=== PATIENT | female | born 1960 | race African-American/Black ===

== ENCOUNTER 2017-01-24 13:27 | Inpatient (IN) ==
--- NOTE | 2017-01-24 15:04 | XRay Report ---
XR foot 2V RT Indication: Foot infection. Comparison: None. Technique: AP, lateral, and oblique images of the right foot were submitted. Findings: Absence of the distal right fourth metatarsal and toe and fracture deformities of the proximal phalanx of the right second toe and third toe are present with additional fracture involving the neck of the distal second metatarsal. Partially calcified soft tissue surrounding the articulation of the great toe metatarsal and cuneiform are of uncertain etiology. Healing fracture could be considered as there appears to be fracture involving the base of the great toe metatarsal. Diffuse soft tissue swelling is present involving the forefoot and midfoot. Impression: 1. Multiple fractures are demonstrated, involving the base of the great toe metatarsal, the distal second metatarsal, and proximal phalanx of the second and third toe. There may be partial callus formation involving the base of the great toe metatarsal. Osteomyelitis is not excluded. 2. Absence of the fourth toe and distal fourth metatarsal is demonstrated. 3. Diffuse soft tissue swelling is considered compatible with given history of infection. 01/24/2017 2:59 PM PROCEDURE INTERPRETED AT [facility] DEPARTMENT OF RADIOLOGY Final Report Signed by: Dr. Kingston Aflred
[2017-01-24 15:40] LABS: Basophils % 0.2 % (0.0-0.8); Eosinophils % 0.3 % (0.00-10.9); Hematocrit 36.8 VOL% (35.7-47.0); Hemoglobin 12.4 GM/DL (12.0-16.0); Immature Granulocytes % 0.4 %; Immature Granulocytes Absolute 0.04 #; Lymphocytes # 0.9 10*3/uL (1.4-4.0); Lymphocytes % 8.2 % (21.3-54.2); Mean Corpuscular HGB Conc 33.7 GM/DL (32-36); Mean Corpuscular Hemoglobin 33 PG (27-34); Mean Corpuscular Volume 96.6 FL (87-102); Monocytes # 0.7 10*3/uL (0.11-0.8); Monocytes % 6.7 % (1.7-12.7); Neutrophils # 8.9 10*3/uL (1.4-7.4); Neutrophils % 84.2 % (38.7-73.9); Platelet Count 138 T/CUMM (130-400); Red Blood Count 3.81 MC/CUMM (3.8-5.5); Red Cell Distribution Width 12.3 % (9.3-17.3); White Blood Count 10.6 T/CUMM (4-12)
[2017-01-24 16:08] LABS: Calcium 8.4 MG/DL (8.5-10.1); Magnesium 1.4 MG/DL (1.8-2.4); Osmolality,Calculated 278.5 MOS/KG (273-304); Potassium 4.9 MMOL/L (3.5-5.1)
[2017-01-24] MEDS ORDERED: GLUCAGON 1 MG VIAL IM PRN (16:37)
[2017-01-24] MEDS ORDERED: HYDROmorphone 2 MG/1 ML VIAL IV PRN (16:37)
[2017-01-24] MEDS ORDERED: ACETAMINOPHEN 325 MG TABLET PO PRN (16:37)
[2017-01-24] MEDS ORDERED: ONDANSETRON 4 MG/2 ML VIAL IV PRN (16:37)
[2017-01-24] MEDS ORDERED: DEXTROSE 50% 25 GM/50 ML SYRINGE IV PRN (16:37)
[2017-01-24] MEDS ORDERED: SKIN HEALING OINT (AQUAPHOR) 50 GM TUBE TOP PRN (16:44)
[2017-01-24] MEDS ORDERED: CHLORHEXIDINE 4% SOLN 118 ML BOTTLE TOP ONE (16:44)
--- NOTE | 2017-01-24 16:50 | General Surg History&Physical ---
Assessment and Plan - Time spent with patient Time spent with patient: Greater than 30 minutes (1) Laceration of third toe of right foot with complication Status: Acute Assessment and plan: Impression: Laceration third toe with cellulitis Plan: IV antibiotics and wound care with possible suture closure first of the week Current Visit: Yes (2) Traumatic ecchymosis of right foot Status: Acute Assessment and plan: Impression: Trauma right foot with fracture dislocation second third toe Plan: Wound care Current Visit: Yes (3) Cellulitis of foot, right Status: Acute Assessment and plan: Impression: Cellulitis right foot secondary laceration toe Plan: IV antibiotic Current Visit: Yes (4) Diabetes Status: Acute Assessment and plan: Impression: Diabetes type 2 Plan: Glucose control Current Visit: No Qualifiers: Diabetes mellitus type: type 2 History of Present Illness Chief complaint: Traumatic injury to the right foot with cellulitis History of present illness: Ms. Reynolds is a 56 year old female -[place] female who is diabetic and somewhat overweight with somewhat of neuropathy in the lower extremities. I had seen her in the past for breast cyst that we had removed with no evidence of cancer present. She apparently 4 days ago sustained an injury to the right foot about the toes at this time. She comes in because a low-grade fever and evidence of swelling and erythematous changes on the dorsum of the foot at the base of the second and third toe. Underneath the toe is evidence of a laceration of the underside of the toe that is not clean at this time probably the source of the infection. Will admit her for some wound care as well as antibiotics get this under control maybe we can take her surgery first of the week for possible closure of that laceration. Home Medications Medication Instructions Recorded Confirmed Type levETIRAcetam TAB [Keppra Tab] 500 mg PO TID 11/15/14 01/24/17 History Gabapentin Cap/Tab [Neurontin 300 mg PO BID #60 capsule 12/07/14 01/24/17 Rx Cap/Tab] Benztropine Tab [Cogentin Tab] 0.5 mg PO TID 03/03/16 01/24/17 History Venlafaxine HCl [Effexor XR] 150 mg PO DAILY 03/13/16 01/24/17 History Carbidopa/Levodopa 1 each PO QID 04/09/16 01/24/17 History [Carbidopa-Levodopa 25-250 Tab] Travoprost 0.004% Oph Soln 1 drop BOTH EYES BEDTIME 04/09/16 01/24/17 History [Travatan Z] Carvedilol [Coreg] 25 mg PO BID tablet 06/14/16 01/24/17 Rx amLODIPine [Norvasc] 10 mg PO DAILY tablet 06/14/16 01/24/17 Rx Tolterodine LA [Detrol LA] 4 mg PO DAILY 10/31/16 01/24/17 History HYDROcodone/ACETAMIN 10-325 [[place] 1 tablet PO TID 01/24/17 01/24/17 History 10-325] Haloperidol [Haloperidol] 10 mg PO BID 01/24/17 01/24/17 History Insulin Aspart [NovoLOG] 10 unit SUBCUT ACHS 01/24/17 01/24/17 History hydrALAZINE TAB [Apresoline Tab] 25 mg PO TID 01/24/17 01/24/17 History Allergies Allergy/AdvReac Type Severity Reaction Status Date / Time No Known Allergies Allergy Verified 11/02/16 18:43 Medical,Surgical,& Family Hx - Medical History Cardio: History of: CHF (DR MARTINEZ), CAD, Hypertension No history of: Aneurysm, Cardiac Dysrhythmia, Cerebrovascular Disease, Congenital Heart Disease, [place], Pacemaker, PVD, Valvular Heart Disease, Cardiovascular Problems Psychological: History of: Depression, Schizophrenia, Psychiatric Problems No history of: Anxiety Disorders, ADHD, Behavior Problems, Bipolar Disorder, Previous Suicide Attempt, Psychiatric/Substance Abuse Tx, Violent Behavior Neurology: History of: Cerebrovascular Accident (Early WEAKNESS LEFT SIDE ), Migraine, Parkinson's Disease No history of: Brain Aneurysm, Cerebral Hemorrhage, Cerebral Palsy, Dementia , Multiple Sclerosis, Peripheral Neuropathy, Seizures, TIA, Vertigo, Neurologocal Cancer HEENT: History of: Ear Problem (Hearing loss left ear), Eye Problem (Cataracts) , Glaucoma No history of: Dental Problems, Oral Cancer, HEENT Problems Endocrine: History of: Diabetes Mellitus (IDDM), Endocrine Problems (Diabetes) No history of: Adrenal Disease, Diabetes Mellitus (NIDDM), Dyslipidemia, Thyroid Disorder, Endocrine Cancer Rheumatology: No history of;: Fibromyalgia, Gout, Myasthenia Gravis, Psoriasis, Rheumatoid Arthritis, Sjogrens, Systemic Lupus Erythematosus, Rheumatological Problems Respiratory: History of: Asthma, Bronchitis, COPD, Obstructive Sleep Apnea ( DOES NOT USE CPAP), Respiratory Problems No history of: Intubation, Pulmonary Embolism, Pulmonary Hypertension, Pneumonia, Lung Cancer Renal: History of: Renal Failure (Stage III - Not on dialysis - Dr. Marc KNIGHT), Renal Problems No history of: Renal (Kidney) Cancer, Dialysis Genitourinary: History of: Bladder Problem (OVERACTIVE), Kidney Stones, Problems (Urinary incontinence) No history of: Recurring Urinary Tract Infections, Genitourinary Cancer Gastrointestinal: History of: GERD No history of: Bowel Obstruction, Clostridium Difficile, Crohn's Disease, Diverticulitis/ Diverticulosis, Esophageal Varices, Gastrointestinal Bleed, Hemorrhoids, Hematochezia, Hepatitis, Liver Problems, Pancreatitis, Polyps, Ulcerative Colitis, Gastrointestinal Cancer, GI Problems Musculoskeletal: History of: Amputation (4th toe Rt foot), Back/Neck Problems, Degenerative Disk Disease, Osteoporosis, Musculoskeletal Problems (Arthritis) No history of: Herniated Disk, Musculoskeletal Cancer Hematology: History of: Anemia No history of: Blood Transfusion Reaction, Bleeding Problems, Clotting Problems, Sickle Cell Disease, Hematologic Cancer, Blood Disorders Reproductive: History of: Sexually Transmitted Disorders (Gonnorhea) No history of: Abnormal Pap Smear, Breast Cancer, Endometriosis, Ectopic , Ovarian Cysts, Complication, Reproductive Cancer, Reproductive Problems Other: No history of: Anesthesia Reactions, Anaphylaxis, Cancer, Eczema, HIV, Malignant Hyperthermia, MRSA, Vancomycin-Resistant Enterococci, Skin Problems, Miscellaneous Medical Problems - Surgical History Cardiac Surgeries: Sugical HX of: Vascular Access Devices (Mediport on RT side of chest HARD TO STICK) Patient Denies: Femoral-Popliteal Bypass Graft, Cardiac Catheterization, Cardiac Surgery, Carotid Endarterectomy, Internal Defibrillator Thoracic Surgeries: Patient denies;: Kidney (Renal Surgery), Lithotripsy, Nephrectomy, Organ Transplant, Lobectomy Neurologic Surgeries: Patient denies: Brain Aneurysm, Cerebral Hemorrhage, Neurologic Surgery HEENT Surgeries: Surgical HX of: Eye Surgery (Cataract removed bilaterally) Patient denies: Carotid Endarterectomy, Thyroid Surgery, Tonsilectomy & Adenoidectomy Abdominal Surgeries: Surgical HX of: Abdominal Surgery, Colonoscopy, EGD Patient denies: Appendectomy, Cholecystectomy, Gastric Bypass Surgery, Hernia Repair, Splenectomy Reproductive Surgeries: Surgical HX of;: Breast Surgery (Bilateral breast reduction), Gynecologic Surgery (Complete hysterectomy), Hysterectomy, Tubal Ligation Patient denies;: Section, Cystoscopy, Dilation and Curettage, Genitourinary Surgery Orthopedic Surgeries: Surgical HX of;: Orthopedic Surgery (NECK AND BACK), Spinal Surgery Patient denies;: Implanted Devices, Total Hip Replacement, Total Knee Replacement - Family History Family History: Reports;: Family Cancer (Father, Mother), Family Diabetes ( Mother, G'mother), Family Heart Disease (Father), Family Hypertension (G'mother , Father), Family Stroke (Family; Brother) Denies;: Family Anesthesia Reaction, Family Psychiatric Problems - Social History Smoking Status: Former smoker Exam - Constitutional Vitals: Period Temp Pulse Resp BP Sys/Quintanilla Pulse Ox Last 24 Hr 97.0 F 100 20 157/88 99 General appearance: mild distress - Head Head exam: Present: normal inspection - ENT ENT exam: Present: normal exam - Neck Neck exam: Present: normal inspection - Respiratory Respiratory exam: Present: rales - Cardiovascular Cardiovascular exam: Present: RRR - GI/Abdominal GI/Abdominal exam: Present: normal bowel sounds, soft - Extremities Exam Extremities exam: Present: other (The right foot is swollen with erythematous changes on the dorsum of the foot at the base of the second and third toes. There is a laceration on the underside of the third toe with some old blood present there. Fourth toe has been amputated in the past.) - Back Exam Back exam: Present: normal inspection - Neurological Exam Neurological exam: Present: alert, oriented X3, CN II-XII intact - Skin Skin exam: Present: normal color, warm, dry 12 point system: reviewed and no additional remarkable complaints except as stated Results - Labs CBC & BMP: 01/24/17 15:31 01/24/17 15:31 Lab Results: I have reviewed the past 24 hour labs - Diagnostic Findings Procedure: X-ray: report reviewed by me (Fracture dislocation second and third toe)
--- NOTE | 2017-01-24 17:18 | Emergency Department Note ---
Sawyer Mclaughlin Brittany, am scribing for, and in the presence of, Maximiliano Palacios M.D. 14:16. Suzanne Mclaughlin Howard T, M.D., personally performed the services described in this documentation, ascribed by Princess Jacques in my presence, and it is both accurate and complete 717 . Arrival - Arrival Chief Complaint: Extremity Injury Stated Complaint: diabetic,toes cut ED Nursing Triage Note: Pt c/o cut to her 3rd right toe occurred 3 days ago with discoloration of the distal toe. Mode of Arrival: Wheelchair Limitations: No Limitations Source: Patient, RN Notes Reviewed Time Seen by Provider: 01/24/17 13:31 - History of Present Illness HPI Narrative: Patient is a 56 y/o black female presenting to [facility] with c/o laceration of the third right toe that occurred 3 days ago. Patient reports that since sustaining laceration 3 days ago, she has now developed some discoloration of the distal aspect of the right third toe. Denies having any fever/chills or nausea/ vomiting. She reports that blood glucose levels have been a little elevated at times, but most often low in the mornings with which she states she's been told by PCP to eat more at night. Patient does have a history of IDDM and has required amputation of the fourth R toe in the past. Patient reports ast amputation was performed by Dr. Stefano GIORDANO. PMHx CHF, CAD, HTN, Depression, Schizophrenia, CVA, Migraine, Parkinson's Dz, Glaucoma, IDDM, Overactive Bladder , Kidney Stones, 4th Right Toe Amputation, Osteoporosis, Degenerative Disk Dz. Onset (ago): day(s) (3) Consistency: constant Allergies/Adverse Reactions: Allergies Allergy/AdvReac Type Severity Reaction Status Date / Time No Known Allergies Allergy Verified 11/02/16 18:43 Home Medications: Home Medications Medication Instructions Recorded Confirmed Type levETIRAcetam TAB [Keppra Tab] 500 mg PO TID 11/15/14 01/24/17 History Gabapentin Cap/Tab [Neurontin 300 mg PO BID #60 capsule 12/07/14 01/24/17 Rx Cap/Tab] Benztropine Tab [Cogentin Tab] 0.5 mg PO TID 03/03/16 01/24/17 History Venlafaxine HCl [Effexor XR] 150 mg PO DAILY 03/13/16 01/24/17 History Carbidopa/Levodopa 1 each PO QID 04/09/16 01/24/17 History [Carbidopa-Levodopa 25-250 Tab] Travoprost 0.004% Oph Soln 1 drop BOTH EYES BEDTIME 04/09/16 01/24/17 History [Travatan Z] Carvedilol [Coreg] 25 mg PO BID tablet 06/14/16 01/24/17 Rx amLODIPine [Norvasc] 10 mg PO DAILY tablet 06/14/16 01/24/17 Rx Tolterodine LA [Detrol LA] 4 mg PO DAILY 10/31/16 01/24/17 History HYDROcodone/ACETAMIN 10-325 [[place] 1 tablet PO TID 01/24/17 01/24/17 History 10-325] Haloperidol [Haloperidol] 10 mg PO BID 01/24/17 01/24/17 History Insulin Aspart [NovoLOG] 10 unit SUBCUT ACHS 01/24/17 01/24/17 History hydrALAZINE TAB [Apresoline Tab] 25 mg PO TID 01/24/17 01/24/17 History Review of System - Review of System 12 point system: reviewed and no additional remarkable complaints except as stated - Review of System Constitutional: Absent: chills, fever Eyes: Absent: vision change Respiratory: Absent: respiratory distress Cardiovascular: Absent: chest pain Gastrointestinal: Absent: abdominal pain, nausea Musculoskeletal: Absent: arm pain, back pain, leg pain, neck pain Skin: Present: change in color (third right toe discoloration) Medical,Surgical,& Family Hx - Medical History Cardio: History of: CHF (DR MARTINEZ), CAD, Hypertension No history of: Aneurysm, Cardiac Dysrhythmia, Cerebrovascular Disease, Congenital Heart Disease, [place], Pacemaker, PVD, Valvular Heart Disease, Cardiovascular Problems Psychological: History of: Depression, Schizophrenia, Psychiatric Problems No history of: Anxiety Disorders, ADHD, Behavior Problems, Bipolar Disorder, Previous Suicide Attempt, Psychiatric/Substance Abuse Tx, Violent Behavior Neurology: History of: Cerebrovascular Accident (Early WEAKNESS LEFT SIDE ), Migraine, Parkinson's Disease No history of: Brain Aneurysm, Cerebral Hemorrhage, Cerebral Palsy, Dementia , Multiple Sclerosis, Peripheral Neuropathy, Seizures, TIA, Vertigo, Neurologocal Cancer HEENT: History of: Ear Problem (Hearing loss left ear), Eye Problem (Cataracts) , Glaucoma No history of: Dental Problems, Oral Cancer, HEENT Problems Endocrine: History of: Diabetes Mellitus (IDDM), Endocrine Problems (Diabetes) No history of: Adrenal Disease, Diabetes Mellitus (NIDDM), Dyslipidemia, Thyroid Disorder, Endocrine Cancer Rheumatology: No history of;: Fibromyalgia, Gout, Myasthenia Gravis, Psoriasis, Rheumatoid Arthritis, Sjogrens, Systemic Lupus Erythematosus, Rheumatological Problems Respiratory: History of: Asthma, Bronchitis, COPD, Obstructive Sleep Apnea ( DOES NOT USE CPAP), Respiratory Problems No history of: Intubation, Pulmonary Embolism, Pulmonary Hypertension, Pneumonia, Lung Cancer Renal: History of: Renal Failure (Stage III - Not on dialysis - Dr. Marc KNIGHT), Renal Problems No history of: Renal (Kidney) Cancer, Dialysis Genitourinary: History of: Bladder Problem (OVERACTIVE), Kidney Stones, Problems (Urinary incontinence) No history of: Recurring Urinary Tract Infections, Genitourinary Cancer Gastrointestinal: History of: GERD No history of: Bowel Obstruction, Clostridium Difficile, Crohn's Disease, Diverticulitis/ Diverticulosis, Esophageal Varices, Gastrointestinal Bleed, Hemorrhoids, Hematochezia, Hepatitis, Liver Problems, Pancreatitis, Polyps, Ulcerative Colitis, Gastrointestinal Cancer, GI Problems Musculoskeletal: History of: Amputation (4th toe Rt foot), Back/Neck Problems, Degenerative Disk Disease, Osteoporosis, Musculoskeletal Problems (Arthritis) No history of: Herniated Disk, Musculoskeletal Cancer Hematology: History of: Anemia No history of: Blood Transfusion Reaction, Bleeding Problems, Clotting Problems, Sickle Cell Disease, Hematologic Cancer, Blood Disorders Reproductive: History of: Sexually Transmitted Disorders (Gonnorhea) No history of: Abnormal Pap Smear, Breast Cancer, Endometriosis, Ectopic , Ovarian Cysts, Complication, Reproductive Cancer, Reproductive Problems Other: No history of: Anesthesia Reactions, Anaphylaxis, Cancer, Eczema, HIV, Malignant Hyperthermia, MRSA, Vancomycin-Resistant Enterococci, Skin Problems, Miscellaneous Medical Problems - Surgical History Cardiac Surgeries: Sugical HX of: Vascular Access Devices (Mediport on RT side of chest HARD TO STICK) Patient Denies: Femoral-Popliteal Bypass Graft, Cardiac Catheterization, Cardiac Surgery, Carotid Endarterectomy, Internal Defibrillator Thoracic Surgeries: Patient denies;: Kidney (Renal Surgery), Lithotripsy, Nephrectomy, Organ Transplant, Lobectomy Neurologic Surgeries: Patient denies: Brain Aneurysm, Cerebral Hemorrhage, Neurologic Surgery HEENT Surgeries: Surgical HX of: Eye Surgery (Cataract removed bilaterally) Patient denies: Carotid Endarterectomy, Thyroid Surgery, Tonsilectomy & Adenoidectomy Abdominal Surgeries: Surgical HX of: Abdominal Surgery, Colonoscopy, EGD Patient denies: Appendectomy, Cholecystectomy, Gastric Bypass Surgery, Hernia Repair, Splenectomy Reproductive Surgeries: Surgical HX of;: Breast Surgery (Bilateral breast reduction), Gynecologic Surgery (Complete hysterectomy), Hysterectomy, Tubal Ligation Patient denies;: Section, Cystoscopy, Dilation and Curettage, Genitourinary Surgery Orthopedic Surgeries: Surgical HX of;: Orthopedic Surgery (NECK AND BACK), Spinal Surgery Patient denies;: Implanted Devices, Total Hip Replacement, Total Knee Replacement - Family History Family History: Reports;: Family Cancer (Father, Mother), Family Diabetes ( Mother, G'mother), Family Heart Disease (Father), Family Hypertension (G'mother , Father), Family Stroke (Family; Brother) Denies;: Family Anesthesia Reaction, Family Psychiatric Problems - Social History Smoking Status: Former smoker Exam Vital Signs: Vital Signs Temperature 97.0 F L 01/24/17 13:29 Pulse Rate 100 H 01/24/17 13:29 Respiratory Rate 20 01/24/17 13:29 Blood Pressure 157/88 01/24/17 13:29 O2 Sat by Pulse Oximetry 99 01/24/17 13:29 - General General appearance: alert, in no apparent distress - Head Head exam: Present: atraumatic, normocephalic, normal inspection - Eye Eye exam: Present: normal appearance, PERRL, EOMI - ENT ENT exam: Present: normal exam, normal oropharynx - Neck Neck exam: Present: normal inspection, full ROM, trachea midline - Chest Chest inspection: Present: normal inspection, symmetric chest wall rise - Respiratory Respiratory exam: Present: normal lung sounds bilaterally - Cardiovascular Cardiovascular exam: Present: regular rate, normal rhythm, normal heart sounds - Abdominal Exam Abdominal exam: Present: soft, normal bowel sounds. Absent: tenderness - Extremities Exam Extremities exam: Present: full ROM - Expanded Lower Right Lower Foot/toe exam: Present: full ROM, swelling, laceration (old laceration to the plantar aspect of the third toe), erythema, amputation (previous right fourth toe amputation). Absent: normal inspection (hard to touch; distal aspect of the third toe is necrotic appearing), tenderness - Back Exam Back exam: Present: normal inspection - Neurological Exam Neurological exam: Present: alert, oriented X3, CN II-XII intact. Absent: motor sensory deficit - Psychiatric Psychiatric exam: Present: normal affect, normal mood - Skin Skin exam: Present: warm, dry Course Course Narrative: Medical decision making: History exam consistent with infection, evaluated by general surgeon for admission for antibiotics and possible surgical debridement. Results - Labs CBC & BMP: 01/24/17 15:31 01/24/17 15:31 Lab Results: I have reviewed the patients labs Labs: Laboratory Tests 01/24/17 15:31 WBC 10.6 RBC 3.81 Hgb 12.4 Hct 36.8 Plt Count 138 Neut % (Auto) 84.2 H Lymph % (Auto) 8.2 L Neut # (Auto) 8.9 H Lymph # (Auto) 0.9 L Laboratory Tests 01/24/17 15:31 Lactic Acid 0.7 Laboratory Tests 01/24/17 15:31 Sodium 132 L Potassium 4.9 Chloride 103 Carbon Dioxide 21 Anion Gap 12.9 BUN 36 H Creatinine 2.80 H BUN/Creatinine Ratio 12.00 Glucose 217 H Calcium 8.4 L Magnesium 1.4 L - Diagnostic Findings Procedure: X-ray: report reviewed by me (Foot XR: 1. Multiple fractures are demonstrated, involving the base of the great toe metatarsal, the distal second metatarsal, and proximal phalanx of the second and third toe. There may be partial callus formation involving the base of the great toe metatarsal. Osteomyelitis is not excluded. 2. Absence of the fourth toe and distal fourth metatarsal is demonstrated. 3. Diffuse soft tissue swelling is considered compatible with given history of infection.) Disposition Clinical Impression: Laceration of third toe of right foot with complication, Cellulitis of foot, right, Traumatic ecchymosis of right foot Case discussed with: patient Disposition: Still a Patient Condition: Stable Time of Disposition: 17:18
--- NOTE | 2017-01-24 17:59 | EKG Report ---
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
[2017-01-24] MEDS: CARBIDOPA/LEVODOPA 25-250 MG TABLET PO SCH ×2 (20:08→20:43)
[2017-01-24] MEDS: TRAVOPROST 0.004% OPH SOLN 2.5 ML BOTTLE BOTH EYES SCH (20:43)
[2017-01-24] MEDS: INSULIN LISPRO 100 UNIT/ML SUBCUT SCH (20:43)
[2017-01-24] MEDS: BENZTROPINE 0.5 MG TABLET PO SCH (20:43)
[2017-01-24] MEDS: levETIRAcetam 500 MG TABLET PO SCH (20:43)
[2017-01-24] MEDS: hydrALAZINE 25 MG TABLET PO SCH (20:43)
[2017-01-24] MEDS: GABAPENTIN 300 MG CAPSULE PO SCH (20:43)
[2017-01-24] MEDS: DOCUSATE SODIUM 100 MG CAPSULE PO SCH (20:43)
[2017-01-24] MEDS: SODIUM CHLORIDE 0.45% 1,000 ML IV SCH (20:44)
[2017-01-24] MEDS: PIPERACILLIN/TAZOBACTAM 3,375 MG in SODIUM CHLORIDE 0.9% 100 ML IV SCH (20:44)
[2017-01-24] MEDS: HALOPERIDOL 5 MG TABLET PO SCH (20:46)
[2017-01-24] MEDS: CARVEDILOL 25 MG TABLET PO SCH (20:46)
[2017-01-24] MEDS: INSULIN REGULAR 100 UNIT/ML SUBCUT SCH (20:47)
[2017-01-25] MEDS: PIPERACILLIN/TAZOBACTAM 3,375 MG in SODIUM CHLORIDE 0.9% 100 ML IV SCH ×3 (04:47→20:51)
[2017-01-25 06:29] LABS: Albumin 2.1 G/DL (3.4-5.0); Bilirubin,Total 0.8 MG/DL (0.2-1.0); Magnesium 1.5 MG/DL (1.8-2.4); Osmolality,Calculated 280.2 MOS/KG (273-304); Potassium 4.9 MMOL/L (3.5-5.1); Total Protein 6.1 G/DL (6.4-8.3)
[2017-01-25 07:12] LABS: Basophils % 0.1 % (0.0-0.8); Eosinophils # 0.1 10*3/uL (0.0-0.87); Eosinophils % 0.6 % (0.00-10.9); Immature Granulocytes % 0.4 %; Immature Granulocytes Absolute 0.06 #; Lymphocytes # 1.9 10*3/uL (1.4-4.0); Lymphocytes % 13.3 % (21.3-54.2); Mean Corpuscular Hemoglobin 33 PG (27-34); Mean Corpuscular Volume 99.1 FL (87-102); Mean Platelet Volume 11.1 FL (9.6-12.0); Monocytes # 1.1 10*3/uL (0.11-0.8); Monocytes % 7.7 % (1.7-12.7); Neutrophils # 10.9 10*3/uL (1.4-7.4); Neutrophils % 77.9 % (38.7-73.9); Platelet Count 194 T/CUMM (130-400); Red Blood Count 2.32 MC/CUMM (3.8-5.5); Red Cell Distribution Width 12.4 % (9.3-17.3)
[2017-01-25 07:14] LABS: Hemoglobin 7.6 GM/DL (12.0-16.0)
[2017-01-25 07:54] LABS: Basophils % 0.1 % (0.0-0.8); Eosinophils # 0.1 10*3/uL (0.0-0.87); Eosinophils % 0.5 % (0.00-10.9); Hematocrit 22.4 VOL% (35.7-47.0); Immature Granulocytes % 0.6 %; Immature Granulocytes Absolute 0.09 #; Lymphocytes # 1.9 10*3/uL (1.4-4.0); Lymphocytes % 13.3 % (21.3-54.2); Mean Corpuscular HGB Conc 33.5 GM/DL (32-36); Mean Corpuscular Hemoglobin 33 PG (27-34); Mean Corpuscular Volume 98.2 FL (87-102); Mean Platelet Volume 10.9 FL (9.6-12.0); Monocytes # 1.1 10*3/uL (0.11-0.8); Monocytes % 7.7 % (1.7-12.7); Neutrophils # 10.9 10*3/uL (1.4-7.4); Neutrophils % 77.8 % (38.7-73.9); Platelet Count 186 T/CUMM (130-400); Red Blood Count 2.28 MC/CUMM (3.8-5.5); Red Cell Distribution Width 12.2 % (9.3-17.3)
[2017-01-25 07:57] LABS: Hemoglobin 7.5 GM/DL (12.0-16.0)
[2017-01-25] MEDS ORDERED: ENOXAPARIN 30 MG/0.3 ML SYRINGE SUBCUT SCH (09:00)
[2017-01-25] MEDS ORDERED: SODIUM CHLORIDE 0.9% 250 ML IV PRN (09:14)
--- NOTE | 2017-01-25 09:20 | XRay Report ---
Exam: XR chest 1V portable Date: 01/25/2017 4:00 AM Indication: Cellulitis of foot Comparison: 11/02/2016 Technical: AP Findings: Cardiomegaly is present. A power port catheter is in place from a right-sided approach with the distal tip in superior vena cava. 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 Mild interstitial thickening present. Arthritic change present over the shoulders. No obvious consolidating infiltrate or obvious effusion present. ASVD is present. Impression: 1. Cardiomegaly without decompensation 2. Stable position of the PowerPort catheter and surgical changes in the neck 3. No acute infiltrate clearly seen with some crowding of the pulmonary vasculature mid inspiratory exam without effusions PROCEDURE INTERPRETED AT [facility] DEPARTMENT OF RADIOLOGY Final Report Signed by: Dr. Miguel Blair
--- NOTE | 2017-01-25 09:20 | General Surgery Progress Note ---
Assessment and Plan (1) Laceration of third toe of right foot with complication Status: Acute Assessment and plan: Impression: Laceration third toe with cellulitis Plan: IV antibiotics and wound care with possible suture closure first of the week 01/25/2017. The toe looks stable at this time I am hoping I can pull it together although I am not sure. I think erythematous changes of got better and will continue wound care to get her set up for some surgery on Saturday to debride this toe see if there is any way that can be safely pulled together and closed. Current Visit: Yes (2) Traumatic ecchymosis of right foot Status: Acute Assessment and plan: Impression: Trauma right foot with fracture dislocation second third toe Plan: Wound care Current Visit: Yes (3) Cellulitis of foot, right Status: Acute Assessment and plan: Impression: Cellulitis right foot secondary laceration toe Plan: IV antibiotic 01/25/2017. Improved Current Visit: Yes (4) Diabetes Status: Acute Assessment and plan: Impression: Diabetes type 2 Plan: Glucose control Current Visit: No Qualifiers: Diabetes mellitus type: type 2 (5) Renal insufficiency Status: Acute Assessment and plan: 01/25/2017. Patient has some degree of renal insufficiency with initial creatinine of 2.7 and now this morning is 3.4. Will get neurology look and be sure that we are not missing anything to see if there is you have the way to reverse some of this. Current Visit: Yes (6) Anemia Status: Acute Current Visit: Yes (7) Anemia Status: Acute Assessment and plan: 01/25/2017. Today hematocrit dropped down to 23 from admission of 36. We had a repeated and remains a 23. There is no sign of any bleeding this wound is so small that she did not bleed significantly amount and the dressings showed no bleeding on. She does have some renal insufficiency but are not I can explain everything at this time. That is a dramatic drop and change in this hematocrit. We will go ahead and transfuse her at this time and get some studies to see if we determine what this anemia is all about. Cannot say or find anything to indicate any acute blood loss. Current Visit: No Subjective Patient reports: Present: no new complaints, afebrile Exam - Constitutional Vitals: Period Temp Pulse Resp BP Sys/Quintanilla Pulse Ox Last 24 Hr 96.7 F-99.9 F 81-103 18-20 123-184/67-98 90-99 General appearance: mild distress - Head Head exam: Present: normal inspection - ENT ENT exam: Present: normal exam - Neck Neck exam: Present: normal inspection - Respiratory Respiratory exam: Present: clear to auscultation bilaterally, rales - Cardiovascular Cardiovascular exam: Present: RRR - GI/Abdominal GI/Abdominal exam: Present: hypoactive bowel sounds, soft - Extremities Exam Extremities exam: Present: other (Erythematous changes base of the toes on the right is better as a wound under the third toe that still needs a little more wound care to clean it up a little bit at this time. No ischemic changes or progressive worsening of the foot at this time.) - Back Exam Back exam: Present: normal inspection - Neurological Exam Neurological exam: Present: alert, oriented X3, CN II-XII intact - Skin Skin exam: Present: normal color, warm, dry Results - Labs CBC & BMP: 01/25/17 07:40 01/25/17 05:00 Lab Results: I have reviewed the past 24 hour labs
[2017-01-25 09:31] LABS: % Iron Saturation 9.2 % (18-50)
[2017-01-25] MEDS: BENZTROPINE 0.5 MG TABLET PO SCH ×3 (10:10→20:52)
[2017-01-25] MEDS: GABAPENTIN 300 MG CAPSULE PO SCH ×2 (10:10→20:52)
[2017-01-25] MEDS: PANTOPRAZOLE 40 MG TABLET PO SCH (10:11)
[2017-01-25] MEDS: levETIRAcetam 500 MG TABLET PO SCH ×3 (10:11→20:52)
[2017-01-25] MEDS: BISACODYL 5 MG TABLET PO PRN (10:12)
[2017-01-25] MEDS: TOLTERODINE LA 4 MG CAPSULE PO SCH (10:12)
[2017-01-25] MEDS: BACITRACIN OINT 0.9 GM PACK TOP SCH (10:12)
[2017-01-25] MEDS: CARBIDOPA/LEVODOPA 25-250 MG TABLET PO SCH ×4 (10:13→20:52)
[2017-01-25] MEDS: amLODIPine 10 MG TABLET PO SCH (10:13)
[2017-01-25] MEDS: DOCUSATE SODIUM 100 MG CAPSULE PO SCH ×2 (10:13→20:52)
[2017-01-25] MEDS: CARVEDILOL 25 MG TABLET PO SCH ×2 (10:13→17:13)
[2017-01-25] MEDS: INSULIN LISPRO 100 UNIT/ML SUBCUT SCH ×4 (10:14→21:30)
[2017-01-25] MEDS: INSULIN REGULAR 100 UNIT/ML SUBCUT SCH ×4 (10:14→20:59)
[2017-01-25] MEDS: HALOPERIDOL 5 MG TABLET PO SCH ×2 (10:16→20:55)
[2017-01-25] MEDS: VENLAFAXINE XR 75 MG CAPSULE PO SCH (10:16)
[2017-01-25] MEDS: hydrALAZINE 25 MG TABLET PO SCH ×3 (10:16→20:52)
[2017-01-25 10:52] LABS: Folate 11.1 NG/ML (5.4-24.0)
[2017-01-25] MEDS: SODIUM CHLORIDE 0.45% 1,000 ML IV SCH (12:30)
[2017-01-25] MEDS ORDERED: TUBERCULIN SKIN TEST 0.1 ML SYRINGE INTRADERM ONE (12:49)
--- NOTE | 2017-01-25 14:21 | Nephrology Consult Note ---
History of Present Illness Chief complaint: Pt admitted for right foot fx. Referred for elevated creatinine. History of present illness: Ms. Reynolds is a 56 year old female with long hx of CKD stage 4 with creatinine 2.6 in 2013. 3.2 today. Longstanding HTN/DM2. Hx of schizophrenia recently hospitalized in [facility]. Admitted s/p trauma to right foot, plain film revealing fxs of 1st, 2nd and 3rd toes on right. eGFR 24cc/min currently, CKD stage 4. Elevated total globulins, rule out myeloma. Home Medications Medication Instructions Recorded Confirmed Type levETIRAcetam TAB [Keppra Tab] 500 mg PO TID 11/15/14 01/24/17 History Gabapentin Cap/Tab [Neurontin 300 mg PO BID #60 capsule 12/07/14 01/24/17 Rx Cap/Tab] Benztropine Tab [Cogentin Tab] 0.5 mg PO TID 03/03/16 01/24/17 History Venlafaxine HCl [Effexor XR] 150 mg PO DAILY 03/13/16 01/24/17 History Carbidopa/Levodopa 1 each PO QID 04/09/16 01/24/17 History [Carbidopa-Levodopa 25-250 Tab] Travoprost 0.004% Oph Soln 1 drop BOTH EYES BEDTIME 04/09/16 01/24/17 History [Travatan Z] Carvedilol [Coreg] 25 mg PO BID tablet 06/14/16 01/24/17 Rx amLODIPine [Norvasc] 10 mg PO DAILY tablet 06/14/16 01/24/17 Rx Tolterodine LA [Detrol LA] 4 mg PO DAILY 10/31/16 01/24/17 History HYDROcodone/ACETAMIN 10-325 [[place] 1 tablet PO TID 01/24/17 01/24/17 History 10-325] Haloperidol [Haloperidol] 10 mg PO BID 01/24/17 01/24/17 History Insulin Aspart [NovoLOG] 10 unit SUBCUT ACHS 01/24/17 01/24/17 History hydrALAZINE TAB [Apresoline Tab] 25 mg PO TID 01/24/17 01/24/17 History Allergies Allergy/AdvReac Type Severity Reaction Status Date / Time No Known Allergies Allergy Verified 11/02/16 18:43 Medical,Surgical,& Family Hx - Medical History Cardio: History of: CHF (DR MARTINEZ), CAD, Hypertension No history of: Aneurysm, Cardiac Dysrhythmia, Cerebrovascular Disease, Congenital Heart Disease, NH, Pacemaker, PVD, Valvular Heart Disease, Cardiovascular Problems Psychological: History of: Depression, Schizophrenia, Psychiatric Problems No history of: Anxiety Disorders, ADHD, Behavior Problems, Bipolar Disorder, Previous Suicide Attempt, Psychiatric/Substance Abuse Tx, Violent Behavior Neurology: History of: Cerebrovascular Accident (Early WEAKNESS LEFT SIDE ), Migraine, Parkinson's Disease No history of: Brain Aneurysm, Cerebral Hemorrhage, Cerebral Palsy, Dementia , Multiple Sclerosis, Peripheral Neuropathy, Seizures, TIA, Vertigo, Neurologocal Cancer HEENT: History of: Ear Problem (Hearing loss left ear), Eye Problem (Cataracts) , Glaucoma No history of: Dental Problems, Oral Cancer, HEENT Problems Endocrine: History of: Diabetes Mellitus (IDDM), Endocrine Problems (Diabetes) No history of: Adrenal Disease, Diabetes Mellitus (NIDDM), Dyslipidemia, Thyroid Disorder, Endocrine Cancer Rheumatology: No history of;: Fibromyalgia, Gout, Myasthenia Gravis, Psoriasis, Rheumatoid Arthritis, Sjogrens, Systemic Lupus Erythematosus, Rheumatological Problems Respiratory: History of: Asthma, Bronchitis, COPD, Obstructive Sleep Apnea ( DOES NOT USE CPAP), Respiratory Problems No history of: Intubation, Pulmonary Embolism, Pulmonary Hypertension, Pneumonia, Lung Cancer Renal: History of: Renal Failure (Stage III - Not on dialysis - Dr. Marc KNIGHT), Renal Problems No history of: Renal (Kidney) Cancer, Dialysis Genitourinary: History of: Bladder Problem (OVERACTIVE), Kidney Stones, Problems (Urinary incontinence) No history of: Recurring Urinary Tract Infections, Genitourinary Cancer Gastrointestinal: History of: GERD No history of: Bowel Obstruction, Clostridium Difficile, Crohn's Disease, Diverticulitis/ Diverticulosis, Esophageal Varices, Gastrointestinal Bleed, Hemorrhoids, Hematochezia, Hepatitis, Liver Problems, Pancreatitis, Polyps, Ulcerative Colitis, Gastrointestinal Cancer, GI Problems Musculoskeletal: History of: Amputation (4th toe Rt foot), Back/Neck Problems, Degenerative Disk Disease, Osteoporosis, Musculoskeletal Problems (Arthritis) No history of: Herniated Disk, Musculoskeletal Cancer Hematology: History of: Anemia No history of: Blood Transfusion Reaction, Bleeding Problems, Clotting Problems, Sickle Cell Disease, Hematologic Cancer, Blood Disorders Reproductive: History of: Sexually Transmitted Disorders (Gonnorhea) No history of: Abnormal Pap Smear, Breast Cancer, Endometriosis, Ectopic , Ovarian Cysts, Complication, Reproductive Cancer, Reproductive Problems Other: History of: Miscellaneous Medical Problems (patient has parkinsons) No history of: Anesthesia Reactions, Anaphylaxis, Cancer, Eczema, HIV, Malignant Hyperthermia, MRSA, Vancomycin-Resistant Enterococci, Skin Problems - Surgical History Cardiac Surgeries: Sugical HX of: Vascular Access Devices (Mediport on RT side of chest HARD TO STICK) Patient Denies: Femoral-Popliteal Bypass Graft, Cardiac Catheterization, Cardiac Surgery, Carotid Endarterectomy, Internal Defibrillator Thoracic Surgeries: Patient denies;: Kidney (Renal Surgery), Lithotripsy, Nephrectomy, Organ Transplant, Lobectomy Neurologic Surgeries: Patient denies: Brain Aneurysm, Cerebral Hemorrhage, Neurologic Surgery HEENT Surgeries: Surgical HX of: Eye Surgery (Cataract removed bilaterally) Patient denies: Carotid Endarterectomy, Thyroid Surgery, Tonsilectomy & Adenoidectomy Abdominal Surgeries: Surgical HX of: Abdominal Surgery, Colonoscopy, EGD Patient denies: Appendectomy, Cholecystectomy, Gastric Bypass Surgery, Hernia Repair, Splenectomy Reproductive Surgeries: Surgical HX of;: Breast Surgery (Bilateral breast reduction), Gynecologic Surgery (Complete hysterectomy), Hysterectomy, Tubal Ligation Patient denies;: Section, Cystoscopy, Dilation and Curettage, Genitourinary Surgery Orthopedic Surgeries: Surgical HX of;: Orthopedic Surgery (NECK AND BACK), Spinal Surgery Patient denies;: Implanted Devices, Total Hip Replacement, Total Knee Replacement - Family History Family History: Reports;: Family Cancer (Father, Mother), Family Diabetes ( Mother, G'mother), Family Heart Disease (Father), Family Hypertension (G'mother , Father), Family Stroke (Family; Brother) Denies;: Family Anesthesia Reaction, Family Psychiatric Problems - Social History Smoking Status: Former smoker Frequency of Alcohol Use: None Type of Drug Use: None Exam - Vital Signs Vital signs: Period Temp Pulse Resp BP Sys/Quintanilla Pulse Ox Last 24 Hr 96.7 F-99.9 F 81-115 18-20 119-184/57-98 90-99 - General Appearance General appearance: well-developed, well-nourished EENT: ATNC, PERRL, mucous membranes moist, hearing intact, vision intact Neck: no JVD, no thyromegaly Respiratory: no kyphosis, clear Cardiology: no murmurs, no rub, no edema Gastrointestinal: normoactive bowel sounds, no tenderness, obese Integumentary: no rash, warm and dry Neurologic: no focal deficit, no asterixis Musculoskeletal: deformities, no cyanosis Psychiatric: mood/affect appropriate, cooperative Results - Labs CBC & BMP: 01/25/17 07:40 01/25/17 05:00 Assessment and Plan (1) CKD (chronic kidney disease) stage 4, GFR 15-29 ml/min Problem details: No indication for renal replacement therapy. Most likely due to diabetic nephropathy. Status: Acute Assessment and plan: Check urinary indices to assess intrinsic vs prerenal etiology. Renal u/s to rule out anatomic abn. Elevated total globulins, rule out myeloma, SPEP/UPEP/free light chains. Current Visit: Yes (2) Schizophrenia Status: Chronic Current Visit: No Qualifiers: Schizophrenia type: paranoid schizophrenia Qualified Code(s): F20.0 - Paranoid schizophrenia (3) Diabetes Status: Acute Current Visit: No Qualifiers: Diabetes mellitus type: type 2 (4) Hypertension Status: Acute Current Visit: No
--- NOTE | 2017-01-25 18:41 | Ultrasound Report ---
History: Elevated creatinine level. Chronic kidney disease Date: 01/25/2017 Study: Renal ultrasound bilateral, kidneys only Comparison exam: June 24, 2016 Real-time ultrasound images are captured and archived. The left kidney measures 8.6 x 5.4 x 5.0 cm; the right kidney measures 8.8 x 4.4 x 4.5 cm. The exam was technically difficult because of patient body habitus. There is no hydronephrosis or abnormal perinephric fluid. The renal parenchyma is grossly hypoechoic to the hepatic parenchyma. No focal renal mass or cyst is seen. Impression: No significant sonographic abnormality. Technically difficult exam PROCEDURE INTERPRETED AT [facility] DEPARTMENT OF RADIOLOGY Final Report Signed by: Dr. Christine Ghosh
[2017-01-25] MEDS: TRAVOPROST 0.004% OPH SOLN 2.5 ML BOTTLE BOTH EYES SCH (20:52)
[2017-01-25] MEDS: ALUMINUM/MAGNES/SIMETH MAX STR 30 ML UDCUP PO PRN (22:45)
[2017-01-26] MEDS: PIPERACILLIN/TAZOBACTAM 3,375 MG in SODIUM CHLORIDE 0.9% 100 ML IV SCH ×3 (03:41→20:45)
[2017-01-26 06:37] LABS: Basophils % 0.1 % (0.0-0.8); Eosinophils # 0.2 10*3/uL (0.0-0.87); Eosinophils % 1.1 % (0.00-10.9); Hematocrit 26.7 VOL% (35.7-47.0); Hemoglobin 8.7 GM/DL (12.0-16.0); Immature Granulocytes % 0.5 %; Immature Granulocytes Absolute 0.07 #; Lymphocytes % 14.3 % (21.3-54.2); Mean Corpuscular HGB Conc 32.6 GM/DL (32-36); Mean Corpuscular Hemoglobin 30 PG (27-34); Mean Corpuscular Volume 92.7 FL (87-102); Mean Platelet Volume 11.2 FL (9.6-12.0); Monocytes % 7.1 % (1.7-12.7); Neutrophils # 10.9 10*3/uL (1.4-7.4); Neutrophils % 76.9 % (38.7-73.9); Platelet Count 188 T/CUMM (130-400); Red Blood Count 2.88 MC/CUMM (3.8-5.5); Red Cell Distribution Width 16.8 % (9.3-17.3); White Blood Count 14.1 T/CUMM (4-12)
[2017-01-26 06:49] LABS: INR 1.1; PT Patient Result 11.3 SECS; Partial Thromboplastin Time 26.8 SECS (0-40)
[2017-01-26 07:11] LABS: Calcium 7.7 MG/DL (8.5-10.1); Magnesium 1.6 MG/DL (1.8-2.4); Osmolality,Calculated 285.2 MOS/KG (273-304)
[2017-01-26] MEDS: CARBIDOPA/LEVODOPA 25-250 MG TABLET PO SCH ×4 (08:13→20:45)
[2017-01-26] MEDS: VENLAFAXINE XR 75 MG CAPSULE PO SCH (08:13)
[2017-01-26] MEDS: BACITRACIN OINT 0.9 GM PACK TOP SCH (08:13)
[2017-01-26] MEDS: CARVEDILOL 25 MG TABLET PO SCH ×2 (08:13→17:05)
[2017-01-26] MEDS: PANTOPRAZOLE 40 MG TABLET PO SCH (08:13)
[2017-01-26] MEDS: levETIRAcetam 500 MG TABLET PO SCH ×3 (08:14→20:45)
[2017-01-26] MEDS: hydrALAZINE 25 MG TABLET PO SCH ×3 (08:14→20:45)
[2017-01-26] MEDS: HALOPERIDOL 5 MG TABLET PO SCH ×2 (08:14→21:12)
[2017-01-26] MEDS: DOCUSATE SODIUM 100 MG CAPSULE PO SCH ×2 (08:14→20:45)
[2017-01-26] MEDS: BENZTROPINE 0.5 MG TABLET PO SCH ×3 (08:14→20:45)
[2017-01-26] MEDS: TOLTERODINE LA 4 MG CAPSULE PO SCH (08:14)
[2017-01-26] MEDS: BISACODYL 5 MG TABLET PO PRN (08:14)
[2017-01-26] MEDS: INSULIN LISPRO 100 UNIT/ML SUBCUT SCH ×4 (08:15→20:44)
[2017-01-26] MEDS: INSULIN REGULAR 100 UNIT/ML SUBCUT SCH ×4 (08:15→20:44)
[2017-01-26] MEDS: amLODIPine 10 MG TABLET PO SCH (08:15)
[2017-01-26] MEDS: SODIUM CHLORIDE 0.45% 1,000 ML IV SCH (09:04)
--- NOTE | 2017-01-26 09:21 | Event Note ---
01/26/2017. Patient's hematocrit is up to 27 at this time after 2 units. I would have expected to be a little bit higher this concerns me a little bit. Other tests for anemia are pending at this time. Nephrology consults noted and they are working her up for possible myeloma. We will plan still to taken to surgery might try to clean his toe up and see if I get it closed and maybe get some healing started with it.
--- NOTE | 2017-01-26 11:24 | Nephrology Progress Note ---
Nephrology - PN: Subj Interval history: Pt denies SOB/pain. Creatinine stable eGFR 21cc/min Exam (PN)-Nephrology - Vital Signs Vital signs: Period Temp Pulse Resp BP Sys/Quintanilla Pulse Ox Last 24 Hr 96.7 F-98.9 F 84-115 16-20 114-158/57-87 90-98 - General Appearance General appearance: well-developed, chronically ill EENT: ATNC, PERRL Neck: no JVD, no thyromegaly Respiratory: no kyphosis, no scoliosis Cardiology: no murmurs, no rub Gastrointestinal: normoactive bowel sounds, no tenderness Integumentary: no rash, warm and dry Neurologic: no focal deficit, no asterixis Musculoskeletal: deformities, erythema, no cyanosis Psychiatric: mood/affect appropriate, cooperative - Lab 01/26/17 06:29 01/26/17 06:29 Most recent lab results Calcium 7.7 MG/DL (8.5-10.1) L 01/26/17 06:29 Magnesium 1.6 MG/DL (1.8-2.4) L 01/26/17 06:29 Assessment and Plan (1) CKD (chronic kidney disease) stage 4, GFR 15-29 ml/min Problem details: No indication for renal replacement therapy. Most likely due to diabetic nephropathy. Status: Acute Assessment and plan: Urinary indices suggest intrinsic renal injury (FeUrea 42%).. Renal u/s unremarkable. Elevated total globulins, rule out myeloma, SPEP/UPEP/free light chains. Current Visit: Yes (2) Schizophrenia Status: Chronic Current Visit: No Qualifiers: Schizophrenia type: paranoid schizophrenia Qualified Code(s): F20.0 - Paranoid schizophrenia (3) Diabetes Status: Acute Current Visit: No Qualifiers: Diabetes mellitus type: type 2 (4) Hypertension Status: Acute Current Visit: No
[2017-01-26] MEDS: TRAVOPROST 0.004% OPH SOLN 2.5 ML BOTTLE BOTH EYES SCH (20:45)
[2017-01-26] MEDS: GABAPENTIN 300 MG CAPSULE PO SCH (20:45)
[2017-01-27] MEDS: PIPERACILLIN/TAZOBACTAM 3,375 MG in SODIUM CHLORIDE 0.9% 100 ML IV SCH ×3 (03:18→21:55)
[2017-01-27 06:05] LABS: Basophils % 0.3 % (0.0-0.8); Eosinophils # 0.2 10*3/uL (0.0-0.87); Eosinophils % 1.7 % (0.00-10.9); Hematocrit 27.4 VOL% (35.7-47.0); Hemoglobin 8.9 GM/DL (12.0-16.0); Immature Granulocytes % 0.7 %; Immature Granulocytes Absolute 0.09 #; Lymphocytes # 1.6 10*3/uL (1.4-4.0); Lymphocytes % 12.1 % (21.3-54.2); Mean Corpuscular HGB Conc 32.5 GM/DL (32-36); Mean Corpuscular Hemoglobin 31 PG (27-34); Mean Corpuscular Volume 94.2 FL (87-102); Monocytes # 1.1 10*3/uL (0.11-0.8); Monocytes % 8.6 % (1.7-12.7); Neutrophils # 10.1 10*3/uL (1.4-7.4); Neutrophils % 76.6 % (38.7-73.9); Platelet Count 225 T/CUMM (130-400); Red Blood Count 2.91 MC/CUMM (3.8-5.5); Red Cell Distribution Width 16.8 % (9.3-17.3); White Blood Count 13.2 T/CUMM (4-12)
[2017-01-27 06:34] LABS: Calcium 8.3 MG/DL (8.5-10.1); Magnesium 1.7 MG/DL (1.8-2.4); Osmolality,Calculated 281.1 MOS/KG (273-304); Potassium 5.3 MMOL/L (3.5-5.1)
[2017-01-27] MEDS: HALOPERIDOL 5 MG TABLET PO SCH ×2 (09:36→21:56)
[2017-01-27] MEDS: TOLTERODINE LA 4 MG CAPSULE PO SCH (09:36)
[2017-01-27] MEDS: VENLAFAXINE XR 75 MG CAPSULE PO SCH (09:36)
[2017-01-27] MEDS: CARBIDOPA/LEVODOPA 25-250 MG TABLET PO SCH ×4 (09:36→21:57)
[2017-01-27] MEDS: amLODIPine 10 MG TABLET PO SCH (09:36)
[2017-01-27] MEDS: hydrALAZINE 25 MG TABLET PO SCH ×3 (09:36→21:57)
[2017-01-27] MEDS: INSULIN LISPRO 100 UNIT/ML SUBCUT SCH ×4 (09:37→22:19)
[2017-01-27] MEDS: CARVEDILOL 25 MG TABLET PO SCH ×2 (09:37→16:04)
[2017-01-27] MEDS: levETIRAcetam 500 MG TABLET PO SCH ×3 (09:37→21:56)
[2017-01-27] MEDS: INSULIN REGULAR 100 UNIT/ML SUBCUT SCH ×4 (09:37→21:57)
[2017-01-27] MEDS: BACITRACIN OINT 0.9 GM PACK TOP SCH (09:37)
[2017-01-27] MEDS: BENZTROPINE 0.5 MG TABLET PO SCH ×3 (09:37→21:57)
[2017-01-27] MEDS: DOCUSATE SODIUM 100 MG CAPSULE PO SCH ×2 (09:37→21:57)
[2017-01-27] MEDS: BISACODYL 5 MG TABLET PO PRN (09:37)
--- NOTE | 2017-01-27 11:25 | Event Note ---
Patient is stable. She has no complaints. Her right third toe is necrotic. There is some erythema near the base. H&H is 8.9 and 27.4. She is scheduled for operative intervention tomorrow.
[2017-01-27] MEDS: PANTOPRAZOLE 40 MG TABLET PO SCH (12:35)
--- NOTE | 2017-01-27 13:48 | Nephrology Progress Note ---
Nephrology - PN: Subj Interval history: Pt denies SOB/pain. Creatinine 3.5 for eGFR 20cc/min. CKD stage 4. Exam (PN)-Nephrology - Vital Signs Vital signs: Period Temp Pulse Resp BP Sys/Quintanilla Pulse Ox Last 24 Hr 96.9 F-97.7 F 90-100 18-20 119-146/52-86 92-95 - General Appearance General appearance: well-developed, obese EENT: ATNC, PERRL Neck: no JVD, no thyromegaly Respiratory: no kyphosis, clear Cardiology: no murmurs, no rub Gastrointestinal: normoactive bowel sounds, no tenderness Integumentary: no rash, warm and dry Neurologic: no focal deficit, no asterixis, alert and oriented x3 Musculoskeletal: deformities, no erythema Psychiatric: mood/affect appropriate, cooperative - Lab 01/27/17 05:42 01/27/17 05:42 Most recent lab results Calcium 8.3 MG/DL (8.5-10.1) L 01/27/17 05:42 Magnesium 1.7 MG/DL (1.8-2.4) L 01/27/17 05:42 Assessment and Plan (1) CKD (chronic kidney disease) stage 4, GFR 15-29 ml/min Problem details: No indication for renal replacement therapy. Most likely due to diabetic nephropathy. Status: Acute Assessment and plan: No new recs. Current Visit: Yes (2) Schizophrenia Status: Chronic Current Visit: No Qualifiers: Schizophrenia type: paranoid schizophrenia Qualified Code(s): F20.0 - Paranoid schizophrenia (3) Diabetes Status: Acute Current Visit: No Qualifiers: Diabetes mellitus type: type 2 (4) Hypertension Status: Acute Current Visit: No
[2017-01-27] MEDS: SODIUM CHLORIDE 0.45% 1,000 ML IV SCH (21:54)
[2017-01-27] MEDS: ALUMINUM/MAGNES/SIMETH MAX STR 30 ML UDCUP PO PRN (21:56)
[2017-01-27] MEDS: TRAVOPROST 0.004% OPH SOLN 2.5 ML BOTTLE BOTH EYES SCH (21:56)
[2017-01-27] MEDS: GABAPENTIN 300 MG CAPSULE PO SCH (21:56)
[2017-01-28] MEDS: PIPERACILLIN/TAZOBACTAM 3,375 MG in SODIUM CHLORIDE 0.9% 100 ML IV SCH ×3 (03:27→22:39)
[2017-01-28] MEDS: SODIUM CHLORIDE 0.45% 1,000 ML IV SCH (04:21)
[2017-01-28 06:43] LABS: Basophils % 0.1 % (0.0-0.8); Eosinophils # 0.1 10*3/uL (0.0-0.87); Hematocrit 26.7 VOL% (35.7-47.0); Hemoglobin 8.7 GM/DL (12.0-16.0); Immature Granulocytes % 0.7 %; Immature Granulocytes Absolute 0.09 #; Lymphocytes # 1.8 10*3/uL (1.4-4.0); Lymphocytes % 13.2 % (21.3-54.2); Mean Corpuscular HGB Conc 32.6 GM/DL (32-36); Mean Corpuscular Hemoglobin 31 PG (27-34); Mean Corpuscular Volume 93.7 FL (87-102); Mean Platelet Volume 11.2 FL (9.6-12.0); Monocytes # 1.1 10*3/uL (0.11-0.8); Monocytes % 8.2 % (1.7-12.7); Neutrophils # 10.4 10*3/uL (1.4-7.4); Neutrophils % 76.8 % (38.7-73.9); Platelet Count 254 T/CUMM (130-400); Red Blood Count 2.85 MC/CUMM (3.8-5.5); Red Cell Distribution Width 16.4 % (9.3-17.3); White Blood Count 13.5 T/CUMM (4-12)
[2017-01-28 07:20] LABS: Albumin (SPE) 2.4 G/DL (3.2-5.3); Albumin (SPE) Rel % 38.1 %; Alpha 1 (SPE) 0.3 G/DL (0.1-0.4); Alpha 1 (SPE) Rel % 4.7 %; Alpha 2 (SPE) 0.9 G/DL (0.4-1.0); Alpha 2 (SPE) Rel % 15.4 %; Beta (SPE) 1.1 G/DL (0.5-1.1); Beta (SPE) Rel % 17.1 %; Gamma (SPE) 1.5 G/DL (0.7-1.7); Gamma (SPE) Rel % 24.7 %; Total Protein (Chem) 6.2 G/DL (6.4-8.3)
[2017-01-28 07:27] LABS: Magnesium 1.8 MG/DL (1.8-2.4); Osmolality,Calculated 284.1 MOS/KG (273-304); Potassium 5.6 MMOL/L (3.5-5.1)
[2017-01-28 07:34] LABS: Albumin (UPER) 237.9 MG/DL; Albumin (UPER) Rel% 72.3 %; Alpha 1 (UPER) 18.7 MG/DL; Alpha 1 (UPER) Rel% 5.7 %; Alpha 2 (UPER) 17.4 MG/DL; Alpha 2 (UPER) Rel % 5.3 %; Beta (UPER) 17.8 MG/DL; Beta (UPER) Rel % 5.4 %; Gamma (UPER) 37.2 MG/DL; Gamma (UPER) Rel % 11.3 %; Random Urine Protein (Bench) 329 MG/DL (<11.9)
[2017-01-28] MEDS: levETIRAcetam 500 MG TABLET PO SCH ×3 (08:04→22:39)
[2017-01-28] MEDS: hydrALAZINE 25 MG TABLET PO SCH ×3 (08:04→22:39)
[2017-01-28] MEDS: amLODIPine 10 MG TABLET PO SCH (08:04)
[2017-01-28] MEDS: CARVEDILOL 25 MG TABLET PO SCH ×2 (08:05→16:07)
[2017-01-28] MEDS: INSULIN LISPRO 100 UNIT/ML SUBCUT SCH ×4 (08:07→22:40)
[2017-01-28] MEDS: INSULIN REGULAR 100 UNIT/ML SUBCUT SCH ×4 (08:08→22:40)
[2017-01-28] MEDS: VENLAFAXINE XR 75 MG CAPSULE PO SCH (08:09)
[2017-01-28] MEDS: DOCUSATE SODIUM 100 MG CAPSULE PO SCH ×2 (08:09→22:38)
[2017-01-28] MEDS: TOLTERODINE LA 4 MG CAPSULE PO SCH (08:09)
[2017-01-28] MEDS: BENZTROPINE 0.5 MG TABLET PO SCH ×3 (08:09→22:43)
[2017-01-28] MEDS: BACITRACIN OINT 0.9 GM PACK TOP SCH (08:09)
[2017-01-28] MEDS: CARBIDOPA/LEVODOPA 25-250 MG TABLET PO SCH ×4 (08:10→22:39)
[2017-01-28] MEDS: PANTOPRAZOLE 40 MG TABLET PO SCH (08:10)
[2017-01-28] MEDS: HALOPERIDOL 5 MG TABLET PO SCH ×2 (08:10→22:38)
[2017-01-28] MEDS ORDERED: BACITRACIN OINT 0.9 GM PACK TOP ONE (09:37)
--- NOTE | 2017-01-28 09:53 | Operative Note ---
Date of procedure: 01/28/17 Pre-op diagnosis: Traumatic laceration plantar surface of the third toe. Post-op diagnosis: other (Traumatic laceration third toe with abscess formation plantar surface of foot) Procedure: Operative note: Preoperative diagnosis: Traumatic laceration of the third toe plantar surface right foot Postoperative diagnosis: Traumatic laceration third toe with abscess formation of the plantar surface of the foot and ischemic changes of the toes Procedure: Amputation of the third toe with extensive debridement of tendon necrotic skin and drainage of abscess plantar surface Surgeon Dr. Reeder Honey Producer Cherrie Cobos, DOZER OPERATOR ACNP Anesthesia was LMA Brief history: 56-year-old diabetic female who presented to us after an injury to her third toe that been going on for several days where she sustained a laceration under the plantar surface of the midportion of the third toe on the right foot. She had a little cellulitis on dorsum of the foot so elected to put her in but her IV antibiotics with the idea of hopefully bring her to surgery for debridement and closure of this wound. Saturday the wound looked pretty good with no unusual changes at that time. So elected to bring her own to surgery today for some debridement and closure of that wound. After taking dressing down today that was obvious an abscess formation had formed with purulent material on the lateral aspect of the base of the toe at this time and some purulent drainage from the wound bed. Procedure: With patient prepped and draped in sterile fashion timeout and antibiotics completed approaches area of the toe there is a pocket of purulence draining out that we cultured aerobically and anaerobically under the base of the toe. I then took scissors and opened up there is purulent drained area on the lateral aspect of the base of the toe and then begin to debride the loose necrotic skin around the edges of it. This allowed us to fall into a pocket in the plantar surface where there is further purulent material present there. It was obvious this time the distal part of the toe is completely ischemic at this point so just carefully dissected around it until we discussed articulated that removing that portion the toe. As we did we entered more purulent material in the plantar surface of the foot having debriding some skin away and try to get into the plantar surface pocket where the infection was mainly draining. We debrided a good bit of necrotic fatty tissue tendon and skin along this edge can get down to this base. It was obvious would not can be of cellular rest the toe so I carefully dissected down to the was able to disarticulate proximal part of the toe. At that point I then took the rondure and begin to debride the cartilage off the toe. I debrided some more tendon around the edges of it and found a pocket of some purulence in the plantar surface that extended medially. Debrided some necrotic tissue out of that area. I left some skin on the superior surface flap in the hopes of trying to see if this will survive enough to help us with some future closure. Once we had a debrided completely we have a wound now that is 4.5 x 3 x 1.5 cm in size. Will start some local care to this wound to try to see if we can get this cleaned up and healed up at this time to try to preserve the foot. Dressing was applied and patient taken recovery room. Estimated blood loss 15 cc Sponge count correct 2 Drains none Complications none Condition stable satisfactory Surgeon / Physician: Issa Reeder Honey Producer: Cherrie Cobos Estimated blood loss: other (10 cc) Specimens: other (Tissue for pathology and culture) Condition: stable Disposition: floor Results - Labs CBC & BMP: 01/28/17 05:53 01/28/17 05:53 Discharge Plan - Discharge Medications No Action levETIRAcetam TAB [Keppra Tab] 500 mg PO TID Benztropine Tab [Cogentin Tab] 0.5 mg PO TID Venlafaxine HCl [Effexor XR] 150 mg PO DAILY Travoprost 0.004% Oph Soln [Travatan Z] 1 drop BOTH EYES BEDTIME Carbidopa/Levodopa [Carbidopa-Levodopa 25-250 Tab] 1 each PO QID amLODIPine [Norvasc] 10 mg PO DAILY tablet Haloperidol [Haloperidol] 10 mg PO BID HYDROcodone/ACETAMIN 10-325 [[place] 10-325] 1 tablet PO TID Insulin Aspart [NovoLOG] 10 unit SUBCUT ACHS Carvedilol [Coreg] 25 mg PO BID tablet Tolterodine LA [Detrol LA] 4 mg PO DAILY hydrALAZINE TAB [Apresoline Tab] 25 mg PO TID Gabapentin Cap/Tab [Neurontin Cap/Tab] 300 mg PO BID #60 capsule - Follow Up or Referral - Forms/Instructions
[2017-01-28] MEDS ORDERED: CHLORHEXIDINE 4% SOLN 118 ML BOTTLE TOP ONE (09:58)
--- NOTE | 2017-01-28 09:58 | Anesthesia Post-Op ---
Anesthesia Post OP - Post Ansesthetic Evaluation Patient seen in post op: Yes Resp: within normal limits CV: within normal limits Mental: within normal limits Temp: within normal limits [id number]: within normal limits Nausea and Vomiting: within normal limits Pain: within normal limits
--- NOTE | 2017-01-28 09:58 | Physician Query Form ---
CLICK EDIT DOCUMENT TO SELECT QUERY ANSWER --> OK --> SIGN Viola Moore RN Clinical Customer Consulting Manager W) [phone] (f) [phone] [email or web address] PROVIDERS: Make your selection(s) from the choices in EACH section by typing an "x" and enter comments in the comment section. Please use your independent medical judgment in providing your response. This request does not imply that any particular answer is desired or expected. CLINICAL INDICATORS: (Providers should not edit this section) Height: 5ft 5in Weight: 258 lbs [place] BMI: 42.0 Office Clinician Notes: Class 3 obesity [place] Recommendations: Rec [id number] jaye, 180-200 g CHO/d for weight and BG control If applicable, please provide an associated diagnosis related to the abnormal BMI: BMI of 40 or greater: ( ) Overweight ( x) Obesity ( ) Morbid//Severe Obesity ( ) Obesity with Alveolar Hypoventilation ( ) Weight Gain ( ) BMI is not significant ( ) Other, please specify: ( ) Clinically unable to determine COMMENTS: PLEASE ALSO DOCUMENT RESPONSE IN PROGRESS NOTES AND/OR DISCHARGE SUMMARY Use of terms such as suspected, likely, or probable (associated with a specific diagnosis that is being evaluated, monitored, or treated as if it exists) are acceptable and can be restated in the discharge summary if not ruled out. MTDD
[2017-01-28] MEDS ORDERED: PROPOFOL 200 MG/20 ML VIAL IV ONE ×2 (10:00→10:45)
[2017-01-28] MEDS ORDERED: SEVOFLURANE 1 UNIT/15 MINUTE INH ONE (10:01)
[2017-01-28] MEDS ORDERED: fentaNYL 100 MCG/2 ML VIAL ONE (10:01)
[2017-01-28] MEDS ORDERED: ONDANSETRON 4 MG/2 ML VIAL ONE ×2 (10:01→10:45)
[2017-01-28] MEDS: SODIUM CHLORIDE 0.9% 1,000 ML IV SCH (10:41)
[2017-01-28] MEDS: SODIUM ACETATE 100 MEQ in DEXTROSE 5% 1,000 ML IV SCH (10:41)
[2017-01-28] MEDS ORDERED: LIDOCAINE 100 MG/5 ML SYRINGE ONE (10:45)
--- NOTE | 2017-01-28 12:04 | Nephrology Progress Note ---
Nephrology - PN: Subj Interval history: Ms. Reynolds is known to me. She was admitted for traumatic fracture of toes of the right foot. She had a secondary infection. She underwent debridement of this wound today. She is on IV antibiotics. She has chronic renal failure secondary to diabetic nephropathy. Creatinine is risen slightly from her baseline 8 months ago. She denies dysuria or hematuria. She has had no symptoms of volume overload Exam (PN)-Nephrology - Vital Signs Vital signs: Period Temp Pulse Resp BP Sys/Quintanilla Pulse Ox Last 24 Hr 97.1 F-98.8 F 85-101 13-20 108-147/53-88 92-99 Exam: ENT: Normal Cardiovascular: Regular rate and rhythm. No murmur rub or gallop Lungs: Clear Extremities: No edema. Right foot dressed - Lab 01/28/17 05:53 01/28/17 05:53 Most recent lab results Calcium 8.0 MG/DL (8.5-10.1) L 01/28/17 05:53 Magnesium 1.8 MG/DL (1.8-2.4) 01/28/17 05:53 Assessment and Plan (1) CKD (chronic kidney disease) stage 4, GFR 15-29 ml/min Status: Acute Assessment and plan: 56-year-old woman with: * CRF stage IV. Renal function stable. Volume status acceptable. She is on no nephrotoxic medications * Diabetes mellitus * Fracture, right foot * Cellulitis, right foot * Hypertension * Schizophrenia Current Visit: Yes (2) Cellulitis of foot, right Status: Acute Current Visit: Yes (3) Laceration of third toe of right foot with complication Status: Acute Current Visit: Yes (4) Diabetes Status: Acute Current Visit: No Qualifiers: Diabetes mellitus type: type 2 (5) Hypertension Status: Acute Current Visit: No (6) Schizophrenia Status: Chronic Current Visit: No Qualifiers: Schizophrenia type: paranoid schizophrenia Qualified Code(s): F20.0 - Paranoid schizophrenia
--- NOTE | 2017-01-28 12:04 | Event Note ---
Pt states she has been followed by Dr Tran as an outpt. Nursing staff to notify Dr Tran of her admission.
--- NOTE | 2017-01-28 13:15 | Case Mgmt Physician Query Form ---
TB Signs and Symptoms Screening ([place]) INSTRUCTIONS: To be completed annually on residents/staff with a significant Tuberculin Skin Test (TST) upon admission/hire or a prior significant TST. To be completed on all staff at hire. Please respond to each listed symptom with an (X) in either the "YES" or "NO" box. Do you currently have any of the following symptoms: YES NO ( ) ( ) A cough If yes, is it: ( ) Productive ( ) Non- productive ( ) ( ) Hemoptysis (spitting up blood) ( ) ( ) Chest pains ( ) ( ) Weight Loss ( ) ( ) Fever ( ) ( ) Night Sweats ( ) ( ) Weakness ( ) ( ) Loss of Appetite ( ) ( ) Difficulty Breathing If you answered YES" to any of the above questions, how long have symptoms been present? Comments: If you have any questions, please contact me . Thank you, Rox ROSADO Email: [email or web address]
[2017-01-28] MEDS: GABAPENTIN 300 MG CAPSULE PO SCH (22:39)
[2017-01-28] MEDS: TRAVOPROST 0.004% OPH SOLN 2.5 ML BOTTLE BOTH EYES SCH (22:43)
[2017-01-29] MEDS: SODIUM ACETATE 100 MEQ in DEXTROSE 5% 1,000 ML IV SCH ×2 (00:01→12:48)
[2017-01-29] MEDS: ENOXAPARIN 30 MG/0.3 ML SYRINGE SUBCUT SCH (05:51)
[2017-01-29] MEDS: PIPERACILLIN/TAZOBACTAM 3,375 MG in SODIUM CHLORIDE 0.9% 100 ML IV SCH ×3 (05:51→21:30)
[2017-01-29 06:30] LABS: Basophils % 0.2 % (0.0-0.8); Eosinophils # 0.1 10*3/uL (0.0-0.87); Eosinophils % 1.3 % (0.00-10.9); Hematocrit 24.9 VOL% (35.7-47.0); Immature Granulocytes % 0.7 %; Immature Granulocytes Absolute 0.08 #; Lymphocytes # 1.5 10*3/uL (1.4-4.0); Lymphocytes % 13.8 % (21.3-54.2); Mean Corpuscular HGB Conc 32.1 GM/DL (32-36); Mean Corpuscular Hemoglobin 30 PG (27-34); Mean Corpuscular Volume 94.3 FL (87-102); Mean Platelet Volume 11.1 FL (9.6-12.0); Monocytes % 8.8 % (1.7-12.7); Neutrophils # 8.4 10*3/uL (1.4-7.4); Neutrophils % 75.2 % (38.7-73.9); Platelet Count 274 T/CUMM (130-400); Red Blood Count 2.64 MC/CUMM (3.8-5.5); Red Cell Distribution Width 16.4 % (9.3-17.3); White Blood Count 11.2 T/CUMM (4-12)
[2017-01-29 07:01] LABS: Calcium 8.3 MG/DL (8.5-10.1); Osmolality,Calculated 286.7 MOS/KG (273-304); Potassium 5.5 MMOL/L (3.5-5.1)
[2017-01-29] MEDS: SODIUM CHLORIDE 0.9% 1,000 ML IV SCH (07:01)
[2017-01-29] MEDS: HALOPERIDOL 5 MG TABLET PO SCH ×2 (09:19→21:31)
[2017-01-29] MEDS: hydrALAZINE 25 MG TABLET PO SCH ×3 (09:19→21:31)
[2017-01-29] MEDS: levETIRAcetam 500 MG TABLET PO SCH ×3 (09:19→21:31)
[2017-01-29] MEDS: TOLTERODINE LA 4 MG CAPSULE PO SCH (09:19)
[2017-01-29] MEDS: INSULIN LISPRO 100 UNIT/ML SUBCUT SCH ×4 (09:19→21:31)
[2017-01-29] MEDS: BENZTROPINE 0.5 MG TABLET PO SCH ×3 (09:19→21:31)
[2017-01-29] MEDS: BACITRACIN OINT 0.9 GM PACK TOP SCH (09:19)
[2017-01-29] MEDS: PANTOPRAZOLE 40 MG TABLET PO SCH (09:20)
[2017-01-29] MEDS: CARBIDOPA/LEVODOPA 25-250 MG TABLET PO SCH ×4 (09:20→21:31)
[2017-01-29] MEDS: CARVEDILOL 25 MG TABLET PO SCH ×2 (09:20→16:55)
[2017-01-29] MEDS: INSULIN REGULAR 100 UNIT/ML SUBCUT SCH ×4 (09:20→21:32)
[2017-01-29] MEDS: VENLAFAXINE XR 75 MG CAPSULE PO SCH (09:20)
[2017-01-29] MEDS: amLODIPine 10 MG TABLET PO SCH (09:20)
[2017-01-29] MEDS: SODIUM HYPOCHLORITE 0.25% IRRIG 473 ML BOTTLE TOP SCH (09:20)
[2017-01-29] MEDS: DOCUSATE SODIUM 100 MG CAPSULE PO SCH ×2 (09:20→21:32)
[2017-01-29 09:35] LABS: Immuno Free Light Chain Kappa 12.32 MG/DL (0.33-1.94); Immuno Free Light Chain Lambda 5.74 MG/DL (0.57-2.63); Immuno Free Light Chain Ratio 2.15 MG/DL (0.26-1.65)
--- NOTE | 2017-01-29 11:19 | Pathology Report from [facility] ---
[facility] [place] ACCESSION # : [id number] PATIENT NAME : Martha Reynolds ORDERING DR : LUCINA PARKINSON MD CLINICAL HX: Infected RT foot POST-OP DX: Same SPECIMEN INFO: 3rd toe RT foot GROSS DESCRIPTION: The specimen is received in formalin labeled with the patients name and consists of a 2.6 x 1.6 cm x up to 1.7 cm toe. The skin is erythematous with an area of gangrenous changes measuring up to 1.0 cm. Also in the specimen container is a erythematous fragment of soft tissue and bone measuring 3.0 x 1.7 x 1.5 cm. Care Associate tissue submitted in one cassette. DIAGNOSIS FOR MARTHA REYNOLDS: RIGHT 3rd TOE, AMPUTATION: Wet gangrene. COLLECTED DATE: 01/28/2017 [facility] [place] REPORT DATE: 01/29/2017 ELECTRONICALLY SIGNED BY: Modesto Lincoln M.D. 01/29/2017 - 9:58:42 MTDD
[2017-01-29] MEDS: DESITIN 4OZ/NYSTATIN 15 GRAM MIXTURE PASTE TOP SCH ×2 (16:55→21:32)
--- NOTE | 2017-01-29 19:07 | Nephrology Progress Note ---
Nephrology - PN: Subj Interval history: She states she feels better overall. No shortness of breath. No nausea Exam (PN)-Nephrology - Vital Signs Vital signs: Period Temp Pulse Resp BP Sys/Quintanilla Pulse Ox Last 24 Hr 98 F-99.0 F 81-100 16-22 127-151/68-74 86-96 Exam: ENT: Normal Cardiovascular: Regular rate and rhythm. No murmur rub or gallop Lungs: Clear Extremities: No edema - Lab 01/29/17 05:59 01/29/17 05:59 Most recent lab results Calcium 8.3 MG/DL (8.5-10.1) L 01/29/17 05:59 Magnesium 1.8 MG/DL (1.8-2.4) 01/28/17 05:53 Assessment and Plan (1) CKD (chronic kidney disease) stage 4, GFR 15-29 ml/min Status: Acute Assessment and plan: 56-year-old woman with: * CRF stage IV. Renal function has improved. IV rate decreased. Urine output is not being measured as ordered * Diabetes mellitus * Fracture, right foot * Cellulitis, right foot * Hypertension * Schizophrenia Current Visit: Yes (2) Cellulitis of foot, right Status: Acute Current Visit: Yes (3) Laceration of third toe of right foot with complication Status: Acute Current Visit: Yes (4) Diabetes Status: Acute Current Visit: No Qualifiers: Diabetes mellitus type: type 2 (5) Hypertension Status: Acute Current Visit: No (6) Schizophrenia Status: Chronic Current Visit: No Qualifiers: Schizophrenia type: paranoid schizophrenia Qualified Code(s): F20.0 - Paranoid schizophrenia
[2017-01-29] MEDS: GABAPENTIN 300 MG CAPSULE PO SCH (21:31)
[2017-01-29] MEDS: TRAVOPROST 0.004% OPH SOLN 2.5 ML BOTTLE BOTH EYES SCH (21:32)
[2017-01-30] MEDS: SODIUM CHLORIDE 0.9% 1,000 ML IV SCH ×2 (03:01→21:29)
[2017-01-30] MEDS: SODIUM ACETATE 100 MEQ in DEXTROSE 5% 1,000 ML IV SCH (04:27)
[2017-01-30] MEDS: ENOXAPARIN 30 MG/0.3 ML SYRINGE SUBCUT SCH (04:28)
[2017-01-30] MEDS: PIPERACILLIN/TAZOBACTAM 3,375 MG in SODIUM CHLORIDE 0.9% 100 ML IV SCH ×2 (04:28→11:25)
[2017-01-30] MEDS ORDERED: CIPROFLOXACIN 500 MG TABLET PO SCH (09:00)
[2017-01-30] MEDS: VENLAFAXINE XR 75 MG CAPSULE PO SCH (09:29)
[2017-01-30] MEDS: PANTOPRAZOLE 40 MG TABLET PO SCH (09:30)
[2017-01-30] MEDS: CARVEDILOL 25 MG TABLET PO SCH ×2 (09:30→16:42)
[2017-01-30] MEDS: HALOPERIDOL 5 MG TABLET PO SCH ×2 (09:30→20:53)
[2017-01-30] MEDS: hydrALAZINE 25 MG TABLET PO SCH ×3 (09:30→20:53)
[2017-01-30] MEDS: levETIRAcetam 500 MG TABLET PO SCH ×4 (09:30→20:54)
[2017-01-30] MEDS: amLODIPine 10 MG TABLET PO SCH (09:30)
[2017-01-30] MEDS: TOLTERODINE LA 4 MG CAPSULE PO SCH (09:30)
[2017-01-30] MEDS: DOCUSATE SODIUM 100 MG CAPSULE PO SCH ×2 (09:32→20:53)
[2017-01-30] MEDS: INSULIN LISPRO 100 UNIT/ML SUBCUT SCH ×4 (09:33→20:55)
[2017-01-30] MEDS: INSULIN REGULAR 100 UNIT/ML SUBCUT SCH ×4 (09:38→20:46)
[2017-01-30] MEDS: BACITRACIN OINT 0.9 GM PACK TOP SCH (10:22)
[2017-01-30] MEDS: SODIUM HYPOCHLORITE 0.25% IRRIG 473 ML BOTTLE TOP SCH (10:22)
[2017-01-30] MEDS: DESITIN 4OZ/NYSTATIN 15 GRAM MIXTURE PASTE TOP SCH ×2 (10:22→20:59)
[2017-01-30] MEDS: CARBIDOPA/LEVODOPA 25-250 MG TABLET PO SCH ×4 (10:29→20:54)
[2017-01-30] MEDS: BENZTROPINE 0.5 MG TABLET PO SCH ×3 (10:29→20:53)
--- NOTE | 2017-01-30 10:47 | General Surgery Progress Note ---
Assessment and Plan - Time spent with patient Time spent with patient: Less than 30 minutes (1) Diabetic infection of right foot Status: Acute Assessment and plan: 01/30/2017. Diabetes with infection of the right foot status post amputation of toe. The wound is stable postop. We do have positive blood cultures as well as a possible anaerobic emerging. With we will get Dr. Paz to follow along with us. Dr. Tran will be following her renal status. We are looking at options for her care through LTAC. At this point there is no definitive plans for additional surgery until we can get aggressive treatment of the infection. Current Visit: Yes Subjective Patient reports: Present: still having pain, pain is less Exam - Constitutional Vitals: Period Temp Pulse Resp BP Sys/Quintanilla Pulse Ox Last 24 Hr 97.1 F-98.7 F 81-89 18-22 123-150/58-84 90-98 General appearance: no acute distress, over weight - Extremities Exam Extremities exam: Present: other (Left foot surgical wound is clean. There is no advancing erythema, however there is continued erythema on the plantar surface of the foot at the base of the third toe. This is unchanged from the time of surgery. Patient is mildly tender in this region, and I suspect this is due to surgical exploration. There is no similar change on the adjacent dorsal foot. The wound bed is clean there is no active bleeding no gross purulence and no ischemic change.) Results - Labs CBC & BMP: 01/29/17 05:59 01/29/17 05:59 Lab Results: I have reviewed the past 24 hour labs (Postop labs are stable. Micro results noted; emerging gram-positive from the wound as well as gram positives on blood cultures. There is also possible anaerobe emerging from the wound culture.)
--- NOTE | 2017-01-30 12:08 | Nephrology Progress Note ---
Nephrology - PN: Subj Interval history: No shortness of breath. No GI symptoms. Pain is controlled Exam (PN)-Nephrology - Vital Signs Vital signs: Period Temp Pulse Resp BP Sys/Quintanilla Pulse Ox Last 24 Hr 97.1 F-98.7 F 81-89 18-22 123-150/58-84 90-98 Exam: ENT: Normal Cardiovascular: Regular rate and rhythm. No murmur rub or gallop Lungs: Clear Extremities: Both lower extremities dressed - Lab 01/29/17 05:59 01/29/17 05:59 Most recent lab results Calcium 8.3 MG/DL (8.5-10.1) L 01/29/17 05:59 Magnesium 1.8 MG/DL (1.8-2.4) 01/28/17 05:53 Assessment and Plan (1) CKD (chronic kidney disease) stage 4, GFR 15-29 ml/min Status: Acute Assessment and plan: 56-year-old woman with: * CRF stage IV. Renal function stable. Urine output is still not being measured as ordered * Diabetes mellitus * Fracture, right foot * Cellulitis, right foot * Hypertension * Schizophrenia Current Visit: Yes (2) Cellulitis of foot, right Status: Acute Current Visit: Yes (3) Laceration of third toe of right foot with complication Status: Acute Current Visit: Yes (4) Diabetes Status: Acute Current Visit: No Qualifiers: Diabetes mellitus type: type 2 (5) Hypertension Status: Acute Current Visit: No (6) Schizophrenia Status: Chronic Current Visit: No Qualifiers: Schizophrenia type: paranoid schizophrenia Qualified Code(s): F20.0 - Paranoid schizophrenia
--- NOTE | 2017-01-30 12:50 | Infectious Disease Consult ---
Assessment and Plan (1) MSSA (methicillin susceptible Staphylococcus aureus) septicemia Status: Acute Assessment and plan: This infection is due to gangrenous right third toe which has been amputated. We need to make sure there is no associated endocarditis. Of concern also the presence of a Mediport and there is a possibility that this could have been seeded with the MSSA. Recommendations: 1. Repeat blood cultures 2 sets including one from the Mediport 2. Echocardiogram to look for endocarditis 3. Stop ciprofloxacin and Zosyn 4. Start oxacillin 2 g IV every 4 hours 5. Follow-up cultures if they are negative then we will treat for 4 weeks from today [unless echocardiogram is positive in which case she would need 6 weeks]. If the repeat blood cultures, positive then the Mediport will have to be removed. Thank you very much for the consult. Will follow. Current Visit: Yes (2) CKD (chronic kidney disease) stage 4, GFR 15-29 ml/min Problem details: No indication for renal replacement therapy. Most likely due to diabetic nephropathy. Status: Acute Current Visit: Yes (3) Cellulitis of foot, right Status: Acute Assessment and plan: Due to MSSA and associated bloodstream infection. She status post surgery. Current Visit: Yes (4) Diabetic infection of right foot Status: Acute Current Visit: Yes History of Present Illness Chief complaint: Diabetic foot infection, positive blood cultures History of present illness: Ms. Reynolds is a 56 year old female with diabetes which is controlled has also neuropathy. She came to the hospital after she developed a wound to her right foot a few days after bumping it into a door. She was found to have gangrenous right third toe and underwent amputation of distal 3 days ago. Tissue from the toe came up positive for MSSA. Blood cultures 1 of 2 sets also came back positive for MSSA. She has been on ciprofloxacin and Zosyn and emesis with antibiotic management. 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 She also has chronic kidney disease stage IV. She has not had any fever over the past several days. Her main problem is chronic pain. Home Medications Medication Instructions Recorded Confirmed Type levETIRAcetam TAB [Keppra Tab] 500 mg PO TID 11/15/14 01/24/17 History Gabapentin Cap/Tab [Neurontin 300 mg PO BID #60 capsule 12/07/14 01/24/17 Rx Cap/Tab] Benztropine Tab [Cogentin Tab] 0.5 mg PO TID 03/03/16 01/24/17 History Venlafaxine HCl [Effexor XR] 150 mg PO DAILY 03/13/16 01/24/17 History Carbidopa/Levodopa 1 each PO QID 04/09/16 01/24/17 History [Carbidopa-Levodopa 25-250 Tab] Travoprost 0.004% Oph Soln 1 drop BOTH EYES BEDTIME 04/09/16 01/24/17 History [Travatan Z] Carvedilol [Coreg] 25 mg PO BID tablet 06/14/16 01/24/17 Rx amLODIPine [Norvasc] 10 mg PO DAILY tablet 06/14/16 01/24/17 Rx Tolterodine LA [Detrol LA] 4 mg PO DAILY 10/31/16 01/24/17 History HYDROcodone/ACETAMIN 10-325 [Roberts 1 tablet PO TID 01/24/17 01/24/17 History 10-325] Haloperidol [Haloperidol] 10 mg PO BID 01/24/17 01/24/17 History Insulin Aspart [NovoLOG] 10 unit SUBCUT ACHS 01/24/17 01/24/17 History hydrALAZINE TAB [Apresoline Tab] 25 mg PO TID 01/24/17 01/24/17 History Allergies Allergy/AdvReac Type Severity Reaction Status Date / Time No Known Allergies Allergy Verified 11/02/16 18:43 12 point system: reviewed and no additional remarkable complaints except as stated (Per HPI) Medical,Surgical,& Family Hx - Medical History Cardio: History of: CHF (DR MARTINEZ), CAD, Hypertension No history of: Aneurysm, Cardiac Dysrhythmia, Cerebrovascular Disease, Congenital Heart Disease, [place], Pacemaker, PVD, Valvular Heart Disease, Cardiovascular Problems Psychological: History of: Depression, Schizophrenia, Psychiatric Problems No history of: Anxiety Disorders, ADHD, Behavior Problems, Bipolar Disorder, Previous Suicide Attempt, Psychiatric/Substance Abuse Tx, Violent Behavior Neurology: History of: Cerebrovascular Accident (Early WEAKNESS LEFT SIDE ), Migraine, Parkinson's Disease No history of: Brain Aneurysm, Cerebral Hemorrhage, Cerebral Palsy, Dementia , Multiple Sclerosis, Peripheral Neuropathy, Seizures, TIA, Vertigo, Neurologocal Cancer HEENT: History of: Ear Problem (Hearing loss left ear), Eye Problem (Cataracts) , Glaucoma No history of: Dental Problems, Oral Cancer, HEENT Problems Endocrine: History of: Diabetes Mellitus (IDDM), Endocrine Problems (Diabetes) No history of: Adrenal Disease, Diabetes Mellitus (NIDDM), Dyslipidemia, Thyroid Disorder, Endocrine Cancer Rheumatology: No history of;: Fibromyalgia, Gout, Myasthenia Gravis, Psoriasis, Rheumatoid Arthritis, Sjogrens, Systemic Lupus Erythematosus, Rheumatological Problems Respiratory: History of: Asthma, Bronchitis, COPD, Obstructive Sleep Apnea ( DOES NOT USE CPAP), Respiratory Problems No history of: Intubation, Pulmonary Embolism, Pulmonary Hypertension, Pneumonia, Lung Cancer Renal: History of: Renal Failure (Stage III - Not on dialysis - Dr. Marc KNIGHT), Renal Problems No history of: Renal (Kidney) Cancer, Dialysis Genitourinary: History of: Bladder Problem (OVERACTIVE), Kidney Stones, Problems (Urinary incontinence) No history of: Recurring Urinary Tract Infections, Genitourinary Cancer Gastrointestinal: History of: GERD No history of: Bowel Obstruction, Clostridium Difficile, Crohn's Disease, Diverticulitis/ Diverticulosis, Esophageal Varices, Gastrointestinal Bleed, Hemorrhoids, Hematochezia, Hepatitis, Liver Problems, Pancreatitis, Polyps, Ulcerative Colitis, Gastrointestinal Cancer, GI Problems Musculoskeletal: History of: Amputation (4th toe Rt foot), Back/Neck Problems, Degenerative Disk Disease, Osteoporosis, Musculoskeletal Problems (Arthritis) No history of: Herniated Disk, Musculoskeletal Cancer Hematology: History of: Anemia No history of: Blood Transfusion Reaction, Bleeding Problems, Clotting Problems, Sickle Cell Disease, Hematologic Cancer, Blood Disorders Reproductive: History of: Sexually Transmitted Disorders (Gonnorhea) No history of: Abnormal Pap Smear, Breast Cancer, Endometriosis, Ectopic , Ovarian Cysts, Complication, Reproductive Cancer, Reproductive Problems Other: History of: Miscellaneous Medical Problems (patient has parkinsons) No history of: Anesthesia Reactions, Anaphylaxis, Cancer, Eczema, HIV, Malignant Hyperthermia, MRSA, Vancomycin-Resistant Enterococci, Skin Problems - Surgical History Cardiac Surgeries: Sugical HX of: Vascular Access Devices (Mediport on RT side of chest HARD TO STICK) Patient Denies: Femoral-Popliteal Bypass Graft, Cardiac Catheterization, Cardiac Surgery, Carotid Endarterectomy, Internal Defibrillator Thoracic Surgeries: Patient denies;: Kidney (Renal Surgery), Lithotripsy, Nephrectomy, Organ Transplant, Lobectomy Neurologic Surgeries: Patient denies: Brain Aneurysm, Cerebral Hemorrhage, Neurologic Surgery HEENT Surgeries: Surgical HX of: Eye Surgery (Cataract removed bilaterally) Patient denies: Carotid Endarterectomy, Thyroid Surgery, Tonsilectomy & Adenoidectomy Abdominal Surgeries: Surgical HX of: Abdominal Surgery, Colonoscopy, EGD Patient denies: Appendectomy, Cholecystectomy, Gastric Bypass Surgery, Hernia Repair, Splenectomy Reproductive Surgeries: Surgical HX of;: Breast Surgery (Bilateral breast reduction), Gynecologic Surgery (Complete hysterectomy), Hysterectomy, Tubal Ligation Patient denies;: Section, Cystoscopy, Dilation and Curettage, Genitourinary Surgery Orthopedic Surgeries: Surgical HX of;: Orthopedic Surgery (NECK AND BACK), Spinal Surgery Patient denies;: Implanted Devices, Total Hip Replacement, Total Knee Replacement - Family History Family History: Reports;: Family Cancer (Father, Mother), Family Diabetes ( Mother, G'mother), Family Heart Disease (Father), Family Hypertension (G'mother , Father), Family Stroke (Family; Brother) Denies;: Family Anesthesia Reaction, Family Psychiatric Problems - Social History Smoking Status: Former smoker Frequency of Alcohol Use: None Type of Drug Use: None Infectious Disease Exam H&P - Constitutional Vitals: Vital Signs Temp Pulse Resp BP Pulse Ox 97.3 F L 82 18 141/60 95 01/30/17 11:30 01/30/17 11:30 01/30/17 11:30 01/30/17 11:30 01/30/17 11:30 Intake and Output 01/29/17 01/30/17 01/30/17 23:59 07:59 15:59 Intake Total 700 / 700 220 / 220 100 / 100 Balance 700 / 700 220 / 220 100 / 100 Intake: IV 100 / 100 100 / 100 100 / 100 Zosyn 3,375 mg In Ns 100 100 / 100 100 / 100 100 / 100 ml @ 25 mls/hr IV Q8H ROSY Rx#:[id number] Oral 600 / 600 120 / 120 Other: Voiding Method Brief Brief # Voids 2 2 # Bowel Movements 2 3 Weight 119.113 kg Patient Weight 01/30/17 23:59 Weight 119.113 kg Exam: General: Patient relatively comfortable, but chronically ill looking HEENT: Mucous membranes pink, mouth dry, anicteric acyanotic, ISIRDO, no oropharyngeal exudates Neck: Supple, no thyroid gland enlargement Respiratory system: Breath sounds vesicular, no crepitations or wheezes Cardiovascular: No tenderness on palpation about Mediport in the right upper chest, normal S1 and S2, no murmurs appreciated Abdomen: Normal bowel sounds, soft nontender throughout, no organomegaly or mass Genitourinary: No suprapubic pain or bladder distention Extremities: no edema, both feet and legs bandaged Skin: No rash BUSINESS MANAGEMENT CONSULTANT: She has involuntary tremor to her hands and also involuntary movements of her mouth and lips [she says she has Parkinson's disease] Reports - Labs CBC & BMP: 01/29/17 05:59 01/29/17 05:59 Labs: Laboratory Results - last 24 hr 01/29/17 01/29/17 01/30/17 16:16 19:18 07:09 POC Glucose 266 H 200 H 149 H 01/30/17 11:02 POC Glucose 200 H - Reports Microbiology: Microbiology 01/28/17 Unknown Abscess Culture - Final Foot - Right Staphylococcus aureus Anaerobic Culture - Preliminary 01/28/17 Unknown Tissue Culture - Final Foot - Right Staphylococcus aureus Gram Stain - Final 01/24/17 15:42 Blood Culture - Final Blood No growth at 5 days - Diagnostic Findings Procedure: Chest x-ray: report reviewed by me (No acute pathology)
[2017-01-30] MEDS: OXACILLIN 2,000 MG in SODIUM CHLORIDE 0.9% 100 ML IV SCH ×2 (16:16→20:56)
--- NOTE | 2017-01-30 20:20 | ECHO Report ---
Keren Reynolds Exam Date: 01/30/2017 13:57 Referring Physician: Technologist: Keren Patiño LRCP Age: 56 Ht (in): 65 Wt (lb): 262 Gender: F Exam Location: [facility] Echo Indications: MSSA sepsis, Diabetic right foot, CKD, anemia, renal insuff. BP: 141 / 60 HR: 82 Rhythm: Sinus Technical Quality: IMPRESSIONS Normal left ventricular cavity size. Mild concentric hypertrophy. Normal systolic function, estimated left ventricular ejection fraction 55%. Grade 2 diastolic dysfunction. Mild biatrial enlargement. No large vegetations or masses identified. Consider JESSICA, if clinically indicated for endocarditis. MEASUREMENTS (Male / Female) Normal Values 2D ECHO LV Diastolic Diameter PLAX 3.7 cm 4.2 - 5.9 / 3.9 - 5.3 cm LV Systolic Diameter PLAX 2.8 cm LV Fractional Shortening PLAX 23.8 % IVS Diastolic Thickness 1.3 cm 0.6 - 1.0 / 0.6 - 0.9 cm LVPW Diastolic Thickness 1.0 cm 0.6 - 1.0 / 0.6 - 0.9 cm Aortic Root Diameter 2.3 cm LA Systolic Diameter LX 2.9 cm 3.0 - 4.0 / 2.7 - 3.8 cm DOPPLER TR Peak Velocity 248.0 cm/s TR Peak Gradient 24.6 mmHg FINDINGS Left Ventricle Normal left ventricular cavity size. Mild concentric hypertrophy. Normal systolic function, estimated left ventricular ejection fraction 55%. Grade 2 diastolic dysfunction. Right Ventricle Normal right ventricular size, with normal systolic function. Right Atrium Mildly dilated right atrium. Left Atrium Mildly dilated left atrium. Mitral Valve Morphologically normal mitral valve. Trace insufficiency. Aortic Valve The aortic valve is trileaflet and has normal motion. No significant stenosis or insufficiency. Tricuspid Valve Morphologically normal tricuspid valve. Trace tricuspid valve regurgitation. Tricuspid regurgitation velocities suggest a PAP of 25 mmHg + RAP. Pulmonic Valve The pulmonic valve is not well visualized. Pericardium No pericardial effusion. Aorta Normal size aortic root and proximal ascending aorta. Elvin Goldberg (Electronically Signed) Final Date: 30 January 2017 20:18
[2017-01-30] MEDS: GABAPENTIN 300 MG CAPSULE PO SCH (20:54)
[2017-01-30] MEDS: TRAVOPROST 0.004% OPH SOLN 2.5 ML BOTTLE BOTH EYES SCH (21:00)
[2017-01-31] MEDS: OXACILLIN 2,000 MG in SODIUM CHLORIDE 0.9% 100 ML IV SCH ×4 (00:51→12:49)
[2017-01-31] MEDS: ENOXAPARIN 30 MG/0.3 ML SYRINGE SUBCUT SCH (04:08)
[2017-01-31 07:15] LABS: Basophils % 0.3 % (0.0-0.8); Eosinophils # 0.3 10*3/uL (0.0-0.87); Eosinophils % 2.5 % (0.00-10.9); Hematocrit 24.6 VOL% (35.7-47.0); Hemoglobin 7.9 GM/DL (12.0-16.0); Immature Granulocytes % 0.8 %; Immature Granulocytes Absolute 0.08 #; Lymphocytes # 2.3 10*3/uL (1.4-4.0); Mean Corpuscular HGB Conc 32.1 GM/DL (32-36); Mean Corpuscular Hemoglobin 30 PG (27-34); Mean Corpuscular Volume 94.6 FL (87-102); Mean Platelet Volume 10.7 FL (9.6-12.0); Monocytes # 0.8 10*3/uL (0.11-0.8); Monocytes % 7.6 % (1.7-12.7); Neutrophils # 6.5 10*3/uL (1.4-7.4); Neutrophils % 65.8 % (38.7-73.9); Platelet Count 302 T/CUMM (130-400); Red Cell Distribution Width 16.5 % (9.3-17.3); White Blood Count 9.9 T/CUMM (4-12)
[2017-01-31 07:44] LABS: Magnesium 1.7 MG/DL (1.8-2.4); Osmolality,Calculated 288.5 MOS/KG (273-304); Potassium 5.1 MMOL/L (3.5-5.1)
[2017-01-31 08:13] LABS: Hematocrit 26.5 VOL% (35.7-47.0); Hemoglobin 8.6 GM/DL (12.0-16.0)
[2017-01-31] MEDS: INSULIN LISPRO 100 UNIT/ML SUBCUT SCH ×2 (09:07→12:01)
[2017-01-31] MEDS: INSULIN REGULAR 100 UNIT/ML SUBCUT SCH ×2 (09:08→12:02)
[2017-01-31] MEDS: VENLAFAXINE XR 75 MG CAPSULE PO SCH (09:08)
[2017-01-31] MEDS: levETIRAcetam 500 MG TABLET PO SCH (09:08)
[2017-01-31] MEDS: CARBIDOPA/LEVODOPA 25-250 MG TABLET PO SCH ×2 (09:09→12:49)
[2017-01-31] MEDS: PANTOPRAZOLE 40 MG TABLET PO SCH (09:09)
[2017-01-31] MEDS: HALOPERIDOL 5 MG TABLET PO SCH (09:09)
[2017-01-31] MEDS: TOLTERODINE LA 4 MG CAPSULE PO SCH (09:09)
[2017-01-31] MEDS: CARVEDILOL 25 MG TABLET PO SCH (09:09)
[2017-01-31] MEDS: hydrALAZINE 25 MG TABLET PO SCH (09:09)
[2017-01-31] MEDS: BENZTROPINE 0.5 MG TABLET PO SCH (09:09)
[2017-01-31] MEDS: amLODIPine 10 MG TABLET PO SCH (09:09)
[2017-01-31] MEDS: SODIUM ACETATE 100 MEQ in DEXTROSE 5% 1,000 ML IV SCH (09:17)
[2017-01-31] MEDS: DESITIN 4OZ/NYSTATIN 15 GRAM MIXTURE PASTE TOP SCH (09:23)
[2017-01-31] MEDS: BACITRACIN OINT 0.9 GM PACK TOP SCH (09:23)
[2017-01-31] MEDS: SODIUM HYPOCHLORITE 0.25% IRRIG 473 ML BOTTLE TOP SCH (09:23)
[2017-01-31] MEDS: DOCUSATE SODIUM 100 MG CAPSULE PO SCH (09:23)
--- NOTE | 2017-01-31 09:39 | Discharge Summary ---
Hospital Course - Hospital Course Hospital Course: Discharge summary: Discharge diagnosis: 1. Abscess and cellulitis of the right third toe. 2. Traumatic wound of the right third toe with cellulitis 3. Schizophrenia 4. Renal insufficiency 5. Diabetes Procedure performed was amputation of the right third toe with extensive debridement of dorsum of the foot Surgeon Dr. Reeder Transmitter Tester Dr. Paz Brief summary: 56-year-old -[place] female with schizophrenia who has some difficulty getting around using a walker at times. Apparently she sustained a traumatic injury to the right third toe with a posterior based laceration of that toe area. She is diabetic but did not seek immediate help for this. When she came to us there was obvious cellulitis of the foot at the base of the toe she had this open wound the underside. At that point I elected to put her in the hospital and monitor glucose and her renal function and start her on some IV antibiotics. [place] the wound was getting better when I saw her before the weekend with the plan to taken her surgery and try to suture this wound together on the underside of her fifth toe. By the time we got her to surgery this toe looked much worse with ischemic changes in the distal part of it and obvious infection possibly abscess into this foot. This forced me to amputate third toe debride this wound extensively but could not completely close at this time. Cultures are pending and a growing out a staph that is in the blood as well as in the wound at this time. Dr. White was consulted on this situation she felt that she is going need about 4 weeks of IV antibiotics. She is switched her over to oxacillin for this. The echo was performed that showed no lesions present at this point. Her labs of been okay with hematocrit running a little bit low around 27 and her renal function around 3. She is now covered with good antibiotics and get wound care going to try to get this is clean as we can possibly get it for possible debridement and closure at a later date. At this point she was not eligible for [facility] so would like to go ahead and see if we get especially let them continue the IV antibiotics. Hopefully we can get this under control get the wound better enough that we can begin some better closure once it has had a better chance to respond care. Hopefully they will continue her present wound care orders and see if we can keep things in good shape. I will plan to see her again in a month see what the wound bed is doing and see if we need to retain particular. - Time spent with patient Time with patient DS: Less than 30 minutes Diagnosis - Discharge Diagnosis (1) Laceration of third toe of right foot with complication Status: Chronic (2) Traumatic ecchymosis of right foot Status: Resolved (3) Cellulitis of foot, right Status: Chronic (4) Diabetes Status: Chronic (5) Renal insufficiency Status: Chronic (6) Anemia Status: Chronic (7) Anemia Status: Acute (8) Schizophrenia Status: Chronic Specialty Discharge - Follow Up or Referrals Follow up with: Issa Reeder MD [Physician] - 1 Month - Speciality Discharge Instructions Surgery Instructions: Maintain present wound care Discharge Plan - Discharge Data Disposition: Disch/Xfer to [facility] Condition at Discharge: Stable Discharge Diet: advance to your usual diet Activity: ambulate only with your walker, as per physical therapy, increase activity as tolerated, other (He sure to wear the Darco postop shoe whenever up) Hygiene: may shower Weight Bearing at Discharge: weight bear as tolerated, other (Be sure to have the Darco shoe in place whenever eating up) Driving: other Contact your physician if you experience:: fever over 101, Redness or swelling, Bleeding, pain uncontrolled by pain medications Wound / Dressing Care Instructions: Wound care to the right foot daily. Wash the foot and leg with Hibiclens--patient may shower. Irrigate the wound bed with 15 cc of half-strength Dakin solution. Apply bacitracin to the wound then Karen with Adaptic over the top along with some fluffs. Heel pad to the heel. Aquaphor to the rest of the foot heel and leg. Wrapped with cast padding Coban to the knee - Discharge Medications New Acetaminophen Tab [Tylenol Tab] 650 mg PO Q6H PRN tablet PRN Reason: Pain Mild (1-3) And/Or Fever Alum/Mag/Simeth Max Str Liquid [Mylanta Max Strength Liquid] 15 ml PO Q6H PRN PRN Reason: Dyspepsia Ondansetron Inj [Zofran Inj] 4 mg IV Q6H PRN vial PRN Reason: Nausea/Vomiting Oxacillin 2,000 mg IV Q4H vial Skin Healing Oint (Aquaphor) [Aquaphor] 1 applic TOP PRN PRN applic PRN Reason: Dry Skin Sodium Acetate 100 meq IV .Q21H vial Docusate Sodium Cap [Colace Cap] 100 mg PO BID capsule Sodium Hypochlorite 0.25% Irr [Dakins 1/2 Strength 0.25% Soln] 1 applic TOP DAILY applic Continue levETIRAcetam TAB [Keppra Tab] 500 mg PO TID Benztropine Tab [Cogentin Tab] 0.5 mg PO TID Venlafaxine HCl [Effexor XR] 150 mg PO DAILY Travoprost 0.004% Oph Soln [Travatan Z] 1 drop BOTH EYES BEDTIME Carbidopa/Levodopa [Carbidopa-Levodopa 25-250 Tab] 1 each PO QID amLODIPine [Norvasc] 10 mg PO DAILY tablet Haloperidol 10 mg PO BID HYDROcodone/ACETAMIN 10-325 [[place] 10-325] 1 tablet PO TID Insulin Aspart [NovoLOG] 10 unit SUBCUT ACHS Carvedilol [Coreg] 25 mg PO BID tablet Tolterodine LA [Detrol LA] 4 mg PO DAILY hydrALAZINE TAB [Apresoline Tab] 25 mg PO TID Gabapentin Cap/Tab [Neurontin Cap/Tab] 300 mg PO BID #60 capsule - Follow Up or Referral - Forms/Instructions Exam - Constitutional Vitals: Period Temp Pulse Resp BP Sys/Quintanilla Pulse Ox Last 24 Hr 97.3 F-98.4 F 67-89 18-20 140-147/55-91 91-98 General appearance: no acute distress - Head Head exam: Present: normal inspection - ENT ENT exam: Present: normal exam - Neck Neck exam: Present: normal inspection - Respiratory Respiratory exam: Present: rales - Cardiovascular Cardiovascular exam: Present: regular rate and rhythm - GI/Abdominal GI/Abdominal exam: Present: hypoactive bowel sounds, soft. Absent: tenderness - Extremities Exam Extremities exam: Present: other (Foot wound looks in fairly good shape at this point time fairly clean still has a flap to deal with but I do not see any progression of the process) - Back Exam Back exam: Present: normal inspection - Neurological Exam Neurological exam: Present: alert, oriented X3, CN II-XII intact - Psychiatric Psychiatric exam: Present: normal affect, normal mood - Skin Skin exam: Present: normal color, warm, dry Discharge Results Procedures and tests throughout hospitalization: Pending Orders 01/30/17 08:56 Blood Culture Routine Labs on day of discharge: Labs from last 24 hours 01/31/17 01/31/17 01/31/17 07:58 05:46 05:46 WBC 9.9 RBC 2.60 L Hgb 8.6 L 7.9 L Hct 26.5 L 24.6 L MCV 94.6 MCH 30 MCHC 32.1 RDW 16.5 Plt Count 302 MPV 10.7 Neut % (Auto) 65.8 Lymph % (Auto) 23.0 [place] % (Auto) 7.6 Eos % (Auto) 2.5 Baso % (Auto) 0.3 Neut # (Auto) 6.5 Lymph # (Auto) 2.3 [place] # (Auto) 0.8 Eos # (Auto) 0.3 Baso # (Auto) 0.0 Immature Gran % 0.8 Nucleated RBC % 0.0 Immature Gran # 0.08 Nucleated RBCs # 0.00 Immature Plt Fraction 0.0 Sodium 139 Potassium 5.1 Chloride 108 H Carbon Dioxide 22 Anion Gap 14.1 BUN 38 H Creatinine 3.10 H GFR Calculation 24 BUN/Creatinine Ratio 12.00 Glucose 144 H POC Glucose Calculated Osmolality 288.5 Calcium 8.0 L Magnesium 1.7 L 01/30/17 01/30/17 01/30/17 19:16 15:40 11:02 WBC RBC Hgb Hct MCV MCH MCHC RDW Plt Count MPV Neut % (Auto) Lymph % (Auto) [place] % (Auto) Eos % (Auto) Baso % (Auto) Neut # (Auto) Lymph # (Auto) [place] # (Auto) Eos # (Auto) Baso # (Auto) Immature Gran % Nucleated RBC % Immature Gran # Nucleated RBCs # Immature Plt Fraction Sodium Potassium Chloride Carbon Dioxide Anion Gap BUN Creatinine GFR Calculation BUN/Creatinine Ratio Glucose POC Glucose 161 H 140 H 200 H Calculated Osmolality Calcium Magnesium Preliminary micro results at discharge 01/30/17 08:56 Blood Culture - Preliminary Blood No growth at 1 day 01/30/17 07:11 Blood Culture - Preliminary Blood No growth at 1 day DS: Provider Date of admission: 01/24/17 17:32 Primary care physician: Opal Avalos M.D. Attending physician on admission: Issa Reeder MD Consults: 01/24/17 18:37 Consult to Pastoral Services [CONS] Routine Comment: Pastoral Screen: Request Manufacturing Lab Technician Visit 01/25/17 07:28 Consult to Physician [CONS] Routine Comment: Consulting Provider: Terrence Tran Consult to Specialist Group: Nephrology When should Consulting Provider be notified: Now Person Notified: Ani Date Notified: 01/25/17 Time Notified: 10:23 Consult Notification Comment: Pt with renal insufficiency 01/28/17 09:54 Consult to Wound Care - [place] [CONS] Routine Reason for Wound Care: Wound Care Management Consult Comment: Amputated wound with abscess right foot 01/28/17 09:57 Consult to Case Mgmt/Social Srvs [CONS] Routine Reason for Case Mgmt/Social Srvs: Discharge Planning Home Health LTAC Consult Comment: Patient's currently help with wound care of the foot 01/30/17 10:44 Consult to Physician [CONS] Routine Comment: Diabetic foot wound; positive blood cultures Consulting Provider: Misty Kc Person Notified: Esme Date Notified: 01/30/17 Time Notified: 11:08 Consult Notification Comment: left message Discharging clinician: Issa Reeder MD Expected date of discharge: 01/31/17
[2017-01-31 12:20] VITALS: BP 132/90
--- NOTE | 2017-01-31 14:29 | Nephrology Progress Note ---
Nephrology - PN: Subj Interval history: No new symptoms today. Exam (PN)-Nephrology - Vital Signs Vital signs: Period Temp Pulse Resp BP Sys/Quintanilla Pulse Ox Last 24 Hr 97.4 F-98.4 F 67-89 18-20 132-147/55-111 91-98 Exam: ENT: Normal Cardiovascular: Regular rate and rhythm. No murmur rub or gallop Lungs: Clear Extremities: No edema. Foot dressed - Lab 01/31/17 07:58 01/31/17 05:46 Most recent lab results Calcium 8.0 MG/DL (8.5-10.1) L 01/31/17 05:46 Magnesium 1.7 MG/DL (1.8-2.4) L 01/31/17 05:46 Assessment and Plan (1) CKD (chronic kidney disease) stage 4, GFR 15-29 ml/min Status: Acute Assessment and plan: 56-year-old woman with: * CRF stage IV. Renal function stable. * Diabetes mellitus * Fracture, right foot * Cellulitis, right foot. Plans for IV antibiotics at LTAC noted * Hypertension * Schizophrenia (2) Cellulitis of foot, right Status: Chronic (3) Laceration of third toe of right foot with complication Status: Chronic (4) Diabetes Status: Chronic Qualifiers: Diabetes mellitus type: type 2 (5) Hypertension Status: Acute (6) Schizophrenia Status: Chronic Qualifiers: Schizophrenia type: paranoid schizophrenia Qualified Code(s): F20.0 - Paranoid schizophrenia Specialty Discharge - Follow Up or Referrals Follow up with: Issa Reeder MD [Physician] - 03/04/17 10:00 am
== END 2017-01-31 13:41 | DRG 854 ==
LOC: N.ED 13:27 → N.EDINP 17:32 → N.5E 17:55
PROVIDERS: ADMIT Specialist; ATTEND Specialist

== ENCOUNTER 2017-11-04 15:04 | Inpatient (IN) ==
[2017-11-07 12:19] VITALS: BP 163/77
== END 2017-11-07 15:30 | DRG 689 ==
LOC: EDUNIT# → EDBD → N.ED 15:04 → N.EDINP 16:48 → SUATTDRO 16:48 → N.2E 17:20
PROVIDERS: ATTEND Internal Medicine

== ENCOUNTER 2018-01-04 15:46 | Inpatient (IN) ==
[2018-01-04] MEDS ORDERED: ATROPINE 1 MG/10 ML SYRINGE ONE (16:01)
[2018-01-04] MEDS ORDERED: EPINEPHrine 1 MG/10 ML SYRINGE ONE (16:11)
[2018-01-04] MEDS ORDERED: EPINEPHrine 1 MG/ML VIAL ONE (16:16)
[2018-01-04 16:23] LABS: Basophils % 0.1 % (0.0-0.8); Eosinophils # 0.1 10*3/uL (0.0-0.87); Eosinophils % 1.1 % (0.00-10.9); Hematocrit 22.2 VOL% (35.7-47.0); Hemoglobin 6.8 GM/DL (12.0-16.0); Immature Granulocytes % 0.3 %; Immature Granulocytes Absolute 0.02 #; Lymphocytes # 1.3 10*3/uL (1.4-4.0); Lymphocytes % 18.4 % (21.3-54.2); Mean Corpuscular HGB Conc 30.6 GM/DL (32-36); Mean Corpuscular Hemoglobin 30 PG (27-34); Mean Corpuscular Volume 96.9 FL (87-102); Mean Platelet Volume 11.6 FL (9.6-12.0); Monocytes # 0.4 10*3/uL (0.11-0.8); Monocytes % 5.6 % (1.7-12.7); Neutrophils # 5.2 10*3/uL (1.4-7.4); Neutrophils % 74.5 % (38.7-73.9); Platelet Count 196 T/CUMM (130-400); Red Blood Count 2.29 MC/CUMM (3.8-5.5)
[2018-01-04] MEDS ORDERED: ATROPINE 1 MG/10 ML SYRINGE IV STA (16:25)
[2018-01-04] MEDS ORDERED: EPINEPHrine 1 MG/10 ML SYRINGE IV STA (16:29)
[2018-01-04 16:42] LABS: Lactic Acid 1.7 MMOL/L (0.4-2.0)
[2018-01-04 16:44] LABS: PT Patient Result 10.9 SECS
[2018-01-04 16:45] LABS: Alanine Aminotransferase < 6 U/L (13-56); Albumin 2.2 G/DL (3.4-5.0); Alkaline Phosphatase 112 U/L (45-117); Aspartate Amino Transferase 14 U/L (0-37); Bilirubin,Total < 0.39 MG/DL (0.2-1.0); Blood Urea Nitrogen 70 MG/DL (7-18); Calcium 7.7 MG/DL (8.5-10.1); Glucose 226 MG/DL (74-106); Osmolality,Calculated 300.8 MOS/KG (273-304); Sodium 137 MMOL/L (136-145); Total Protein 6.6 G/DL (6.4-8.3); Troponin I Only < 0.015 NG/ML (0.00-0.045)
[2018-01-04 16:47] LABS: Ammonia 32 UMOL/L (11-32)
[2018-01-04 16:49] LABS: Potassium 7.5 MMOL/L (3.5-5.1)
[2018-01-04] MEDS ORDERED: CALCIUM GLUCONATE 2,000 MG in SODIUM CHLORIDE 0.9% 100 ML IV ONE (16:59)
[2018-01-04] MEDS ORDERED: DEXTROSE 50% 25 GM/50 ML SYRINGE IV ONE (17:04)
[2018-01-04] MEDS ORDERED: SODIUM BICARBONATE 10 MEQ/10 ML SYRINGE IV ONE (17:05)
[2018-01-04] MEDS ORDERED: CALCIUM GLUCONATE 1,000 MG/10 ML VIAL IV ONE (17:05)
[2018-01-04] MEDS ORDERED: INSULIN REGULAR 100 UNIT/ML IV STA (17:06)
[2018-01-04] MEDS ORDERED: SODIUM BICARBONATE 50 MEQ/50 ML SYRINGE IV ONE (17:06)
[2018-01-04] MEDS ORDERED: INSULIN REGULAR 100 UNIT/ML ONE (17:09)
[2018-01-04] MEDS ORDERED: SODIUM BICARBONATE 50 MEQ/50 ML VIAL IV STA (17:11)
[2018-01-04] MEDS ORDERED: DEXTROSE 50% 25 GM/50 ML VIAL IV STA (17:11)
[2018-01-04] MEDS ORDERED: SODIUM CHLORIDE 0.9% 1,000 ML IV PRN (17:12)
[2018-01-04] MEDS ORDERED: PROPOFOL 1,000 MG/100 ML BOTTLE IV ONE (17:26)
[2018-01-04] MEDS ORDERED: ALBUTEROL 2.5 MG/3 ML NEB RESP TX PRN (17:33)
[2018-01-04] MEDS ORDERED: SODIUM POLYSTYRENE SULFATE 15 GM/60 ML BOTTLE PO STA (17:45)
[2018-01-04] MEDS ORDERED: ALBUTEROL 1.25 MG/3 ML NEB RESP TX STA (17:49)
[2018-01-04] MEDS: PROPOFOL 1,000 MG/100 ML BOTTLE IV SCH (18:00)
[2018-01-04 18:14] LABS: ABG Base Excess -7.5 MMOL/L (-2.5-2.5); ABG HCO3 18.3 MMOL/L (20-26); ABG Oxygen Saturation 99.7 % (95-100); ABG PCO2 37.8 MM HG (35-48); ABG PH 7.302 (7.35-7.45); ABG PO2 477.5 MM HG (80-95); ABG TCO2 19.4 MMOL/L (23-27)
[2018-01-04] MEDS ORDERED: ROCURONIUM 100 MG/10 ML VIAL IV ONE ×2 (18:14→18:15)
[2018-01-04] MEDS ORDERED: ETOMIDATE 20 MG/10 ML VIAL IV ONE ×2 (18:14→18:15)
[2018-01-04] MEDS ORDERED: GLUCAGON 1 MG VIAL IM PRN (18:29)
[2018-01-04] MEDS ORDERED: PROPOFOL 1,000 MG/100 ML BOTTLE IV SCH (18:30)
[2018-01-04 18:36] LABS: Ammonia 32 UMOL/L (11-32)
[2018-01-04 19:00] LABS: Troponin I Only < 0.015 NG/ML (0.00-0.045)
[2018-01-04 19:27] LABS: Apearance,Urine CLOUDY (Clear); Bilirubin,Urine Negative (Negative); Blood, Urine Small mg/dL (Negative); Glucose,Urine (UA) Negative (Negative); Ketones,Urine Negative (Negative); Mucus,Urine Occasional /LPF (Occasional); Nitrite,Urine Negative (Negative); Protein,Urine 100 MG/DL; RBC,Urine 81 /HPF (0-4); Urine Specific Gravity 1.008 (1.001-1.035); Urine Urobilinogen < 2.0 EU/DL (0.2-1.0); WBC,Urine 2448 /HPF (0-6)
[2018-01-04 19:28] LABS: Urine Color Yellow (Yellow)
[2018-01-04 19:29] LABS: Bacteria,Urine 2+ /HPF (Few)
[2018-01-04] MEDS: SODIUM BICARBONATE 650 MG TABLET PO SCH (20:29)
[2018-01-04] MEDS: PRAVASTATIN 40 MG TABLET PO SCH (20:29)
[2018-01-04] MEDS: SODIUM CHLORIDE 23.4% CONC INJ 38.5 MEQ, SODIUM BICARB INJ 100 MEQ in STERILE WATER INJ... IV SCH (20:29)
[2018-01-04] MEDS: CARBIDOPA/LEVODOPA 25-250 MG TABLET PO SCH (20:29)
[2018-01-04] MEDS: PANTOPRAZOLE 40 MG VIAL IV SCH (20:29)
[2018-01-04] MEDS: INSULIN GLARGINE 100 UNIT/ML SUBCUT SCH (20:30)
[2018-01-04] MEDS: hydrALAZINE 20 MG/1 ML VIAL IV PRN (20:36)
[2018-01-04] MEDS ORDERED: ENOXAPARIN 30 MG/0.3 ML SYRINGE SUBCUT SCH (21:00)
[2018-01-04] MEDS ORDERED: APIXABAN 2.5 MG TABLET PO SCH ×2 (21:00)
[2018-01-04] MEDS ORDERED: hydrALAZINE 20 MG/1 ML VIAL IV SCH (22:00)
[2018-01-04] MEDS: TRAVOPROST 0.004% OPH SOLN 2.5 ML BOTTLE BOTH EYES SCH (22:09)
[2018-01-04] MEDS ORDERED: cloNIDine 0.1 MG TABLET PO PRN (23:15)
[2018-01-04] MEDS: INSULIN REGULAR 100 UNIT/ML SUBCUT SCH (23:31)
[2018-01-05] MEDS: PROPOFOL 1,000 MG/100 ML BOTTLE IV SCH ×5 (00:15→21:16)
[2018-01-05] MEDS: SODIUM POLYSTYRENE SULFATE 15 GM/60 ML BOTTLE PO SCH ×3 (01:51→13:46)
[2018-01-05 03:20] LABS: Allen Test Positive; Pt O2 Delivery Device Ventilator
[2018-01-05 03:25] LABS: ABG Base Excess -3.5 MMOL/L (-2.5-2.5); ABG HCO3 21.5 MMOL/L (20-26); ABG Oxygen Saturation 99.8 % (95-100); ABG PCO2 31.2 MM HG (35-48); ABG PH 7.422 (7.35-7.45); ABG TCO2 19.2 MMOL/L (23-27)
[2018-01-05] MEDS: MORPHINE 4 MG/1 ML VIAL IV PRN ×2 (04:53→18:29)
[2018-01-05] MEDS: ONDANSETRON 4 MG/2 ML VIAL IV PRN ×2 (04:53→18:40)
[2018-01-05] MEDS: INSULIN REGULAR 100 UNIT/ML SUBCUT SCH ×3 (05:48→18:30)
[2018-01-05] MEDS: SODIUM CHLORIDE 23.4% CONC INJ 38.5 MEQ, SODIUM BICARB INJ 100 MEQ in STERILE WATER INJ... IV SCH ×2 (07:54→19:01)
[2018-01-05] MEDS: TOLTERODINE LA 4 MG CAPSULE PO SCH (08:15)
[2018-01-05] MEDS: ARIPiprazole 10 MG TABLET PO SCH (08:16)
[2018-01-05] MEDS: SODIUM BICARBONATE 650 MG TABLET PO SCH ×2 (08:16→21:30)
[2018-01-05] MEDS: CARBIDOPA/LEVODOPA 25-250 MG TABLET PO SCH ×4 (08:17→21:13)
[2018-01-05] MEDS: LIDOCAINE 5% PATCH TRANSDERM SCH ×2 (08:17→18:39)
[2018-01-05] MEDS: levETIRAcetam 500 MG TABLET PO SCH (08:17)
[2018-01-05] MEDS: FUROSEMIDE 40 MG/4 ML VIAL IV SCH ×3 (09:19→21:15)
[2018-01-05 09:50] LABS: Basophils % 0.1 % (0.0-0.8); Eosinophils # 0.1 10*3/uL (0.0-0.87); Hemoglobin 9.4 GM/DL (12.0-16.0); Immature Granulocytes % 0.3 %; Immature Granulocytes Absolute 0.03 #; Lymphocytes % 11.8 % (21.3-54.2); Mean Corpuscular HGB Conc 32.4 GM/DL (32-36); Mean Corpuscular Hemoglobin 29 PG (27-34); Mean Corpuscular Volume 90.3 FL (87-102); Mean Platelet Volume 10.6 FL (9.6-12.0); Monocytes # 0.5 10*3/uL (0.11-0.8); Monocytes % 5.5 % (1.7-12.7); Neutrophils # 7.1 10*3/uL (1.4-7.4); Neutrophils % 81.3 % (38.7-73.9); Platelet Count 197 T/CUMM (130-400); Red Blood Count 3.21 MC/CUMM (3.8-5.5); Red Cell Distribution Width 18.5 % (9.3-17.3); White Blood Count 8.7 T/CUMM (4-12)
[2018-01-05 10:19] LABS: Albumin 2.6 G/DL (3.4-5.0); Bilirubin,Total 0.5 MG/DL (0.2-1.0); Calcium 8.1 MG/DL (8.5-10.1); Osmolality,Calculated 297.4 MOS/KG (273-304); Potassium 5.5 MMOL/L (3.5-5.1); Total Protein 6.6 G/DL (6.4-8.3)
[2018-01-05 11:19] LABS: ABG Base Excess -3.1 MMOL/L (-2.5-2.5); ABG HCO3 21.8 MMOL/L (20-26); ABG Oxygen Saturation 96.9 % (95-100); ABG PCO2 42.1 MM HG (35-48); ABG PH 7.338 (7.35-7.45); ABG TCO2 20.6 MMOL/L (23-27)
[2018-01-05] MEDS: cefTAZidime 500 MG in SYRINGE 1 EACH IV SCH (13:36)
[2018-01-05 15:50] LABS: Calcium 8.3 MG/DL (8.5-10.1); Osmolality,Calculated 296.3 MOS/KG (273-304); Potassium 4.7 MMOL/L (3.5-5.1)
[2018-01-05] MEDS: hydrALAZINE 20 MG/1 ML VIAL IV PRN (18:39)
[2018-01-05] MEDS: PRAVASTATIN 40 MG TABLET PO SCH (21:13)
[2018-01-05] MEDS: PANTOPRAZOLE 40 MG VIAL IV SCH (21:13)
[2018-01-05] MEDS: metroNIDAZOLE INJ 500 MG in PREMIX 1 EACH IV SCH (21:17)
[2018-01-05] MEDS: INSULIN GLARGINE 100 UNIT/ML SUBCUT SCH (21:18)
[2018-01-05] MEDS: TRAVOPROST 0.004% OPH SOLN 2.5 ML BOTTLE BOTH EYES SCH (21:29)
[2018-01-06] MEDS: INSULIN REGULAR 100 UNIT/ML SUBCUT SCH ×4 (01:22→18:27)
[2018-01-06] MEDS: metroNIDAZOLE INJ 500 MG in PREMIX 1 EACH IV SCH ×4 (01:38→17:50)
[2018-01-06] MEDS: DEXTROSE 50% 25 GM/50 ML VIAL IV PRN ×2 (01:39→15:27)
[2018-01-06] MEDS: PROPOFOL 1,000 MG/100 ML BOTTLE IV SCH ×3 (02:24→17:38)
[2018-01-06] MEDS: FUROSEMIDE 40 MG/4 ML VIAL IV SCH ×5 (03:45→20:23)
[2018-01-06 03:50] LABS: ABG Base Excess 0.8 MMOL/L (-2.5-2.5); ABG HCO3 25.1 MMOL/L (20-26); ABG Oxygen Saturation 98.2 % (95-100); ABG TCO2 21.9 MMOL/L (23-27)
[2018-01-06] MEDS: hydrALAZINE 20 MG/1 ML VIAL IV PRN (04:50)
[2018-01-06 05:04] LABS: Calcium 8.5 MG/DL (8.5-10.1); Osmolality,Calculated 299.8 MOS/KG (273-304); Potassium 3.9 MMOL/L (3.5-5.1)
[2018-01-06] MEDS: MORPHINE 4 MG/1 ML VIAL IV PRN (06:15)
[2018-01-06] MEDS: SODIUM CHLORIDE 23.4% CONC INJ 38.5 MEQ, SODIUM BICARB INJ 100 MEQ in STERILE WATER INJ... IV SCH ×2 (06:58→17:16)
[2018-01-06 08:03] LABS: ABG Base Excess 0.5 MMOL/L (-2.5-2.5); ABG HCO3 24.8 MMOL/L (20-26); ABG Oxygen Saturation 95.7 % (95-100); ABG PCO2 51.1 MM HG (35-48); ABG PH 7.332 (7.35-7.45); ABG PO2 93.7 MM HG (80-95); ABG TCO2 24.6 MMOL/L (23-27)
[2018-01-06] MEDS ORDERED: NIFEdipine 10 MG CAPSULE PO PRN (08:29)
[2018-01-06] MEDS ORDERED: METOPROLOL TARTRATE 5 MG/5 ML VIAL IV PRN (08:30)
[2018-01-06] MEDS ORDERED: FUROSEMIDE 100 MG/10 ML VIAL ONE (08:57)
[2018-01-06] MEDS ORDERED: LISINOPRIL 20 MG TABLET PER TUBE SCH (09:00)
[2018-01-06] MEDS: cloNIDine 0.1 MG TABLET PER TUBE SCH ×3 (09:48→20:23)
[2018-01-06] MEDS: CARVEDILOL 12.5 MG TABLET PER TUBE SCH ×2 (09:48→16:53)
[2018-01-06] MEDS: SODIUM BICARBONATE 650 MG TABLET PO SCH ×2 (09:57→20:23)
[2018-01-06] MEDS: CARBIDOPA/LEVODOPA 25-250 MG TABLET PO SCH ×4 (09:57→20:23)
[2018-01-06] MEDS: TOLTERODINE LA 4 MG CAPSULE PO SCH (09:57)
[2018-01-06] MEDS: levETIRAcetam 500 MG TABLET PO SCH (09:57)
[2018-01-06] MEDS: LIDOCAINE 5% PATCH TRANSDERM SCH (09:57)
[2018-01-06] MEDS: ARIPiprazole 10 MG TABLET PO SCH (09:57)
[2018-01-06] MEDS: VANCOMYCIN 50 MG/ML 60 ML/BOTTLE PER TUBE SCH ×2 (11:50→17:34)
[2018-01-06] MEDS: cefTAZidime 500 MG in SYRINGE 1 EACH IV SCH (13:19)
[2018-01-06] MEDS ORDERED: APIXABAN 5 MG TABLET PO SCH (14:30)
[2018-01-06] MEDS: PRAVASTATIN 40 MG TABLET PO SCH (20:23)
[2018-01-06] MEDS: INSULIN GLARGINE 100 UNIT/ML SUBCUT SCH (20:23)
[2018-01-06] MEDS: PANTOPRAZOLE 40 MG VIAL IV SCH (20:27)
[2018-01-06] MEDS: TRAVOPROST 0.004% OPH SOLN 2.5 ML BOTTLE BOTH EYES SCH (22:06)
[2018-01-07] MEDS: INSULIN REGULAR 100 UNIT/ML SUBCUT SCH ×5 (00:12→23:54)
[2018-01-07] MEDS: VANCOMYCIN 50 MG/ML 60 ML/BOTTLE PER TUBE SCH ×4 (00:13→17:00)
[2018-01-07] MEDS: metroNIDAZOLE INJ 500 MG in PREMIX 1 EACH IV SCH ×2 (00:13→06:28)
[2018-01-07] MEDS: FUROSEMIDE 40 MG/4 ML VIAL IV SCH ×3 (02:49→16:45)
[2018-01-07] MEDS: MORPHINE 4 MG/1 ML VIAL IV PRN ×2 (03:31→20:45)
[2018-01-07] MEDS: SODIUM CHLORIDE 23.4% CONC INJ 38.5 MEQ, SODIUM BICARB INJ 100 MEQ in STERILE WATER INJ... IV SCH ×2 (03:48→14:05)
[2018-01-07 04:19] LABS: Basophils % 0.2 % (0.0-0.8); Eosinophils # 0.1 10*3/uL (0.0-0.87); Eosinophils % 0.7 % (0.00-10.9); Hematocrit 29.7 VOL% (35.7-47.0); Hemoglobin 9.8 GM/DL (12.0-16.0); Immature Granulocytes % 0.3 %; Immature Granulocytes Absolute 0.04 #; Lymphocytes # 1.8 10*3/uL (1.4-4.0); Lymphocytes % 13.8 % (21.3-54.2); Mean Corpuscular Hemoglobin 29 PG (27-34); Mean Corpuscular Volume 87.4 FL (87-102); Mean Platelet Volume 11.4 FL (9.6-12.0); Monocytes # 0.9 10*3/uL (0.11-0.8); Monocytes % 7.1 % (1.7-12.7); Neutrophils # 9.9 10*3/uL (1.4-7.4); Neutrophils % 77.9 % (38.7-73.9); Platelet Count 222 T/CUMM (130-400); White Blood Count 12.8 T/CUMM (4-12)
[2018-01-07 04:46] LABS: ABG Base Excess 6.5 MMOL/L (-2.5-2.5); ABG HCO3 30.3 MMOL/L (20-26); ABG Oxygen Saturation 98.6 % (95-100); ABG PCO2 32.8 MM HG (35-48); ABG PH 7.553 (7.35-7.45); ABG TCO2 26.2 MMOL/L (23-27); Allen Test Positive; Pt O2 Delivery Device Ventilator
[2018-01-07] MEDS: PROPOFOL 1,000 MG/100 ML BOTTLE IV SCH ×2 (04:51→17:01)
[2018-01-07 05:30] LABS: Calcium 7.8 MG/DL (8.5-10.1); Potassium 3.4 MMOL/L (3.5-5.1)
[2018-01-07] MEDS ORDERED: POTASSIUM CHLORIDE 20 MEQ/15 ML UDCUP PER TUBE ONE (08:28)
[2018-01-07] MEDS ORDERED: metroNIDAZOLE 500 MG TABLET PER TUBE SCH (09:00)
[2018-01-07] MEDS: cloNIDine 0.1 MG TABLET PER TUBE SCH ×2 (09:26→20:32)
[2018-01-07] MEDS: CARBIDOPA/LEVODOPA 25-250 MG TABLET PO SCH ×4 (09:28→20:34)
[2018-01-07] MEDS: TOLTERODINE LA 4 MG CAPSULE PO SCH (09:28)
[2018-01-07] MEDS: levETIRAcetam 500 MG TABLET PO SCH (09:28)
[2018-01-07] MEDS: CARVEDILOL 12.5 MG TABLET PER TUBE SCH ×2 (09:28→16:48)
[2018-01-07] MEDS: FAMOTIDINE 8 MG/ML 50 ML/BOTTLE PER TUBE SCH ×2 (09:29→20:36)
[2018-01-07] MEDS: ARIPiprazole 10 MG TABLET PO SCH (09:29)
[2018-01-07] MEDS: SODIUM BICARBONATE 650 MG TABLET PO SCH ×2 (09:30→20:32)
[2018-01-07] MEDS: MEROPENEM 1,000 MG in SYRINGE 1 EACH IV SCH ×2 (09:36→20:31)
[2018-01-07 09:50] LABS: ABG Base Excess 5.8 MMOL/L (-2.5-2.5); ABG HCO3 29.7 MMOL/L (20-26); ABG Oxygen Saturation 97.2 % (95-100); ABG PCO2 48.8 MM HG (35-48); ABG PH 7.416 (7.35-7.45); ABG TCO2 28.5 MMOL/L (23-27); Allen Test Positive; Pt O2 Delivery Device Ventilator
[2018-01-07] MEDS: ALBUTEROL/IPRATROPIUM 3 ML NEB RESP TX SCH ×3 (11:30→19:41)
[2018-01-07] MEDS: LIDOCAINE 5% PATCH TRANSDERM SCH (12:02)
[2018-01-07 15:19] LABS: ABG HCO3 30.9 MMOL/L (20-26); ABG Oxygen Saturation 98.7 % (95-100); ABG PCO2 57.1 MM HG (35-48); ABG TCO2 30.7 MMOL/L (23-27); Allen Test Positive
[2018-01-07] MEDS: PRAVASTATIN 40 MG TABLET PO SCH (20:32)
[2018-01-07] MEDS: INSULIN GLARGINE 100 UNIT/ML SUBCUT SCH ×2 (20:32→20:40)
[2018-01-07] MEDS: TRAVOPROST 0.004% OPH SOLN 2.5 ML BOTTLE BOTH EYES SCH (20:34)
[2018-01-07] MEDS: DEXTROSE 50% 25 GM/50 ML VIAL IV PRN (20:35)
[2018-01-08] MEDS: VANCOMYCIN 50 MG/ML 60 ML/BOTTLE PER TUBE SCH ×2 (00:55→05:22)
[2018-01-08] MEDS: SODIUM CHLORIDE 23.4% CONC INJ 38.5 MEQ, SODIUM BICARB INJ 100 MEQ in STERILE WATER INJ... IV SCH (01:41)
[2018-01-08 04:22] LABS: ABG Base Excess 15.1 MMOL/L (-2.5-2.5); ABG HCO3 44.1 MMOL/L (20-26); ABG PO2 186.8 MM HG (80-95); ABG TCO2 46.4 MMOL/L (23-27); Allen Test Positive
[2018-01-08 04:23] LABS: ABG Oxygen Saturation 99.2 % (95-100)
[2018-01-08 04:24] LABS: ABG PCO2 74.6 MM HG (35-48)
[2018-01-08 04:52] LABS: Allen Test Positive
[2018-01-08 04:53] LABS: ABG Base Excess 9.5 MMOL/L (-2.5-2.5); ABG Oxygen Saturation 98.6 % (95-100); ABG PCO2 58.6 MM HG (35-48); ABG PH 7.406 (7.35-7.45); ABG PO2 141.8 MM HG (80-95); ABG TCO2 37.8 MMOL/L (23-27)
[2018-01-08 05:09] LABS: Basophils % 0.3 % (0.0-0.8); Eosinophils # 0.2 10*3/uL (0.0-0.87); Eosinophils % 1.6 % (0.00-10.9); Hematocrit 31.5 VOL% (35.7-47.0); Hemoglobin 10.2 GM/DL (12.0-16.0); Immature Granulocytes % 0.3 %; Immature Granulocytes Absolute 0.03 #; Lymphocytes # 1.5 10*3/uL (1.4-4.0); Lymphocytes % 12.9 % (21.3-54.2); Mean Corpuscular HGB Conc 32.4 GM/DL (32-36); Mean Corpuscular Hemoglobin 29 PG (27-34); Mean Corpuscular Volume 90.8 FL (87-102); Mean Platelet Volume 10.9 FL (9.6-12.0); Monocytes % 8.1 % (1.7-12.7); Neutrophils # 9.1 10*3/uL (1.4-7.4); Neutrophils % 76.8 % (38.7-73.9); Platelet Count 230 T/CUMM (130-400); Red Blood Count 3.47 MC/CUMM (3.8-5.5); Red Cell Distribution Width 18.5 % (9.3-17.3); White Blood Count 11.8 T/CUMM (4-12)
[2018-01-08] MEDS: INSULIN REGULAR 100 UNIT/ML SUBCUT SCH ×4 (05:21→21:34)
[2018-01-08 05:32] LABS: Calcium 8.4 MG/DL (8.5-10.1); Osmolality,Calculated 296.1 MOS/KG (273-304); Potassium 3.4 MMOL/L (3.5-5.1)
[2018-01-08] MEDS: ALBUTEROL/IPRATROPIUM 3 ML NEB RESP TX SCH ×4 (07:05→19:47)
[2018-01-08] MEDS: ARIPiprazole 10 MG TABLET PO SCH (08:57)
[2018-01-08] MEDS: TOLTERODINE LA 4 MG CAPSULE PO SCH (08:57)
[2018-01-08] MEDS: levETIRAcetam 500 MG TABLET PO SCH (08:58)
[2018-01-08] MEDS: cloNIDine 0.1 MG TABLET PER TUBE SCH (08:58)
[2018-01-08] MEDS: CARVEDILOL 12.5 MG TABLET PER TUBE SCH (08:59)
[2018-01-08] MEDS: CARBIDOPA/LEVODOPA 25-250 MG TABLET PO SCH ×4 (08:59→21:15)
[2018-01-08] MEDS: SODIUM BICARBONATE 650 MG TABLET PO SCH ×2 (09:00→21:15)
[2018-01-08] MEDS: FAMOTIDINE 8 MG/ML 50 ML/BOTTLE PER TUBE SCH (09:02)
[2018-01-08] MEDS: FUROSEMIDE 40 MG/4 ML VIAL IV SCH ×2 (09:04→17:23)
[2018-01-08] MEDS: MEROPENEM 1,000 MG in SYRINGE 1 EACH IV SCH ×2 (09:07→21:15)
[2018-01-08] MEDS: LIDOCAINE 5% PATCH TRANSDERM SCH (09:12)
[2018-01-08] MEDS: cloNIDine 0.1 MG TABLET PO SCH ×2 (10:28→21:16)
[2018-01-08] MEDS: CARVEDILOL 12.5 MG TABLET PO SCH ×2 (10:28→17:22)
[2018-01-08] MEDS: PRAVASTATIN 40 MG TABLET PO SCH (21:15)
[2018-01-08] MEDS: VANCOMYCIN 50 MG/ML 60 ML/BOTTLE PO SCH (21:16)
[2018-01-08] MEDS: TRAVOPROST 0.004% OPH SOLN 2.5 ML BOTTLE BOTH EYES SCH (21:16)
[2018-01-08] MEDS: MORPHINE 4 MG/1 ML VIAL IV PRN (21:24)
[2018-01-09 06:30] LABS: Basophils % 0.3 % (0.0-0.8); Eosinophils # 0.3 10*3/uL (0.0-0.87); Eosinophils % 2.8 % (0.00-10.9); Hemoglobin 8.9 GM/DL (12.0-16.0); Immature Granulocytes % 0.3 %; Immature Granulocytes Absolute 0.03 #; Lymphocytes # 1.7 10*3/uL (1.4-4.0); Lymphocytes % 18.8 % (21.3-54.2); Mean Corpuscular HGB Conc 31.8 GM/DL (32-36); Mean Corpuscular Hemoglobin 29 PG (27-34); Mean Corpuscular Volume 92.4 FL (87-102); Monocytes # 0.7 10*3/uL (0.11-0.8); Monocytes % 8.1 % (1.7-12.7); Neutrophils # 6.2 10*3/uL (1.4-7.4); Neutrophils % 69.7 % (38.7-73.9); Platelet Count 228 T/CUMM (130-400); Red Blood Count 3.03 MC/CUMM (3.8-5.5); Red Cell Distribution Width 17.8 % (9.3-17.3); White Blood Count 8.9 T/CUMM (4-12)
[2018-01-09 07:04] LABS: Calcium 7.9 MG/DL (8.5-10.1); Osmolality,Calculated 291.4 MOS/KG (273-304)
[2018-01-09] MEDS: ALBUTEROL/IPRATROPIUM 3 ML NEB RESP TX SCH ×4 (07:26→19:25)
[2018-01-09] MEDS: POTASSIUM CHLORIDE 20 MEQ TABLET PO SCH ×2 (09:53→12:13)
[2018-01-09] MEDS: CARBIDOPA/LEVODOPA 25-250 MG TABLET PO SCH ×4 (09:54→21:38)
[2018-01-09] MEDS: PANTOPRAZOLE 40 MG TABLET PO SCH (09:54)
[2018-01-09] MEDS: ARIPiprazole 10 MG TABLET PO SCH (09:54)
[2018-01-09] MEDS: CARVEDILOL 12.5 MG TABLET PO SCH ×2 (09:54→16:51)
[2018-01-09] MEDS: TOLTERODINE LA 4 MG CAPSULE PO SCH (09:55)
[2018-01-09] MEDS: levETIRAcetam 500 MG TABLET PO SCH (09:55)
[2018-01-09] MEDS: VANCOMYCIN 50 MG/ML 60 ML/BOTTLE PO SCH ×2 (09:57→21:40)
[2018-01-09] MEDS: LIDOCAINE 5% PATCH TRANSDERM SCH (09:58)
[2018-01-09] MEDS: MEROPENEM 1,000 MG in SYRINGE 1 EACH IV SCH ×2 (10:02→21:30)
[2018-01-09] MEDS: INSULIN REGULAR 100 UNIT/ML SUBCUT SCH ×4 (10:03→21:37)
[2018-01-09] MEDS: FUROSEMIDE 40 MG/4 ML VIAL IV SCH (10:13)
[2018-01-09] MEDS: cloNIDine 0.1 MG TABLET PO SCH (10:13)
[2018-01-09 10:29] LABS: Apearance,Urine CLEAR (Clear); Bacteria,Urine Occasional /HPF (Few); Bilirubin,Urine Negative (Negative); Blood, Urine Negative (Negative); Glucose,Urine (UA) Negative (Negative); Ketones,Urine 5 mg/dL (Negative); Mucus,Urine Occasional /LPF (Occasional); Nitrite,Urine Negative (Negative); Protein,Urine 100 MG/DL; RBC,Urine 2 /HPF (0-4); Squamous Epithelial Cell,Urine Occasional /HPF (0-10); Urine Color Yellow (Yellow); Urine Specific Gravity 1.013 (1.001-1.035); Urine Urobilinogen < 2.0 EU/DL (0.2-1.0); WBC,Urine 14 /HPF (0-6)
[2018-01-09 10:44] LABS: Creatinine,Urine Random 112 MG/DL; Total Protein,Urine Random 283 MG/DL; Urea Nitrogen, Urine Random 417 MG/DL
[2018-01-09] MEDS ORDERED: MAGNESIUM SULF RIDER 2 GM in PREMIX 1 EACH IV ONE (10:44)
[2018-01-09] MEDS: FUROSEMIDE 80 MG TABLET PO SCH (16:50)
[2018-01-09] MEDS: PRAVASTATIN 40 MG TABLET PO SCH (21:38)
[2018-01-10 06:07] LABS: Calcium 8.4 MG/DL (8.5-10.1); Osmolality,Calculated 294.4 MOS/KG (273-304); Potassium 3.8 MMOL/L (3.5-5.1)
[2018-01-10] MEDS: TRAVOPROST 0.004% OPH SOLN 2.5 ML BOTTLE BOTH EYES SCH ×2 (06:36→21:54)
[2018-01-10] MEDS: ALBUTEROL/IPRATROPIUM 3 ML NEB RESP TX SCH ×4 (07:51→20:16)
[2018-01-10] MEDS: MEROPENEM 1,000 MG in SYRINGE 1 EACH IV SCH ×2 (08:39→21:09)
[2018-01-10] MEDS: INSULIN REGULAR 100 UNIT/ML SUBCUT SCH ×4 (08:39→21:09)
[2018-01-10] MEDS: VANCOMYCIN 50 MG/ML 60 ML/BOTTLE PO SCH ×2 (08:41→21:09)
[2018-01-10] MEDS: ARIPiprazole 10 MG TABLET PO SCH (08:42)
[2018-01-10] MEDS: PANTOPRAZOLE 40 MG TABLET PO SCH (08:42)
[2018-01-10] MEDS: TOLTERODINE LA 4 MG CAPSULE PO SCH (08:42)
[2018-01-10] MEDS: CARVEDILOL 12.5 MG TABLET PO SCH ×2 (08:42→17:04)
[2018-01-10] MEDS: LIDOCAINE 5% PATCH TRANSDERM SCH (08:42)
[2018-01-10] MEDS: CARBIDOPA/LEVODOPA 25-250 MG TABLET PO SCH ×4 (08:42→21:09)
[2018-01-10] MEDS: FUROSEMIDE 80 MG TABLET PO SCH ×2 (08:42→17:03)
[2018-01-10] MEDS: levETIRAcetam 500 MG TABLET PO SCH (08:42)
[2018-01-10] MEDS: ATORVASTATIN 20 MG TABLET PO SCH (21:09)
[2018-01-11 05:08] LABS: Calcium 8.4 MG/DL (8.5-10.1); Osmolality,Calculated 293.5 MOS/KG (273-304); Potassium 3.6 MMOL/L (3.5-5.1)
[2018-01-11] MEDS: ALBUTEROL/IPRATROPIUM 3 ML NEB RESP TX SCH ×4 (08:32→19:50)
[2018-01-11] MEDS: VANCOMYCIN 50 MG/ML 60 ML/BOTTLE PO SCH ×2 (09:38→21:13)
[2018-01-11] MEDS: ARIPiprazole 10 MG TABLET PO SCH (09:38)
[2018-01-11] MEDS: CARBIDOPA/LEVODOPA 25-250 MG TABLET PO SCH ×4 (09:38→21:12)
[2018-01-11] MEDS: levETIRAcetam 500 MG TABLET PO SCH (09:38)
[2018-01-11] MEDS: LIDOCAINE 5% PATCH TRANSDERM SCH (09:39)
[2018-01-11] MEDS: TOLTERODINE LA 4 MG CAPSULE PO SCH (09:39)
[2018-01-11] MEDS: PANTOPRAZOLE 40 MG TABLET PO SCH (09:39)
[2018-01-11] MEDS: FUROSEMIDE 80 MG TABLET PO SCH ×2 (09:39→17:34)
[2018-01-11] MEDS: CARVEDILOL 12.5 MG TABLET PO SCH ×2 (09:39→17:34)
[2018-01-11] MEDS: MEROPENEM 1,000 MG in SYRINGE 1 EACH IV SCH ×2 (09:42→21:13)
[2018-01-11] MEDS: INSULIN REGULAR 100 UNIT/ML SUBCUT SCH ×4 (09:42→21:13)
[2018-01-11] MEDS: ATORVASTATIN 20 MG TABLET PO SCH (21:12)
[2018-01-11] MEDS: TRAVOPROST 0.004% OPH SOLN 2.5 ML BOTTLE BOTH EYES SCH (21:13)
[2018-01-12 05:58] LABS: Calcium 8.9 MG/DL (8.5-10.1); Osmolality,Calculated 294.5 MOS/KG (273-304); Potassium 3.4 MMOL/L (3.5-5.1)
[2018-01-12] MEDS: POTASSIUM CHLORIDE 20 MEQ TABLET PO PRN ×3 (06:34→10:28)
[2018-01-12] MEDS: ALBUTEROL/IPRATROPIUM 3 ML NEB RESP TX SCH ×4 (07:59→20:21)
[2018-01-12] MEDS: INSULIN REGULAR 100 UNIT/ML SUBCUT SCH ×4 (08:24→20:43)
[2018-01-12] MEDS: MEROPENEM 1,000 MG in SYRINGE 1 EACH IV SCH (08:24)
[2018-01-12] MEDS: VANCOMYCIN 50 MG/ML 60 ML/BOTTLE PO SCH ×2 (08:25→20:43)
[2018-01-12] MEDS: levETIRAcetam 500 MG TABLET PO SCH (08:26)
[2018-01-12] MEDS: TOLTERODINE LA 4 MG CAPSULE PO SCH (08:26)
[2018-01-12] MEDS: CARVEDILOL 12.5 MG TABLET PO SCH ×2 (08:26→16:50)
[2018-01-12] MEDS: FUROSEMIDE 80 MG TABLET PO SCH ×2 (08:26→16:49)
[2018-01-12] MEDS: PANTOPRAZOLE 40 MG TABLET PO SCH (08:26)
[2018-01-12] MEDS: CARBIDOPA/LEVODOPA 25-250 MG TABLET PO SCH ×4 (08:26→20:42)
[2018-01-12] MEDS: LIDOCAINE 5% PATCH TRANSDERM SCH (08:27)
[2018-01-12] MEDS: ARIPiprazole 10 MG TABLET PO SCH (08:27)
[2018-01-12] MEDS ORDERED: LINEZOLID 600 MG TABLET PO ONE (12:05)
[2018-01-12] MEDS: ATORVASTATIN 20 MG TABLET PO SCH (20:42)
[2018-01-12] MEDS: TRAVOPROST 0.004% OPH SOLN 2.5 ML BOTTLE BOTH EYES SCH (20:43)
[2018-01-13 05:15] LABS: Calcium 8.8 MG/DL (8.5-10.1); Osmolality,Calculated 297.3 MOS/KG (273-304); Potassium 3.7 MMOL/L (3.5-5.1)
[2018-01-13] MEDS: POTASSIUM CHLORIDE 20 MEQ TABLET PO PRN (05:53)
[2018-01-13] MEDS: INSULIN REGULAR 100 UNIT/ML SUBCUT SCH ×4 (08:06→21:41)
[2018-01-13] MEDS: levETIRAcetam 500 MG TABLET PO SCH (08:46)
[2018-01-13] MEDS: ARIPiprazole 10 MG TABLET PO SCH (08:46)
[2018-01-13] MEDS: FUROSEMIDE 80 MG TABLET PO SCH ×2 (08:46→17:54)
[2018-01-13] MEDS: amLODIPine 2.5 MG TABLET PO SCH (08:46)
[2018-01-13] MEDS: TOLTERODINE LA 4 MG CAPSULE PO SCH (08:46)
[2018-01-13] MEDS: CARBIDOPA/LEVODOPA 25-250 MG TABLET PO SCH ×4 (08:46→21:40)
[2018-01-13] MEDS: LIDOCAINE 5% PATCH TRANSDERM SCH (08:47)
[2018-01-13] MEDS: CARVEDILOL 12.5 MG TABLET PO SCH ×2 (08:47→17:00)
[2018-01-13] MEDS: VANCOMYCIN 50 MG/ML 60 ML/BOTTLE PO SCH ×2 (08:47→21:40)
[2018-01-13] MEDS: PANTOPRAZOLE 40 MG TABLET PO SCH (08:47)
[2018-01-13] MEDS: ALBUTEROL/IPRATROPIUM 3 ML NEB RESP TX SCH ×4 (09:31→19:35)
[2018-01-13] MEDS ORDERED: ZINC OXIDE PASTE 113 GM TUBE TOP PRN (13:01)
[2018-01-13] MEDS ORDERED: SODIUM CHLORIDE 0.45% 1,000 ML IV SCH (17:00)
[2018-01-13] MEDS: CYANOCOBALAMIN 500 MCG TABLET PO SCH (21:39)
[2018-01-13] MEDS: ATORVASTATIN 20 MG TABLET PO SCH (21:39)
[2018-01-13] MEDS: FOLIC ACID 1 MG TABLET PO SCH (21:40)
[2018-01-13] MEDS: TRAVOPROST 0.004% OPH SOLN 2.5 ML BOTTLE BOTH EYES SCH (21:41)
[2018-01-14] MEDS: ALBUTEROL/IPRATROPIUM 3 ML NEB RESP TX SCH (06:59)
[2018-01-14] MEDS: INSULIN REGULAR 100 UNIT/ML SUBCUT SCH ×2 (10:20→12:30)
[2018-01-14] MEDS: FOLIC ACID 1 MG TABLET PO SCH (10:22)
[2018-01-14] MEDS: PANTOPRAZOLE 40 MG TABLET PO SCH (10:22)
[2018-01-14] MEDS: TOLTERODINE LA 4 MG CAPSULE PO SCH (10:22)
[2018-01-14] MEDS: ARIPiprazole 10 MG TABLET PO SCH (10:22)
[2018-01-14] MEDS: amLODIPine 2.5 MG TABLET PO SCH (10:22)
[2018-01-14] MEDS: CARVEDILOL 12.5 MG TABLET PO SCH (10:22)
[2018-01-14] MEDS: levETIRAcetam 500 MG TABLET PO SCH (10:22)
[2018-01-14] MEDS: LIDOCAINE 5% PATCH TRANSDERM SCH (10:22)
[2018-01-14] MEDS: CARBIDOPA/LEVODOPA 25-250 MG TABLET PO SCH ×2 (10:22→12:30)
[2018-01-14] MEDS: CYANOCOBALAMIN 500 MCG TABLET PO SCH (10:22)
[2018-01-14] MEDS: VANCOMYCIN 50 MG/ML 60 ML/BOTTLE PO SCH (10:23)
[2018-01-14 11:49] VITALS: BP 148/87
== END 2018-01-14 15:42 | DRG 208 ==
LOC: EDUNIT# → EDBD → N.ED 15:46 → N.EDINP 17:33 → SUATTDRO 17:33 → N.CC 17:59 → N.TELEN 01-09 14:05
PROVIDERS: ADMIT Hospitalist; ATTEND Hospitalist

== ENCOUNTER 2018-02-20 07:37 | Inpatient (IN) ==
[2018-02-20 09:03] LABS: Eosinophils # 0.1 10*3/uL (0.0-0.87); Eosinophils % 1.6 % (0.00-10.9); Hematocrit 22.9 VOL% (35.7-47.0); Hemoglobin 7.2 GM/DL (12.0-16.0); Immature Granulocytes % 0.4 %; Immature Granulocytes Absolute 0.02 #; Lymphocytes # 1.3 10*3/uL (1.4-4.0); Lymphocytes % 25.1 % (21.3-54.2); Mean Corpuscular HGB Conc 31.4 GM/DL (32-36); Mean Corpuscular Hemoglobin 28 PG (27-34); Mean Corpuscular Volume 89.1 FL (87-102); Mean Platelet Volume 12.6 FL (9.6-12.0); Monocytes # 0.4 10*3/uL (0.11-0.8); Monocytes % 6.9 % (1.7-12.7); Neutrophils # 3.4 10*3/uL (1.4-7.4); Platelet Count 210 T/CUMM (130-400); Red Blood Count 2.57 MC/CUMM (3.8-5.5); Red Cell Distribution Width 18.9 % (9.3-17.3); White Blood Count 5.1 T/CUMM (4-12)
[2018-02-20 09:14] LABS: Calcium 8.3 MG/DL (8.5-10.1); Osmolality,Calculated 287.7 MOS/KG (273-304); Potassium 4.8 MMOL/L (3.5-5.1)
[2018-02-20 10:09] LABS: Apearance,Urine CLOUDY (Clear); Bacteria,Urine Many /HPF (Few); Bilirubin,Urine Negative (Negative); Blood, Urine Negative (Negative); Glucose,Urine (UA) Negative (Negative); Ketones,Urine 5 mg/dL (Negative); Nitrite,Urine Negative (Negative); Protein,Urine 100 MG/DL; Squamous Epithelial Cell,Urine Few /HPF (0-10); Urine Color Yellow (Yellow); Urine Specific Gravity 1.011 (1.001-1.035); Urine Urobilinogen < 2.0 EU/DL (0.2-1.0); WBC,Urine 4 /HPF (0-6)
[2018-02-20] MEDS ORDERED: BISACODYL 5 MG TABLET PO PRN (10:32)
[2018-02-20] MEDS ORDERED: DOCUSATE SODIUM 100 MG CAPSULE PO PRN (10:32)
[2018-02-20] MEDS ORDERED: MORPHINE 4 MG/1 ML VIAL IV PRN (10:32)
[2018-02-20] MEDS ORDERED: ONDANSETRON 4 MG/2 ML VIAL IV PRN (10:32)
[2018-02-20] MEDS ORDERED: SODIUM CHLORIDE 0.9% 1,000 ML IV PRN (11:53)
[2018-02-20] MEDS ORDERED: DEXTROSE 50% 25 GM/50 ML VIAL IV PRN (11:53)
[2018-02-20] MEDS ORDERED: GLUCAGON 1 MG VIAL IM PRN (11:53)
[2018-02-20] MEDS: SODIUM CHLORIDE 0.9% 1,000 ML IV SCH ×2 (12:56→20:56)
[2018-02-20] MEDS: INSULIN LISPRO 100 UNIT/ML SUBCUT SCH ×2 (16:26→22:23)
[2018-02-20] MEDS ORDERED: ZINC OXIDE PASTE 113 GM TUBE TOP PRN (23:59)
[2018-02-21] MEDS ORDERED: PRAVASTATIN 40 MG TABLET PO SCH
[2018-02-21] MEDS: ARIPiprazole 10 MG TABLET PO SCH ×2 (00:46→09:15)
[2018-02-21] MEDS: SODIUM BICARBONATE 650 MG TABLET PO SCH ×2 (00:46→09:13)
[2018-02-21] MEDS: CARVEDILOL 12.5 MG TABLET PO SCH ×2 (00:47→09:13)
[2018-02-21] MEDS: VENLAFAXINE XR 75 MG CAPSULE PO SCH ×2 (00:47→09:15)
[2018-02-21] MEDS: LISINOPRIL 20 MG TABLET PO SCH ×2 (00:47→09:14)
[2018-02-21] MEDS: CYANOCOBALAMIN 500 MCG TABLET PO SCH ×2 (00:47→09:13)
[2018-02-21] MEDS: CARBIDOPA/LEVODOPA 25-250 MG TABLET PO SCH ×2 (00:48→09:13)
[2018-02-21] MEDS: amLODIPine 2.5 MG TABLET PO SCH ×2 (00:48→09:15)
[2018-02-21] MEDS: DILTIAZEM CD 240 MG CAPSULE PO SCH ×2 (00:49→09:14)
[2018-02-21] MEDS: levETIRAcetam 500 MG TABLET PO SCH ×2 (00:49→09:15)
[2018-02-21 07:19] LABS: Basophils % 0.3 % (0.0-0.8); Eosinophils # 0.1 10*3/uL (0.0-0.87); Eosinophils % 1.6 % (0.00-10.9); Hematocrit 28.7 VOL% (35.7-47.0); Immature Granulocytes % 0.5 %; Immature Granulocytes Absolute 0.03 #; Lymphocytes # 1.4 10*3/uL (1.4-4.0); Mean Corpuscular HGB Conc 32.8 GM/DL (32-36); Mean Corpuscular Hemoglobin 29 PG (27-34); Mean Corpuscular Volume 88.3 FL (87-102); Mean Platelet Volume 11.8 FL (9.6-12.0); Monocytes # 0.5 10*3/uL (0.11-0.8); Monocytes % 8.5 % (1.7-12.7); Neutrophils # 3.8 10*3/uL (1.4-7.4); Neutrophils % 65.1 % (38.7-73.9); Platelet Count 197 T/CUMM (130-400); Red Cell Distribution Width 16.8 % (9.3-17.3); White Blood Count 5.8 T/CUMM (4-12)
[2018-02-21 07:21] LABS: Red Blood Count 3.25 MC/CUMM (3.8-5.5)
[2018-02-21 07:22] LABS: Hemoglobin 9.4 GM/DL (12.0-16.0)
[2018-02-21 07:39] LABS: Calcium 8.3 MG/DL (8.5-10.1); Osmolality,Calculated 281.8 MOS/KG (273-304); Potassium 3.8 MMOL/L (3.5-5.1); Thyroid Stimulating Hormone 0.987 uIU/ml (0.358-3.74)
[2018-02-21] MEDS ORDERED: TOLTERODINE LA 4 MG CAPSULE PO SCH (09:00)
[2018-02-21] MEDS ORDERED: LIDOCAINE 5% PATCH TRANSDERM SCH (09:00)
[2018-02-21] MEDS ORDERED: NON-FORMULARY MEDICATION (Omeprazole [Omeprazole] 40 MG) PO SCH (09:00)
[2018-02-21] MEDS ORDERED: PANTOPRAZOLE 40 MG TABLET PO SCH (09:00)
[2018-02-21] MEDS ORDERED: MAGNESIUM OXIDE 400 MG TABLET PO SCH (09:00)
[2018-02-21] MEDS: INSULIN LISPRO 100 UNIT/ML SUBCUT SCH ×2 (09:31→12:19)
[2018-02-21 12:03] VITALS: BP 161/84
[2018-02-21] MEDS ORDERED: TRAVOPROST 0.004% OPH SOLN 2.5 ML BOTTLE BOTH EYES SCH (21:00)
== END 2018-02-21 13:49 | DRG 699 ==
LOC: EDUNIT# → EDBD → N.ED 07:37 → N.EDINP 10:32 → N.2W 11:15 → N.2E 14:34
PROVIDERS: ADMIT Internal Medicine; ATTEND Internal Medicine

== ENCOUNTER 2018-02-27 11:04 | Inpatient (IN) ==
[2018-02-27] MEDS ORDERED: SODIUM CHLORIDE 0.9% 500 ML IV STA (11:32)
[2018-02-27] MEDS ORDERED: NALOXONE 0.4 MG/ML VIAL IV STA (11:32)
[2018-02-27 11:48] LABS: Basophils % 0.3 % (0.0-0.8); Eosinophils % 0.1 % (0.00-10.9); Hematocrit 26.5 VOL% (35.7-47.0); Hemoglobin 8.6 GM/DL (12.0-16.0); Immature Granulocytes % 0.7 %; Immature Granulocytes Absolute 0.05 #; Lymphocytes # 1.1 10*3/uL (1.4-4.0); Lymphocytes % 15.3 % (21.3-54.2); Mean Corpuscular HGB Conc 32.5 GM/DL (32-36); Mean Corpuscular Hemoglobin 29 PG (27-34); Mean Corpuscular Volume 88.6 FL (87-102); Mean Platelet Volume 12.7 FL (9.6-12.0); Monocytes # 0.5 10*3/uL (0.11-0.8); Monocytes % 6.7 % (1.7-12.7); Neutrophils # 5.6 10*3/uL (1.4-7.4); Neutrophils % 76.9 % (38.7-73.9); Platelet Count 196 T/CUMM (130-400); Red Blood Count 2.99 MC/CUMM (3.8-5.5); Red Cell Distribution Width 17.7 % (9.3-17.3); White Blood Count 7.3 T/CUMM (4-12)
[2018-02-27] MEDS ORDERED: LORazepam 2 MG/1 ML VIAL ONE (12:11)
[2018-02-27 12:17] LABS: Ammonia 38 UMOL/L (11-32)
[2018-02-27 12:21] LABS: Alanine Aminotransferase < 6 U/L (13-56); Albumin 2.9 G/DL (3.4-5.0); Alkaline Phosphatase 93 U/L (45-117); Aspartate Amino Transferase 17 U/L (0-37); Blood Urea Nitrogen 43 MG/DL (7-18); Calcium 8.7 MG/DL (8.5-10.1); Glucose 86 MG/DL (74-106); Osmolality,Calculated 292.1 MOS/KG (273-304); Potassium 4.1 MMOL/L (3.5-5.1); Sodium 142 MMOL/L (136-145); Total Protein 7.1 G/DL (6.4-8.3)
[2018-02-27] MEDS ORDERED: LORazepam 2 MG/1 ML VIAL IV STA (12:32)
[2018-02-27 13:12] LABS: Apearance,Urine CLOUDY (Clear); Bilirubin,Urine Negative (Negative); Blood, Urine Small mg/dL (Negative); Glucose,Urine (UA) Negative (Negative); Ketones,Urine 5 mg/dL (Negative); Mucus,Urine Occasional /LPF (Occasional); Nitrite,Urine Positive (Negative); Protein,Urine >=500 MG/DL; RBC,Urine 13 /HPF (0-4); Urine Color Amber (Yellow); Urine Specific Gravity 1.012 (1.001-1.035); Urine Urobilinogen < 2.0 EU/DL (0.2-1.0); WBC,Urine 1573 /HPF (0-6)
[2018-02-27] MEDS ORDERED: ONDANSETRON 4 MG/2 ML VIAL IV PRN (13:32)
[2018-02-27] MEDS ORDERED: ACETAMINOPHEN 325 MG TABLET PO PRN (13:32)
[2018-02-27] MEDS ORDERED: GLUCAGON 1 MG VIAL IM PRN (13:32)
[2018-02-27] MEDS ORDERED: DEXTROSE 50% 25 GM/50 ML VIAL IV PRN (13:32)
[2018-02-27] MEDS ORDERED: LORazepam 2 MG/1 ML VIAL IV PRN (15:12)
[2018-02-27] MEDS: SODIUM CHLORIDE 0.45% 1,000 ML IV SCH (15:41)
[2018-02-27] MEDS: cefTRIAXone 1,000 MG in SYRINGE 1 EACH IV SCH (15:41)
[2018-02-27] MEDS ORDERED: PHENYTOIN INJ 1,000 MG in SODIUM CHLORIDE 0.9% 100 ML IV ONE (16:47)
[2018-02-27] MEDS: LORazepam 2 MG/1 ML VIAL IV PRN (18:55)
[2018-02-27] MEDS: INSULIN LISPRO 100 UNIT/ML SUBCUT SCH ×2 (19:07→22:04)
[2018-02-27] MEDS: MENTHOL/ZINC OXIDE OINT 71 GM JAR TOP SCH ×2 (19:45→20:57)
[2018-02-27] MEDS: CARBIDOPA/LEVODOPA 25-250 MG TABLET PO SCH ×2 (19:46→20:56)
[2018-02-27] MEDS: CYANOCOBALAMIN 500 MCG TABLET PO SCH (20:56)
[2018-02-27] MEDS: SODIUM BICARBONATE 650 MG TABLET PO SCH (20:56)
[2018-02-27] MEDS: FERROUS SULFATE 325 MG TABLET PO SCH (20:56)
[2018-02-27] MEDS: QUEtiapine 25 MG TABLET PO SCH (20:56)
[2018-02-27] MEDS: CARVEDILOL 12.5 MG TABLET PO SCH (20:57)
[2018-02-27] MEDS: APIXABAN 2.5 MG TABLET PO SCH (20:57)
[2018-02-27] MEDS: PRAVASTATIN 40 MG TABLET PO SCH (20:57)
[2018-02-27] MEDS: TRAVOPROST 0.004% OPH SOLN 2.5 ML BOTTLE BOTH EYES SCH (20:57)
[2018-02-28 03:35] LABS: Alanine Aminotransferase < 6 U/L (13-56); Albumin 2.5 G/DL (3.4-5.0); Alkaline Phosphatase 76 U/L (45-117); Aspartate Amino Transferase 14 U/L (0-37); Blood Urea Nitrogen 41 MG/DL (7-18); Calcium 7.8 MG/DL (8.5-10.1); Glucose 71 MG/DL (74-106); Osmolality,Calculated 290.1 MOS/KG (273-304); Sodium 142 MMOL/L (136-145); Total Protein 6.3 G/DL (6.4-8.3)
[2018-02-28 03:36] LABS: Basophils % 0.2 % (0.0-0.8); Eosinophils % 0.5 % (0.00-10.9); Hematocrit 24.4 VOL% (35.7-47.0); Hemoglobin 7.7 GM/DL (12.0-16.0); Immature Granulocytes % 0.4 %; Immature Granulocytes Absolute 0.02 #; Lymphocytes % 35.1 % (21.3-54.2); Mean Corpuscular HGB Conc 31.6 GM/DL (32-36); Mean Corpuscular Hemoglobin 28 PG (27-34); Mean Corpuscular Volume 89.1 FL (87-102); Mean Platelet Volume 12.3 FL (9.6-12.0); Monocytes # 0.3 10*3/uL (0.11-0.8); Monocytes % 5.8 % (1.7-12.7); Neutrophils # 3.3 10*3/uL (1.4-7.4); Platelet Count 147 T/CUMM (130-400); Red Blood Count 2.74 MC/CUMM (3.8-5.5); Red Cell Distribution Width 17.6 % (9.3-17.3); White Blood Count 5.7 T/CUMM (4-12)
[2018-02-28] MEDS: cefTRIAXone 1,000 MG in SYRINGE 1 EACH IV SCH ×2 (03:57→17:28)
[2018-02-28] MEDS: SODIUM CHLORIDE 0.45% 1,000 ML IV SCH ×3 (04:01→16:11)
[2018-02-28] MEDS: LORazepam 2 MG/1 ML VIAL IV PRN ×3 (06:22→20:44)
[2018-02-28] MEDS: INSULIN LISPRO 100 UNIT/ML SUBCUT SCH ×4 (08:54→20:30)
[2018-02-28] MEDS ORDERED: PANTOPRAZOLE 40 MG TABLET PO SCH ×2 (09:00)
[2018-02-28] MEDS ORDERED: VENLAFAXINE XR 75 MG CAPSULE PO SCH (09:00)
[2018-02-28] MEDS ORDERED: DILTIAZEM CD 240 MG CAPSULE PO SCH (09:00)
[2018-02-28] MEDS: MAGNESIUM OXIDE 400 MG TABLET PO SCH (09:03)
[2018-02-28] MEDS: QUEtiapine 25 MG TABLET PO SCH ×2 (09:31→20:29)
[2018-02-28] MEDS: amLODIPine 2.5 MG TABLET PO SCH (09:31)
[2018-02-28] MEDS: CARBIDOPA/LEVODOPA 25-250 MG TABLET PO SCH ×4 (09:31→20:28)
[2018-02-28] MEDS: TOLTERODINE LA 4 MG CAPSULE PO SCH (09:31)
[2018-02-28] MEDS: CYANOCOBALAMIN 500 MCG TABLET PO SCH ×2 (09:31→20:29)
[2018-02-28] MEDS: SODIUM BICARBONATE 650 MG TABLET PO SCH ×2 (09:31→20:28)
[2018-02-28] MEDS: ARIPiprazole 10 MG TABLET PO SCH (09:31)
[2018-02-28] MEDS: LISINOPRIL 20 MG TABLET PO SCH (09:31)
[2018-02-28] MEDS: APIXABAN 2.5 MG TABLET PO SCH ×2 (09:31→20:29)
[2018-02-28] MEDS: MENTHOL/ZINC OXIDE OINT 71 GM JAR TOP SCH ×4 (09:32→20:30)
[2018-02-28] MEDS: CARVEDILOL 12.5 MG TABLET PO SCH (09:32)
[2018-02-28] MEDS: LIDOCAINE 5% PATCH TRANSDERM SCH (09:32)
[2018-02-28] MEDS: levETIRAcetam LIQUID 100 MG/ML 30 ML/BOTTLE PO SCH (09:32)
[2018-02-28] MEDS: FERROUS SULFATE 325 MG TABLET PO SCH ×2 (09:34→20:29)
[2018-02-28] MEDS: PANTOPRAZOLE 40 MG VIAL IV SCH (13:34)
[2018-02-28] MEDS: DILTIAZEM 60 MG TABLET PO SCH ×2 (13:36→17:30)
[2018-02-28] MEDS: PRAVASTATIN 40 MG TABLET PO SCH (20:28)
[2018-02-28] MEDS: PHENYTOIN 100 MG/4 ML UDCUP PO SCH (20:30)
[2018-02-28] MEDS: TRAVOPROST 0.004% OPH SOLN 2.5 ML BOTTLE BOTH EYES SCH (20:30)
[2018-03-01] MEDS: SODIUM CHLORIDE 0.45% 1,000 ML IV SCH ×3 (00:39→18:36)
[2018-03-01] MEDS: cefTRIAXone 1,000 MG in SYRINGE 1 EACH IV SCH ×2 (04:32→17:47)
[2018-03-01] MEDS: CARVEDILOL 12.5 MG TABLET PO SCH ×3 (04:47→21:11)
[2018-03-01] MEDS: DILTIAZEM 60 MG TABLET PO SCH ×5 (04:47→21:14)
[2018-03-01 04:56] LABS: Basophils % 0.2 % (0.0-0.8); Eosinophils # 0.1 10*3/uL (0.0-0.87); Eosinophils % 1.4 % (0.00-10.9); Hematocrit 23.9 VOL% (35.7-47.0); Hemoglobin 7.9 GM/DL (12.0-16.0); Immature Granulocytes % 0.6 %; Immature Granulocytes Absolute 0.03 #; Lymphocytes # 1.3 10*3/uL (1.4-4.0); Lymphocytes % 26.7 % (21.3-54.2); Mean Corpuscular HGB Conc 33.1 GM/DL (32-36); Mean Corpuscular Hemoglobin 29 PG (27-34); Mean Corpuscular Volume 87.2 FL (87-102); Mean Platelet Volume 12.9 FL (9.6-12.0); Monocytes # 0.3 10*3/uL (0.11-0.8); Monocytes % 6.7 % (1.7-12.7); Neutrophils # 3.2 10*3/uL (1.4-7.4); Neutrophils % 64.4 % (38.7-73.9); Platelet Count 152 T/CUMM (130-400); Red Blood Count 2.74 MC/CUMM (3.8-5.5); Red Cell Distribution Width 17.2 % (9.3-17.3)
[2018-03-01 05:41] LABS: Calcium 7.8 MG/DL (8.5-10.1); Osmolality,Calculated 286.3 MOS/KG (273-304); Potassium 3.9 MMOL/L (3.5-5.1)
[2018-03-01] MEDS: LORazepam 2 MG/1 ML VIAL IV PRN ×3 (07:12→20:07)
[2018-03-01] MEDS: INSULIN LISPRO 100 UNIT/ML SUBCUT SCH ×4 (07:46→21:14)
[2018-03-01] MEDS: PHENYTOIN 100 MG/4 ML UDCUP PO SCH ×3 (08:12→21:14)
[2018-03-01] MEDS: PANTOPRAZOLE 40 MG VIAL IV SCH (08:13)
[2018-03-01] MEDS: CYANOCOBALAMIN 500 MCG TABLET PO SCH ×2 (08:14→21:15)
[2018-03-01] MEDS: QUEtiapine 25 MG TABLET PO SCH ×2 (08:14→21:15)
[2018-03-01] MEDS: CARBIDOPA/LEVODOPA 25-250 MG TABLET PO SCH ×4 (08:14→21:15)
[2018-03-01] MEDS: ARIPiprazole 10 MG TABLET PO SCH (08:14)
[2018-03-01] MEDS: amLODIPine 2.5 MG TABLET PO SCH (08:14)
[2018-03-01] MEDS: TOLTERODINE LA 4 MG CAPSULE PO SCH (08:14)
[2018-03-01] MEDS: FERROUS SULFATE 325 MG TABLET PO SCH ×2 (08:14→21:20)
[2018-03-01] MEDS: APIXABAN 2.5 MG TABLET PO SCH ×2 (08:14→21:14)
[2018-03-01] MEDS: LISINOPRIL 20 MG TABLET PO SCH (08:14)
[2018-03-01] MEDS: SODIUM BICARBONATE 650 MG TABLET PO SCH ×2 (08:14→21:15)
[2018-03-01] MEDS: LIDOCAINE 5% PATCH TRANSDERM SCH (08:15)
[2018-03-01] MEDS: levETIRAcetam LIQUID 100 MG/ML 30 ML/BOTTLE PO SCH (08:15)
[2018-03-01] MEDS: MENTHOL/ZINC OXIDE OINT 71 GM JAR TOP SCH ×4 (08:15→21:11)
[2018-03-01] MEDS: MAGNESIUM OXIDE 400 MG TABLET PO SCH (08:15)
[2018-03-01] MEDS: SKIN HEALING OINT (AQUAPHOR) 50 GM TUBE TOP PRN (17:48)
[2018-03-01] MEDS: PRAVASTATIN 40 MG TABLET PO SCH (21:15)
[2018-03-01] MEDS: TRAVOPROST 0.004% OPH SOLN 2.5 ML BOTTLE BOTH EYES SCH (21:15)
[2018-03-02] MEDS: LORazepam 2 MG/1 ML VIAL IV PRN ×5 (03:45→20:42)
[2018-03-02] MEDS: SODIUM CHLORIDE 0.45% 1,000 ML IV SCH ×3 (04:42→22:31)
[2018-03-02] MEDS: cefTRIAXone 1,000 MG in SYRINGE 1 EACH IV SCH ×2 (05:40→16:56)
[2018-03-02 05:43] LABS: Basophils % 0.2 % (0.0-0.8); Eosinophils # 0.1 10*3/uL (0.0-0.87); Eosinophils % 1.8 % (0.00-10.9); Hematocrit 24.2 VOL% (35.7-47.0); Immature Granulocytes % 0.2 %; Immature Granulocytes Absolute 0.01 #; Lymphocytes # 1.2 10*3/uL (1.4-4.0); Lymphocytes % 26.7 % (21.3-54.2); Mean Corpuscular HGB Conc 33.1 GM/DL (32-36); Mean Corpuscular Hemoglobin 29 PG (27-34); Mean Corpuscular Volume 86.7 FL (87-102); Mean Platelet Volume 12.4 FL (9.6-12.0); Monocytes # 0.3 10*3/uL (0.11-0.8); Monocytes % 6.4 % (1.7-12.7); NRBC # 0.02 10*3/uL; Neutrophils # 2.9 10*3/uL (1.4-7.4); Neutrophils % 64.7 % (38.7-73.9); Platelet Count 140 T/CUMM (130-400); Red Blood Count 2.79 MC/CUMM (3.8-5.5); Red Cell Distribution Width 17.1 % (9.3-17.3); White Blood Count 4.5 T/CUMM (4-12)
[2018-03-02 05:55] LABS: Calcium 7.6 MG/DL (8.5-10.1); Osmolality,Calculated 286.1 MOS/KG (273-304); Potassium 3.9 MMOL/L (3.5-5.1)
[2018-03-02] MEDS: INSULIN LISPRO 100 UNIT/ML SUBCUT SCH ×4 (09:25→22:32)
[2018-03-02] MEDS: LIDOCAINE 5% PATCH TRANSDERM SCH (09:26)
[2018-03-02] MEDS: CARBIDOPA/LEVODOPA 25-250 MG TABLET PO SCH ×4 (09:27→20:37)
[2018-03-02] MEDS: amLODIPine 2.5 MG TABLET PO SCH (09:27)
[2018-03-02] MEDS: QUEtiapine 25 MG TABLET PO SCH ×2 (09:27→20:36)
[2018-03-02] MEDS: PANTOPRAZOLE 40 MG VIAL IV SCH (09:27)
[2018-03-02] MEDS: PHENYTOIN 100 MG/4 ML UDCUP PO SCH ×4 (09:27→20:36)
[2018-03-02] MEDS: APIXABAN 2.5 MG TABLET PO SCH ×2 (09:28→20:36)
[2018-03-02] MEDS: FERROUS SULFATE 325 MG TABLET PO SCH ×2 (09:28→20:36)
[2018-03-02] MEDS: CARVEDILOL 12.5 MG TABLET PO SCH ×2 (09:28→20:36)
[2018-03-02] MEDS: MAGNESIUM OXIDE 400 MG TABLET PO SCH (09:28)
[2018-03-02] MEDS: DILTIAZEM 60 MG TABLET PO SCH ×4 (09:28→20:36)
[2018-03-02] MEDS: CYANOCOBALAMIN 500 MCG TABLET PO SCH ×2 (09:28→20:36)
[2018-03-02] MEDS: ARIPiprazole 10 MG TABLET PO SCH (09:29)
[2018-03-02] MEDS: TOLTERODINE LA 4 MG CAPSULE PO SCH (09:29)
[2018-03-02] MEDS: LISINOPRIL 20 MG TABLET PO SCH (09:29)
[2018-03-02] MEDS: ZINC OXIDE PASTE 113 GM TUBE TOP PRN (09:33)
[2018-03-02] MEDS: SODIUM BICARBONATE 650 MG TABLET PO SCH ×2 (09:35→20:36)
[2018-03-02] MEDS: MENTHOL/ZINC OXIDE OINT 71 GM JAR TOP SCH ×4 (11:03→20:37)
[2018-03-02] MEDS: PRAVASTATIN 40 MG TABLET PO SCH (20:36)
[2018-03-02] MEDS: TRAVOPROST 0.004% OPH SOLN 2.5 ML BOTTLE BOTH EYES SCH (20:37)
[2018-03-02] MEDS ORDERED: LORazepam 2 MG/1 ML VIAL IV ONE (21:03)
[2018-03-03 05:11] LABS: Calcium 7.6 MG/DL (8.5-10.1); Potassium 3.7 MMOL/L (3.5-5.1)
[2018-03-03] MEDS: cefTRIAXone 1,000 MG in SYRINGE 1 EACH IV SCH ×2 (05:45→17:08)
[2018-03-03] MEDS: INSULIN LISPRO 100 UNIT/ML SUBCUT SCH ×3 (08:14→18:35)
[2018-03-03] MEDS: LIDOCAINE 5% PATCH TRANSDERM SCH (09:34)
[2018-03-03] MEDS: SODIUM CHLORIDE 0.45% 1,000 ML IV SCH ×2 (09:34→17:13)
[2018-03-03] MEDS: CARBIDOPA/LEVODOPA 25-250 MG TABLET PO SCH ×4 (09:35→22:17)
[2018-03-03] MEDS: PANTOPRAZOLE 40 MG VIAL IV SCH (09:35)
[2018-03-03] MEDS: DILTIAZEM 60 MG TABLET PO SCH ×4 (09:35→22:04)
[2018-03-03] MEDS: CYANOCOBALAMIN 500 MCG TABLET PO SCH ×2 (09:35→22:04)
[2018-03-03] MEDS: TOLTERODINE LA 4 MG CAPSULE PO SCH (09:36)
[2018-03-03] MEDS: PHENYTOIN 100 MG/4 ML UDCUP PO SCH ×4 (09:36→22:04)
[2018-03-03] MEDS: QUEtiapine 25 MG TABLET PO SCH ×2 (09:36→22:05)
[2018-03-03] MEDS: CARVEDILOL 12.5 MG TABLET PO SCH ×2 (09:36→22:07)
[2018-03-03] MEDS: ARIPiprazole 10 MG TABLET PO SCH (09:36)
[2018-03-03] MEDS: SODIUM BICARBONATE 650 MG TABLET PO SCH ×2 (09:36→22:05)
[2018-03-03] MEDS: FERROUS SULFATE 325 MG TABLET PO SCH ×2 (09:36→22:05)
[2018-03-03] MEDS: MAGNESIUM OXIDE 400 MG TABLET PO SCH (09:36)
[2018-03-03] MEDS: LISINOPRIL 20 MG TABLET PO SCH (09:36)
[2018-03-03] MEDS: APIXABAN 2.5 MG TABLET PO SCH ×2 (09:36→22:05)
[2018-03-03] MEDS: amLODIPine 2.5 MG TABLET PO SCH (09:40)
[2018-03-03] MEDS: MENTHOL/ZINC OXIDE OINT 71 GM JAR TOP SCH ×4 (10:11→22:05)
[2018-03-03] MEDS ORDERED: PHENYTOIN 100 MG/2 ML VIAL IV ONE (10:20)
[2018-03-03] MEDS ORDERED: DEXTROSE 50% 25 GM/50 ML VIAL IV PRN (12:32)
[2018-03-03] MEDS ORDERED: GLUCAGON 1 MG VIAL IM PRN (12:32)
[2018-03-03] MEDS ORDERED: cloNIDine 0.3 MG/24 HR PATCH TRANSDERM SCH (13:30)
[2018-03-03] MEDS: PRAVASTATIN 40 MG TABLET PO SCH (22:11)
[2018-03-03] MEDS: TRAVOPROST 0.004% OPH SOLN 2.5 ML BOTTLE BOTH EYES SCH (22:17)
[2018-03-04] MEDS: INSULIN LISPRO 100 UNIT/ML SUBCUT SCH ×3 (00:37→17:53)
[2018-03-04] MEDS: SODIUM CHLORIDE 0.45% 1,000 ML IV SCH ×3 (02:01→21:30)
[2018-03-04] MEDS: cefTRIAXone 1,000 MG in SYRINGE 1 EACH IV SCH ×2 (05:45→18:04)
[2018-03-04 05:54] LABS: Calcium 7.6 MG/DL (8.5-10.1); Potassium 3.6 MMOL/L (3.5-5.1)
[2018-03-04 06:16] LABS: Basophils % 0.2 % (0.0-0.8); Eosinophils # 0.1 10*3/uL (0.0-0.87); Eosinophils % 1.3 % (0.00-10.9); Hematocrit 22.4 VOL% (35.7-47.0); Hemoglobin 7.5 GM/DL (12.0-16.0); Immature Granulocytes % 0.4 %; Immature Granulocytes Absolute 0.02 #; Lymphocytes # 0.9 10*3/uL (1.4-4.0); Lymphocytes % 16.2 % (21.3-54.2); Mean Corpuscular HGB Conc 33.5 GM/DL (32-36); Mean Corpuscular Hemoglobin 29 PG (27-34); Mean Corpuscular Volume 86.2 FL (87-102); Mean Platelet Volume 13.8 FL (9.6-12.0); Monocytes # 0.3 10*3/uL (0.11-0.8); Monocytes % 5.3 % (1.7-12.7); Neutrophils % 76.6 % (38.7-73.9); Platelet Count 128 T/CUMM (130-400); Red Cell Distribution Width 16.9 % (9.3-17.3); White Blood Count 5.3 T/CUMM (4-12)
[2018-03-04] MEDS ORDERED: MAGNESIUM SULF RIDER 2 GM in PREMIX 1 EACH IV ONE (08:43)
[2018-03-04] MEDS: CYANOCOBALAMIN 500 MCG TABLET PO SCH ×2 (10:15→22:05)
[2018-03-04] MEDS: QUEtiapine 25 MG TABLET PO SCH ×2 (10:16→22:05)
[2018-03-04] MEDS: APIXABAN 2.5 MG TABLET PO SCH ×2 (10:16→22:04)
[2018-03-04] MEDS: SODIUM BICARBONATE 650 MG TABLET PO SCH ×2 (10:16→22:05)
[2018-03-04] MEDS: CARVEDILOL 12.5 MG TABLET PO SCH ×2 (10:16→22:04)
[2018-03-04] MEDS: CARBIDOPA/LEVODOPA 25-250 MG TABLET PO SCH ×4 (10:16→22:05)
[2018-03-04] MEDS: ARIPiprazole 10 MG TABLET PO SCH (10:16)
[2018-03-04] MEDS: FERROUS SULFATE 325 MG TABLET PO SCH ×2 (10:16→22:05)
[2018-03-04] MEDS: amLODIPine 10 MG TABLET PO SCH (10:17)
[2018-03-04] MEDS: LISINOPRIL 20 MG TABLET PO SCH (10:17)
[2018-03-04] MEDS: DILTIAZEM 60 MG TABLET PO SCH ×4 (10:17→22:04)
[2018-03-04] MEDS: TOLTERODINE LA 4 MG CAPSULE PO SCH (10:18)
[2018-03-04] MEDS: MAGNESIUM OXIDE 400 MG TABLET PO SCH (10:18)
[2018-03-04] MEDS: PHENYTOIN 100 MG/4 ML UDCUP PO SCH ×4 (10:18→22:04)
[2018-03-04] MEDS: PANTOPRAZOLE 40 MG VIAL IV SCH (10:19)
[2018-03-04] MEDS: MENTHOL/ZINC OXIDE OINT 71 GM JAR TOP SCH ×4 (10:26→22:03)
[2018-03-04] MEDS: LIDOCAINE 5% PATCH TRANSDERM SCH ×2 (10:51→13:51)
[2018-03-04] MEDS: TRAVOPROST 0.004% OPH SOLN 2.5 ML BOTTLE BOTH EYES SCH (22:05)
[2018-03-04] MEDS: PRAVASTATIN 40 MG TABLET PO SCH (22:05)
[2018-03-04] MEDS: RANITIDINE 150 MG/10 ML 30 ML BOTTLE PER TUBE SCH (22:06)
[2018-03-05] MEDS: cefTRIAXone 1,000 MG in SYRINGE 1 EACH IV SCH ×2 (03:28→16:35)
[2018-03-05] MEDS: INSULIN LISPRO 100 UNIT/ML SUBCUT SCH ×4 (03:28→19:18)
[2018-03-05 04:49] LABS: Calcium 7.8 MG/DL (8.5-10.1); Potassium 3.7 MMOL/L (3.5-5.1)
[2018-03-05] MEDS: CYANOCOBALAMIN 500 MCG TABLET PO SCH ×2 (09:47→20:53)
[2018-03-05] MEDS: DILTIAZEM 60 MG TABLET PO SCH ×4 (09:48→20:52)
[2018-03-05] MEDS: LISINOPRIL 20 MG TABLET PO SCH (09:48)
[2018-03-05] MEDS: QUEtiapine 25 MG TABLET PO SCH ×2 (09:48→20:53)
[2018-03-05] MEDS: amLODIPine 10 MG TABLET PO SCH (09:48)
[2018-03-05] MEDS: APIXABAN 2.5 MG TABLET PO SCH ×2 (09:48→20:52)
[2018-03-05] MEDS: CARVEDILOL 12.5 MG TABLET PO SCH ×2 (09:48→20:52)
[2018-03-05] MEDS: SODIUM BICARBONATE 650 MG TABLET PO SCH ×2 (09:49→20:53)
[2018-03-05] MEDS: FERROUS SULFATE 325 MG TABLET PO SCH ×2 (09:49→20:52)
[2018-03-05] MEDS: TOLTERODINE LA 4 MG CAPSULE PO SCH (09:49)
[2018-03-05] MEDS: CARBIDOPA/LEVODOPA 25-250 MG TABLET PO SCH ×4 (09:49→20:53)
[2018-03-05] MEDS: PHENYTOIN 100 MG/4 ML UDCUP PO SCH ×4 (09:49→20:52)
[2018-03-05] MEDS: ARIPiprazole 10 MG TABLET PO SCH (09:49)
[2018-03-05] MEDS: MAGNESIUM OXIDE 400 MG TABLET PO SCH (09:49)
[2018-03-05] MEDS: RANITIDINE 150 MG/10 ML 30 ML BOTTLE PER TUBE SCH ×2 (09:50→20:53)
[2018-03-05] MEDS: MENTHOL/ZINC OXIDE OINT 71 GM JAR TOP SCH ×4 (09:50→20:52)
[2018-03-05] MEDS: SODIUM CHLORIDE 0.45% 1,000 ML IV SCH ×3 (09:54→23:02)
[2018-03-05] MEDS: LIDOCAINE 5% PATCH TRANSDERM SCH (11:13)
[2018-03-05] MEDS: PRAVASTATIN 40 MG TABLET PO SCH (20:53)
[2018-03-05] MEDS: TRAVOPROST 0.004% OPH SOLN 2.5 ML BOTTLE BOTH EYES SCH (20:53)
[2018-03-05] MEDS: LORazepam 2 MG/1 ML VIAL IV PRN (22:56)
[2018-03-06] MEDS: INSULIN LISPRO 100 UNIT/ML SUBCUT SCH ×4 (01:59→17:05)
[2018-03-06 05:01] LABS: Calcium 7.5 MG/DL (8.5-10.1); Potassium 3.4 MMOL/L (3.5-5.1)
[2018-03-06] MEDS: cefTRIAXone 1,000 MG in SYRINGE 1 EACH IV SCH ×2 (05:36→16:37)
[2018-03-06 05:59] LABS: Eosinophils # 0.1 10*3/uL (0.0-0.87); Eosinophils % 2.3 % (0.00-10.9); Hematocrit 18.8 VOL% (35.7-47.0); Immature Granulocytes % 0.5 %; Immature Granulocytes Absolute 0.02 #; Lymphocytes % 25.3 % (21.3-54.2); Mean Corpuscular HGB Conc 31.9 GM/DL (32-36); Mean Corpuscular Hemoglobin 28 PG (27-34); Monocytes # 0.2 10*3/uL (0.11-0.8); Monocytes % 4.8 % (1.7-12.7); Neutrophils # 2.7 10*3/uL (1.4-7.4); Neutrophils % 67.1 % (38.7-73.9); Red Blood Count 2.16 MC/CUMM (3.8-5.5); Red Cell Distribution Width 17.4 % (9.3-17.3)
[2018-03-06 06:04] LABS: Platelet Count 96 T/CUMM (130-400)
[2018-03-06 06:25] LABS: Microcytosis 1+
[2018-03-06 06:26] LABS: Hypochromasia 1+; Ovalocytes Slight; Platelet Estimate Decreased
[2018-03-06] MEDS ORDERED: SODIUM CHLORIDE 0.9% 1,000 ML IV PRN ×2 (06:26→07:55)
[2018-03-06] MEDS ORDERED: FUROSEMIDE 40 MG/4 ML VIAL IV ONE (07:55)
[2018-03-06] MEDS: PHENYTOIN 100 MG/4 ML UDCUP PO SCH ×4 (09:19→20:46)
[2018-03-06] MEDS: FERROUS SULFATE 325 MG TABLET PO SCH ×2 (09:19→20:48)
[2018-03-06] MEDS: RANITIDINE 150 MG/10 ML 30 ML BOTTLE PER TUBE SCH ×2 (09:19→20:49)
[2018-03-06] MEDS: TOLTERODINE LA 4 MG CAPSULE PO SCH (09:19)
[2018-03-06] MEDS: QUEtiapine 25 MG TABLET PO SCH ×2 (09:20→20:46)
[2018-03-06] MEDS: ARIPiprazole 10 MG TABLET PO SCH (09:20)
[2018-03-06] MEDS: DILTIAZEM 60 MG TABLET PO SCH ×4 (09:20→21:00)
[2018-03-06] MEDS: CARBIDOPA/LEVODOPA 25-250 MG TABLET PO SCH ×4 (09:20→20:46)
[2018-03-06] MEDS: CYANOCOBALAMIN 500 MCG TABLET PO SCH ×2 (09:20→20:47)
[2018-03-06] MEDS: CARVEDILOL 12.5 MG TABLET PO SCH ×2 (09:20→23:35)
[2018-03-06] MEDS: SODIUM BICARBONATE 650 MG TABLET PO SCH ×2 (09:20→20:47)
[2018-03-06] MEDS: LISINOPRIL 20 MG TABLET PO SCH (09:20)
[2018-03-06] MEDS: amLODIPine 10 MG TABLET PO SCH (09:20)
[2018-03-06] MEDS: APIXABAN 2.5 MG TABLET PO SCH ×2 (09:21→20:47)
[2018-03-06] MEDS: MAGNESIUM OXIDE 400 MG TABLET PO SCH (09:21)
[2018-03-06] MEDS: LIDOCAINE 5% PATCH TRANSDERM SCH (09:26)
[2018-03-06] MEDS: MENTHOL/ZINC OXIDE OINT 71 GM JAR TOP SCH ×4 (09:40→20:48)
[2018-03-06] MEDS ORDERED: LORazepam 2 MG/1 ML VIAL IV ONE (10:36)
[2018-03-06] MEDS: SKIN HEALING OINT (AQUAPHOR) 50 GM TUBE TOP PRN (12:54)
[2018-03-06] MEDS: SODIUM CHLORIDE 0.45% 1,000 ML IV SCH ×3 (13:50→23:30)
[2018-03-06] MEDS: ZINC OXIDE PASTE 113 GM TUBE TOP PRN (18:15)
[2018-03-06 18:39] LABS: Hematocrit 25.8 VOL% (35.7-47.0)
[2018-03-06 18:43] LABS: Hemoglobin 8.4 GM/DL (12.0-16.0)
[2018-03-06] MEDS: PRAVASTATIN 40 MG TABLET PO SCH (20:47)
[2018-03-06] MEDS: TRAVOPROST 0.004% OPH SOLN 2.5 ML BOTTLE BOTH EYES SCH (20:48)
[2018-03-07] MEDS: SODIUM CHLORIDE 0.45% 1,000 ML IV SCH ×2 (03:01→07:30)
[2018-03-07] MEDS: INSULIN LISPRO 100 UNIT/ML SUBCUT SCH ×4 (03:01→18:43)
[2018-03-07] MEDS: cefTRIAXone 1,000 MG in SYRINGE 1 EACH IV SCH ×2 (05:30→15:08)
[2018-03-07 06:00] LABS: Basophils % 0.3 % (0.0-0.8); Eosinophils # 0.1 10*3/uL (0.0-0.87); Eosinophils % 1.5 % (0.00-10.9); Hematocrit 26.6 VOL% (35.7-47.0); Hemoglobin 9.1 GM/DL (12.0-16.0); Immature Granulocytes % 0.8 %; Immature Granulocytes Absolute 0.06 #; Lymphocytes # 1.1 10*3/uL (1.4-4.0); Lymphocytes % 14.3 % (21.3-54.2); Mean Corpuscular HGB Conc 34.2 GM/DL (32-36); Mean Corpuscular Hemoglobin 29 PG (27-34); Mean Corpuscular Volume 85.5 FL (87-102); Mean Platelet Volume 13.5 FL (9.6-12.0); Monocytes # 0.3 10*3/uL (0.11-0.8); Monocytes % 3.6 % (1.7-12.7); NRBC # 0.02 10*3/uL; Neutrophils % 79.5 % (38.7-73.9); Platelet Count 122 T/CUMM (130-400); Red Blood Count 3.11 MC/CUMM (3.8-5.5); Red Cell Distribution Width 16.1 % (9.3-17.3); White Blood Count 7.5 T/CUMM (4-12)
[2018-03-07 06:11] LABS: Calcium 7.6 MG/DL (8.5-10.1); Osmolality,Calculated 282.4 MOS/KG (273-304); Potassium 3.4 MMOL/L (3.5-5.1)
[2018-03-07] MEDS: PHENYTOIN 100 MG/4 ML UDCUP PO SCH ×3 (08:50→21:25)
[2018-03-07] MEDS: ARIPiprazole 10 MG TABLET PO SCH (08:50)
[2018-03-07] MEDS: CYANOCOBALAMIN 500 MCG TABLET PO SCH ×2 (08:50→21:25)
[2018-03-07] MEDS: DILTIAZEM 60 MG TABLET PO SCH ×4 (08:50→21:26)
[2018-03-07] MEDS: FERROUS SULFATE 325 MG TABLET PO SCH ×2 (08:51→21:29)
[2018-03-07] MEDS: MAGNESIUM OXIDE 400 MG TABLET PO SCH (08:51)
[2018-03-07] MEDS: CARBIDOPA/LEVODOPA 25-250 MG TABLET PO SCH ×4 (08:53→21:29)
[2018-03-07] MEDS: SODIUM BICARBONATE 650 MG TABLET PO SCH ×2 (08:53→21:28)
[2018-03-07] MEDS: TOLTERODINE LA 4 MG CAPSULE PO SCH (08:53)
[2018-03-07] MEDS: MENTHOL/ZINC OXIDE OINT 71 GM JAR TOP SCH ×3 (08:54→18:20)
[2018-03-07] MEDS: QUEtiapine 25 MG TABLET PO SCH ×2 (08:54→21:25)
[2018-03-07] MEDS: CARVEDILOL 12.5 MG TABLET PO SCH ×2 (08:55→21:29)
[2018-03-07] MEDS: APIXABAN 2.5 MG TABLET PO SCH ×2 (08:55→21:29)
[2018-03-07] MEDS: LISINOPRIL 20 MG TABLET PO SCH (09:02)
[2018-03-07] MEDS: amLODIPine 10 MG TABLET PO SCH (09:02)
[2018-03-07] MEDS: LIDOCAINE 5% PATCH TRANSDERM SCH (09:15)
[2018-03-07] MEDS: RANITIDINE 150 MG/10 ML 30 ML BOTTLE PER TUBE SCH ×2 (09:16→21:29)
[2018-03-07] MEDS: PRAVASTATIN 40 MG TABLET PO SCH (21:25)
[2018-03-07] MEDS: TRAVOPROST 0.004% OPH SOLN 2.5 ML BOTTLE BOTH EYES SCH (21:30)
[2018-03-07] MEDS: ZINC OXIDE PASTE 113 GM TUBE TOP PRN (21:30)
[2018-03-08] MEDS: INSULIN LISPRO 100 UNIT/ML SUBCUT SCH ×4 (03:28→18:09)
[2018-03-08] MEDS: MENTHOL/ZINC OXIDE OINT 71 GM JAR TOP SCH ×4 (03:28→17:43)
[2018-03-08] MEDS: cefTRIAXone 1,000 MG in SYRINGE 1 EACH IV SCH ×2 (03:34→16:40)
[2018-03-08] MEDS: PHENYTOIN 100 MG/4 ML UDCUP PO SCH ×4 (03:35→21:55)
[2018-03-08 05:29] LABS: Basophils % 0.1 % (0.0-0.8); Eosinophils # 0.1 10*3/uL (0.0-0.87); Eosinophils % 1.8 % (0.00-10.9); Hematocrit 25.5 VOL% (35.7-47.0); Hemoglobin 8.7 GM/DL (12.0-16.0); Immature Granulocytes Absolute 0.07 #; Lymphocytes # 1.8 10*3/uL (1.4-4.0); Lymphocytes % 25.5 % (21.3-54.2); Mean Corpuscular HGB Conc 34.1 GM/DL (32-36); Mean Corpuscular Hemoglobin 30 PG (27-34); Monocytes # 0.4 10*3/uL (0.11-0.8); NRBC # 0.02 10*3/uL; Neutrophils # 4.7 10*3/uL (1.4-7.4); Neutrophils % 65.6 % (38.7-73.9); Platelet Count 109 T/CUMM (130-400); Red Blood Count 2.93 MC/CUMM (3.8-5.5); White Blood Count 7.2 T/CUMM (4-12)
[2018-03-08 05:58] LABS: Calcium 7.2 MG/DL (8.5-10.1); Osmolality,Calculated 279.5 MOS/KG (273-304); Potassium 3.3 MMOL/L (3.5-5.1)
[2018-03-08 06:06] LABS: Burr Cells Few; Platelet Estimate Decreased
[2018-03-08] MEDS: MAGNESIUM OXIDE 400 MG TABLET PO SCH (09:20)
[2018-03-08] MEDS: CYANOCOBALAMIN 500 MCG TABLET PO SCH ×2 (09:20→21:55)
[2018-03-08] MEDS: LISINOPRIL 20 MG TABLET PO SCH (09:20)
[2018-03-08] MEDS: ARIPiprazole 10 MG TABLET PO SCH (09:20)
[2018-03-08] MEDS: CARBIDOPA/LEVODOPA 25-250 MG TABLET PO SCH ×4 (09:21→21:58)
[2018-03-08] MEDS: FERROUS SULFATE 325 MG TABLET PO SCH ×2 (09:21→21:58)
[2018-03-08] MEDS: DILTIAZEM 60 MG TABLET PO SCH ×4 (09:21→21:56)
[2018-03-08] MEDS: APIXABAN 2.5 MG TABLET PO SCH ×2 (09:21→21:58)
[2018-03-08] MEDS: TOLTERODINE LA 4 MG CAPSULE PO SCH (09:21)
[2018-03-08] MEDS: SODIUM BICARBONATE 650 MG TABLET PO SCH ×2 (09:22→21:58)
[2018-03-08] MEDS: CARVEDILOL 12.5 MG TABLET PO SCH ×2 (09:22→21:58)
[2018-03-08] MEDS: amLODIPine 10 MG TABLET PO SCH (09:22)
[2018-03-08] MEDS: LIDOCAINE 5% PATCH TRANSDERM SCH (09:23)
[2018-03-08] MEDS: QUEtiapine 25 MG TABLET PO SCH ×2 (09:25→22:00)
[2018-03-08] MEDS: RANITIDINE 150 MG/10 ML 30 ML BOTTLE PER TUBE SCH ×2 (09:27→21:59)
[2018-03-08] MEDS: PRAVASTATIN 40 MG TABLET PO SCH (21:58)
[2018-03-08] MEDS: TRAVOPROST 0.004% OPH SOLN 2.5 ML BOTTLE BOTH EYES SCH (21:59)
[2018-03-09] MEDS: INSULIN LISPRO 100 UNIT/ML SUBCUT SCH ×4 (01:03→18:14)
[2018-03-09] MEDS: PHENYTOIN 100 MG/4 ML UDCUP PO SCH ×3 (03:21→17:22)
[2018-03-09] MEDS: cefTRIAXone 1,000 MG in SYRINGE 1 EACH IV SCH ×2 (03:21→17:22)
[2018-03-09] MEDS: ZINC OXIDE PASTE 113 GM TUBE TOP PRN (03:22)
[2018-03-09] MEDS: MENTHOL/ZINC OXIDE OINT 71 GM JAR TOP SCH ×4 (05:16→17:23)
[2018-03-09 06:31] LABS: Basophils % 0.3 % (0.0-0.8); Eosinophils # 0.1 10*3/uL (0.0-0.87); Eosinophils % 1.8 % (0.00-10.9); Hematocrit 26.8 VOL% (35.7-47.0); Hemoglobin 9.5 GM/DL (12.0-16.0); Immature Granulocytes % 1.1 %; Immature Granulocytes Absolute 0.07 #; Lymphocytes # 1.4 10*3/uL (1.4-4.0); Lymphocytes % 21.4 % (21.3-54.2); Mean Corpuscular HGB Conc 35.4 GM/DL (32-36); Mean Corpuscular Hemoglobin 30 PG (27-34); Monocytes # 0.4 10*3/uL (0.11-0.8); Monocytes % 6.5 % (1.7-12.7); Neutrophils # 4.5 10*3/uL (1.4-7.4); Neutrophils % 68.9 % (38.7-73.9); Platelet Count 129 T/CUMM (130-400); Red Blood Count 3.19 MC/CUMM (3.8-5.5); White Blood Count 6.5 T/CUMM (4-12)
[2018-03-09 06:55] LABS: Calcium 8.3 MG/DL (8.5-10.1); Osmolality,Calculated 278.8 MOS/KG (273-304); Potassium 3.4 MMOL/L (3.5-5.1)
[2018-03-09] MEDS: LIDOCAINE 5% PATCH TRANSDERM SCH (11:28)
[2018-03-09] MEDS: RANITIDINE 150 MG/10 ML 30 ML BOTTLE PER TUBE SCH (11:30)
[2018-03-09] MEDS: CYANOCOBALAMIN 500 MCG TABLET PO SCH (11:31)
[2018-03-09] MEDS: amLODIPine 10 MG TABLET PO SCH (11:31)
[2018-03-09] MEDS: CARBIDOPA/LEVODOPA 25-250 MG TABLET PO SCH ×4 (11:31→17:25)
[2018-03-09] MEDS: APIXABAN 2.5 MG TABLET PO SCH (11:31)
[2018-03-09] MEDS: QUEtiapine 25 MG TABLET PO SCH (11:31)
[2018-03-09] MEDS: CARVEDILOL 12.5 MG TABLET PO SCH (11:31)
[2018-03-09] MEDS: TOLTERODINE LA 4 MG CAPSULE PO SCH (11:31)
[2018-03-09] MEDS: LISINOPRIL 20 MG TABLET PO SCH (11:32)
[2018-03-09] MEDS: FERROUS SULFATE 325 MG TABLET PO SCH (11:32)
[2018-03-09] MEDS: DILTIAZEM 60 MG TABLET PO SCH ×4 (11:32→17:25)
[2018-03-09] MEDS: SODIUM BICARBONATE 650 MG TABLET PO SCH (11:32)
[2018-03-09] MEDS: MAGNESIUM OXIDE 400 MG TABLET PO SCH (11:32)
[2018-03-09] MEDS: ARIPiprazole 10 MG TABLET PO SCH (11:32)
[2018-03-09 12:35] LABS: Anisocytosis 2+; Hypochromasia Slight; Microcytosis Slight; Ovalocytes Few; Poikilocytosis 1+; Polychromasia Slight
[2018-03-09 12:36] LABS: Elliptocytes Few; Platelet Estimate Adequate; Tear Drop Cells Few
[2018-03-10] MEDS: DILTIAZEM 60 MG TABLET PO SCH ×2 (00:05→09:21)
[2018-03-10] MEDS: CARBIDOPA/LEVODOPA 25-250 MG TABLET PO SCH ×2 (00:05→09:03)
[2018-03-10] MEDS: CARVEDILOL 12.5 MG TABLET PO SCH ×2 (00:06→09:24)
[2018-03-10] MEDS: PRAVASTATIN 40 MG TABLET PO SCH (00:07)
[2018-03-10] MEDS: FERROUS SULFATE 325 MG TABLET PO SCH ×2 (00:07→09:22)
[2018-03-10] MEDS: SODIUM BICARBONATE 650 MG TABLET PO SCH ×2 (00:07→09:22)
[2018-03-10] MEDS: CYANOCOBALAMIN 500 MCG TABLET PO SCH ×2 (00:07→09:21)
[2018-03-10] MEDS: PHENYTOIN 100 MG/4 ML UDCUP PO SCH ×3 (00:08→09:03)
[2018-03-10] MEDS: levETIRAcetam 500 MG TABLET PO SCH ×2 (00:08→09:22)
[2018-03-10] MEDS: APIXABAN 2.5 MG TABLET PO SCH ×2 (00:08→09:22)
[2018-03-10] MEDS: QUEtiapine 25 MG TABLET PO SCH ×2 (00:09→09:39)
[2018-03-10] MEDS: RANITIDINE 150 MG/10 ML 30 ML BOTTLE PER TUBE SCH ×2 (00:09→14:00)
[2018-03-10] MEDS: MENTHOL/ZINC OXIDE OINT 71 GM JAR TOP SCH ×2 (00:37→09:25)
[2018-03-10] MEDS: TRAVOPROST 0.004% OPH SOLN 2.5 ML BOTTLE BOTH EYES SCH (00:38)
[2018-03-10] MEDS: INSULIN LISPRO 100 UNIT/ML SUBCUT SCH ×3 (00:39→13:59)
[2018-03-10] MEDS: cefTRIAXone 1,000 MG in SYRINGE 1 EACH IV SCH (05:13)
[2018-03-10 07:00] LABS: Prealbumin 19.9 MG/DL (20-40)
[2018-03-10] MEDS: amLODIPine 10 MG TABLET PO SCH (09:21)
[2018-03-10] MEDS: ARIPiprazole 10 MG TABLET PO SCH (09:21)
[2018-03-10] MEDS: LISINOPRIL 20 MG TABLET PO SCH (09:22)
[2018-03-10] MEDS: MAGNESIUM OXIDE 400 MG TABLET PO SCH (09:23)
[2018-03-10] MEDS: LIDOCAINE 5% PATCH TRANSDERM SCH (09:23)
[2018-03-10] MEDS: TOLTERODINE LA 4 MG CAPSULE PO SCH (09:23)
[2018-03-10 09:28] VITALS: BP 147/75
[2018-03-10] MEDS ORDERED: DESITIN 4OZ/NYSTATIN 15 GRAM MIXTURE PASTE TOP SCH (21:00)
== END 2018-03-10 13:30 | DRG 56 ==
LOC: EDBD → EDUNIT# → N.ED 11:04 → N.EDINP 13:32 → SUATTDRO 13:32 → N.CC 14:57 → N.5E 03-07 12:44
PROVIDERS: ADMIT Family Medicine; ATTEND Internal Medicine

== ENCOUNTER 2018-04-07 16:38 | Observation (INO) ==
[2018-04-07] MEDS ORDERED: SODIUM CHLORIDE 0.9% 500 ML IV STA (18:21)
[2018-04-07 19:04] LABS: Basophils % 0.2 % (0.0-0.8); Eosinophils # 0.1 10*3/uL (0.0-0.87); Eosinophils % 1.8 % (0.00-10.9); Hematocrit 21.1 VOL% (35.7-47.0); Hemoglobin 7.1 GM/DL (12.0-16.0); Immature Granulocytes % 0.2 %; Immature Granulocytes Absolute 0.01 #; Lymphocytes % 32.2 % (21.3-54.2); Mean Corpuscular HGB Conc 33.6 GM/DL (32-36); Mean Corpuscular Hemoglobin 29 PG (27-34); Mean Corpuscular Volume 84.7 FL (87-102); Mean Platelet Volume 12.8 FL (9.6-12.0); Monocytes # 0.3 10*3/uL (0.11-0.8); Monocytes % 5.5 % (1.7-12.7); NRBC # 0.02 10*3/uL; Neutrophils # 3.7 10*3/uL (1.4-7.4); Neutrophils % 60.1 % (38.7-73.9); Platelet Count 175 T/CUMM (130-400); Red Blood Count 2.49 MC/CUMM (3.8-5.5); White Blood Count 6.2 T/CUMM (4-12)
[2018-04-07 19:24] LABS: Apearance,Urine CLOUDY (Clear); Glucose,Urine (UA) Negative (Negative); Protein,Urine 100 MG/DL; Urine Color Yellow (Yellow); Urine Specific Gravity 1.009 (1.001-1.035)
[2018-04-07 19:25] LABS: Amorphous Crystals,Urine Occasional /HPF (Few); Bacteria,Urine Many /HPF (Few); Bilirubin,Urine Negative (Negative); Blood, Urine Negative (Negative); Ketones,Urine 5 mg/dL (Negative); Nitrite,Urine Negative (Negative); RBC,Urine 4 /HPF (0-4); Squamous Epithelial Cell,Urine Occasional /HPF (0-10); Urine Urobilinogen < 2.0 EU/DL (0.2-1.0); WBC,Urine 3 /HPF (0-6)
[2018-04-07 19:31] LABS: Alanine Aminotransferase 11 U/L (13-56); Albumin 2.5 G/DL (3.4-5.0); Alkaline Phosphatase 160 U/L (45-117); Aspartate Amino Transferase 24 U/L (0-37); Bilirubin,Total < 0.39 MG/DL (0.2-1.0); Blood Urea Nitrogen 21 MG/DL (7-18); Calcium 7.4 MG/DL (8.5-10.1); Glucose 94 MG/DL (74-106); Osmolality,Calculated 275.8 MOS/KG (273-304); Potassium 3.4 MMOL/L (3.5-5.1); Sodium 137 MMOL/L (136-145); Total Protein 6.4 G/DL (6.4-8.3)
[2018-04-07] MEDS ORDERED: MAGNESIUM SULF RIDER 2 GM in PREMIX 1 EACH IV STA (19:35)
[2018-04-07] MEDS ORDERED: cefTRIAXone 1,000 MG in SODIUM CHLORIDE 0.9% 100 ML IV STA (19:36)
[2018-04-07] MEDS ORDERED: ONDANSETRON 4 MG/2 ML VIAL IV PRN (19:59)
[2018-04-07] MEDS ORDERED: ENOXAPARIN 30 MG/0.3 ML SYRINGE SUBCUT SCH (20:00)
[2018-04-07] MEDS ORDERED: SODIUM CHLORIDE 0.9% 1,000 ML IV PRN (20:04)
[2018-04-07] MEDS ORDERED: POTASSIUM CHLORIDE 20 MEQ TABLET PO STA (20:06)
[2018-04-07] MEDS ORDERED: PROMETHAZINE 25 MG TABLET PO PRN (20:07)
[2018-04-07] MEDS ORDERED: ACETAMINOPHEN 325 MG TABLET PO PRN (20:07)
[2018-04-07] MEDS ORDERED: CALCIUM GLUCONATE 1,000 MG in SODIUM CHLORIDE 0.9% 100 ML IV ONE (20:32)
[2018-04-07] MEDS ORDERED: GLUCAGON 1 MG VIAL IM PRN (20:40)
[2018-04-07] MEDS ORDERED: DEXTROSE 50% 25 GM/50 ML VIAL IV PRN (20:40)
[2018-04-07] MEDS ORDERED: CALCIUM CARBONATE CHEW 500 MG TABLET PO PRN (20:41)
[2018-04-07] MEDS ORDERED: CYANOCOBALAMIN 500 MCG TABLET PO SCH (21:00)
[2018-04-07] MEDS ORDERED: PRAVASTATIN 40 MG TABLET PO SCH (21:00)
[2018-04-07 21:07] LABS: % Iron Saturation 48.5 % (18-50)
[2018-04-07 22:00] LABS: Folate 9.3 NG/ML (5.4-24.0)
[2018-04-07 22:24] LABS: Ferritin 2121.9 ng/ml (8-252)
[2018-04-07] MEDS ORDERED: TRAVOPROST 0.004% OPH SOLN 2.5 ML BOTTLE BOTH EYES SCH (23:00)
[2018-04-07 23:58] LABS: Basophils % 0.2 % (0.0-0.8); Eosinophils # 0.1 10*3/uL (0.0-0.87); Eosinophils % 1.1 % (0.00-10.9); Hematocrit 19.5 VOL% (35.7-47.0); Hemoglobin 6.6 GM/DL (12.0-16.0); Immature Granulocytes % 0.4 %; Immature Granulocytes Absolute 0.02 #; Lymphocytes # 1.3 10*3/uL (1.4-4.0); Lymphocytes % 24.3 % (21.3-54.2); Mean Corpuscular HGB Conc 33.8 GM/DL (32-36); Mean Corpuscular Hemoglobin 28 PG (27-34); Mean Corpuscular Volume 84.1 FL (87-102); Mean Platelet Volume 10.5 FL (9.6-12.0); Monocytes # 0.3 10*3/uL (0.11-0.8); Monocytes % 4.9 % (1.7-12.7); Neutrophils # 3.7 10*3/uL (1.4-7.4); Neutrophils % 69.1 % (38.7-73.9); Platelet Count 132 T/CUMM (130-400); Red Blood Count 2.32 MC/CUMM (3.8-5.5); Red Cell Distribution Width 17.2 % (9.3-17.3); White Blood Count 5.4 T/CUMM (4-12)
[2018-04-08] MEDS: levETIRAcetam 250 MG TABLET PO SCH ×2 (00:22→10:09)
[2018-04-08] MEDS: FERROUS SULFATE 325 MG TABLET PO SCH ×2 (00:22→10:08)
[2018-04-08] MEDS: SODIUM BICARBONATE 650 MG TABLET PO SCH ×2 (00:22→10:11)
[2018-04-08] MEDS: CARBIDOPA/LEVODOPA 25-250 MG TABLET PO SCH ×3 (00:22→13:16)
[2018-04-08] MEDS: CARVEDILOL 12.5 MG TABLET PO SCH ×2 (00:23→10:08)
[2018-04-08] MEDS: APIXABAN 2.5 MG TABLET PO SCH ×2 (00:23→10:08)
[2018-04-08] MEDS: PHENYTOIN ER 100 MG CAPSULE PO SCH ×3 (00:23→10:07)
[2018-04-08] MEDS: DILTIAZEM 60 MG TABLET PO SCH ×3 (00:24→13:18)
[2018-04-08 00:31] LABS: Eosinophils 2 % (0-10); Lymphocytes 25 % (20-55); Segmented Neutrophils 64 % (50-85); Total Cells Counted 100
[2018-04-08 00:32] LABS: Ovalocytes Few; Platelet Estimate Normal
[2018-04-08 00:34] LABS: Folate 18.3 NG/ML (5.4-24.0); Vitamin B12 1905 PG/ML (211-911)
[2018-04-08] MEDS: INSULIN LISPRO 100 UNIT/ML SUBCUT SCH ×3 (00:35→10:39)
[2018-04-08 01:05] LABS: Sedimentation Rate-Westergren 102 MM/HR (0-30)
[2018-04-08] MEDS ORDERED: ERGOCALCIFEROL 50,000 UNIT CAPSULE PO SCH (07:30)
[2018-04-08 08:20] LABS: Basophils % 0.4 % (0.0-0.8); Eosinophils # 0.1 10*3/uL (0.0-0.87); Eosinophils % 1.4 % (0.00-10.9); Hematocrit 25.9 VOL% (35.7-47.0); Hemoglobin 8.5 GM/DL (12.0-16.0); Immature Granulocytes % 0.3 %; Immature Granulocytes Absolute 0.02 #; Lymphocytes # 1.7 10*3/uL (1.4-4.0); Lymphocytes % 23.8 % (21.3-54.2); Mean Corpuscular HGB Conc 32.8 GM/DL (32-36); Mean Corpuscular Hemoglobin 28 PG (27-34); Mean Corpuscular Volume 84.9 FL (87-102); Mean Platelet Volume 12.5 FL (9.6-12.0); Monocytes # 0.4 10*3/uL (0.11-0.8); Monocytes % 6.1 % (1.7-12.7); Neutrophils # 4.9 10*3/uL (1.4-7.4); Platelet Count 129 T/CUMM (130-400); Red Blood Count 3.05 MC/CUMM (3.8-5.5); Red Cell Distribution Width 16.4 % (9.3-17.3); White Blood Count 7.2 T/CUMM (4-12)
[2018-04-08 08:44] LABS: Albumin 2.5 G/DL (3.4-5.0); Bilirubin,Total 0.6 MG/DL (0.2-1.0); Calcium 7.5 MG/DL (8.5-10.1); Osmolality,Calculated 275.7 MOS/KG (273-304); Potassium 3.4 MMOL/L (3.5-5.1); Risk Ratio 1.73; Total Protein 6.3 G/DL (6.4-8.3)
[2018-04-08] MEDS ORDERED: MAGNESIUM OXIDE 400 MG TABLET PO SCH (09:00)
[2018-04-08] MEDS ORDERED: LISINOPRIL 20 MG TABLET PO SCH (09:00)
[2018-04-08] MEDS ORDERED: amLODIPine 5 MG TABLET PO SCH (09:00)
[2018-04-08] MEDS ORDERED: PANTOPRAZOLE 40 MG TABLET PO SCH (09:00)
[2018-04-08] MEDS ORDERED: ARIPiprazole 10 MG TABLET PO SCH (09:00)
[2018-04-08] MEDS ORDERED: TOLTERODINE LA 4 MG CAPSULE PO SCH (09:00)
[2018-04-08] MEDS ORDERED: CHOLECALCIFEROL 5,000 UNIT TABLET PO SCH (09:00)
[2018-04-08] MEDS ORDERED: LIDOCAINE 5% PATCH TRANSDERM SCH (09:00)
[2018-04-08 09:54] LABS: Platelet Estimate Adequate
[2018-04-08 09:55] LABS: Anisocytosis 2+
[2018-04-08 09:57] LABS: Poikilocytosis 1+
[2018-04-08 09:58] LABS: Hypochromasia Slight
[2018-04-08] MEDS ORDERED: LOPERAMIDE 2 MG CAPSULE PO PRN (10:28)
[2018-04-08] MEDS ORDERED: LACTOBACILLUS ACIDOPHILUS/BULGARICUS CAPLET PO SCH (10:30)
[2018-04-08] MEDS ORDERED: ERGOCALCIFEROL 50,000 UNIT CAPSULE PO ONE (10:48)
[2018-04-08] MEDS ORDERED: CYANOCOBALAMIN 500 MCG TABLET PO SCH (11:00)
[2018-04-08 11:34] VITALS: BP 163/98
[2018-04-08 12:01] LABS: Hemoglobin A1 (Alkaline) 96.6 % (96.5-98.5); Hemoglobin A2 (Alkaline) 3.4 % (1.5-3.5)
[2018-04-08] MEDS ORDERED: cefTRIAXone 1,000 MG in SYRINGE 1 EACH IV SCH (21:00)
== END 2018-04-08 13:45 ==
LOC: EDBD → EDUNIT# → N.EDINP 16:38 → N.ED 16:38 → N.3E 21:12
PROVIDERS: ADMIT Hospitalist; ATTEND Hospitalist

== ENCOUNTER 2018-04-17 14:40 | Inpatient (IN) ==
[2018-04-17] MEDS ORDERED: PHENYTOIN 100 MG/2 ML VIAL IV ONE (14:49)
[2018-04-17] MEDS ORDERED: PHENYTOIN INJ 1,000 MG in SODIUM CHLORIDE 0.9% 100 ML IV STA (14:49)
[2018-04-17 15:33] LABS: Blood Urea Nitrogen 16 MG/DL (7-18); Calcium 8.2 MG/DL (8.5-10.1); Glucose 74 MG/DL (74-106); Osmolality,Calculated 289.6 MOS/KG (273-304); Potassium 3.2 MMOL/L (3.5-5.1); Sodium 146 MMOL/L (136-145)
[2018-04-17 16:03] LABS: Barbiturates Screen,Urine Negative (Negative); Benzodiazepines Screen,Urine Positive (Negative); Cannabinoid Screen,Urine Negative (Negative); Opiate Screen,Urine Negative (Negative); Phencyclidine Screen,Urine Negative (Negative)
[2018-04-17 16:33] LABS: Basophils % 0.4 % (0.0-0.8); Eosinophils # 0.1 10*3/uL (0.0-0.87); Eosinophils % 0.6 % (0.00-10.9); Hematocrit 25.8 VOL% (35.7-47.0); Hemoglobin 8.6 GM/DL (12.0-16.0); Immature Granulocytes % 0.3 %; Immature Granulocytes Absolute 0.02 #; Lymphocytes # 1.5 10*3/uL (1.4-4.0); Lymphocytes % 18.7 % (21.3-54.2); Mean Corpuscular HGB Conc 33.3 GM/DL (32-36); Mean Corpuscular Hemoglobin 29 PG (27-34); Mean Corpuscular Volume 87.5 FL (87-102); Mean Platelet Volume 11.5 FL (9.6-12.0); Monocytes # 0.5 10*3/uL (0.11-0.8); Monocytes % 6.2 % (1.7-12.7); Neutrophils # 5.7 10*3/uL (1.4-7.4); Neutrophils % 73.8 % (38.7-73.9); Platelet Count 229 T/CUMM (130-400); Red Blood Count 2.95 MC/CUMM (3.8-5.5); Red Cell Distribution Width 17.3 % (9.3-17.3); White Blood Count 7.8 T/CUMM (4-12)
[2018-04-17 16:42] LABS: Apearance,Urine Slightly Hazy (Clear); Bacteria,Urine Occasional /HPF (Few); Bilirubin,Urine Negative (Negative); Blood, Urine Small mg/dL (Negative); Glucose,Urine (UA) Negative (Negative); Ketones,Urine 5 mg/dL (Negative); Nitrite,Urine Negative (Negative); Protein,Urine >=500 MG/DL; RBC,Urine 8 /HPF (0-4); Squamous Epithelial Cell,Urine Occasional /HPF (0-10); Urine Color Yellow (Yellow); Urine Specific Gravity 1.012 (1.001-1.035); Urine Urobilinogen < 2.0 EU/DL (0.2-1.0); WBC,Urine 56 /HPF (0-6)
[2018-04-17] MEDS ORDERED: LEVOFLOXACIN INJ 500 MG in PREMIX 1 EACH IV STA (16:51)
[2018-04-17] MEDS ORDERED: GLUCAGON 1 MG VIAL IM PRN (19:01)
[2018-04-17] MEDS ORDERED: ONDANSETRON 4 MG/2 ML VIAL IV PRN (19:01)
[2018-04-17] MEDS ORDERED: DEXTROSE 50% 25 GM/50 ML VIAL IV PRN (19:01)
[2018-04-17] MEDS ORDERED: PROMETHAZINE 25 MG TABLET PO PRN (19:01)
[2018-04-17] MEDS ORDERED: ACETAMINOPHEN 325 MG TABLET PO PRN (19:01)
[2018-04-17] MEDS ORDERED: [UNRECOGNIZED DRUG - OTHER] TOP SCH (21:00)
[2018-04-17] MEDS: CARBIDOPA/LEVODOPA 25-250 MG TABLET PO SCH (21:08)
[2018-04-17] MEDS: SODIUM BICARBONATE 650 MG TABLET PO SCH (21:08)
[2018-04-17] MEDS: PRAVASTATIN 40 MG TABLET PO SCH (21:08)
[2018-04-17] MEDS: CYANOCOBALAMIN 500 MCG TABLET PO SCH (21:08)
[2018-04-17] MEDS: CARVEDILOL 12.5 MG TABLET PO SCH (21:09)
[2018-04-17] MEDS: PHENYTOIN ER 100 MG CAPSULE PO SCH (21:09)
[2018-04-17] MEDS: APIXABAN 2.5 MG TABLET PO SCH (21:09)
[2018-04-17] MEDS: DILTIAZEM 60 MG TABLET PO SCH (21:09)
[2018-04-17] MEDS: levETIRAcetam 500 MG TABLET PO SCH (21:09)
[2018-04-17] MEDS: ZINC OXIDE 16% PASTE 57 GM TUBE TOP SCH (21:10)
[2018-04-17] MEDS: FERROUS SULFATE 325 MG TABLET PO SCH (21:10)
[2018-04-17] MEDS ORDERED: LORazepam 2 MG/1 ML VIAL ONE (21:25)
[2018-04-17] MEDS ORDERED: LORazepam 2 MG/1 ML VIAL IM ONE (21:30)
[2018-04-17] MEDS: INSULIN LISPRO 100 UNIT/ML SUBCUT SCH (21:56)
[2018-04-17] MEDS ORDERED: LORazepam 2 MG/1 ML VIAL IV ONE (22:00)
[2018-04-17] MEDS: SODIUM CHLORIDE 0.9% 1,000 ML IV SCH (22:09)
[2018-04-17] MEDS: TRAVOPROST 0.004% OPH SOLN 2.5 ML BOTTLE BOTH EYES SCH (22:09)
[2018-04-17] MEDS: MEROPENEM 500 MG in SODIUM CHLORIDE 0.9% 100 ML IV SCH (22:09)
[2018-04-17] MEDS: GENTAMICIN INJ 160 MG in SODIUM CHLORIDE 0.9% 100 ML IV SCH (23:30)
[2018-04-18 06:06] LABS: Basophils % 0.3 % (0.0-0.8); Eosinophils # 0.2 10*3/uL (0.0-0.87); Eosinophils % 2.7 % (0.00-10.9); Hematocrit 21.8 VOL% (35.7-47.0); Hemoglobin 7.2 GM/DL (12.0-16.0); Immature Granulocytes % 0.3 %; Immature Granulocytes Absolute 0.02 #; Lymphocytes # 2.1 10*3/uL (1.4-4.0); Lymphocytes % 32.2 % (21.3-54.2); Mean Corpuscular Hemoglobin 29 PG (27-34); Mean Corpuscular Volume 87.6 FL (87-102); Monocytes # 0.4 10*3/uL (0.11-0.8); Monocytes % 6.8 % (1.7-12.7); Neutrophils # 3.7 10*3/uL (1.4-7.4); Neutrophils % 57.7 % (38.7-73.9); Platelet Count 188 T/CUMM (130-400); Red Blood Count 2.49 MC/CUMM (3.8-5.5); Red Cell Distribution Width 17.2 % (9.3-17.3); White Blood Count 6.4 T/CUMM (4-12)
[2018-04-18] MEDS: SODIUM CHLORIDE 0.9% 1,000 ML IV SCH ×4 (06:17→18:05)
[2018-04-18 06:26] LABS: Calcium 7.9 MG/DL (8.5-10.1); Osmolality,Calculated 291.4 MOS/KG (273-304); Potassium 2.8 MMOL/L (3.5-5.1); Troponin I 0.022 NG/ML (0.00-0.045)
[2018-04-18 06:36] LABS: INR 1.1; PT Patient Result 11.4 SECS
[2018-04-18] MEDS: INSULIN LISPRO 100 UNIT/ML SUBCUT SCH ×4 (07:51→20:10)
[2018-04-18] MEDS: LORazepam 2 MG/1 ML VIAL IV PRN ×3 (08:40→17:22)
[2018-04-18] MEDS: DILTIAZEM 60 MG TABLET PO SCH ×2 (09:01→20:20)
[2018-04-18] MEDS: CHOLECALCIFEROL 5,000 UNIT TABLET PO SCH (09:01)
[2018-04-18] MEDS: levETIRAcetam 500 MG TABLET PO SCH (09:01)
[2018-04-18] MEDS: CARBIDOPA/LEVODOPA 25-250 MG TABLET PO SCH ×4 (09:01→20:09)
[2018-04-18] MEDS: SODIUM BICARBONATE 650 MG TABLET PO SCH ×2 (09:01→20:09)
[2018-04-18] MEDS: amLODIPine 5 MG TABLET PO SCH (09:02)
[2018-04-18] MEDS: TOLTERODINE LA 4 MG CAPSULE PO SCH (09:02)
[2018-04-18] MEDS: PHENYTOIN ER 100 MG CAPSULE PO SCH (09:02)
[2018-04-18] MEDS: ERGOCALCIFEROL 50,000 UNIT CAPSULE PO SCH (09:02)
[2018-04-18] MEDS: ARIPiprazole 10 MG TABLET PO SCH (09:02)
[2018-04-18] MEDS: MAGNESIUM OXIDE 400 MG TABLET PO SCH (09:02)
[2018-04-18] MEDS: FERROUS SULFATE 325 MG TABLET PO SCH ×2 (09:02→20:09)
[2018-04-18] MEDS: LISINOPRIL 20 MG TABLET PO SCH (09:03)
[2018-04-18] MEDS: CYANOCOBALAMIN 500 MCG TABLET PO SCH ×2 (09:03→20:09)
[2018-04-18] MEDS: CARVEDILOL 12.5 MG TABLET PO SCH ×2 (09:03→16:43)
[2018-04-18] MEDS: APIXABAN 2.5 MG TABLET PO SCH ×2 (09:05→20:09)
[2018-04-18] MEDS: ZINC OXIDE 16% PASTE 57 GM TUBE TOP SCH ×2 (09:05→20:11)
[2018-04-18] MEDS: MEROPENEM 500 MG in SODIUM CHLORIDE 0.9% 100 ML IV SCH (09:05)
[2018-04-18] MEDS: LIDOCAINE 5% PATCH TRANSDERM SCH (09:43)
[2018-04-18] MEDS: POTASSIUM CHLORIDE 20 MEQ TABLET PO SCH ×4 (09:44→20:32)
[2018-04-18] MEDS: PHENYTOIN 100 MG/2 ML VIAL IV SCH ×2 (11:50→23:30)
[2018-04-18] MEDS: NIFEdipine 10 MG CAPSULE PO PRN (16:47)
[2018-04-18] MEDS ORDERED: LACOSAMIDE INJ 200 MG in SODIUM CHLORIDE 0.9% 50 ML IV ONE (17:30)
[2018-04-18] MEDS ORDERED: SODIUM CHLORIDE 0.9% IV ONE (17:30)
[2018-04-18] MEDS ORDERED: VALPROIC ACID IV ONE (17:30)
[2018-04-18] MEDS: GENTAMICIN INJ 160 MG in SODIUM CHLORIDE 0.9% 100 ML IV SCH (20:09)
[2018-04-18] MEDS: PRAVASTATIN 40 MG TABLET PO SCH (20:09)
[2018-04-18] MEDS: TRAVOPROST 0.004% OPH SOLN 2.5 ML BOTTLE BOTH EYES SCH (20:10)
[2018-04-18 22:53] LABS: Hematocrit 28.3 VOL% (35.7-47.0); Hemoglobin 9.1 GM/DL (12.0-16.0)
[2018-04-19] MEDS: POTASSIUM CHLORIDE 20 MEQ TABLET PO SCH (01:20)
[2018-04-19] MEDS ORDERED: LACOSAMIDE INJ 150 MG in SODIUM CHLORIDE 0.9% 50 ML IV SCH (02:00)
[2018-04-19] MEDS: SODIUM CHLORIDE 0.9% 1,000 ML IV SCH ×3 (05:34→20:19)
[2018-04-19 06:31] LABS: Basophils % 0.2 % (0.0-0.8); Eosinophils # 0.2 10*3/uL (0.0-0.87); Eosinophils % 2.7 % (0.00-10.9); Hemoglobin 10.5 GM/DL (12.0-16.0); Immature Granulocytes % 0.3 %; Immature Granulocytes Absolute 0.02 #; Lymphocytes # 1.2 10*3/uL (1.4-4.0); Lymphocytes % 18.5 % (21.3-54.2); Mean Corpuscular HGB Conc 33.9 GM/DL (32-36); Mean Corpuscular Hemoglobin 29 PG (27-34); Mean Corpuscular Volume 84.9 FL (87-102); Mean Platelet Volume 10.7 FL (9.6-12.0); Monocytes # 0.3 10*3/uL (0.11-0.8); Monocytes % 4.2 % (1.7-12.7); Neutrophils # 4.6 10*3/uL (1.4-7.4); Neutrophils % 74.1 % (38.7-73.9); Platelet Count 148 T/CUMM (130-400); Red Blood Count 3.65 MC/CUMM (3.8-5.5); Red Cell Distribution Width 16.4 % (9.3-17.3); White Blood Count 6.2 T/CUMM (4-12)
[2018-04-19 06:51] LABS: Calcium 7.8 MG/DL (8.5-10.1); Osmolality,Calculated 290.6 MOS/KG (273-304); Potassium 3.5 MMOL/L (3.5-5.1)
[2018-04-19] MEDS ORDERED: MAGNESIUM SULF RIDER 4 GM in PREMIX 1 EACH IV ONE (07:26)
[2018-04-19] MEDS: INSULIN LISPRO 100 UNIT/ML SUBCUT SCH ×4 (09:11→20:19)
[2018-04-19] MEDS: CARVEDILOL 12.5 MG TABLET PO SCH ×2 (09:11→16:43)
[2018-04-19] MEDS: CHOLECALCIFEROL 5,000 UNIT TABLET PO SCH (09:20)
[2018-04-19] MEDS: DILTIAZEM 60 MG TABLET PO SCH ×2 (09:20→21:00)
[2018-04-19] MEDS: LISINOPRIL 20 MG TABLET PO SCH (09:20)
[2018-04-19] MEDS: CYANOCOBALAMIN 500 MCG TABLET PO SCH ×2 (09:21→20:20)
[2018-04-19] MEDS: SODIUM BICARBONATE 650 MG TABLET PO SCH ×2 (09:21→20:20)
[2018-04-19] MEDS: ARIPiprazole 10 MG TABLET PO SCH (09:21)
[2018-04-19] MEDS: MAGNESIUM OXIDE 400 MG TABLET PO SCH (09:21)
[2018-04-19] MEDS: TOLTERODINE LA 4 MG CAPSULE PO SCH (09:21)
[2018-04-19] MEDS: CARBIDOPA/LEVODOPA 25-250 MG TABLET PO SCH ×4 (09:21→20:20)
[2018-04-19] MEDS: APIXABAN 2.5 MG TABLET PO SCH ×2 (09:22→20:19)
[2018-04-19] MEDS: FERROUS SULFATE 325 MG TABLET PO SCH ×2 (09:22→20:19)
[2018-04-19] MEDS: amLODIPine 5 MG TABLET PO SCH (09:22)
[2018-04-19] MEDS: LIDOCAINE 5% PATCH TRANSDERM SCH (09:22)
[2018-04-19] MEDS: ZINC OXIDE 16% PASTE 57 GM TUBE TOP SCH ×2 (09:22→20:19)
[2018-04-19] MEDS: PHENYTOIN 100 MG/4 ML UDCUP NG SCH ×2 (10:25→20:19)
[2018-04-19] MEDS: LACOSAMIDE 50 MG TABLET NG SCH ×2 (10:25→21:00)
[2018-04-19] MEDS: levETIRAcetam LIQUID 100 MG/ML 30 ML/BOTTLE NG SCH ×2 (13:50→21:00)
[2018-04-19] MEDS: GENTAMICIN INJ 160 MG in SODIUM CHLORIDE 0.9% 100 ML IV SCH (20:19)
[2018-04-19] MEDS: TRAVOPROST 0.004% OPH SOLN 2.5 ML BOTTLE BOTH EYES SCH (20:20)
[2018-04-19] MEDS: PRAVASTATIN 40 MG TABLET PO SCH (20:20)
[2018-04-19] MEDS: NIFEdipine 10 MG CAPSULE PO PRN (20:22)
[2018-04-20] MEDS: SODIUM CHLORIDE 0.9% 1,000 ML IV SCH ×4 (04:30→21:10)
[2018-04-20] MEDS: NIFEdipine 10 MG CAPSULE PO PRN (04:45)
[2018-04-20] MEDS: levETIRAcetam LIQUID 100 MG/ML 30 ML/BOTTLE NG SCH ×3 (05:04→21:11)
[2018-04-20] MEDS: MAGNESIUM OXIDE 400 MG TABLET PO SCH (08:40)
[2018-04-20] MEDS: APIXABAN 2.5 MG TABLET PO SCH ×2 (08:40→20:12)
[2018-04-20] MEDS: CYANOCOBALAMIN 500 MCG TABLET PO SCH ×2 (08:40→20:12)
[2018-04-20] MEDS: ARIPiprazole 10 MG TABLET PO SCH (08:40)
[2018-04-20] MEDS: LIDOCAINE 5% PATCH TRANSDERM SCH (08:40)
[2018-04-20] MEDS: TOLTERODINE LA 4 MG CAPSULE PO SCH (08:40)
[2018-04-20] MEDS: PHENYTOIN 100 MG/4 ML UDCUP NG SCH ×2 (08:40→20:12)
[2018-04-20] MEDS: LISINOPRIL 20 MG TABLET PO SCH (08:40)
[2018-04-20] MEDS: CARVEDILOL 12.5 MG TABLET PO SCH ×2 (08:40→16:26)
[2018-04-20] MEDS: FERROUS SULFATE 325 MG TABLET PO SCH ×2 (08:40→20:12)
[2018-04-20] MEDS: amLODIPine 5 MG TABLET PO SCH (08:40)
[2018-04-20] MEDS: SODIUM BICARBONATE 650 MG TABLET PO SCH ×2 (08:40→20:12)
[2018-04-20] MEDS: CHOLECALCIFEROL 5,000 UNIT TABLET PO SCH (08:40)
[2018-04-20] MEDS: CARBIDOPA/LEVODOPA 25-250 MG TABLET PO SCH ×4 (08:40→20:12)
[2018-04-20] MEDS: INSULIN LISPRO 100 UNIT/ML SUBCUT SCH ×3 (08:46→17:30)
[2018-04-20] MEDS: ZINC OXIDE 16% PASTE 57 GM TUBE TOP SCH ×2 (08:47→20:13)
[2018-04-20] MEDS: DILTIAZEM 60 MG TABLET PO SCH ×2 (08:47→20:13)
[2018-04-20] MEDS: LACOSAMIDE 50 MG TABLET NG SCH ×2 (09:43→20:18)
[2018-04-20 12:23] LABS: Calcium 7.7 MG/DL (8.5-10.1); Osmolality,Calculated 291.4 MOS/KG (273-304); Potassium 3.5 MMOL/L (3.5-5.1)
[2018-04-20] MEDS: PRAVASTATIN 40 MG TABLET PO SCH (20:12)
[2018-04-20] MEDS: TRAVOPROST 0.004% OPH SOLN 2.5 ML BOTTLE BOTH EYES SCH (20:13)
[2018-04-21] MEDS: INSULIN LISPRO 100 UNIT/ML SUBCUT SCH ×4 (01:04→17:01)
[2018-04-21 04:42] LABS: Basophils % 0.2 % (0.0-0.8); Eosinophils # 0.1 10*3/uL (0.0-0.87); Eosinophils % 1.5 % (0.00-10.9); Hematocrit 27.6 VOL% (35.7-47.0); Immature Granulocytes % 0.2 %; Immature Granulocytes Absolute 0.01 #; Lymphocytes % 18.3 % (21.3-54.2); Mean Corpuscular HGB Conc 32.6 GM/DL (32-36); Mean Corpuscular Hemoglobin 28 PG (27-34); Mean Platelet Volume 11.2 FL (9.6-12.0); Monocytes # 0.2 10*3/uL (0.11-0.8); Monocytes % 4.2 % (1.7-12.7); Neutrophils # 4.1 10*3/uL (1.4-7.4); Neutrophils % 75.6 % (38.7-73.9); Platelet Count 138 T/CUMM (130-400); Red Blood Count 3.21 MC/CUMM (3.8-5.5); Red Cell Distribution Width 17.3 % (9.3-17.3); White Blood Count 5.4 T/CUMM (4-12)
[2018-04-21] MEDS: SODIUM CHLORIDE 0.9% 1,000 ML IV SCH (04:50)
[2018-04-21 05:15] LABS: Alanine Aminotransferase < 9 U/L (13-56); Albumin 1.7 G/DL (3.4-5.0); Alkaline Phosphatase 81 U/L (45-117); Aspartate Amino Transferase 15 U/L (0-37); Blood Urea Nitrogen 14 MG/DL (7-18); Calcium 7.1 MG/DL (8.5-10.1); Glucose 70 MG/DL (74-106); Osmolality,Calculated 290.4 MOS/KG (273-304); Potassium 3.4 MMOL/L (3.5-5.1); Sodium 147 MMOL/L (136-145)
[2018-04-21] MEDS: levETIRAcetam LIQUID 100 MG/ML 30 ML/BOTTLE NG SCH ×3 (05:51→23:09)
[2018-04-21] MEDS: PHENYTOIN 100 MG/4 ML UDCUP NG SCH (08:25)
[2018-04-21] MEDS: LACOSAMIDE 50 MG TABLET NG SCH ×2 (08:25→21:07)
[2018-04-21] MEDS: DILTIAZEM 60 MG TABLET PO SCH ×2 (08:32→20:57)
[2018-04-21] MEDS: CARBIDOPA/LEVODOPA 25-250 MG TABLET PO SCH ×4 (08:32→21:07)
[2018-04-21] MEDS: TOLTERODINE LA 4 MG CAPSULE PO SCH (08:32)
[2018-04-21] MEDS: MAGNESIUM OXIDE 400 MG TABLET PO SCH (08:32)
[2018-04-21] MEDS: ARIPiprazole 10 MG TABLET PO SCH (08:32)
[2018-04-21] MEDS: APIXABAN 2.5 MG TABLET PO SCH ×2 (08:33→20:57)
[2018-04-21] MEDS: CYANOCOBALAMIN 500 MCG TABLET PO SCH ×2 (08:33→20:57)
[2018-04-21] MEDS: SODIUM BICARBONATE 650 MG TABLET PO SCH ×2 (08:33→20:58)
[2018-04-21] MEDS: FERROUS SULFATE 325 MG TABLET PO SCH ×2 (08:34→20:58)
[2018-04-21] MEDS: ZINC OXIDE 16% PASTE 57 GM TUBE TOP SCH ×2 (08:34→20:59)
[2018-04-21] MEDS: amLODIPine 5 MG TABLET PO SCH (08:34)
[2018-04-21] MEDS: CHOLECALCIFEROL 5,000 UNIT TABLET PO SCH (08:34)
[2018-04-21] MEDS: LIDOCAINE 5% PATCH TRANSDERM SCH (08:37)
[2018-04-21] MEDS: CARVEDILOL 12.5 MG TABLET PO SCH ×2 (11:35→17:01)
[2018-04-21] MEDS: LISINOPRIL 20 MG TABLET PO SCH (11:35)
[2018-04-21] MEDS: DEXTROSE 5% NACL 0.45% 1,000 ML IV SCH ×2 (12:39→22:49)
[2018-04-21] MEDS ORDERED: GENTAMICIN INJ 100 MG in PREMIX 1 EACH IV SCH (17:00)
[2018-04-21] MEDS: PRAVASTATIN 40 MG TABLET PO SCH (20:58)
[2018-04-21] MEDS: TRAVOPROST 0.004% OPH SOLN 2.5 ML BOTTLE BOTH EYES SCH (20:59)
[2018-04-22] MEDS: INSULIN LISPRO 100 UNIT/ML SUBCUT SCH ×4 (00:39→17:27)
[2018-04-22 04:20] LABS: Eosinophils # 0.1 10*3/uL (0.0-0.87); Eosinophils % 0.6 % (0.00-10.9); Hematocrit 28.9 VOL% (35.7-47.0); Hemoglobin 9.5 GM/DL (12.0-16.0); Immature Granulocytes % 0.4 %; Immature Granulocytes Absolute 0.03 #; Lymphocytes # 1.3 10*3/uL (1.4-4.0); Lymphocytes % 16.7 % (21.3-54.2); Mean Corpuscular HGB Conc 32.9 GM/DL (32-36); Mean Corpuscular Hemoglobin 28 PG (27-34); Mean Corpuscular Volume 85.5 FL (87-102); Mean Platelet Volume 11.2 FL (9.6-12.0); Monocytes # 0.4 10*3/uL (0.11-0.8); Monocytes % 4.6 % (1.7-12.7); Neutrophils # 6.2 10*3/uL (1.4-7.4); Neutrophils % 77.7 % (38.7-73.9); Platelet Count 145 T/CUMM (130-400); Red Blood Count 3.38 MC/CUMM (3.8-5.5); Red Cell Distribution Width 17.2 % (9.3-17.3)
[2018-04-22 04:47] LABS: Calcium 7.1 MG/DL (8.5-10.1); Osmolality,Calculated 286.1 MOS/KG (273-304); Potassium 3.5 MMOL/L (3.5-5.1)
[2018-04-22] MEDS: levETIRAcetam LIQUID 100 MG/ML 30 ML/BOTTLE NG SCH ×3 (05:50→21:59)
[2018-04-22] MEDS: LACOSAMIDE 50 MG TABLET NG SCH ×2 (08:01→21:57)
[2018-04-22] MEDS: LIDOCAINE 5% PATCH TRANSDERM SCH (08:07)
[2018-04-22] MEDS: SODIUM BICARBONATE 650 MG TABLET PO SCH ×2 (08:09→21:57)
[2018-04-22] MEDS: CYANOCOBALAMIN 500 MCG TABLET PO SCH ×2 (08:10→21:58)
[2018-04-22] MEDS: CARBIDOPA/LEVODOPA 25-250 MG TABLET PO SCH ×4 (08:10→21:58)
[2018-04-22] MEDS: ARIPiprazole 10 MG TABLET PO SCH (08:10)
[2018-04-22] MEDS: DILTIAZEM 60 MG TABLET PO SCH ×2 (08:10→21:58)
[2018-04-22] MEDS: CHOLECALCIFEROL 5,000 UNIT TABLET PO SCH (08:10)
[2018-04-22] MEDS: MAGNESIUM OXIDE 400 MG TABLET PO SCH (08:10)
[2018-04-22] MEDS: FERROUS SULFATE 325 MG TABLET PO SCH ×2 (08:10→21:58)
[2018-04-22] MEDS: TOLTERODINE LA 4 MG CAPSULE PO SCH (08:11)
[2018-04-22] MEDS: LISINOPRIL 20 MG TABLET PO SCH (08:11)
[2018-04-22] MEDS: amLODIPine 5 MG TABLET PO SCH (08:11)
[2018-04-22] MEDS: CARVEDILOL 12.5 MG TABLET PO SCH ×2 (08:11→17:24)
[2018-04-22] MEDS: APIXABAN 2.5 MG TABLET PO SCH ×2 (08:11→21:58)
[2018-04-22] MEDS: ZINC OXIDE 16% PASTE 57 GM TUBE TOP SCH ×2 (08:12→21:59)
[2018-04-22] MEDS: DEXTROSE 5% NACL 0.45% 1,000 ML IV SCH ×2 (08:12→18:13)
[2018-04-22] MEDS: TRAVOPROST 0.004% OPH SOLN 2.5 ML BOTTLE BOTH EYES SCH (21:57)
[2018-04-22] MEDS: PRAVASTATIN 40 MG TABLET PO SCH (21:57)
[2018-04-23] MEDS: INSULIN LISPRO 100 UNIT/ML SUBCUT SCH ×4 (00:41→18:19)
[2018-04-23] MEDS: DEXTROSE 5% NACL 0.45% 1,000 ML IV SCH ×2 (04:34→13:38)
[2018-04-23 05:38] LABS: Calcium 7.5 MG/DL (8.5-10.1); Osmolality,Calculated 282.4 MOS/KG (273-304); Potassium 3.5 MMOL/L (3.5-5.1)
[2018-04-23] MEDS: NIFEdipine 10 MG CAPSULE PO PRN (06:33)
[2018-04-23] MEDS: levETIRAcetam LIQUID 100 MG/ML 30 ML/BOTTLE NG SCH ×3 (06:33→22:10)
[2018-04-23] MEDS: LIDOCAINE 5% PATCH TRANSDERM SCH (08:34)
[2018-04-23] MEDS: SODIUM BICARBONATE 650 MG TABLET PO SCH ×2 (08:35→22:09)
[2018-04-23] MEDS: CARBIDOPA/LEVODOPA 25-250 MG TABLET PO SCH ×4 (08:35→22:08)
[2018-04-23] MEDS: LISINOPRIL 20 MG TABLET PO SCH (08:35)
[2018-04-23] MEDS: DILTIAZEM 60 MG TABLET PO SCH (08:35)
[2018-04-23] MEDS: CARVEDILOL 12.5 MG TABLET PO SCH ×2 (08:35→16:58)
[2018-04-23] MEDS: FERROUS SULFATE 325 MG TABLET PO SCH ×2 (08:36→22:09)
[2018-04-23] MEDS: CYANOCOBALAMIN 500 MCG TABLET PO SCH ×2 (08:36→22:18)
[2018-04-23] MEDS: ZINC OXIDE 16% PASTE 57 GM TUBE TOP SCH ×2 (08:36→22:08)
[2018-04-23] MEDS: amLODIPine 5 MG TABLET PO SCH (08:36)
[2018-04-23] MEDS: TOLTERODINE LA 4 MG CAPSULE PO SCH (08:36)
[2018-04-23] MEDS: APIXABAN 2.5 MG TABLET PO SCH ×2 (08:36→22:09)
[2018-04-23] MEDS: ARIPiprazole 10 MG TABLET PO SCH (08:36)
[2018-04-23] MEDS: MAGNESIUM OXIDE 400 MG TABLET PO SCH (08:36)
[2018-04-23] MEDS: LACOSAMIDE 50 MG TABLET NG SCH ×2 (08:37→22:08)
[2018-04-23] MEDS: CHOLECALCIFEROL 5,000 UNIT TABLET PO SCH (08:37)
[2018-04-23] MEDS: TRAVOPROST 0.004% OPH SOLN 2.5 ML BOTTLE BOTH EYES SCH (22:10)
[2018-04-23] MEDS: PRAVASTATIN 40 MG TABLET PO SCH (22:57)
[2018-04-24] MEDS: INSULIN LISPRO 100 UNIT/ML SUBCUT SCH ×4 (00:31→18:32)
[2018-04-24] MEDS: DEXTROSE 5% NACL 0.45% 1,000 ML IV SCH (00:55)
[2018-04-24] MEDS: levETIRAcetam LIQUID 100 MG/ML 30 ML/BOTTLE NG SCH ×2 (05:51→12:37)
[2018-04-24 06:15] LABS: Basophils % 0.2 % (0.0-0.8); Eosinophils # 0.2 10*3/uL (0.0-0.87); Eosinophils % 2.2 % (0.00-10.9); Hematocrit 30.1 VOL% (35.7-47.0); Immature Granulocytes % 0.3 %; Immature Granulocytes Absolute 0.03 #; Lymphocytes % 10.8 % (21.3-54.2); Mean Corpuscular HGB Conc 33.2 GM/DL (32-36); Mean Corpuscular Hemoglobin 28 PG (27-34); Mean Corpuscular Volume 83.1 FL (87-102); Mean Platelet Volume 12.9 FL (9.6-12.0); Monocytes # 0.3 10*3/uL (0.11-0.8); Monocytes % 3.4 % (1.7-12.7); Neutrophils % 83.1 % (38.7-73.9); Platelet Count 180 T/CUMM (130-400); Red Blood Count 3.62 MC/CUMM (3.8-5.5); Red Cell Distribution Width 16.4 % (9.3-17.3); White Blood Count 9.6 T/CUMM (4-12)
[2018-04-24 06:51] LABS: Calcium 7.8 MG/DL (8.5-10.1); Osmolality,Calculated 280.5 MOS/KG (273-304); Potassium 3.3 MMOL/L (3.5-5.1)
[2018-04-24] MEDS: SODIUM CHLORIDE 0.9% 1,000 ML IV SCH ×3 (10:03→20:31)
[2018-04-24] MEDS: LIDOCAINE 5% PATCH TRANSDERM SCH (10:04)
[2018-04-24] MEDS: CYANOCOBALAMIN 500 MCG TABLET PO SCH ×2 (10:05→22:04)
[2018-04-24] MEDS: ARIPiprazole 10 MG TABLET PO SCH (10:05)
[2018-04-24] MEDS: SODIUM BICARBONATE 650 MG TABLET PO SCH ×2 (10:05→22:05)
[2018-04-24] MEDS: LACOSAMIDE 50 MG TABLET NG SCH ×2 (10:05→22:05)
[2018-04-24] MEDS: TOLTERODINE LA 4 MG CAPSULE PO SCH (10:05)
[2018-04-24] MEDS: MAGNESIUM OXIDE 400 MG TABLET PO SCH (10:05)
[2018-04-24] MEDS: LISINOPRIL 20 MG TABLET PO SCH (10:06)
[2018-04-24] MEDS: ZINC OXIDE 16% PASTE 57 GM TUBE TOP SCH ×2 (10:06→22:06)
[2018-04-24] MEDS: FERROUS SULFATE 325 MG TABLET PO SCH ×2 (10:06→22:05)
[2018-04-24] MEDS: CHOLECALCIFEROL 5,000 UNIT TABLET PO SCH (10:06)
[2018-04-24] MEDS: CARBIDOPA/LEVODOPA 25-250 MG TABLET PO SCH ×4 (10:06→22:04)
[2018-04-24] MEDS: amLODIPine 5 MG TABLET PO SCH (10:06)
[2018-04-24] MEDS: CARVEDILOL 12.5 MG TABLET PO SCH ×2 (10:06→16:36)
[2018-04-24] MEDS: PANTOPRAZOLE 40 MG VIAL IV SCH (15:47)
[2018-04-24] MEDS: LORazepam 2 MG/1 ML VIAL IV PRN (17:53)
[2018-04-24] MEDS: PRAVASTATIN 40 MG TABLET PO SCH (22:05)
[2018-04-24] MEDS: TRAVOPROST 0.004% OPH SOLN 2.5 ML BOTTLE BOTH EYES SCH (22:06)
[2018-04-25] MEDS: levETIRAcetam LIQUID 100 MG/ML 30 ML/BOTTLE NG SCH ×4 (00:37→22:18)
[2018-04-25] MEDS: INSULIN LISPRO 100 UNIT/ML SUBCUT SCH ×4 (00:38→17:25)
[2018-04-25 06:01] LABS: Calcium 7.5 MG/DL (8.5-10.1); Osmolality,Calculated 280.4 MOS/KG (273-304); Potassium 3.6 MMOL/L (3.5-5.1); Prealbumin 12.7 MG/DL (20-40)
[2018-04-25] MEDS: CHOLECALCIFEROL 5,000 UNIT TABLET PO SCH (08:42)
[2018-04-25] MEDS: LACOSAMIDE 50 MG TABLET NG SCH ×2 (08:42→22:17)
[2018-04-25] MEDS: ARIPiprazole 10 MG TABLET PO SCH (08:42)
[2018-04-25] MEDS: SODIUM BICARBONATE 650 MG TABLET PO SCH ×2 (08:42→22:17)
[2018-04-25] MEDS: TOLTERODINE LA 4 MG CAPSULE PO SCH (08:42)
[2018-04-25] MEDS: MAGNESIUM OXIDE 400 MG TABLET PO SCH (08:42)
[2018-04-25] MEDS: CYANOCOBALAMIN 500 MCG TABLET PO SCH ×2 (08:42→22:17)
[2018-04-25] MEDS: ERGOCALCIFEROL 50,000 UNIT CAPSULE PO SCH (08:42)
[2018-04-25] MEDS: LIDOCAINE 5% PATCH TRANSDERM SCH (08:43)
[2018-04-25] MEDS: FERROUS SULFATE 325 MG TABLET PO SCH ×2 (08:43→22:17)
[2018-04-25] MEDS: NIFEdipine 10 MG CAPSULE PO PRN (08:43)
[2018-04-25] MEDS: amLODIPine 5 MG TABLET PO SCH (08:43)
[2018-04-25] MEDS: CARBIDOPA/LEVODOPA 25-250 MG TABLET PO SCH ×4 (08:43→22:18)
[2018-04-25] MEDS: PANTOPRAZOLE 40 MG VIAL IV SCH (08:43)
[2018-04-25] MEDS: CARVEDILOL 12.5 MG TABLET PO SCH ×2 (08:43→16:46)
[2018-04-25] MEDS: LISINOPRIL 20 MG TABLET PO SCH (08:43)
[2018-04-25] MEDS: ZINC OXIDE 16% PASTE 57 GM TUBE TOP SCH ×2 (08:55→22:18)
[2018-04-25] MEDS: SODIUM CHLORIDE 0.9% 1,000 ML IV SCH (09:06)
[2018-04-25] MEDS: TRAVOPROST 0.004% OPH SOLN 2.5 ML BOTTLE BOTH EYES SCH (21:25)
[2018-04-25] MEDS: PRAVASTATIN 40 MG TABLET PO SCH (22:18)
[2018-04-26] MEDS: INSULIN LISPRO 100 UNIT/ML SUBCUT SCH ×4 (00:26→17:56)
[2018-04-26] MEDS: SODIUM CHLORIDE 0.9% 1,000 ML IV SCH ×4 (03:13→15:50)
[2018-04-26] MEDS: levETIRAcetam LIQUID 100 MG/ML 30 ML/BOTTLE NG SCH ×3 (04:23→23:02)
[2018-04-26] MEDS: NIFEdipine 10 MG CAPSULE PO PRN ×2 (04:23→12:05)
[2018-04-26 05:02] LABS: Basophils % 0.2 % (0.0-0.8); Eosinophils # 0.2 10*3/uL (0.0-0.87); Eosinophils % 2.7 % (0.00-10.9); Hematocrit 32.5 VOL% (35.7-47.0); Hemoglobin 10.8 GM/DL (12.0-16.0); Immature Granulocytes % 0.8 %; Immature Granulocytes Absolute 0.05 #; Lymphocytes # 1.2 10*3/uL (1.4-4.0); Lymphocytes % 18.9 % (21.3-54.2); Mean Corpuscular HGB Conc 33.2 GM/DL (32-36); Mean Corpuscular Hemoglobin 28 PG (27-34); Mean Corpuscular Volume 83.8 FL (87-102); Mean Platelet Volume 12.1 FL (9.6-12.0); Monocytes # 0.3 10*3/uL (0.11-0.8); Monocytes % 4.8 % (1.7-12.7); Neutrophils # 4.5 10*3/uL (1.4-7.4); Neutrophils % 72.6 % (38.7-73.9); Platelet Count 204 T/CUMM (130-400); Red Blood Count 3.88 MC/CUMM (3.8-5.5); Red Cell Distribution Width 16.7 % (9.3-17.3); White Blood Count 6.2 T/CUMM (4-12)
[2018-04-26 05:12] LABS: Alanine Aminotransferase < 9 U/L (13-56); Albumin 1.8 G/DL (3.4-5.0); Alkaline Phosphatase 117 U/L (45-117); Aspartate Amino Transferase 15 U/L (0-37); Blood Urea Nitrogen 15 MG/DL (7-18); Calcium 7.9 MG/DL (8.5-10.1); Glucose 93 MG/DL (74-106); Osmolality,Calculated 283.1 MOS/KG (273-304); Potassium 3.6 MMOL/L (3.5-5.1); Sodium 142 MMOL/L (136-145); Total Protein 5.7 G/DL (6.4-8.3)
[2018-04-26] MEDS: MAGNESIUM OXIDE 400 MG TABLET PO SCH (10:10)
[2018-04-26] MEDS: CARVEDILOL 12.5 MG TABLET PO SCH ×2 (10:10→17:59)
[2018-04-26] MEDS: amLODIPine 5 MG TABLET PO SCH (10:10)
[2018-04-26] MEDS: CYANOCOBALAMIN 500 MCG TABLET PO SCH ×2 (10:10→23:01)
[2018-04-26] MEDS: LACOSAMIDE 50 MG TABLET NG SCH ×2 (10:10→23:01)
[2018-04-26] MEDS: CHOLECALCIFEROL 5,000 UNIT TABLET PO SCH (10:10)
[2018-04-26] MEDS: CARBIDOPA/LEVODOPA 25-250 MG TABLET PO SCH ×4 (10:11→23:01)
[2018-04-26] MEDS: TOLTERODINE LA 4 MG CAPSULE PO SCH (10:11)
[2018-04-26] MEDS: FERROUS SULFATE 325 MG TABLET PO SCH ×2 (10:11→23:01)
[2018-04-26] MEDS: LISINOPRIL 20 MG TABLET PO SCH (10:11)
[2018-04-26] MEDS: SODIUM BICARBONATE 650 MG TABLET PO SCH ×2 (10:12→23:01)
[2018-04-26] MEDS: LANSOPRAZOLE ODT 30 MG TABLET PO SCH (10:12)
[2018-04-26] MEDS: ZINC OXIDE 16% PASTE 57 GM TUBE TOP SCH ×2 (10:30→23:02)
[2018-04-26] MEDS: LIDOCAINE 5% PATCH TRANSDERM SCH (10:30)
[2018-04-26] MEDS: ARIPiprazole 10 MG TABLET PO SCH (11:58)
[2018-04-26] MEDS: METOCLOPRAMIDE 10 MG/2 ML VIAL IV SCH ×2 (12:05→18:58)
[2018-04-26] MEDS: PRAVASTATIN 40 MG TABLET PO SCH (23:02)
[2018-04-27] MEDS: INSULIN LISPRO 100 UNIT/ML SUBCUT SCH ×4 (01:17→18:45)
[2018-04-27] MEDS: METOCLOPRAMIDE 10 MG/2 ML VIAL IV SCH ×5 (01:21→23:44)
[2018-04-27] MEDS: TRAVOPROST 0.004% OPH SOLN 2.5 ML BOTTLE BOTH EYES SCH ×2 (01:21→22:31)
[2018-04-27 04:33] LABS: Basophils % 0.3 % (0.0-0.8); Eosinophils # 0.1 10*3/uL (0.0-0.87); Eosinophils % 1.9 % (0.00-10.9); Hematocrit 29.7 VOL% (35.7-47.0); Hemoglobin 9.7 GM/DL (12.0-16.0); Immature Granulocytes % 0.4 %; Immature Granulocytes Absolute 0.03 #; Lymphocytes # 1.2 10*3/uL (1.4-4.0); Lymphocytes % 16.6 % (21.3-54.2); Mean Corpuscular HGB Conc 32.7 GM/DL (32-36); Mean Corpuscular Hemoglobin 28 PG (27-34); Mean Corpuscular Volume 84.4 FL (87-102); Mean Platelet Volume 11.3 FL (9.6-12.0); Monocytes # 0.5 10*3/uL (0.11-0.8); Monocytes % 6.6 % (1.7-12.7); Neutrophils # 5.2 10*3/uL (1.4-7.4); Neutrophils % 74.2 % (38.7-73.9); Platelet Count 193 T/CUMM (130-400); Red Blood Count 3.52 MC/CUMM (3.8-5.5)
[2018-04-27] MEDS: NIFEdipine 10 MG CAPSULE PO PRN ×2 (04:47→11:10)
[2018-04-27 05:00] LABS: Alanine Aminotransferase < 6 U/L (13-56); Albumin 1.8 G/DL (3.4-5.0); Alkaline Phosphatase 110 U/L (45-117); Aspartate Amino Transferase 12 U/L (0-37); Bilirubin,Total < 0.39 MG/DL (0.2-1.0); Blood Urea Nitrogen 16 MG/DL (7-18); Calcium 7.8 MG/DL (8.5-10.1); Glucose 108 MG/DL (74-106); Osmolality,Calculated 287.8 MOS/KG (273-304); Potassium 3.6 MMOL/L (3.5-5.1); Sodium 144 MMOL/L (136-145); Total Protein 5.5 G/DL (6.4-8.3)
[2018-04-27] MEDS: levETIRAcetam LIQUID 100 MG/ML 30 ML/BOTTLE NG SCH ×3 (05:01→21:40)
[2018-04-27] MEDS: CARVEDILOL 12.5 MG TABLET PO SCH ×2 (09:01→17:48)
[2018-04-27] MEDS: FERROUS SULFATE 325 MG TABLET PO SCH ×2 (10:10→21:34)
[2018-04-27] MEDS: SODIUM BICARBONATE 650 MG TABLET PO SCH ×2 (10:10→21:34)
[2018-04-27] MEDS: LACOSAMIDE 50 MG TABLET NG SCH ×2 (10:10→21:34)
[2018-04-27] MEDS: TOLTERODINE LA 4 MG CAPSULE PO SCH (10:10)
[2018-04-27] MEDS: LANSOPRAZOLE ODT 30 MG TABLET PO SCH (10:10)
[2018-04-27] MEDS: CHOLECALCIFEROL 5,000 UNIT TABLET PO SCH (10:10)
[2018-04-27] MEDS: LISINOPRIL 20 MG TABLET PO SCH (10:11)
[2018-04-27] MEDS: CYANOCOBALAMIN 500 MCG TABLET PO SCH ×2 (10:11→21:34)
[2018-04-27] MEDS: CARBIDOPA/LEVODOPA 25-250 MG TABLET PO SCH ×4 (10:11→21:34)
[2018-04-27] MEDS: amLODIPine 5 MG TABLET PO SCH (10:11)
[2018-04-27] MEDS: ARIPiprazole 10 MG TABLET PO SCH (10:11)
[2018-04-27] MEDS: MAGNESIUM OXIDE 400 MG TABLET PO SCH (10:11)
[2018-04-27] MEDS: LIDOCAINE 5% PATCH TRANSDERM SCH (10:12)
[2018-04-27] MEDS: ZINC OXIDE 16% PASTE 57 GM TUBE TOP SCH ×2 (10:55→21:36)
[2018-04-27] MEDS: SODIUM CHLORIDE 0.9% 1,000 ML IV SCH (14:02)
[2018-04-27] MEDS: PRAVASTATIN 40 MG TABLET PO SCH (21:42)
[2018-04-28] MEDS: NIFEdipine 10 MG CAPSULE PO PRN (01:15)
[2018-04-28] MEDS: INSULIN LISPRO 100 UNIT/ML SUBCUT SCH ×4 (02:25→18:48)
[2018-04-28] MEDS: levETIRAcetam LIQUID 100 MG/ML 30 ML/BOTTLE NG SCH ×3 (04:08→21:05)
[2018-04-28] MEDS: METOCLOPRAMIDE 10 MG/2 ML VIAL IV SCH ×3 (05:33→18:18)
[2018-04-28 05:41] LABS: Basophils % 0.4 % (0.0-0.8); Eosinophils # 0.1 10*3/uL (0.0-0.87); Eosinophils % 1.6 % (0.00-10.9); Hematocrit 27.7 VOL% (35.7-47.0); Immature Granulocytes % 0.5 %; Immature Granulocytes Absolute 0.04 #; Lymphocytes # 1.2 10*3/uL (1.4-4.0); Lymphocytes % 15.9 % (21.3-54.2); Mean Corpuscular HGB Conc 32.5 GM/DL (32-36); Mean Corpuscular Hemoglobin 27 PG (27-34); Mean Corpuscular Volume 84.5 FL (87-102); Mean Platelet Volume 11.1 FL (9.6-12.0); Monocytes # 0.4 10*3/uL (0.11-0.8); Monocytes % 5.9 % (1.7-12.7); NRBC # 0.02 10*3/uL; Neutrophils # 5.6 10*3/uL (1.4-7.4); Neutrophils % 75.7 % (38.7-73.9); Platelet Count 187 T/CUMM (130-400); Red Blood Count 3.28 MC/CUMM (3.8-5.5); Red Cell Distribution Width 17.2 % (9.3-17.3); White Blood Count 7.3 T/CUMM (4-12)
[2018-04-28 05:55] LABS: Alanine Aminotransferase < 6 U/L (13-56); Albumin 1.9 G/DL (3.4-5.0); Alkaline Phosphatase 112 U/L (45-117); Aspartate Amino Transferase 15 U/L (0-37); Blood Urea Nitrogen 18 MG/DL (7-18); Glucose 117 MG/DL (74-106); Osmolality,Calculated 294.4 MOS/KG (273-304); Potassium 3.6 MMOL/L (3.5-5.1); Sodium 147 MMOL/L (136-145); Total Protein 5.6 G/DL (6.4-8.3)
[2018-04-28] MEDS ORDERED: ceFAZolin 1,000 MG in SYRINGE 1 EACH IV ONE (09:12)
[2018-04-28] MEDS ORDERED: ceFAZolin 1,000 MG VIAL ONE (09:14)
[2018-04-28] MEDS: CYANOCOBALAMIN 500 MCG TABLET PO SCH ×2 (10:45→21:05)
[2018-04-28] MEDS: TOLTERODINE LA 4 MG CAPSULE PO SCH (10:45)
[2018-04-28] MEDS: SODIUM BICARBONATE 650 MG TABLET PO SCH ×2 (10:45→21:06)
[2018-04-28] MEDS: ARIPiprazole 10 MG TABLET PO SCH (10:46)
[2018-04-28] MEDS: FERROUS SULFATE 325 MG TABLET PO SCH ×2 (10:46→21:06)
[2018-04-28] MEDS: LISINOPRIL 20 MG TABLET PO SCH (10:46)
[2018-04-28] MEDS: amLODIPine 5 MG TABLET PO SCH (10:47)
[2018-04-28] MEDS: CARVEDILOL 12.5 MG TABLET PO SCH ×2 (10:47→18:17)
[2018-04-28] MEDS: CARBIDOPA/LEVODOPA 25-250 MG TABLET PO SCH ×4 (10:47→21:06)
[2018-04-28] MEDS: LANSOPRAZOLE ODT 30 MG TABLET PO SCH (10:47)
[2018-04-28] MEDS: LIDOCAINE 5% PATCH TRANSDERM SCH (10:47)
[2018-04-28] MEDS: LACOSAMIDE 50 MG TABLET NG SCH ×2 (10:47→21:06)
[2018-04-28] MEDS: CHOLECALCIFEROL 5,000 UNIT TABLET PO SCH (10:48)
[2018-04-28] MEDS: ZINC OXIDE 16% PASTE 57 GM TUBE TOP SCH ×2 (10:48→21:07)
[2018-04-28] MEDS: MAGNESIUM OXIDE 400 MG TABLET PO SCH (10:55)
[2018-04-28] MEDS: ceFAZolin 1,000 MG in SYRINGE 1 EACH IV SCH (18:20)
[2018-04-28] MEDS: TRAVOPROST 0.004% OPH SOLN 2.5 ML BOTTLE BOTH EYES SCH (21:05)
[2018-04-28] MEDS: PRAVASTATIN 40 MG TABLET PO SCH (21:06)
[2018-04-29] MEDS: INSULIN LISPRO 100 UNIT/ML SUBCUT SCH ×3 (00:20→12:27)
[2018-04-29] MEDS: ceFAZolin 1,000 MG in SYRINGE 1 EACH IV SCH (01:40)
[2018-04-29] MEDS: METOCLOPRAMIDE 10 MG/2 ML VIAL IV SCH ×2 (01:41→07:23)
[2018-04-29] MEDS: SODIUM CHLORIDE 0.9% 1,000 ML IV SCH (06:00)
[2018-04-29] MEDS: levETIRAcetam LIQUID 100 MG/ML 30 ML/BOTTLE NG SCH (06:02)
[2018-04-29 06:20] LABS: Basophils % 0.2 % (0.0-0.8); Eosinophils # 0.2 10*3/uL (0.0-0.87); Eosinophils % 1.8 % (0.00-10.9); Hematocrit 27.7 VOL% (35.7-47.0); Hemoglobin 9.2 GM/DL (12.0-16.0); Immature Granulocytes % 0.3 %; Immature Granulocytes Absolute 0.03 #; Lymphocytes # 1.2 10*3/uL (1.4-4.0); Lymphocytes % 13.9 % (21.3-54.2); Mean Corpuscular HGB Conc 33.2 GM/DL (32-36); Mean Corpuscular Hemoglobin 28 PG (27-34); Mean Platelet Volume 11.6 FL (9.6-12.0); Monocytes # 0.5 10*3/uL (0.11-0.8); Neutrophils # 6.9 10*3/uL (1.4-7.4); Neutrophils % 77.8 % (38.7-73.9); Platelet Count 196 T/CUMM (130-400); Red Blood Count 3.26 MC/CUMM (3.8-5.5); Red Cell Distribution Width 17.4 % (9.3-17.3); White Blood Count 8.8 T/CUMM (4-12)
[2018-04-29 06:39] LABS: Alanine Aminotransferase < 9 U/L (13-56); Alkaline Phosphatase 117 U/L (45-117); Aspartate Amino Transferase 15 U/L (0-37); Blood Urea Nitrogen 17 MG/DL (7-18); Glucose 120 MG/DL (74-106); Osmolality,Calculated 294.4 MOS/KG (273-304); Potassium 3.6 MMOL/L (3.5-5.1); Sodium 147 MMOL/L (136-145)
[2018-04-29 06:50] LABS: Calcium 8.1 MG/DL (8.5-10.1); Osmolality,Calculated 297.1 MOS/KG (273-304); Potassium 3.6 MMOL/L (3.5-5.1); Prealbumin 14.3 MG/DL (20-40)
[2018-04-29] MEDS: FERROUS SULFATE 325 MG TABLET PO SCH (09:52)
[2018-04-29] MEDS: SODIUM BICARBONATE 650 MG TABLET PO SCH (09:52)
[2018-04-29] MEDS: LACOSAMIDE 50 MG TABLET NG SCH (09:52)
[2018-04-29] MEDS: amLODIPine 5 MG TABLET PO SCH (09:52)
[2018-04-29] MEDS: MAGNESIUM OXIDE 400 MG TABLET PO SCH (09:52)
[2018-04-29] MEDS: CARVEDILOL 12.5 MG TABLET PO SCH (09:52)
[2018-04-29] MEDS: LISINOPRIL 20 MG TABLET PO SCH (09:52)
[2018-04-29] MEDS: LANSOPRAZOLE ODT 30 MG TABLET PO SCH (09:53)
[2018-04-29] MEDS: TOLTERODINE LA 4 MG CAPSULE PO SCH (09:53)
[2018-04-29] MEDS: CARBIDOPA/LEVODOPA 25-250 MG TABLET PO SCH (09:53)
[2018-04-29] MEDS: ARIPiprazole 10 MG TABLET PO SCH (09:53)
[2018-04-29] MEDS: CYANOCOBALAMIN 500 MCG TABLET PO SCH (09:53)
[2018-04-29] MEDS: LIDOCAINE 5% PATCH TRANSDERM SCH (09:55)
[2018-04-29] MEDS: ZINC OXIDE 16% PASTE 57 GM TUBE TOP SCH (09:55)
[2018-04-29] MEDS: CHOLECALCIFEROL 5,000 UNIT TABLET PO SCH (09:56)
[2018-04-29] MEDS ORDERED: amLODIPine 5 MG TABLET PO SCH (11:30)
[2018-04-29 11:37] VITALS: BP 187/102
== END 2018-04-29 12:28 | DRG 56 ==
LOC: EDUNIT# → EDBD → N.ED 14:40 → N.EDINP 17:37 → SUATTDRO 17:37 → N.2E 17:47 → N.CC 21:54 → N.2E 04-23 17:33
PROVIDERS: ADMIT Hospitalist; ATTEND Internal Medicine
PROC: EGDWPEG (ICD-10-PCS; 2018-04-28 08:05)

== ENCOUNTER 2018-05-11 23:12 | Inpatient (IN) ==
[2018-05-11] MEDS ORDERED: PANTOPRAZOLE 40 MG VIAL IV STA (23:57)
[2018-05-11] MEDS ORDERED: SODIUM CHLORIDE 0.9% 500 ML IV STA (23:57)
[2018-05-11] MEDS ORDERED: ONDANSETRON 4 MG/2 ML VIAL IV STA (23:57)
[2018-05-12 01:01] LABS: INR 0.9; PT Patient Result 9.7 SECS
[2018-05-12 01:08] LABS: Lactic Acid 1.3 MMOL/L (0.4-2.0)
[2018-05-12 01:11] LABS: Basophils % 0.4 % (0.0-0.8); Eosinophils # 0.3 10*3/uL (0.0-0.87); Eosinophils % 2.4 % (0.00-10.9); Hematocrit 24.4 VOL% (35.7-47.0); Hemoglobin 8.1 GM/DL (12.0-16.0); Immature Granulocytes % 1.1 %; Immature Granulocytes Absolute 0.12 #; Lymphocytes # 1.4 10*3/uL (1.4-4.0); Lymphocytes % 12.8 % (21.3-54.2); Mean Corpuscular HGB Conc 33.2 GM/DL (32-36); Mean Corpuscular Hemoglobin 29 PG (27-34); Mean Corpuscular Volume 86.2 FL (87-102); Mean Platelet Volume 11.3 FL (9.6-12.0); Monocytes # 0.6 10*3/uL (0.11-0.8); Monocytes % 5.6 % (1.7-12.7); Neutrophils # 8.5 10*3/uL (1.4-7.4); Neutrophils % 77.7 % (38.7-73.9); Platelet Count 416 T/CUMM (130-400); Red Blood Count 2.83 MC/CUMM (3.8-5.5)
[2018-05-12 01:25] LABS: Alanine Aminotransferase 10 U/L (13-56); Albumin 2.4 G/DL (3.4-5.0); Alkaline Phosphatase 130 U/L (45-117); Amylase 62 U/L (25-115); Aspartate Amino Transferase 29 U/L (0-37); Bilirubin,Total < 0.39 MG/DL (0.2-1.0); Blood Urea Nitrogen 59 MG/DL (7-18); Calcium 8.3 MG/DL (8.5-10.1); Glucose 157 MG/DL (74-106); Osmolality,Calculated 294.7 MOS/KG (273-304); Potassium 3.4 MMOL/L (3.5-5.1); Sodium 138 MMOL/L (136-145); Total Protein 6.9 G/DL (6.4-8.3)
[2018-05-12] MEDS ORDERED: cefTRIAXone 1,000 MG in SODIUM CHLORIDE 0.9% 100 ML IV STA (01:43)
[2018-05-12] MEDS ORDERED: metroNIDAZOLE INJ 500 MG in PREMIX 1 EACH IV STA (01:43)
[2018-05-12 01:53] LABS: Apearance,Urine CLOUDY (Clear); Bilirubin,Urine Negative (Negative); Blood, Urine Moderate mg/dL (Negative); Glucose,Urine (UA) Negative (Negative); Granular Casts,Urine 7 /LPF (0-1); Ketones,Urine Negative (Negative); Mucus,Urine Occasional /LPF (Occasional); Nitrite,Urine Negative (Negative); Protein,Urine 100 MG/DL; RBC,Urine 24 /HPF (0-4); Squamous Epithelial Cell,Urine Occasional /HPF (0-10); Urine Color Yellow (Yellow); Urine Urobilinogen < 2.0 EU/DL (0.2-1.0); WBC,Urine 21 /HPF (0-6)
[2018-05-12] MEDS ORDERED: ONDANSETRON 4 MG/2 ML VIAL IV PRN (03:15)
[2018-05-12] MEDS: SODIUM CHLORIDE 0.9% 1,000 ML IV SCH ×2 (03:20→11:31)
[2018-05-12] MEDS ORDERED: DEXTROSE 50% 25 GM/50 ML VIAL IV PRN (04:51)
[2018-05-12] MEDS ORDERED: GLUCAGON 1 MG VIAL IM PRN (04:51)
[2018-05-12] MEDS: VANCOMYCIN 50 MG/ML 60 ML/BOTTLE PO SCH ×3 (06:08→17:40)
[2018-05-12 07:40] LABS: Basophils # 0.1 10*3/uL (0.0-0.2); Basophils % 0.5 % (0.0-0.8); Eosinophils # 0.3 10*3/uL (0.0-0.87); Eosinophils % 2.8 % (0.00-10.9); Hematocrit 23.2 VOL% (35.7-47.0); Hemoglobin 7.7 GM/DL (12.0-16.0); Immature Granulocytes % 1.2 %; Immature Granulocytes Absolute 0.12 #; Lymphocytes # 1.7 10*3/uL (1.4-4.0); Lymphocytes % 16.7 % (21.3-54.2); Mean Corpuscular HGB Conc 33.2 GM/DL (32-36); Mean Corpuscular Hemoglobin 29 PG (27-34); Mean Corpuscular Volume 86.6 FL (87-102); Mean Platelet Volume 11.1 FL (9.6-12.0); Monocytes # 0.7 10*3/uL (0.11-0.8); Monocytes % 7.3 % (1.7-12.7); Neutrophils # 7.3 10*3/uL (1.4-7.4); Neutrophils % 71.5 % (38.7-73.9); Platelet Count 424 T/CUMM (130-400); Red Blood Count 2.68 MC/CUMM (3.8-5.5); Red Cell Distribution Width 19.2 % (9.3-17.3); White Blood Count 10.1 T/CUMM (4-12)
[2018-05-12 08:02] LABS: Calcium 8.1 MG/DL (8.5-10.1); Osmolality,Calculated 293.7 MOS/KG (273-304); Potassium 3.6 MMOL/L (3.5-5.1)
[2018-05-12] MEDS: PANTOPRAZOLE 40 MG TABLET PO SCH (09:11)
[2018-05-12] MEDS: INSULIN REGULAR 100 UNIT/ML SUBCUT SCH ×4 (09:11→21:15)
[2018-05-12] MEDS: FLUCONAZOLE INJ 100 MG in IV BAG 1 EACH IV SCH (15:43)
[2018-05-13] MEDS: VANCOMYCIN 50 MG/ML 60 ML/BOTTLE PO SCH ×4 (00:08→17:02)
[2018-05-13] MEDS: cefTRIAXone 1,000 MG in SYRINGE 1 EACH IV SCH (00:09)
[2018-05-13 06:12] LABS: Osmolality,Calculated 295.4 MOS/KG (273-304); Potassium 3.3 MMOL/L (3.5-5.1); Prealbumin 20.6 MG/DL (20-40)
[2018-05-13 08:33] LABS: Basophils % 0.2 % (0.0-0.8); Eosinophils # 0.2 10*3/uL (0.0-0.87); Eosinophils % 2.5 % (0.00-10.9); Hematocrit 23.2 VOL% (35.7-47.0); Hemoglobin 7.4 GM/DL (12.0-16.0); Immature Granulocytes Absolute 0.09 #; Lymphocytes # 1.6 10*3/uL (1.4-4.0); Lymphocytes % 17.8 % (21.3-54.2); Mean Corpuscular HGB Conc 31.9 GM/DL (32-36); Mean Corpuscular Hemoglobin 28 PG (27-34); Mean Corpuscular Volume 88.2 FL (87-102); Mean Platelet Volume 11.4 FL (9.6-12.0); Monocytes # 0.6 10*3/uL (0.11-0.8); Neutrophils # 6.4 10*3/uL (1.4-7.4); Neutrophils % 71.5 % (38.7-73.9); Platelet Count 379 T/CUMM (130-400); Red Blood Count 2.63 MC/CUMM (3.8-5.5); Red Cell Distribution Width 19.5 % (9.3-17.3); White Blood Count 8.9 T/CUMM (4-12)
[2018-05-13] MEDS: INSULIN REGULAR 100 UNIT/ML SUBCUT SCH ×4 (09:06→21:34)
[2018-05-13] MEDS: PANTOPRAZOLE 40 MG TABLET PO SCH (09:06)
[2018-05-13] MEDS: POTASSIUM CHLORIDE 20 MEQ TABLET PO PRN ×3 (11:49→16:42)
[2018-05-13] MEDS: SODIUM CHLORIDE 0.9% 1,000 ML IV SCH (11:49)
[2018-05-13] MEDS: BACITRACIN OINT 0.9 GM PACK TOP SCH (11:58)
[2018-05-13] MEDS: FLUCONAZOLE INJ 100 MG in IV BAG 1 EACH IV SCH (14:32)
[2018-05-13] MEDS: DESITIN 4OZ/NYSTATIN 15 GRAM MIXTURE PASTE TOP SCH ×3 (14:32→21:34)
[2018-05-14] MEDS: cefTRIAXone 1,000 MG in SYRINGE 1 EACH IV SCH (00:42)
[2018-05-14] MEDS: VANCOMYCIN 50 MG/ML 60 ML/BOTTLE PO SCH ×2 (00:42→06:52)
[2018-05-14 06:09] LABS: Calcium 8.2 MG/DL (8.5-10.1); Osmolality,Calculated 296.3 MOS/KG (273-304); Potassium 3.5 MMOL/L (3.5-5.1)
[2018-05-14] MEDS: INSULIN REGULAR 100 UNIT/ML SUBCUT SCH (07:50)
[2018-05-14] MEDS: DESITIN 4OZ/NYSTATIN 15 GRAM MIXTURE PASTE TOP SCH (09:58)
[2018-05-14] MEDS: PANTOPRAZOLE 40 MG TABLET PO SCH (09:58)
[2018-05-14] MEDS: BACITRACIN OINT 0.9 GM PACK TOP SCH (10:03)
[2018-05-14] MEDS ORDERED: FLUCONAZOLE 40 MG/ML 35 ML/BOTTLE PO SCH (10:30)
[2018-05-14 11:25] LABS: Apearance,Urine Slightly Hazy (Clear); Bacteria,Urine Many /HPF (Few); Bilirubin,Urine Negative (Negative); Blood, Urine Small mg/dL (Negative); Glucose,Urine (UA) Negative (Negative); Ketones,Urine Negative (Negative); Mucus,Urine Occasional /LPF (Occasional); Nitrite,Urine Negative (Negative); Protein,Urine 30 MG/DL; RBC,Urine 2 /HPF (0-4); Squamous Epithelial Cell,Urine Occasional /HPF (0-10); Urine Color Yellow (Yellow); Urine Specific Gravity 1.006 (1.001-1.035); Urine Urobilinogen < 2.0 EU/DL (0.2-1.0); WBC,Urine 43 /HPF (0-6)
[2018-05-14] MEDS ORDERED: VANCOMYCIN 50 MG/ML 60 ML/BOTTLE PO SCH (12:00)
[2018-05-14 12:01] VITALS: BP 132/70
== END 2018-05-14 12:30 | DRG 372 ==
LOC: EDBD → EDUNIT# → N.ED 23:12 → N.EDINP 05-12 03:15 → N.5E 05-12 04:35
PROVIDERS: ADMIT Internal Medicine Infectious Disease; ATTEND Internal Medicine Infectious Disease

== ENCOUNTER 2018-06-02 15:34 | Inpatient (IN) ==
[2018-06-02] MEDS ORDERED: SODIUM CHLORIDE 0.9% 1,000 ML IV STA (15:50)
[2018-06-02 16:34] LABS: Basophils % 0.2 % (0.0-0.8); Eosinophils % 0.3 % (0.00-10.9); Hematocrit 25.1 VOL% (35.7-47.0); Hemoglobin 8.3 GM/DL (12.0-16.0); Immature Granulocytes % 0.7 %; Immature Granulocytes Absolute 0.07 #; Lymphocytes % 10.5 % (21.3-54.2); Mean Corpuscular HGB Conc 33.1 GM/DL (32-36); Mean Corpuscular Hemoglobin 30 PG (27-34); Mean Corpuscular Volume 90.3 FL (87-102); Mean Platelet Volume 11.2 FL (9.6-12.0); Monocytes # 0.3 10*3/uL (0.11-0.8); Monocytes % 3.6 % (1.7-12.7); Neutrophils # 8.1 10*3/uL (1.4-7.4); Neutrophils % 84.7 % (38.7-73.9); Platelet Count 235 T/CUMM (130-400); Red Blood Count 2.78 MC/CUMM (3.8-5.5); White Blood Count 9.6 T/CUMM (4-12)
[2018-06-02] MEDS ORDERED: cefTRIAXone 1,000 MG in SODIUM CHLORIDE 0.9% 100 ML IV STA (17:01)
[2018-06-02 17:03] LABS: Ammonia 41 UMOL/L (11-32)
[2018-06-02 17:31] LABS: PT Patient Result 10.5 SECS; Partial Thromboplastin Time 32.9 SECS (0-40)
[2018-06-02 17:34] LABS: Apearance,Urine CLOUDY (Clear); Bacteria,Urine Many /HPF (Few); Bilirubin,Urine Negative (Negative); Blood, Urine Small mg/dL (Negative); Glucose,Urine (UA) Negative (Negative); Ketones,Urine Negative (Negative); Nitrite,Urine Negative (Negative); Protein,Urine 100 MG/DL; RBC,Urine 1205 /HPF (0-4); Urine Color Yellow (Yellow); Urine Specific Gravity 1.015 (1.001-1.035); Urine Urobilinogen < 2.0 EU/DL (0.2-1.0); WBC,Urine 34202 /HPF (0-6)
[2018-06-02] MEDS ORDERED: SODIUM CHLORIDE 0.9% 2,250 ML IV ONE (17:37)
[2018-06-02 17:45] LABS: Alanine Aminotransferase < 6 U/L (13-56); Albumin 2.3 G/DL (3.4-5.0); Alkaline Phosphatase 84 U/L (45-117); Aspartate Amino Transferase 13 U/L (0-37); Bilirubin,Total < 0.39 MG/DL (0.2-1.0); Blood Urea Nitrogen 104 MG/DL (7-18); Glucose 167 MG/DL (74-106); Osmolality,Calculated 298.7 MOS/KG (273-304); Potassium 3.4 MMOL/L (3.5-5.1); Sodium 131 MMOL/L (136-145); Total Protein 6.7 G/DL (6.4-8.3)
[2018-06-02 17:47] LABS: Barbiturates Screen,Urine Negative (Negative); Benzodiazepines Screen,Urine Negative (Negative); Cannabinoid Screen,Urine Negative (Negative); Opiate Screen,Urine Negative (Negative); Phencyclidine Screen,Urine Negative (Negative)
[2018-06-02] MEDS ORDERED: VANCOMYCIN INJ 1,000 MG in SODIUM CHLORIDE 0.9% 250 ML IV SCH (18:00)
[2018-06-02] MEDS ORDERED: LACTATED RINGERS 1,000 ML IV SCH (18:00)
[2018-06-02] MEDS ORDERED: VANCOMYCIN 1,000 MG VIAL ONE (18:03)
[2018-06-02] MEDS: PIPERACILLIN/TAZOBACTAM 3,375 MG in SODIUM CHLORIDE 0.9% 100 ML IV SCH (18:10)
[2018-06-02] MEDS ORDERED: PROMETHAZINE 25 MG TABLET PO PRN (18:14)
[2018-06-02] MEDS ORDERED: ALBUTEROL 2.5 MG/3 ML NEB RESP TX PRN (18:14)
[2018-06-02] MEDS ORDERED: LACTULOSE 20 GM/30 ML UDCUP PO PRN (18:14)
[2018-06-02] MEDS ORDERED: NOREPINEPHRINE 4 MG/4 ML VIAL IV ONE (18:28)
[2018-06-02] MEDS: NOREPINEPHRINE 8 MG in SODIUM CHLORIDE 0.9% 242 ML IV SCH (18:43)
[2018-06-02] MEDS ORDERED: VANCOMYCIN INJ 1,000 MG in SODIUM CHLORIDE 0.9% 250 ML IV PRN (19:08)
[2018-06-02] MEDS: ALBUTEROL/IPRATROPIUM 3 ML NEB RESP TX SCH (19:25)
[2018-06-02] MEDS: SODIUM BICARB INJ 150 MEQ in STERILE WATER INJ 850 ML IV SCH (19:43)
[2018-06-02] MEDS: traZODone 50 MG TABLET PO PRN (21:37)
[2018-06-02] MEDS: FERROUS SULFATE 300 MG/5 ML UDCUP PEG SCH (21:37)
[2018-06-02] MEDS: CARBIDOPA/LEVODOPA 25-250 MG TABLET PEG SCH (21:37)
[2018-06-02] MEDS: APIXABAN 2.5 MG TABLET PEG SCH (21:38)
[2018-06-02] MEDS: SIMVASTATIN 20 MG TABLET PEG SCH (21:38)
[2018-06-02] MEDS: ZINC OXIDE 16% PASTE 57 GM TUBE TOP SCH (21:46)
[2018-06-02] MEDS: TRAVOPROST 0.004% OPH SOLN 2.5 ML BOTTLE BOTH EYES SCH (21:46)
[2018-06-02] MEDS: levETIRAcetam LIQUID 100 MG/ML 30 ML/BOTTLE PEG SCH (21:46)
[2018-06-03] MEDS: ALBUTEROL/IPRATROPIUM 3 ML NEB RESP TX SCH ×5 (01:47→19:54)
[2018-06-03] MEDS: PIPERACILLIN/TAZOBACTAM 3,375 MG in SODIUM CHLORIDE 0.9% 100 ML IV SCH ×2 (02:05→13:20)
[2018-06-03] MEDS ORDERED: DEXTROSE 50% 25 GM/50 ML SYRINGE IV PRN (03:43)
[2018-06-03] MEDS: levETIRAcetam LIQUID 100 MG/ML 30 ML/BOTTLE PEG SCH ×3 (04:36→21:39)
[2018-06-03] MEDS: SODIUM BICARB INJ 150 MEQ in STERILE WATER INJ 850 ML IV SCH ×3 (04:38→16:38)
[2018-06-03 05:59] LABS: Basophils % 0.2 % (0.0-0.8); Eosinophils % 0.3 % (0.00-10.9); Hematocrit 23.2 VOL% (35.7-47.0); Immature Granulocytes % 0.5 %; Immature Granulocytes Absolute 0.07 #; Lymphocytes # 0.6 10*3/uL (1.4-4.0); Lymphocytes % 4.1 % (21.3-54.2); Mean Corpuscular HGB Conc 33.2 GM/DL (32-36); Mean Corpuscular Hemoglobin 30 PG (27-34); Mean Corpuscular Volume 89.2 FL (87-102); Mean Platelet Volume 11.3 FL (9.6-12.0); Monocytes # 0.7 10*3/uL (0.11-0.8); Monocytes % 5.4 % (1.7-12.7); NRBC # 0.17 10*3/uL; Neutrophils # 12.1 10*3/uL (1.4-7.4); Neutrophils % 89.5 % (38.7-73.9); Platelet Count 256 T/CUMM (130-400); Red Cell Distribution Width 20.7 % (9.3-17.3)
[2018-06-03 06:09] LABS: Alanine Aminotransferase < 6 U/L (13-56); Albumin 2.1 G/DL (3.4-5.0); Alkaline Phosphatase 76 U/L (45-117); Aspartate Amino Transferase 14 U/L (0-37); Blood Urea Nitrogen 103 MG/DL (7-18); Calcium 7.5 MG/DL (8.5-10.1); Glucose 142 MG/DL (74-106); Osmolality,Calculated 301.2 MOS/KG (273-304); Sodium 134 MMOL/L (136-145); Total Protein 6.5 G/DL (6.4-8.3)
[2018-06-03] MEDS ORDERED: POTASSIUM CHLORIDE 20 MEQ/15 ML UDCUP PER TUBE ONE (06:29)
[2018-06-03 06:30] LABS: White Blood Count 13.5 T/CUMM (4-12)
[2018-06-03 06:31] LABS: Hemoglobin 7.7 GM/DL (12.0-16.0)
[2018-06-03 06:49] LABS: Band Neutrophils 1 % (0-10); Burr Cells Slight; Eosinophils 1 % (0-10); Hypochromasia 1+; Lymphocytes 2 % (20-55); Nucleated Red Blood Cells 3 (0-5); Ovalocytes Slight; Platelet Estimate Adequate; Segmented Neutrophils 90 % (50-85); Total Cells Counted 100
[2018-06-03] MEDS ORDERED: POTASSIUM CHLORIDE RIDER 20 MEQ in PREMIX 1 EACH IV ONE (09:46)
[2018-06-03] MEDS: CARBIDOPA/LEVODOPA 25-250 MG TABLET PEG SCH ×4 (10:18→21:38)
[2018-06-03] MEDS: TOLTERODINE LA 4 MG CAPSULE PO SCH (10:18)
[2018-06-03] MEDS: LANSOPRAZOLE ODT 30 MG TABLET PEG SCH (10:19)
[2018-06-03] MEDS: FERROUS SULFATE 300 MG/5 ML UDCUP PEG SCH ×2 (10:19→21:38)
[2018-06-03] MEDS: MAGNESIUM OXIDE 400 MG TABLET PEG SCH (10:19)
[2018-06-03] MEDS: ARIPiprazole 10 MG TABLET PEG SCH (10:19)
[2018-06-03] MEDS: APIXABAN 2.5 MG TABLET PEG SCH ×2 (10:19→21:38)
[2018-06-03] MEDS: ZINC OXIDE 16% PASTE 57 GM TUBE TOP SCH ×2 (10:21→21:38)
[2018-06-03] MEDS: LACOSAMIDE 50 MG TABLET PEG SCH ×2 (10:30→21:38)
[2018-06-03] MEDS: FLUCONAZOLE 100 MG TABLET PO SCH (10:30)
[2018-06-03] MEDS: LIDOCAINE 5% PATCH TRANSDERM SCH (10:34)
[2018-06-03] MEDS: ONDANSETRON 4 MG/2 ML VIAL IV PRN (13:01)
[2018-06-03] MEDS: SODIUM BICARB INJ 150 MEQ, POTASSIUM CHLORIDE INJ 20 MEQ in STERILE WATER INJ 850 ML IV SCH (16:58)
[2018-06-03] MEDS ORDERED: INSULIN LISPRO 100 UNIT/ML SUBCUT SCH (18:00)
[2018-06-03] MEDS: NOREPINEPHRINE 8 MG in SODIUM CHLORIDE 0.9% 242 ML IV SCH (18:51)
[2018-06-03] MEDS: traZODone 50 MG TABLET PO PRN (21:38)
[2018-06-03] MEDS: TRAVOPROST 0.004% OPH SOLN 2.5 ML BOTTLE BOTH EYES SCH (21:38)
[2018-06-03] MEDS: SIMVASTATIN 20 MG TABLET PEG SCH (21:38)
[2018-06-03] MEDS: NYSTATIN CREAM 15 GM TUBE TOP SCH (21:38)
[2018-06-04] MEDS: SODIUM BICARB INJ 150 MEQ, POTASSIUM CHLORIDE INJ 20 MEQ in STERILE WATER INJ 850 ML IV SCH ×2 (00:15→02:42)
[2018-06-04] MEDS: ALBUTEROL/IPRATROPIUM 3 ML NEB RESP TX SCH ×4 (00:38→20:27)
[2018-06-04] MEDS ORDERED: MORPHINE 4 MG/1 ML VIAL IV ONE (02:12)
[2018-06-04] MEDS: ONDANSETRON 4 MG/2 ML VIAL IV PRN ×2 (02:24→18:01)
[2018-06-04] MEDS: PIPERACILLIN/TAZOBACTAM 3,375 MG in SODIUM CHLORIDE 0.9% 100 ML IV SCH ×2 (02:52→14:05)
[2018-06-04 05:12] LABS: Basophils % 0.2 % (0.0-0.8); Eosinophils # 0.1 10*3/uL (0.0-0.87); Eosinophils % 0.6 % (0.00-10.9); Hematocrit 22.3 VOL% (35.7-47.0); Hemoglobin 7.4 GM/DL (12.0-16.0); Immature Granulocytes % 0.7 %; Immature Granulocytes Absolute 0.09 #; Lymphocytes # 0.6 10*3/uL (1.4-4.0); Mean Corpuscular HGB Conc 33.2 GM/DL (32-36); Mean Corpuscular Hemoglobin 29 PG (27-34); Mean Corpuscular Volume 88.1 FL (87-102); Mean Platelet Volume 11.5 FL (9.6-12.0); Monocytes # 0.5 10*3/uL (0.11-0.8); Monocytes % 3.4 % (1.7-12.7); NRBC # 0.11 10*3/uL; Neutrophils # 12.6 10*3/uL (1.4-7.4); Neutrophils % 91.1 % (38.7-73.9); Platelet Count 228 T/CUMM (130-400); Red Blood Count 2.53 MC/CUMM (3.8-5.5); Red Cell Distribution Width 20.8 % (9.3-17.3); White Blood Count 13.8 T/CUMM (4-12)
[2018-06-04 05:28] LABS: Alanine Aminotransferase < 6 U/L (13-56); Alkaline Phosphatase 72 U/L (45-117); Aspartate Amino Transferase 12 U/L (0-37); Blood Urea Nitrogen 92 MG/DL (7-18); Glucose 89 MG/DL (74-106); Potassium 2.9 MMOL/L (3.5-5.1); Sodium 136 MMOL/L (136-145); Total Protein 5.9 G/DL (6.4-8.3)
[2018-06-04] MEDS: levETIRAcetam LIQUID 100 MG/ML 30 ML/BOTTLE PEG SCH ×3 (06:10→21:11)
[2018-06-04 07:14] LABS: Anisocytosis 2+; Band Neutrophils 10 % (0-10); Lymphocytes 2 % (20-55); Nucleated Red Blood Cells 2 (0-5); Platelet Estimate Normal; Segmented Neutrophils 87 % (50-85); Total Cells Counted 100
[2018-06-04] MEDS ORDERED: POTASSIUM CHLORIDE 20 MEQ TABLET PO ONE (08:58)
[2018-06-04] MEDS ORDERED: VANCOMYCIN INJ 1,000 MG in SODIUM CHLORIDE 0.9% 250 ML IV ONE (09:30)
[2018-06-04] MEDS: ARIPiprazole 10 MG TABLET PEG SCH (10:01)
[2018-06-04] MEDS: LANSOPRAZOLE ODT 30 MG TABLET PEG SCH (10:01)
[2018-06-04] MEDS: MAGNESIUM OXIDE 400 MG TABLET PEG SCH (10:01)
[2018-06-04] MEDS: CARBIDOPA/LEVODOPA 25-250 MG TABLET PEG SCH ×4 (10:01→20:56)
[2018-06-04] MEDS: TOLTERODINE LA 4 MG CAPSULE PO SCH (10:01)
[2018-06-04] MEDS: APIXABAN 2.5 MG TABLET PEG SCH ×2 (10:02→20:56)
[2018-06-04] MEDS: LACOSAMIDE 50 MG TABLET PEG SCH ×2 (10:02→21:05)
[2018-06-04] MEDS: NYSTATIN CREAM 15 GM TUBE TOP SCH ×2 (10:04→21:11)
[2018-06-04] MEDS: FLUCONAZOLE 100 MG TABLET PO SCH (10:04)
[2018-06-04] MEDS: FERROUS SULFATE 300 MG/5 ML UDCUP PEG SCH ×2 (10:04→20:55)
[2018-06-04] MEDS: ZINC OXIDE 16% PASTE 57 GM TUBE TOP SCH ×2 (10:04→20:55)
[2018-06-04] MEDS: SODIUM BICARB IV SCH ×2 (10:18→17:57)
[2018-06-04] MEDS: POTASSIUM CHLORIDE IV SCH ×2 (10:18→17:57)
[2018-06-04] MEDS: STERILE WATER IV SCH ×2 (10:18→17:57)
[2018-06-04] MEDS: LIDOCAINE 5% PATCH TRANSDERM SCH (10:36)
[2018-06-04] MEDS ORDERED: GLUCAGON 1 MG VIAL IM PRN (11:36)
[2018-06-04] MEDS ORDERED: DEXTROSE 50% 25 GM/50 ML VIAL IV PRN (11:36)
[2018-06-04] MEDS: INSULIN REGULAR 100 UNIT/ML SUBCUT SCH ×2 (14:17→17:45)
[2018-06-04] MEDS: VANCOMYCIN 50 MG/ML 60 ML/BOTTLE PO SCH (17:45)
[2018-06-04] MEDS: NOREPINEPHRINE 8 MG in SODIUM CHLORIDE 0.9% 242 ML IV SCH (18:08)
[2018-06-04] MEDS: SIMVASTATIN 20 MG TABLET PEG SCH (20:56)
[2018-06-04] MEDS: TRAVOPROST 0.004% OPH SOLN 2.5 ML BOTTLE BOTH EYES SCH (21:11)
[2018-06-05] MEDS: ALBUTEROL/IPRATROPIUM 3 ML NEB RESP TX SCH ×4 (00:55→19:10)
[2018-06-05] MEDS: VANCOMYCIN 50 MG/ML 60 ML/BOTTLE PO SCH ×4 (01:53→18:24)
[2018-06-05] MEDS: STERILE WATER IV SCH ×4 (01:53→17:37)
[2018-06-05] MEDS: POTASSIUM CHLORIDE IV SCH ×4 (01:53→17:37)
[2018-06-05] MEDS: INSULIN REGULAR 100 UNIT/ML SUBCUT SCH ×4 (01:53→17:37)
[2018-06-05] MEDS: SODIUM BICARB IV SCH ×4 (01:53→17:37)
[2018-06-05] MEDS: PIPERACILLIN/TAZOBACTAM 3,375 MG in SODIUM CHLORIDE 0.9% 100 ML IV SCH ×2 (02:42→14:32)
[2018-06-05 05:28] LABS: Alanine Aminotransferase < 6 U/L (13-56); Albumin 1.9 G/DL (3.4-5.0); Alkaline Phosphatase 77 U/L (45-117); Aspartate Amino Transferase 14 U/L (0-37); Blood Urea Nitrogen 92 MG/DL (7-18); Calcium 6.8 MG/DL (8.5-10.1); Glucose 151 MG/DL (74-106); Osmolality,Calculated 305.7 MOS/KG (273-304); Potassium 3.6 MMOL/L (3.5-5.1); Sodium 138 MMOL/L (136-145); Total Protein 5.7 G/DL (6.4-8.3)
[2018-06-05 05:36] LABS: Basophils % 0.1 % (0.0-0.8); Eosinophils # 0.1 10*3/uL (0.0-0.87); Eosinophils % 0.6 % (0.00-10.9); Hematocrit 20.3 VOL% (35.7-47.0); Hemoglobin 6.9 GM/DL (12.0-16.0); Immature Granulocytes % 0.6 %; Immature Granulocytes Absolute 0.09 #; Lymphocytes # 0.9 10*3/uL (1.4-4.0); Lymphocytes % 5.7 % (21.3-54.2); Mean Corpuscular Hemoglobin 29 PG (27-34); Mean Platelet Volume 11.8 FL (9.6-12.0); Monocytes # 0.7 10*3/uL (0.11-0.8); Monocytes % 4.7 % (1.7-12.7); NRBC # 0.12 10*3/uL; Neutrophils # 13.1 10*3/uL (1.4-7.4); Neutrophils % 88.3 % (38.7-73.9); Platelet Count 213 T/CUMM (130-400); Red Blood Count 2.36 MC/CUMM (3.8-5.5); Red Cell Distribution Width 21.2 % (9.3-17.3); White Blood Count 14.8 T/CUMM (4-12)
[2018-06-05] MEDS: levETIRAcetam LIQUID 100 MG/ML 30 ML/BOTTLE PEG SCH ×3 (05:47→23:41)
[2018-06-05] MEDS ORDERED: SODIUM CHLORIDE 0.9% 1,000 ML IV PRN (08:26)
[2018-06-05] MEDS: LACOSAMIDE 50 MG TABLET PEG SCH ×2 (08:29→21:49)
[2018-06-05] MEDS: MAGNESIUM OXIDE 400 MG TABLET PEG SCH (08:30)
[2018-06-05] MEDS: ARIPiprazole 10 MG TABLET PEG SCH (08:30)
[2018-06-05] MEDS: CARBIDOPA/LEVODOPA 25-250 MG TABLET PEG SCH ×4 (08:30→21:49)
[2018-06-05] MEDS: LANSOPRAZOLE ODT 30 MG TABLET PEG SCH (08:30)
[2018-06-05] MEDS: LIDOCAINE 5% PATCH TRANSDERM SCH (08:30)
[2018-06-05] MEDS: APIXABAN 2.5 MG TABLET PEG SCH ×2 (08:30→21:48)
[2018-06-05] MEDS: FLUCONAZOLE 100 MG TABLET PO SCH (08:30)
[2018-06-05] MEDS: TOLTERODINE LA 4 MG CAPSULE PO SCH (08:30)
[2018-06-05] MEDS: ZINC OXIDE 16% PASTE 57 GM TUBE TOP SCH ×2 (08:31→21:48)
[2018-06-05] MEDS: NYSTATIN CREAM 15 GM TUBE TOP SCH ×2 (08:31→21:49)
[2018-06-05] MEDS: FERROUS SULFATE 300 MG/5 ML UDCUP PEG SCH ×2 (08:31→21:48)
[2018-06-05 19:40] LABS: Hemoglobin 9.5 GM/DL (12.0-16.0)
[2018-06-05] MEDS: traZODone 50 MG TABLET PO PRN (21:49)
[2018-06-05] MEDS: TRAVOPROST 0.004% OPH SOLN 2.5 ML BOTTLE BOTH EYES SCH (21:49)
[2018-06-05] MEDS: SIMVASTATIN 20 MG TABLET PEG SCH (21:49)
[2018-06-06] MEDS: ALBUTEROL/IPRATROPIUM 3 ML NEB RESP TX SCH ×4 (00:22→19:53)
[2018-06-06] MEDS: PIPERACILLIN/TAZOBACTAM 3,375 MG in SODIUM CHLORIDE 0.9% 100 ML IV SCH (01:19)
[2018-06-06] MEDS: VANCOMYCIN 50 MG/ML 60 ML/BOTTLE PO SCH ×4 (01:19→17:42)
[2018-06-06] MEDS: INSULIN REGULAR 100 UNIT/ML SUBCUT SCH ×4 (01:19→17:41)
[2018-06-06] MEDS: ONDANSETRON 4 MG/2 ML VIAL IV PRN (02:02)
[2018-06-06 05:51] LABS: Basophils % 0.1 % (0.0-0.8); Eosinophils % 0.3 % (0.00-10.9); Hematocrit 30.7 VOL% (35.7-47.0); Hemoglobin 10.3 GM/DL (12.0-16.0); Immature Granulocytes % 0.7 %; Lymphocytes # 0.9 10*3/uL (1.4-4.0); Lymphocytes % 6.3 % (21.3-54.2); Mean Corpuscular HGB Conc 33.6 GM/DL (32-36); Mean Corpuscular Hemoglobin 29 PG (27-34); Mean Corpuscular Volume 86.7 FL (87-102); Mean Platelet Volume 11.2 FL (9.6-12.0); Monocytes # 0.6 10*3/uL (0.11-0.8); Monocytes % 4.4 % (1.7-12.7); NRBC # 0.07 10*3/uL; Neutrophils # 11.8 10*3/uL (1.4-7.4); Neutrophils % 88.2 % (38.7-73.9); Platelet Count 201 T/CUMM (130-400); Red Blood Count 3.54 MC/CUMM (3.8-5.5); Red Cell Distribution Width 18.9 % (9.3-17.3); White Blood Count 13.4 T/CUMM (4-12)
[2018-06-06 05:54] LABS: Alanine Aminotransferase < 6 U/L (13-56); Albumin 2.1 G/DL (3.4-5.0); Alkaline Phosphatase 99 U/L (45-117); Aspartate Amino Transferase 20 U/L (0-37); Blood Urea Nitrogen 87 MG/DL (7-18); Calcium 7.6 MG/DL (8.5-10.1); Glucose 129 MG/DL (74-106); Osmolality,Calculated 311.1 MOS/KG (273-304); Sodium 142 MMOL/L (136-145); Total Protein 6.6 G/DL (6.4-8.3)
[2018-06-06] MEDS: STERILE WATER IV SCH ×2 (06:04→21:36)
[2018-06-06] MEDS: POTASSIUM CHLORIDE IV SCH ×2 (06:04→21:36)
[2018-06-06] MEDS: SODIUM BICARB IV SCH ×2 (06:04→21:36)
[2018-06-06] MEDS: FERROUS SULFATE 300 MG/5 ML UDCUP PEG SCH ×2 (09:50→21:34)
[2018-06-06] MEDS: MAGNESIUM OXIDE 400 MG TABLET PEG SCH (09:50)
[2018-06-06] MEDS: APIXABAN 2.5 MG TABLET PEG SCH ×2 (09:51→21:33)
[2018-06-06] MEDS: LACOSAMIDE 50 MG TABLET PEG SCH ×2 (09:51→21:33)
[2018-06-06] MEDS: FLUCONAZOLE 100 MG TABLET PO SCH (09:51)
[2018-06-06] MEDS: TOLTERODINE LA 4 MG CAPSULE PO SCH (09:51)
[2018-06-06] MEDS: ARIPiprazole 10 MG TABLET PEG SCH (09:51)
[2018-06-06] MEDS: LANSOPRAZOLE ODT 30 MG TABLET PEG SCH (09:51)
[2018-06-06] MEDS: CARBIDOPA/LEVODOPA 25-250 MG TABLET PEG SCH ×4 (09:51→21:33)
[2018-06-06] MEDS ORDERED: MEROPENEM 1,000 MG in SODIUM CHLORIDE 0.9% 100 ML IV SCH (10:30)
[2018-06-06] MEDS: levETIRAcetam LIQUID 100 MG/ML 30 ML/BOTTLE PEG SCH ×2 (10:40→17:42)
[2018-06-06] MEDS: LIDOCAINE 5% PATCH TRANSDERM SCH (11:27)
[2018-06-06] MEDS: ZINC OXIDE 16% PASTE 57 GM TUBE TOP SCH ×2 (11:27→22:13)
[2018-06-06] MEDS: MEROPENEM 500 MG in SODIUM CHLORIDE 0.9% 100 ML IV SCH (11:27)
[2018-06-06] MEDS: CHOLESTYRAMINE 4 GM PACK PO SCH ×2 (11:27→21:36)
[2018-06-06] MEDS: NYSTATIN CREAM 15 GM TUBE TOP SCH ×2 (11:27→22:13)
[2018-06-06] MEDS ORDERED: NON-FORMULARY MEDICATION (Cholecalciferol (Vitamin D3) [Vitamin D3] 50,000 UNIT) PEG SCH (18:11)
[2018-06-06] MEDS: SIMVASTATIN 20 MG TABLET PEG SCH (21:33)
[2018-06-06] MEDS: traZODone 50 MG TABLET PO PRN (21:36)
[2018-06-06] MEDS: SODIUM CHLORIDE 0.45% 1,000 ML IV SCH (21:36)
[2018-06-06] MEDS: TRAVOPROST 0.004% OPH SOLN 2.5 ML BOTTLE BOTH EYES SCH (22:13)
[2018-06-07] MEDS: levETIRAcetam LIQUID 100 MG/ML 30 ML/BOTTLE PEG SCH ×3 (00:01→17:37)
[2018-06-07] MEDS: VANCOMYCIN 50 MG/ML 60 ML/BOTTLE PO SCH ×4 (00:01→17:38)
[2018-06-07] MEDS: INSULIN REGULAR 100 UNIT/ML SUBCUT SCH ×4 (01:23→17:37)
[2018-06-07 05:59] LABS: Basophils % 0.1 % (0.0-0.8); Eosinophils # 0.1 10*3/uL (0.0-0.87); Eosinophils % 0.6 % (0.00-10.9); Hematocrit 26.7 VOL% (35.7-47.0); Hemoglobin 8.9 GM/DL (12.0-16.0); Immature Granulocytes % 0.6 %; Immature Granulocytes Absolute 0.08 #; Lymphocytes # 1.4 10*3/uL (1.4-4.0); Lymphocytes % 9.7 % (21.3-54.2); Mean Corpuscular HGB Conc 33.3 GM/DL (32-36); Mean Corpuscular Hemoglobin 30 PG (27-34); Mean Platelet Volume 10.7 FL (9.6-12.0); Monocytes # 0.7 10*3/uL (0.11-0.8); Monocytes % 4.9 % (1.7-12.7); NRBC # 0.04 10*3/uL; Neutrophils # 11.7 10*3/uL (1.4-7.4); Neutrophils % 84.1 % (38.7-73.9); Platelet Count 169 T/CUMM (130-400); Red Cell Distribution Width 18.6 % (9.3-17.3)
[2018-06-07 06:18] LABS: Calcium 7.2 MG/DL (8.5-10.1); Osmolality,Calculated 307.1 MOS/KG (273-304); Potassium 4.4 MMOL/L (3.5-5.1)
[2018-06-07] MEDS: ALBUTEROL/IPRATROPIUM 3 ML NEB RESP TX SCH ×4 (07:34→19:26)
[2018-06-07] MEDS: LIDOCAINE 5% PATCH TRANSDERM SCH (08:54)
[2018-06-07] MEDS: CHOLESTYRAMINE 4 GM PACK PO SCH ×2 (08:54→23:16)
[2018-06-07] MEDS: FERROUS SULFATE 300 MG/5 ML UDCUP PEG SCH ×2 (08:54→23:11)
[2018-06-07] MEDS: TOLTERODINE LA 4 MG CAPSULE PO SCH (08:55)
[2018-06-07] MEDS: MAGNESIUM OXIDE 400 MG TABLET PEG SCH (08:55)
[2018-06-07] MEDS: LACOSAMIDE 50 MG TABLET PEG SCH ×2 (08:55→23:17)
[2018-06-07] MEDS: ARIPiprazole 10 MG TABLET PEG SCH (08:55)
[2018-06-07] MEDS: CARBIDOPA/LEVODOPA 25-250 MG TABLET PEG SCH ×4 (08:55→23:17)
[2018-06-07] MEDS: ZINC OXIDE 16% PASTE 57 GM TUBE TOP SCH ×2 (08:56→23:20)
[2018-06-07] MEDS: APIXABAN 2.5 MG TABLET PEG SCH ×2 (08:56→23:21)
[2018-06-07] MEDS: LANSOPRAZOLE ODT 30 MG TABLET PEG SCH (08:56)
[2018-06-07] MEDS: NYSTATIN CREAM 15 GM TUBE TOP SCH ×2 (08:56→23:11)
[2018-06-07] MEDS: MEROPENEM 500 MG in SODIUM CHLORIDE 0.9% 100 ML IV SCH (10:23)
[2018-06-07] MEDS: SODIUM CHLORIDE 0.45% 1,000 ML IV SCH (14:18)
[2018-06-07] MEDS: LOPERAMIDE 2 MG CAPSULE PEG PRN (23:11)
[2018-06-07] MEDS: traZODone 50 MG TABLET PO PRN (23:16)
[2018-06-07] MEDS: ACETAMINOPHEN 325 MG TABLET PEG PRN (23:16)
[2018-06-07] MEDS: SIMVASTATIN 20 MG TABLET PEG SCH (23:16)
[2018-06-07] MEDS: TRAVOPROST 0.004% OPH SOLN 2.5 ML BOTTLE BOTH EYES SCH (23:19)
[2018-06-08] MEDS: ALBUTEROL/IPRATROPIUM 3 ML NEB RESP TX SCH ×4 (00:12→20:13)
[2018-06-08] MEDS: INSULIN REGULAR 100 UNIT/ML SUBCUT SCH ×4 (01:37→18:33)
[2018-06-08] MEDS: VANCOMYCIN 50 MG/ML 60 ML/BOTTLE PO SCH ×4 (01:51→17:09)
[2018-06-08] MEDS: levETIRAcetam LIQUID 100 MG/ML 30 ML/BOTTLE PEG SCH ×3 (01:51→17:09)
[2018-06-08 05:44] LABS: Basophils % 0.2 % (0.0-0.8); Eosinophils # 0.2 10*3/uL (0.0-0.87); Eosinophils % 1.2 % (0.00-10.9); Hematocrit 28.8 VOL% (35.7-47.0); Hemoglobin 9.3 GM/DL (12.0-16.0); Immature Granulocytes % 0.5 %; Immature Granulocytes Absolute 0.07 #; Lymphocytes # 1.6 10*3/uL (1.4-4.0); Mean Corpuscular HGB Conc 32.3 GM/DL (32-36); Mean Corpuscular Hemoglobin 29 PG (27-34); Mean Corpuscular Volume 91.1 FL (87-102); Mean Platelet Volume 10.9 FL (9.6-12.0); Monocytes # 0.6 10*3/uL (0.11-0.8); Monocytes % 4.9 % (1.7-12.7); NRBC # 0.02 10*3/uL; Neutrophils # 10.5 10*3/uL (1.4-7.4); Neutrophils % 81.2 % (38.7-73.9); Platelet Count 163 T/CUMM (130-400); Red Blood Count 3.16 MC/CUMM (3.8-5.5); Red Cell Distribution Width 18.6 % (9.3-17.3)
[2018-06-08 06:21] LABS: Calcium 7.8 MG/DL (8.5-10.1); Osmolality,Calculated 306.3 MOS/KG (273-304); Potassium 4.1 MMOL/L (3.5-5.1)
[2018-06-08] MEDS: FERROUS SULFATE 300 MG/5 ML UDCUP PEG SCH ×2 (09:46→21:14)
[2018-06-08] MEDS: ARIPiprazole 10 MG TABLET PEG SCH (09:46)
[2018-06-08] MEDS: LACOSAMIDE 50 MG TABLET PEG SCH ×2 (09:46→21:16)
[2018-06-08] MEDS: MAGNESIUM OXIDE 400 MG TABLET PEG SCH (09:46)
[2018-06-08] MEDS: LOPERAMIDE 2 MG CAPSULE PEG PRN (09:46)
[2018-06-08] MEDS: APIXABAN 2.5 MG TABLET PEG SCH ×2 (09:47→21:16)
[2018-06-08] MEDS: CARBIDOPA/LEVODOPA 25-250 MG TABLET PEG SCH ×4 (09:47→21:15)
[2018-06-08] MEDS: LANSOPRAZOLE ODT 30 MG TABLET PEG SCH (09:47)
[2018-06-08] MEDS: CHOLESTYRAMINE 4 GM PACK PO SCH ×2 (09:47→21:15)
[2018-06-08] MEDS: LIDOCAINE 5% PATCH TRANSDERM SCH (09:47)
[2018-06-08] MEDS: TOLTERODINE LA 4 MG CAPSULE PO SCH (09:47)
[2018-06-08] MEDS: NYSTATIN CREAM 15 GM TUBE TOP SCH ×2 (09:48→21:25)
[2018-06-08] MEDS: MEROPENEM 500 MG in SODIUM CHLORIDE 0.9% 100 ML IV SCH (12:10)
[2018-06-08] MEDS: ZINC OXIDE 16% PASTE 57 GM TUBE TOP SCH ×2 (12:34→21:22)
[2018-06-08] MEDS: SODIUM CHLORIDE 0.45% 1,000 ML IV SCH ×3 (18:02→21:17)
[2018-06-08] MEDS: ONDANSETRON 4 MG/2 ML VIAL IV PRN (21:14)
[2018-06-08] MEDS: SIMVASTATIN 20 MG TABLET PEG SCH (21:15)
[2018-06-08] MEDS: TRAVOPROST 0.004% OPH SOLN 2.5 ML BOTTLE BOTH EYES SCH (21:25)
[2018-06-09] MEDS: ALBUTEROL/IPRATROPIUM 3 ML NEB RESP TX SCH ×4 (00:49→20:08)
[2018-06-09] MEDS: VANCOMYCIN 50 MG/ML 60 ML/BOTTLE PO SCH ×4 (00:55→18:36)
[2018-06-09] MEDS: levETIRAcetam LIQUID 100 MG/ML 30 ML/BOTTLE PEG SCH ×3 (00:55→17:13)
[2018-06-09] MEDS: INSULIN REGULAR 100 UNIT/ML SUBCUT SCH ×4 (00:56→18:34)
[2018-06-09] MEDS: SODIUM CHLORIDE 0.45% 1,000 ML IV SCH ×3 (06:17→19:30)
[2018-06-09] MEDS: LANSOPRAZOLE ODT 30 MG TABLET PEG SCH (08:52)
[2018-06-09] MEDS: FERROUS SULFATE 300 MG/5 ML UDCUP PEG SCH ×2 (08:52→21:55)
[2018-06-09] MEDS: ARIPiprazole 10 MG TABLET PEG SCH (08:53)
[2018-06-09] MEDS: LACOSAMIDE 50 MG TABLET PEG SCH ×2 (08:53→21:54)
[2018-06-09] MEDS: CARBIDOPA/LEVODOPA 25-250 MG TABLET PEG SCH ×4 (08:53→21:54)
[2018-06-09] MEDS: TOLTERODINE LA 4 MG CAPSULE PO SCH (08:53)
[2018-06-09] MEDS: APIXABAN 2.5 MG TABLET PEG SCH ×2 (08:53→21:54)
[2018-06-09] MEDS: MAGNESIUM OXIDE 400 MG TABLET PEG SCH (08:53)
[2018-06-09] MEDS: NYSTATIN CREAM 15 GM TUBE TOP SCH ×2 (09:58→21:59)
[2018-06-09] MEDS: LIDOCAINE 5% PATCH TRANSDERM SCH (09:58)
[2018-06-09] MEDS: CHOLESTYRAMINE 4 GM PACK PO SCH ×2 (09:58→21:55)
[2018-06-09] MEDS: ZINC OXIDE 16% PASTE 57 GM TUBE TOP SCH ×2 (09:58→21:56)
[2018-06-09 10:12] LABS: Calcium 8.1 MG/DL (8.5-10.1); Osmolality,Calculated 305.4 MOS/KG (273-304); Potassium 4.6 MMOL/L (3.5-5.1)
[2018-06-09] MEDS: MEROPENEM 500 MG in SODIUM CHLORIDE 0.9% 100 ML IV SCH (12:51)
[2018-06-09] MEDS: SIMVASTATIN 20 MG TABLET PEG SCH (21:55)
[2018-06-09] MEDS: TRAVOPROST 0.004% OPH SOLN 2.5 ML BOTTLE BOTH EYES SCH (22:50)
[2018-06-10] MEDS: INSULIN REGULAR 100 UNIT/ML SUBCUT SCH ×4 (00:47→21:44)
[2018-06-10] MEDS: levETIRAcetam LIQUID 100 MG/ML 30 ML/BOTTLE PEG SCH ×3 (01:30→17:55)
[2018-06-10] MEDS: ALBUTEROL/IPRATROPIUM 3 ML NEB RESP TX SCH ×4 (01:31→19:00)
[2018-06-10] MEDS: VANCOMYCIN 50 MG/ML 60 ML/BOTTLE PO SCH ×4 (01:31→17:56)
[2018-06-10] MEDS: FERROUS SULFATE 300 MG/5 ML UDCUP PEG SCH ×2 (09:58→21:45)
[2018-06-10] MEDS: MAGNESIUM OXIDE 400 MG TABLET PEG SCH (09:58)
[2018-06-10] MEDS: TOLTERODINE LA 4 MG CAPSULE PO SCH (09:59)
[2018-06-10] MEDS: CHOLESTYRAMINE 4 GM PACK PO SCH ×2 (09:59→21:45)
[2018-06-10] MEDS: APIXABAN 2.5 MG TABLET PEG SCH ×2 (09:59→21:46)
[2018-06-10] MEDS: LACOSAMIDE 50 MG TABLET PEG SCH ×2 (09:59→21:45)
[2018-06-10] MEDS: CARBIDOPA/LEVODOPA 25-250 MG TABLET PEG SCH ×4 (09:59→21:46)
[2018-06-10] MEDS: ARIPiprazole 10 MG TABLET PEG SCH (09:59)
[2018-06-10] MEDS: LIDOCAINE 5% PATCH TRANSDERM SCH (10:00)
[2018-06-10] MEDS: LANSOPRAZOLE ODT 30 MG TABLET PEG SCH (10:00)
[2018-06-10] MEDS: ZINC OXIDE 16% PASTE 57 GM TUBE TOP SCH ×2 (10:01→21:47)
[2018-06-10] MEDS: NYSTATIN CREAM 15 GM TUBE TOP SCH ×2 (10:01→21:47)
[2018-06-10] MEDS: SODIUM CHLORIDE 0.45% 1,000 ML IV SCH ×3 (10:02→22:43)
[2018-06-10] MEDS: MEROPENEM 500 MG in SODIUM CHLORIDE 0.9% 100 ML IV SCH (11:25)
[2018-06-10] MEDS: TRAVOPROST 0.004% OPH SOLN 2.5 ML BOTTLE BOTH EYES SCH (21:44)
[2018-06-10] MEDS: SIMVASTATIN 20 MG TABLET PEG SCH (21:46)
[2018-06-11] MEDS: ALBUTEROL/IPRATROPIUM 3 ML NEB RESP TX SCH ×4 (00:52→19:32)
[2018-06-11] MEDS: INSULIN REGULAR 100 UNIT/ML SUBCUT SCH ×4 (01:00→18:10)
[2018-06-11] MEDS: VANCOMYCIN 50 MG/ML 60 ML/BOTTLE PO SCH ×4 (01:01→18:28)
[2018-06-11] MEDS: levETIRAcetam LIQUID 100 MG/ML 30 ML/BOTTLE PEG SCH ×3 (01:01→15:40)
[2018-06-11] MEDS: ONDANSETRON 4 MG/2 ML VIAL IV PRN (04:00)
[2018-06-11] MEDS: SODIUM CHLORIDE 0.45% 1,000 ML IV SCH ×2 (06:04→13:30)
[2018-06-11] MEDS: LIDOCAINE 5% PATCH TRANSDERM SCH (09:34)
[2018-06-11] MEDS: FERROUS SULFATE 300 MG/5 ML UDCUP PEG SCH ×2 (09:34→21:00)
[2018-06-11] MEDS: MAGNESIUM OXIDE 400 MG TABLET PEG SCH (09:35)
[2018-06-11] MEDS: LACOSAMIDE 50 MG TABLET PEG SCH ×2 (09:35→21:01)
[2018-06-11] MEDS: ARIPiprazole 10 MG TABLET PEG SCH (09:35)
[2018-06-11] MEDS: CARBIDOPA/LEVODOPA 25-250 MG TABLET PEG SCH ×4 (09:35→21:02)
[2018-06-11] MEDS: TOLTERODINE LA 4 MG CAPSULE PO SCH (09:35)
[2018-06-11] MEDS: APIXABAN 2.5 MG TABLET PEG SCH ×2 (09:35→21:01)
[2018-06-11] MEDS: LANSOPRAZOLE ODT 30 MG TABLET PEG SCH (09:35)
[2018-06-11] MEDS: CHOLESTYRAMINE 4 GM PACK PO SCH ×2 (09:35→21:01)
[2018-06-11] MEDS: ZINC OXIDE 16% PASTE 57 GM TUBE TOP SCH ×2 (09:37→21:06)
[2018-06-11] MEDS: NYSTATIN CREAM 15 GM TUBE TOP SCH ×2 (09:37→21:08)
[2018-06-11] MEDS: MEROPENEM 500 MG in SODIUM CHLORIDE 0.9% 100 ML IV SCH (10:24)
[2018-06-11] MEDS: TRAVOPROST 0.004% OPH SOLN 2.5 ML BOTTLE BOTH EYES SCH (21:00)
[2018-06-11] MEDS: SIMVASTATIN 20 MG TABLET PEG SCH (21:02)
[2018-06-12] MEDS: INSULIN REGULAR 100 UNIT/ML SUBCUT SCH ×4 (00:56→17:30)
[2018-06-12] MEDS: levETIRAcetam LIQUID 100 MG/ML 30 ML/BOTTLE PEG SCH ×3 (00:57→15:14)
[2018-06-12] MEDS: VANCOMYCIN 50 MG/ML 60 ML/BOTTLE PO SCH ×4 (00:57→17:29)
[2018-06-12] MEDS: ALBUTEROL/IPRATROPIUM 3 ML NEB RESP TX SCH ×4 (01:26→20:21)
[2018-06-12] MEDS: SODIUM CHLORIDE 0.45% 1,000 ML IV SCH ×2 (02:57→16:57)
[2018-06-12 05:49] LABS: Calcium 8.4 MG/DL (8.5-10.1); Osmolality,Calculated 289.1 MOS/KG (273-304); Prealbumin 23.7 MG/DL (20-40)
[2018-06-12] MEDS: FERROUS SULFATE 300 MG/5 ML UDCUP PEG SCH ×2 (08:38→22:11)
[2018-06-12] MEDS: CHOLESTYRAMINE 4 GM PACK PO SCH ×2 (08:38→22:12)
[2018-06-12] MEDS: APIXABAN 2.5 MG TABLET PEG SCH ×2 (08:48→22:10)
[2018-06-12] MEDS: CARBIDOPA/LEVODOPA 25-250 MG TABLET PEG SCH ×4 (08:48→22:09)
[2018-06-12] MEDS: ARIPiprazole 10 MG TABLET PEG SCH (08:49)
[2018-06-12] MEDS: TOLTERODINE LA 4 MG CAPSULE PO SCH (08:49)
[2018-06-12] MEDS: MAGNESIUM OXIDE 400 MG TABLET PEG SCH (08:50)
[2018-06-12] MEDS: LANSOPRAZOLE ODT 30 MG TABLET PEG SCH (08:50)
[2018-06-12] MEDS: LACOSAMIDE 50 MG TABLET PEG SCH ×2 (08:50→22:09)
[2018-06-12] MEDS: LIDOCAINE 5% PATCH TRANSDERM SCH (08:52)
[2018-06-12] MEDS: ZINC OXIDE 16% PASTE 57 GM TUBE TOP SCH ×2 (08:52→22:09)
[2018-06-12] MEDS: NYSTATIN CREAM 15 GM TUBE TOP SCH ×2 (08:52→21:22)
[2018-06-12] MEDS: MEROPENEM 500 MG in SODIUM CHLORIDE 0.9% 100 ML IV SCH (12:10)
[2018-06-12] MEDS: ONDANSETRON 4 MG/2 ML VIAL IV PRN ×2 (15:15→18:54)
[2018-06-12] MEDS: LISINOPRIL 20 MG TABLET PEG SCH (18:18)
[2018-06-12] MEDS: ACETAMINOPHEN 325 MG TABLET PEG PRN (18:50)
[2018-06-12] MEDS: LACTOBACILLUS ACIDOPHILUS/BULGARICUS CAPLET PEG SCH (22:08)
[2018-06-12] MEDS: SIMVASTATIN 20 MG TABLET PEG SCH (22:10)
[2018-06-12] MEDS: TRAVOPROST 0.004% OPH SOLN 2.5 ML BOTTLE BOTH EYES SCH (22:11)
[2018-06-13] MEDS: INSULIN REGULAR 100 UNIT/ML SUBCUT SCH ×4 (00:56→17:52)
[2018-06-13] MEDS: VANCOMYCIN 50 MG/ML 60 ML/BOTTLE PO SCH ×4 (00:57→17:22)
[2018-06-13] MEDS: levETIRAcetam LIQUID 100 MG/ML 30 ML/BOTTLE PEG SCH ×3 (00:57→16:07)
[2018-06-13] MEDS: ALBUTEROL/IPRATROPIUM 3 ML NEB RESP TX SCH ×4 (01:36→19:23)
[2018-06-13 06:08] LABS: Basophils % 0.3 % (0.0-0.8); Eosinophils # 0.2 10*3/uL (0.0-0.87); Eosinophils % 2.2 % (0.00-10.9); Hematocrit 24.1 VOL% (35.7-47.0); Immature Granulocytes % 0.5 %; Immature Granulocytes Absolute 0.04 #; Lymphocytes # 1.7 10*3/uL (1.4-4.0); Lymphocytes % 23.3 % (21.3-54.2); Mean Corpuscular HGB Conc 30.7 GM/DL (32-36); Mean Corpuscular Hemoglobin 29 PG (27-34); Mean Corpuscular Volume 92.7 FL (87-102); Mean Platelet Volume 11.5 FL (9.6-12.0); Monocytes # 0.6 10*3/uL (0.11-0.8); Monocytes % 8.4 % (1.7-12.7); Neutrophils # 4.8 10*3/uL (1.4-7.4); Neutrophils % 65.3 % (38.7-73.9); Platelet Count 191 T/CUMM (130-400); Red Cell Distribution Width 16.9 % (9.3-17.3); White Blood Count 7.4 T/CUMM (4-12)
[2018-06-13 06:13] LABS: Hemoglobin 7.4 GM/DL (12.0-16.0)
[2018-06-13 06:33] LABS: Calcium 7.8 MG/DL (8.5-10.1); Osmolality,Calculated 287.1 MOS/KG (273-304); Potassium 4.1 MMOL/L (3.5-5.1)
[2018-06-13] MEDS: SODIUM CHLORIDE 0.45% 1,000 ML IV SCH (06:55)
[2018-06-13] MEDS: LACOSAMIDE 50 MG TABLET PEG SCH ×2 (09:41→22:13)
[2018-06-13] MEDS: CARBIDOPA/LEVODOPA 25-250 MG TABLET PEG SCH ×4 (09:41→22:13)
[2018-06-13] MEDS: LISINOPRIL 20 MG TABLET PEG SCH (09:41)
[2018-06-13] MEDS: LACTOBACILLUS ACIDOPHILUS/BULGARICUS CAPLET PEG SCH ×2 (09:41→22:13)
[2018-06-13] MEDS: TOLTERODINE LA 4 MG CAPSULE PO SCH (09:41)
[2018-06-13] MEDS: ARIPiprazole 10 MG TABLET PEG SCH (09:41)
[2018-06-13] MEDS: APIXABAN 2.5 MG TABLET PEG SCH ×2 (09:41→22:13)
[2018-06-13] MEDS: MAGNESIUM OXIDE 400 MG TABLET PEG SCH (09:41)
[2018-06-13] MEDS: FERROUS SULFATE 300 MG/5 ML UDCUP PEG SCH ×2 (09:42→22:13)
[2018-06-13] MEDS: CHOLESTYRAMINE 4 GM PACK PO SCH ×2 (09:43→22:50)
[2018-06-13] MEDS: ZINC OXIDE 16% PASTE 57 GM TUBE TOP SCH ×2 (09:43→22:13)
[2018-06-13] MEDS: LANSOPRAZOLE ODT 30 MG TABLET PEG SCH (09:43)
[2018-06-13] MEDS: NYSTATIN CREAM 15 GM TUBE TOP SCH ×2 (09:43→22:13)
[2018-06-13] MEDS: LIDOCAINE 5% PATCH TRANSDERM SCH (09:44)
[2018-06-13] MEDS: MEROPENEM 500 MG in SODIUM CHLORIDE 0.9% 100 ML IV SCH (11:19)
[2018-06-13 12:37] LABS: Hematocrit 23.8 VOL% (35.7-47.0); Hemoglobin 7.4 GM/DL (12.0-16.0)
[2018-06-13] MEDS ORDERED: SODIUM CHLORIDE 0.9% 1,000 ML IV PRN (14:36)
[2018-06-13] MEDS: SIMVASTATIN 20 MG TABLET PEG SCH (22:13)
[2018-06-13] MEDS: TRAVOPROST 0.004% OPH SOLN 2.5 ML BOTTLE BOTH EYES SCH (22:13)
[2018-06-13] MEDS ORDERED: LISINOPRIL 20 MG TABLET PEG ONE (23:00)
[2018-06-14] MEDS: ALBUTEROL/IPRATROPIUM 3 ML NEB RESP TX SCH ×2 (00:25→06:53)
[2018-06-14] MEDS: VANCOMYCIN 50 MG/ML 60 ML/BOTTLE PO SCH ×3 (01:09→12:50)
[2018-06-14] MEDS: levETIRAcetam LIQUID 100 MG/ML 30 ML/BOTTLE PEG SCH ×2 (01:09→09:36)
[2018-06-14] MEDS: INSULIN REGULAR 100 UNIT/ML SUBCUT SCH ×3 (01:36→12:50)
[2018-06-14 09:30] LABS: Basophils % 0.5 % (0.0-0.8); Eosinophils # 0.2 10*3/uL (0.0-0.87); Eosinophils % 2.2 % (0.00-10.9); Hematocrit 30.5 VOL% (35.7-47.0); Immature Granulocytes % 0.4 %; Immature Granulocytes Absolute 0.03 #; Lymphocytes # 1.6 10*3/uL (1.4-4.0); Lymphocytes % 18.4 % (21.3-54.2); Mean Corpuscular HGB Conc 32.8 GM/DL (32-36); Mean Corpuscular Hemoglobin 30 PG (27-34); Mean Corpuscular Volume 91.6 FL (87-102); Mean Platelet Volume 10.6 FL (9.6-12.0); Monocytes # 0.6 10*3/uL (0.11-0.8); Monocytes % 6.7 % (1.7-12.7); Neutrophils # 6.1 10*3/uL (1.4-7.4); Neutrophils % 71.8 % (38.7-73.9); Platelet Count 231 T/CUMM (130-400); Red Blood Count 3.33 MC/CUMM (3.8-5.5); Red Cell Distribution Width 16.2 % (9.3-17.3); White Blood Count 8.5 T/CUMM (4-12)
[2018-06-14] MEDS: CARBIDOPA/LEVODOPA 25-250 MG TABLET PEG SCH (09:33)
[2018-06-14] MEDS: LACTOBACILLUS ACIDOPHILUS/BULGARICUS CAPLET PEG SCH (09:33)
[2018-06-14] MEDS: LACOSAMIDE 50 MG TABLET PEG SCH (09:33)
[2018-06-14] MEDS: APIXABAN 2.5 MG TABLET PEG SCH (09:33)
[2018-06-14] MEDS: TOLTERODINE LA 4 MG CAPSULE PO SCH (09:33)
[2018-06-14] MEDS: ARIPiprazole 10 MG TABLET PEG SCH (09:34)
[2018-06-14] MEDS: NYSTATIN CREAM 15 GM TUBE TOP SCH (09:34)
[2018-06-14] MEDS: LIDOCAINE 5% PATCH TRANSDERM SCH (09:34)
[2018-06-14] MEDS: MAGNESIUM OXIDE 400 MG TABLET PEG SCH (09:34)
[2018-06-14] MEDS: LANSOPRAZOLE ODT 30 MG TABLET PEG SCH (09:34)
[2018-06-14] MEDS: LISINOPRIL 20 MG TABLET PEG SCH (09:34)
[2018-06-14] MEDS: ZINC OXIDE 16% PASTE 57 GM TUBE TOP SCH (09:36)
[2018-06-14] MEDS: CHOLESTYRAMINE 4 GM PACK PO SCH (09:36)
[2018-06-14] MEDS: FERROUS SULFATE 300 MG/5 ML UDCUP PEG SCH (09:36)
[2018-06-14 12:55] VITALS: BP 152/83
== END 2018-06-14 13:28 | DRG 871 ==
LOC: EDBD → EDUNIT# → N.ED 15:34 → N.EDINP 17:42 → SUATTDRO 17:42 → N.CC 18:55 → N.3E 06-05 10:51
PROVIDERS: ADMIT Family Medicine; ATTEND Internal Medicine

== ENCOUNTER 2018-06-29 12:52 | Inpatient (IN) ==
[2018-06-29] MEDS ORDERED: methylPREDNISolone SOD SUC 125 MG/2 ML VIAL IV STA (13:12)
[2018-06-29] MEDS ORDERED: LEVOFLOXACIN INJ 750 MG in PREMIX 1 EACH IV STA (13:12)
[2018-06-29] MEDS ORDERED: ALBUTEROL/IPRATROPIUM 3 ML NEB RESP TX STA (13:12)
[2018-06-29] MEDS ORDERED: SODIUM CHLORIDE 0.9% 1,000 ML IV STA ×2 (13:12→14:12)
[2018-06-29] MEDS ORDERED: ONDANSETRON 4 MG/2 ML VIAL IV STA (13:12)
[2018-06-29 13:29] LABS: Basophils % 0.3 % (0.0-0.8); Eosinophils # 0.1 10*3/uL (0.0-0.87); Eosinophils % 0.5 % (0.00-10.9); Hematocrit 32.9 VOL% (35.7-47.0); Hemoglobin 10.8 GM/DL (12.0-16.0); Immature Granulocytes % 0.4 %; Immature Granulocytes Absolute 0.04 #; Lymphocytes % 8.6 % (21.3-54.2); Mean Corpuscular HGB Conc 32.8 GM/DL (32-36); Mean Corpuscular Hemoglobin 30 PG (27-34); Mean Corpuscular Volume 90.9 FL (87-102); Mean Platelet Volume 12.3 FL (9.6-12.0); Monocytes # 0.5 10*3/uL (0.11-0.8); Monocytes % 4.6 % (1.7-12.7); Neutrophils # 9.6 10*3/uL (1.4-7.4); Neutrophils % 85.6 % (38.7-73.9); Platelet Count 219 T/CUMM (130-400); Red Blood Count 3.62 MC/CUMM (3.8-5.5); Red Cell Distribution Width 16.2 % (9.3-17.3); White Blood Count 11.2 T/CUMM (4-12)
[2018-06-29 13:45] LABS: INR 0.9; Partial Thromboplastin Time 25.9 SECS (0-40)
[2018-06-29 13:57] LABS: Alanine Aminotransferase 10 U/L (13-56); Albumin 2.6 G/DL (3.4-5.0); Alkaline Phosphatase 97 U/L (45-117); Amylase 50 U/L (25-115); Aspartate Amino Transferase 8 U/L (0-37); Blood Urea Nitrogen 106 MG/DL (7-18); Calcium 8.2 MG/DL (8.5-10.1); Glucose 144 MG/DL (74-106); Osmolality,Calculated 299.5 MOS/KG (273-304); Potassium 3.4 MMOL/L (3.5-5.1); Sodium 132 MMOL/L (136-145); Total Protein 7.4 G/DL (6.4-8.3)
[2018-06-29] MEDS ORDERED: DICYCLOMINE 20 MG/2 ML AMP IM ONE (13:57)
[2018-06-29] MEDS ORDERED: metroNIDAZOLE INJ 500 MG in PREMIX 1 EACH IV STA (13:57)
[2018-06-29 13:58] LABS: Troponin I 0.188 NG/ML (0.00-0.045)
[2018-06-29 13:59] LABS: Lactic Acid 2.4 MMOL/L (0.4-2.0)
[2018-06-29 14:21] LABS: Apearance,Urine CLOUDY (Clear); Bacteria,Urine Many /HPF (Few); Bilirubin,Urine Negative (Negative); Blood, Urine Moderate mg/dL (Negative); Glucose,Urine (UA) Negative (Negative); Ketones,Urine 5 mg/dL (Negative); Nitrite,Urine Negative (Negative); Protein,Urine 100 MG/DL; RBC,Urine 380 /HPF (0-4); Squamous Epithelial Cell,Urine Many /HPF (0-10); Urine Color Amber (Yellow); Urine Specific Gravity 1.019 (1.001-1.035); Urine Urobilinogen < 2.0 EU/DL (0.2-1.0); WBC,Urine 932 /HPF (0-6)
[2018-06-29] MEDS ORDERED: VANCOMYCIN INJ 1,000 MG in SODIUM CHLORIDE 0.9% 250 ML IV STA (14:37)
[2018-06-29] MEDS ORDERED: ACETAMINOPHEN 325 MG TABLET PEG PRN (16:17)
[2018-06-29] MEDS ORDERED: SODIUM CHLORIDE 0.9% 1,000 ML IV ONE (16:19)
[2018-06-29] MEDS: PIPERACILLIN/TAZOBACTAM 3,375 MG in SODIUM CHLORIDE 0.9% 100 ML IV SCH (17:47)
[2018-06-29] MEDS: levETIRAcetam LIQUID 100 MG/ML 30 ML/BOTTLE PEG SCH (17:56)
[2018-06-29] MEDS: VANCOMYCIN 50 MG/ML 60 ML/BOTTLE PO SCH (17:56)
[2018-06-29] MEDS: LACTATED RINGERS 1,000 ML IV SCH (18:50)
[2018-06-29] MEDS: TRAVOPROST 0.004% OPH SOLN 2.5 ML BOTTLE BOTH EYES SCH (20:27)
[2018-06-29] MEDS: DESITIN 4OZ/NYSTATIN 15 GRAM MIXTURE PASTE TOP SCH (20:27)
[2018-06-29] MEDS: ZINC OXIDE 16% PASTE 57 GM TUBE TOP SCH (20:27)
[2018-06-29] MEDS: LACTOBACILLUS ACIDOPHILUS/BULGARICUS CAPLET PEG SCH (20:28)
[2018-06-29] MEDS ORDERED: LACOSAMIDE PEG SCH (21:00)
[2018-06-30] MEDS: PIPERACILLIN/TAZOBACTAM 3,375 MG in SODIUM CHLORIDE 0.9% 100 ML IV SCH (00:20)
[2018-06-30] MEDS: levETIRAcetam LIQUID 100 MG/ML 30 ML/BOTTLE PEG SCH ×4 (00:20→23:58)
[2018-06-30] MEDS: VANCOMYCIN 50 MG/ML 60 ML/BOTTLE PO SCH (00:20)
[2018-06-30] MEDS: LACTATED RINGERS 1,000 ML IV SCH (02:43)
[2018-06-30 05:39] LABS: Basophils % 0.2 % (0.0-0.8); Hematocrit 28.7 VOL% (35.7-47.0); Hemoglobin 9.3 GM/DL (12.0-16.0); Immature Granulocytes % 0.7 %; Immature Granulocytes Absolute 0.04 #; Lymphocytes # 0.4 10*3/uL (1.4-4.0); Lymphocytes % 7.4 % (21.3-54.2); Mean Corpuscular HGB Conc 32.4 GM/DL (32-36); Mean Corpuscular Hemoglobin 30 PG (27-34); Mean Corpuscular Volume 91.1 FL (87-102); Mean Platelet Volume 12.7 FL (9.6-12.0); Monocytes # 0.2 10*3/uL (0.11-0.8); Monocytes % 3.6 % (1.7-12.7); Neutrophils # 5.1 10*3/uL (1.4-7.4); Neutrophils % 88.1 % (38.7-73.9); Platelet Count 169 T/CUMM (130-400); Red Blood Count 3.15 MC/CUMM (3.8-5.5); Red Cell Distribution Width 16.1 % (9.3-17.3); White Blood Count 5.8 T/CUMM (4-12)
[2018-06-30 06:10] LABS: Alanine Aminotransferase < 9 U/L (13-56); Alkaline Phosphatase 79 U/L (45-117); Aspartate Amino Transferase 11 U/L (0-37); Blood Urea Nitrogen 103 MG/DL (7-18); Calcium 8.1 MG/DL (8.5-10.1); Glucose 168 MG/DL (74-106); Osmolality,Calculated 299.5 MOS/KG (273-304); Potassium 3.5 MMOL/L (3.5-5.1); Sodium 132 MMOL/L (136-145); Total Protein 6.4 G/DL (6.4-8.3)
[2018-06-30] MEDS: LACTOBACILLUS ACIDOPHILUS/BULGARICUS CAPLET PEG SCH ×2 (08:32→21:04)
[2018-06-30] MEDS: LANSOPRAZOLE ODT 30 MG TABLET PEG SCH (08:32)
[2018-06-30] MEDS: MEROPENEM 1,000 MG in SODIUM CHLORIDE 0.9% 100 ML IV SCH (08:32)
[2018-06-30] MEDS: DESITIN 4OZ/NYSTATIN 15 GRAM MIXTURE PASTE TOP SCH ×2 (08:34→21:05)
[2018-06-30] MEDS: ZINC OXIDE 16% PASTE 57 GM TUBE TOP SCH ×2 (08:34→21:05)
[2018-06-30] MEDS ORDERED: VANCOMYCIN 50 MG/ML 60 ML/BOTTLE PO SCH (09:00)
[2018-06-30 09:21] LABS: Basophils % 0.3 % (0.0-0.8); Hematocrit 28.4 VOL% (35.7-47.0); Hemoglobin 9.4 GM/DL (12.0-16.0); Immature Granulocytes Absolute 0.07 #; Lymphocytes # 0.7 10*3/uL (1.4-4.0); Lymphocytes % 10.9 % (21.3-54.2); Mean Corpuscular HGB Conc 33.1 GM/DL (32-36); Mean Corpuscular Hemoglobin 30 PG (27-34); Mean Corpuscular Volume 89.3 FL (87-102); Mean Platelet Volume 11.3 FL (9.6-12.0); Monocytes # 0.4 10*3/uL (0.11-0.8); Monocytes % 5.4 % (1.7-12.7); Neutrophils # 5.6 10*3/uL (1.4-7.4); Neutrophils % 82.4 % (38.7-73.9); Platelet Count 163 T/CUMM (130-400); Red Blood Count 3.18 MC/CUMM (3.8-5.5); Red Cell Distribution Width 16.1 % (9.3-17.3); White Blood Count 6.8 T/CUMM (4-12)
[2018-06-30 10:04] LABS: Hepatitis A Ab IgM Quant 0.15 Index; Hepatitis A Ab IgM Result Negative (Negative); Hepatitis B Core IgM Quant 0.05 Index; Hepatitis B Core IgM Result Negative (Negative); Hepatitis B Surface Ag Result Negative (Negative); Hepatitis C Virus Ab Quant 0.12 Index; Hepatitis C Virus Ab Result Negative (Negative)
[2018-06-30 10:05] LABS: Hepatitis B Surface Ag Quant 0.32 Index
[2018-06-30] MEDS: CALCIUM CARBONATE CHEW 500 MG TABLET PO SCH ×2 (10:29→21:05)
[2018-06-30] MEDS: SODIUM CHLORIDE 23.4% CONC INJ 38.5 MEQ, SODIUM BICARB INJ 100 MEQ in STERILE WATER INJ... IV SCH ×2 (10:29→17:51)
[2018-06-30] MEDS: TRAVOPROST 0.004% OPH SOLN 2.5 ML BOTTLE BOTH EYES SCH (21:05)
[2018-07-01] MEDS: SODIUM CHLORIDE 23.4% CONC INJ 38.5 MEQ, SODIUM BICARB INJ 100 MEQ in STERILE WATER INJ... IV SCH ×3 (05:09→22:10)
[2018-07-01 05:51] LABS: Basophils % 0.3 % (0.0-0.8); Eosinophils # 0.1 10*3/uL (0.0-0.87); Eosinophils % 1.3 % (0.00-10.9); Hematocrit 26.4 VOL% (35.7-47.0); Hemoglobin 8.6 GM/DL (12.0-16.0); Immature Granulocytes % 0.8 %; Immature Granulocytes Absolute 0.06 #; Lymphocytes # 1.5 10*3/uL (1.4-4.0); Lymphocytes % 19.6 % (21.3-54.2); Mean Corpuscular HGB Conc 32.6 GM/DL (32-36); Mean Corpuscular Hemoglobin 29 PG (27-34); Mean Corpuscular Volume 88.6 FL (87-102); Mean Platelet Volume 11.8 FL (9.6-12.0); Monocytes # 0.5 10*3/uL (0.11-0.8); Monocytes % 6.3 % (1.7-12.7); Neutrophils # 5.5 10*3/uL (1.4-7.4); Neutrophils % 71.7 % (38.7-73.9); Platelet Count 174 T/CUMM (130-400); Red Blood Count 2.98 MC/CUMM (3.8-5.5); Red Cell Distribution Width 16.2 % (9.3-17.3); White Blood Count 7.6 T/CUMM (4-12)
[2018-07-01 06:04] LABS: Osmolality,Calculated 294.4 MOS/KG (273-304)
[2018-07-01] MEDS: MEROPENEM 1,000 MG in SODIUM CHLORIDE 0.9% 100 ML IV SCH (10:23)
[2018-07-01] MEDS: levETIRAcetam LIQUID 100 MG/ML 30 ML/BOTTLE PEG SCH ×2 (10:27→16:50)
[2018-07-01] MEDS: LACTOBACILLUS ACIDOPHILUS/BULGARICUS CAPLET PEG SCH ×2 (10:28→21:04)
[2018-07-01] MEDS: CALCIUM CARBONATE CHEW 500 MG TABLET PO SCH ×2 (10:28→21:04)
[2018-07-01] MEDS: ZINC OXIDE 16% PASTE 57 GM TUBE TOP SCH ×2 (10:29→21:05)
[2018-07-01] MEDS: LANSOPRAZOLE ODT 30 MG TABLET PEG SCH (10:29)
[2018-07-01] MEDS: DESITIN 4OZ/NYSTATIN 15 GRAM MIXTURE PASTE TOP SCH ×2 (10:29→21:05)
[2018-07-01] MEDS: ONDANSETRON 4 MG/2 ML VIAL IV PRN ×3 (14:06→21:05)
[2018-07-01] MEDS: TRAVOPROST 0.004% OPH SOLN 2.5 ML BOTTLE BOTH EYES SCH (21:05)
[2018-07-02] MEDS ORDERED: PROMETHAZINE INJ 12.5 MG in SODIUM CHLORIDE 0.9% 50 ML IV ONE (00:28)
[2018-07-02] MEDS: levETIRAcetam LIQUID 100 MG/ML 30 ML/BOTTLE PEG SCH ×3 (00:29→17:23)
[2018-07-02 05:25] LABS: Calcium 7.8 MG/DL (8.5-10.1); Osmolality,Calculated 290.7 MOS/KG (273-304); Potassium 2.6 MMOL/L (3.5-5.1)
[2018-07-02 06:23] LABS: Basophils % 0.4 % (0.0-0.8); Eosinophils # 0.1 10*3/uL (0.0-0.87); Eosinophils % 0.7 % (0.00-10.9); Hematocrit 25.2 VOL% (35.7-47.0); Hemoglobin 8.7 GM/DL (12.0-16.0); Immature Granulocytes % 0.5 %; Immature Granulocytes Absolute 0.04 #; Lymphocytes # 1.5 10*3/uL (1.4-4.0); Lymphocytes % 17.9 % (21.3-54.2); Mean Corpuscular HGB Conc 34.5 GM/DL (32-36); Mean Corpuscular Hemoglobin 30 PG (27-34); Mean Corpuscular Volume 85.4 FL (87-102); Mean Platelet Volume 12.3 FL (9.6-12.0); Monocytes # 0.5 10*3/uL (0.11-0.8); Monocytes % 5.5 % (1.7-12.7); Neutrophils # 6.4 10*3/uL (1.4-7.4); Platelet Count 163 T/CUMM (130-400); Red Blood Count 2.95 MC/CUMM (3.8-5.5); Red Cell Distribution Width 15.8 % (9.3-17.3); White Blood Count 8.5 T/CUMM (4-12)
[2018-07-02] MEDS: ONDANSETRON 4 MG/2 ML VIAL IV PRN ×2 (08:52→16:07)
[2018-07-02] MEDS: MEROPENEM 1,000 MG in SODIUM CHLORIDE 0.9% 100 ML IV SCH (08:58)
[2018-07-02] MEDS: LANSOPRAZOLE ODT 30 MG TABLET PEG SCH (09:02)
[2018-07-02] MEDS: CALCIUM CARBONATE CHEW 500 MG TABLET PO SCH ×2 (09:02→22:59)
[2018-07-02] MEDS: LACTOBACILLUS ACIDOPHILUS/BULGARICUS CAPLET PEG SCH ×2 (09:08→22:57)
[2018-07-02] MEDS: DESITIN 4OZ/NYSTATIN 15 GRAM MIXTURE PASTE TOP SCH ×2 (10:00→22:59)
[2018-07-02] MEDS: ZINC OXIDE 16% PASTE 57 GM TUBE TOP SCH ×2 (10:00→22:58)
[2018-07-02] MEDS: SODIUM CHLORIDE 23.4% CONC INJ 38.5 MEQ, SODIUM BICARB INJ 100 MEQ in STERILE WATER INJ... IV SCH ×2 (10:07→18:14)
[2018-07-02] MEDS ORDERED: GLUCAGON 1 MG VIAL IM PRN (13:08)
[2018-07-02] MEDS ORDERED: DEXTROSE 50% 25 GM/50 ML VIAL IV PRN (13:08)
[2018-07-02] MEDS ORDERED: TUBERCULIN SKIN TEST 0.1 ML SYRINGE INTRADERM ONE (13:54)
[2018-07-02] MEDS ORDERED: POTASSIUM CHLORIDE 20 MEQ/15 ML UDCUP PEG ONE (14:30)
[2018-07-02] MEDS: INSULIN REGULAR 100 UNIT/ML SUBCUT SCH (17:38)
[2018-07-02] MEDS ORDERED: PROMETHAZINE 25 MG/1 ML VIAL IM ONE (17:45)
[2018-07-02] MEDS: TRAVOPROST 0.004% OPH SOLN 2.5 ML BOTTLE BOTH EYES SCH (22:59)
[2018-07-03] MEDS: INSULIN REGULAR 100 UNIT/ML SUBCUT SCH ×4 (00:53→19:13)
[2018-07-03] MEDS: levETIRAcetam LIQUID 100 MG/ML 30 ML/BOTTLE PEG SCH ×3 (00:54→15:58)
[2018-07-03] MEDS: DESITIN 4OZ/NYSTATIN 15 GRAM MIXTURE PASTE TOP SCH ×3 (00:55→21:39)
[2018-07-03] MEDS: ZINC OXIDE 16% PASTE 57 GM TUBE TOP SCH ×3 (00:55→21:38)
[2018-07-03] MEDS: TRAVOPROST 0.004% OPH SOLN 2.5 ML BOTTLE BOTH EYES SCH ×2 (00:55→21:39)
[2018-07-03] MEDS: SODIUM CHLORIDE 23.4% CONC INJ 38.5 MEQ, SODIUM BICARB INJ 100 MEQ in STERILE WATER INJ... IV SCH ×3 (01:05→21:38)
[2018-07-03 06:03] LABS: Basophils % 0.2 % (0.0-0.8); Eosinophils # 0.1 10*3/uL (0.0-0.87); Eosinophils % 0.7 % (0.00-10.9); Hematocrit 25.4 VOL% (35.7-47.0); Hemoglobin 8.7 GM/DL (12.0-16.0); Immature Granulocytes % 0.6 %; Immature Granulocytes Absolute 0.05 #; Lymphocytes # 1.8 10*3/uL (1.4-4.0); Lymphocytes % 21.7 % (21.3-54.2); Mean Corpuscular HGB Conc 34.3 GM/DL (32-36); Mean Corpuscular Hemoglobin 29 PG (27-34); Mean Corpuscular Volume 84.9 FL (87-102); Mean Platelet Volume 11.5 FL (9.6-12.0); Monocytes # 0.5 10*3/uL (0.11-0.8); Monocytes % 5.9 % (1.7-12.7); Neutrophils # 5.8 10*3/uL (1.4-7.4); Neutrophils % 70.9 % (38.7-73.9); Platelet Count 151 T/CUMM (130-400); Red Blood Count 2.99 MC/CUMM (3.8-5.5); Red Cell Distribution Width 15.4 % (9.3-17.3); White Blood Count 8.2 T/CUMM (4-12)
[2018-07-03 06:16] LABS: Calcium 7.5 MG/DL (8.5-10.1); Osmolality,Calculated 293.4 MOS/KG (273-304)
[2018-07-03 06:21] LABS: Potassium 2.5 MMOL/L (3.5-5.1)
[2018-07-03 06:29] LABS: Prealbumin 31.2 MG/DL (20-40)
[2018-07-03] MEDS ORDERED: POTASSIUM CHLORIDE 20 MEQ TABLET PO PRN (06:30)
[2018-07-03] MEDS: MEROPENEM 1,000 MG in SODIUM CHLORIDE 0.9% 100 ML IV SCH (09:11)
[2018-07-03] MEDS: POTASSIUM CHLORIDE 20 MEQ TABLET PO SCH ×2 (09:14→22:37)
[2018-07-03] MEDS: LACTOBACILLUS ACIDOPHILUS/BULGARICUS CAPLET PEG SCH ×2 (09:14→21:37)
[2018-07-03] MEDS: CALCIUM CARBONATE CHEW 500 MG TABLET PO SCH ×3 (09:15→21:40)
[2018-07-03] MEDS: LANSOPRAZOLE ODT 30 MG TABLET PEG SCH (09:15)
[2018-07-03] MEDS ORDERED: POTASSIUM CHLORIDE 20 MEQ/15 ML UDCUP PO ONE (16:00)
[2018-07-03 16:10] LABS: Calcium 7.6 MG/DL (8.5-10.1); Osmolality,Calculated 290.7 MOS/KG (273-304); Potassium 2.6 MMOL/L (3.5-5.1)
[2018-07-04] MEDS: INSULIN REGULAR 100 UNIT/ML SUBCUT SCH ×4 (01:22→18:34)
[2018-07-04] MEDS: ONDANSETRON 4 MG/2 ML VIAL IV PRN ×3 (01:23→18:59)
[2018-07-04] MEDS: levETIRAcetam LIQUID 100 MG/ML 30 ML/BOTTLE PEG SCH ×3 (01:59→17:07)
[2018-07-04 05:57] LABS: Calcium 7.3 MG/DL (8.5-10.1); Osmolality,Calculated 291.5 MOS/KG (273-304); Potassium 2.6 MMOL/L (3.5-5.1)
[2018-07-04] MEDS ORDERED: VANCOMYCIN 50 MG/ML 60 ML/BOTTLE PO SCH (09:00)
[2018-07-04] MEDS ORDERED: ceFAZolin 1,000 MG in SYRINGE 1 EACH IV ONE (09:14)
[2018-07-04] MEDS ORDERED: POTASSIUM CHLORIDE 20 MEQ TABLET PO ONE (09:31)
[2018-07-04] MEDS: SODIUM CHLORIDE 23.4% CONC INJ 38.5 MEQ, SODIUM BICARB INJ 100 MEQ in STERILE WATER INJ... IV SCH (10:05)
[2018-07-04] MEDS: DESITIN 4OZ/NYSTATIN 15 GRAM MIXTURE PASTE TOP SCH ×2 (10:06→20:28)
[2018-07-04] MEDS: CALCIUM CARBONATE CHEW 500 MG TABLET PO SCH ×2 (10:06→20:28)
[2018-07-04] MEDS: ZINC OXIDE 16% PASTE 57 GM TUBE TOP SCH ×2 (10:06→20:28)
[2018-07-04] MEDS: LACTOBACILLUS ACIDOPHILUS/BULGARICUS CAPLET PEG SCH ×2 (11:22→20:28)
[2018-07-04] MEDS: LANSOPRAZOLE ODT 30 MG TABLET PEG SCH (11:36)
[2018-07-04] MEDS ORDERED: LIDOCAINE 1%/EPI INJ 20 ML VIAL ONE (16:05)
[2018-07-04] MEDS ORDERED: HEPARIN 5,000 UNIT/1 ML VIAL ONE (16:05)
[2018-07-04] MEDS ORDERED: ceFAZolin 1,000 MG VIAL ONE (16:37)
[2018-07-04] MEDS ORDERED: SODIUM CHLORIDE 0.9% 250 ML IV ONE (17:25)
[2018-07-04] MEDS ORDERED: MIDAZOLAM 2 MG/2 ML VIAL ONE (17:25)
[2018-07-04] MEDS ORDERED: PROPOFOL 200 MG/20 ML VIAL IV ONE (17:25)
[2018-07-04] MEDS ORDERED: SODIUM CHLORIDE 0.9% 100 ML IV ONE (17:25)
[2018-07-04] MEDS: hydrALAZINE 20 MG/1 ML VIAL IV PRN (18:58)
[2018-07-04] MEDS: TRAVOPROST 0.004% OPH SOLN 2.5 ML BOTTLE BOTH EYES SCH (20:29)
[2018-07-05] MEDS: INSULIN REGULAR 100 UNIT/ML SUBCUT SCH ×4 (00:48→17:33)
[2018-07-05] MEDS: levETIRAcetam LIQUID 100 MG/ML 30 ML/BOTTLE PEG SCH ×3 (01:12→18:05)
[2018-07-05] MEDS: ONDANSETRON 4 MG/2 ML VIAL IV PRN ×3 (01:14→12:28)
[2018-07-05 05:43] LABS: Basophils % 0.3 % (0.0-0.8); Eosinophils # 0.1 10*3/uL (0.0-0.87); Eosinophils % 0.9 % (0.00-10.9); Hematocrit 22.8 VOL% (35.7-47.0); Hemoglobin 7.6 GM/DL (12.0-16.0); Immature Granulocytes % 0.3 %; Immature Granulocytes Absolute 0.03 #; Lymphocytes # 1.8 10*3/uL (1.4-4.0); Lymphocytes % 18.3 % (21.3-54.2); Mean Corpuscular HGB Conc 33.3 GM/DL (32-36); Mean Corpuscular Hemoglobin 29 PG (27-34); Mean Platelet Volume 11.9 FL (9.6-12.0); Monocytes # 0.6 10*3/uL (0.11-0.8); Monocytes % 5.8 % (1.7-12.7); Neutrophils # 7.3 10*3/uL (1.4-7.4); Neutrophils % 74.4 % (38.7-73.9); Platelet Count 119 T/CUMM (130-400); Red Blood Count 2.65 MC/CUMM (3.8-5.5); Red Cell Distribution Width 15.5 % (9.3-17.3); White Blood Count 9.8 T/CUMM (4-12)
[2018-07-05 05:58] LABS: Calcium 7.5 MG/DL (8.5-10.1); Osmolality,Calculated 296.1 MOS/KG (273-304)
[2018-07-05 06:06] LABS: Potassium 2.4 MMOL/L (3.5-5.1)
[2018-07-05] MEDS: POTASSIUM CHLORIDE 20 MEQ TABLET PO PRN ×4 (06:33→21:22)
[2018-07-05] MEDS ORDERED: SODIUM CHLORIDE 0.9% 1,000 ML IV PRN (08:15)
[2018-07-05] MEDS: LACTOBACILLUS ACIDOPHILUS/BULGARICUS CAPLET PEG SCH ×2 (09:10→21:22)
[2018-07-05] MEDS: CALCIUM CARBONATE CHEW 500 MG TABLET PO SCH ×2 (09:10→21:22)
[2018-07-05] MEDS: ZINC OXIDE 16% PASTE 57 GM TUBE TOP SCH ×2 (09:11→21:22)
[2018-07-05] MEDS: LANSOPRAZOLE ODT 30 MG TABLET PEG SCH (09:11)
[2018-07-05] MEDS: DESITIN 4OZ/NYSTATIN 15 GRAM MIXTURE PASTE TOP SCH ×2 (09:11→21:22)
[2018-07-05] MEDS ORDERED: HEPARIN 10,000 UNIT/10 ML VIAL IV SCH (16:30)
[2018-07-05] MEDS: TRAVOPROST 0.004% OPH SOLN 2.5 ML BOTTLE BOTH EYES SCH (21:22)
[2018-07-06] MEDS: INSULIN REGULAR 100 UNIT/ML SUBCUT SCH ×5 (00:20→20:06)
[2018-07-06] MEDS: levETIRAcetam LIQUID 100 MG/ML 30 ML/BOTTLE PEG SCH ×3 (00:20→17:10)
[2018-07-06] MEDS ORDERED: LORazepam 2 MG/1 ML VIAL IV PRN (02:17)
[2018-07-06 07:56] LABS: Basophils % 0.2 % (0.0-0.8); Eosinophils # 0.1 10*3/uL (0.0-0.87); Eosinophils % 1.4 % (0.00-10.9); Hematocrit 31.5 VOL% (35.7-47.0); Immature Granulocytes % 0.5 %; Immature Granulocytes Absolute 0.05 #; Lymphocytes # 1.4 10*3/uL (1.4-4.0); Lymphocytes % 14.4 % (21.3-54.2); Mean Corpuscular HGB Conc 34.9 GM/DL (32-36); Mean Corpuscular Hemoglobin 30 PG (27-34); Mean Corpuscular Volume 86.1 FL (87-102); Mean Platelet Volume 12.9 FL (9.6-12.0); Monocytes # 0.5 10*3/uL (0.11-0.8); Monocytes % 5.6 % (1.7-12.7); Neutrophils # 7.5 10*3/uL (1.4-7.4); Neutrophils % 77.9 % (38.7-73.9); Red Blood Count 3.66 MC/CUMM (3.8-5.5); Red Cell Distribution Width 14.5 % (9.3-17.3); White Blood Count 9.6 T/CUMM (4-12)
[2018-07-06 07:59] LABS: Platelet Count 97 T/CUMM (130-400)
[2018-07-06 08:38] LABS: Hypochromasia 1+; Ovalocytes Slight; Platelet Estimate Decreased
[2018-07-06] MEDS: LACTOBACILLUS ACIDOPHILUS/BULGARICUS CAPLET PEG SCH ×2 (09:13→20:20)
[2018-07-06] MEDS: CALCIUM CARBONATE CHEW 500 MG TABLET PO SCH ×2 (09:13→20:21)
[2018-07-06] MEDS: DESITIN 4OZ/NYSTATIN 15 GRAM MIXTURE PASTE TOP SCH ×2 (09:14→20:21)
[2018-07-06] MEDS: LANSOPRAZOLE ODT 30 MG TABLET PEG SCH (09:14)
[2018-07-06] MEDS: ONDANSETRON 4 MG/2 ML VIAL IV PRN ×3 (09:14→17:54)
[2018-07-06] MEDS: ZINC OXIDE 16% PASTE 57 GM TUBE TOP SCH ×2 (09:18→20:21)
[2018-07-06 09:51] LABS: Calcium 7.8 MG/DL (8.5-10.1); Potassium 2.7 MMOL/L (3.5-5.1)
[2018-07-06] MEDS: POTASSIUM CHLORIDE 20 MEQ TABLET PO PRN ×4 (13:12→20:21)
[2018-07-06] MEDS: hydrALAZINE 20 MG/1 ML VIAL IV PRN (13:58)
[2018-07-06] MEDS: TRAVOPROST 0.004% OPH SOLN 2.5 ML BOTTLE BOTH EYES SCH (20:21)
[2018-07-07] MEDS: levETIRAcetam LIQUID 100 MG/ML 30 ML/BOTTLE PEG SCH ×3 (00:16→21:00)
[2018-07-07 06:31] LABS: Calcium 8.2 MG/DL (8.5-10.1); Osmolality,Calculated 289.8 MOS/KG (273-304); Potassium 3.2 MMOL/L (3.5-5.1); Prealbumin 26.4 MG/DL (20-40)
[2018-07-07] MEDS: LACTOBACILLUS ACIDOPHILUS/BULGARICUS CAPLET PEG SCH ×2 (08:25→20:59)
[2018-07-07] MEDS: CALCIUM CARBONATE CHEW 500 MG TABLET PO SCH ×2 (08:25→20:59)
[2018-07-07] MEDS: LANSOPRAZOLE ODT 30 MG TABLET PEG SCH (08:25)
[2018-07-07] MEDS: INSULIN REGULAR 100 UNIT/ML SUBCUT SCH ×3 (09:09→17:31)
[2018-07-07] MEDS: ZINC OXIDE 16% PASTE 57 GM TUBE TOP SCH ×2 (09:30→21:00)
[2018-07-07] MEDS: DESITIN 4OZ/NYSTATIN 15 GRAM MIXTURE PASTE TOP SCH ×2 (09:30→20:59)
[2018-07-07] MEDS: TRAVOPROST 0.004% OPH SOLN 2.5 ML BOTTLE BOTH EYES SCH (21:00)
[2018-07-08] MEDS: INSULIN REGULAR 100 UNIT/ML SUBCUT SCH ×5 (00:06→22:49)
[2018-07-08] MEDS: hydrALAZINE 20 MG/1 ML VIAL IV PRN (04:08)
[2018-07-08] MEDS: levETIRAcetam LIQUID 100 MG/ML 30 ML/BOTTLE PEG SCH ×3 (04:08→22:49)
[2018-07-08 06:20] LABS: Basophils # 0.1 10*3/uL (0.0-0.2); Basophils % 0.5 % (0.0-0.8); Eosinophils # 0.2 10*3/uL (0.0-0.87); Eosinophils % 1.8 % (0.00-10.9); Hemoglobin 10.7 GM/DL (12.0-16.0); Immature Granulocytes % 0.3 %; Immature Granulocytes Absolute 0.03 #; Lymphocytes # 1.7 10*3/uL (1.4-4.0); Lymphocytes % 17.5 % (21.3-54.2); Mean Corpuscular HGB Conc 33.4 GM/DL (32-36); Mean Corpuscular Hemoglobin 30 PG (27-34); Mean Corpuscular Volume 89.9 FL (87-102); Mean Platelet Volume 12.6 FL (9.6-12.0); Monocytes # 0.5 10*3/uL (0.11-0.8); Monocytes % 4.8 % (1.7-12.7); Neutrophils # 7.4 10*3/uL (1.4-7.4); Neutrophils % 75.1 % (38.7-73.9); Platelet Count 84 T/CUMM (130-400); Red Blood Count 3.56 MC/CUMM (3.8-5.5); Red Cell Distribution Width 14.9 % (9.3-17.3); White Blood Count 9.9 T/CUMM (4-12)
[2018-07-08 06:43] LABS: Calcium 7.9 MG/DL (8.5-10.1); Osmolality,Calculated 280.7 MOS/KG (273-304)
[2018-07-08 06:58] LABS: Hypochromasia 1+; Microcytosis Slight
[2018-07-08 06:59] LABS: Ovalocytes Slight; Platelet Estimate Decreased; Tear Drop Cells Slight
[2018-07-08] MEDS ORDERED: MOISTURIZING CREAM (EUCERIN) 113 GM JAR TOP PRN (09:56)
[2018-07-08] MEDS: ZINC OXIDE 16% PASTE 57 GM TUBE TOP SCH ×2 (09:59→20:40)
[2018-07-08] MEDS: DESITIN 4OZ/NYSTATIN 15 GRAM MIXTURE PASTE TOP SCH ×2 (09:59→22:49)
[2018-07-08] MEDS: CALCIUM CARBONATE CHEW 500 MG TABLET PO SCH ×2 (10:00→22:49)
[2018-07-08] MEDS ORDERED: POTASSIUM CHLORIDE 20 MEQ/15 ML UDCUP PER TUBE ONE (14:14)
[2018-07-08] MEDS: PANTOPRAZOLE 40 MG VIAL IV SCH ×2 (14:18→22:49)
[2018-07-08] MEDS: TRAVOPROST 0.004% OPH SOLN 2.5 ML BOTTLE BOTH EYES SCH (22:49)
[2018-07-08] MEDS: CARBIDOPA/LEVODOPA 25-100 MG TABLET PO SCH (22:49)
[2018-07-09] MEDS: ONDANSETRON 4 MG/2 ML VIAL IV PRN (01:08)
[2018-07-09] MEDS: levETIRAcetam LIQUID 100 MG/ML 30 ML/BOTTLE PEG SCH (05:05)
[2018-07-09] MEDS ORDERED: LANSOPRAZOLE ODT 30 MG TABLET PEG SCH (09:00)
[2018-07-09] MEDS ORDERED: CARVEDILOL 12.5 MG TABLET PEG SCH (09:30)
[2018-07-09 09:59] LABS: Calcium 7.7 MG/DL (8.5-10.1); Osmolality,Calculated 277.8 MOS/KG (273-304); Potassium 3.2 MMOL/L (3.5-5.1)
[2018-07-09] MEDS: CALCIUM CARBONATE CHEW 500 MG TABLET PO SCH (10:17)
[2018-07-09] MEDS: CARBIDOPA/LEVODOPA 25-100 MG TABLET PO SCH (10:18)
[2018-07-09] MEDS: DESITIN 4OZ/NYSTATIN 15 GRAM MIXTURE PASTE TOP SCH (10:18)
[2018-07-09] MEDS: ZINC OXIDE 16% PASTE 57 GM TUBE TOP SCH (10:18)
[2018-07-09] MEDS: INSULIN REGULAR 100 UNIT/ML SUBCUT SCH ×2 (10:31→12:21)
[2018-07-09] MEDS ORDERED: POTASSIUM CHLORIDE 20 MEQ/15 ML UDCUP PER TUBE ONE (10:56)
[2018-07-09 14:29] VITALS: BP 132/79
[2018-07-10] MEDS ORDERED: amLODIPine 5 MG TABLET PO SCH (09:00)
== END 2018-07-09 14:05 | DRG 871 ==
LOC: EDUNIT# → N.ED 12:52 → N.EDINP 16:24 → SUATTDRO 16:24 → N.ICU 17:17 → N.5E 07-02 02:34
PROVIDERS: ADMIT Internal Medicine; ATTEND Emergency Medicine

== ENCOUNTER 2019-01-27 11:14 | Inpatient (IN) ==
[2019-01-27 13:31] LABS: Basophils % 0.2 % (0.0-0.8); Eosinophils # 0.1 10*3/uL (0.0-0.87); Eosinophils % 2.5 % (0.00-10.9); Hemoglobin 11.2 GM/DL (12.0-16.0); Immature Granulocytes % 0.2 %; Immature Granulocytes Absolute 0.01 #; Lymphocytes # 1.5 10*3/uL (1.4-4.0); Lymphocytes % 28.1 % (21.3-54.2); Mean Corpuscular HGB Conc 30.3 GM/DL (32-36); Mean Corpuscular Volume 97.9 FL (87-102); Mean Platelet Volume 10.4 FL (9.6-12.0); Monocytes % 5.8 % (1.7-12.7); Neutrophils % 63.2 % (38.7-73.9); Platelet Count 213 T/CUMM (130-400); Red Blood Count 3.78 MC/CUMM (3.8-5.5); Red Cell Distribution Width 14.5 % (9.3-17.3); White Blood Count 5.2 T/CUMM (4-12)
[2019-01-27 13:40] LABS: INR 0.9; PT Patient Result 10.1 SECS; Partial Thromboplastin Time < 21.0 SECS (0-40)
[2019-01-27 13:49] LABS: Calcium 9.3 MG/DL (8.5-10.1)
[2019-01-27] MEDS ORDERED: VANCOMYCIN INJ 1,000 MG in SODIUM CHLORIDE 0.9% 250 ML IV STA (16:05)
[2019-01-27] MEDS ORDERED: PROMETHAZINE 25 MG TABLET PO PRN (17:12)
[2019-01-27] MEDS ORDERED: DEXTROSE 10% 25 GM/250 ML BAG IV PRN (17:14)
[2019-01-27] MEDS ORDERED: GLUCAGON 1 MG VIAL IM PRN (17:14)
[2019-01-27] MEDS ORDERED: PANTOPRAZOLE 40 MG TABLET PO SCH (20:00)
[2019-01-27] MEDS ORDERED: CICLOPIROX TOP SCH (20:00)
[2019-01-27] MEDS ORDERED: SODIUM HYPOCHLORITE 0.25% IRRIG 473 ML BOTTLE TOP SCH (20:00)
[2019-01-27] MEDS ORDERED: SIMVASTATIN 20 MG TABLET PO SCH (20:00)
[2019-01-27] MEDS ORDERED: FERROUS SULFATE 325 MG TABLET PO SCH (20:00)
[2019-01-27] MEDS ORDERED: LACTOBACILLUS ACIDOPHILUS/BULGARICUS CAPLET PO SCH (20:00)
[2019-01-27] MEDS ORDERED: AMINO ACIDS PROTEIN HYDROLYS PEG SCH (20:00)
[2019-01-27] MEDS ORDERED: CALCIUM CARBONATE CHEW 500 MG TABLET PO SCH (20:00)
[2019-01-27] MEDS ORDERED: [UNRECOGNIZED DRUG - OTHER] PO SCH (20:00)
[2019-01-27] MEDS ORDERED: CARVEDILOL 12.5 MG TABLET PO SCH (20:00)
[2019-01-27] MEDS ORDERED: TRAVOPROST 0.004% OPH SOLN 2.5 ML BOTTLE BOTH EYES SCH (20:00)
[2019-01-27] MEDS ORDERED: LACOSAMIDE PEG SCH (20:00)
[2019-01-27] MEDS: CLINDAMYCIN INJ 600 MG in PREMIX 1 EACH IV SCH (20:48)
[2019-01-27] MEDS: ZINC OXIDE 16% PASTE 57 GM TUBE TOP SCH (20:50)
[2019-01-27] MEDS: INSULIN REGULAR 100 UNIT/ML SUBCUT SCH (20:52)
[2019-01-27] MEDS: metroNIDAZOLE INJ 500 MG in PREMIX 1 EACH IV SCH (21:51)
[2019-01-27] MEDS: CHOLESTYRAMINE/ASPARTAME 4 GM PACK PO SCH (21:51)
[2019-01-28] MEDS: VANCOMYCIN 50 MG/ML 60 ML/BOTTLE PO SCH ×3 (00:05→13:49)
[2019-01-28] MEDS: CLINDAMYCIN INJ 600 MG in PREMIX 1 EACH IV SCH (01:18)
[2019-01-28] MEDS: metroNIDAZOLE INJ 500 MG in PREMIX 1 EACH IV SCH (04:52)
[2019-01-28] MEDS ORDERED: VANCOMYCIN INJ 750 MG in SODIUM CHLORIDE 0.9% 250 ML IV PRN (07:21)
[2019-01-28 07:23] LABS: Basophils % 0.4 % (0.0-0.8); Eosinophils # 0.2 10*3/uL (0.0-0.87); Eosinophils % 3.4 % (0.00-10.9); Hematocrit 32.4 VOL% (35.7-47.0); Immature Granulocytes % 0.2 %; Immature Granulocytes Absolute 0.01 #; Lymphocytes # 1.3 10*3/uL (1.4-4.0); Mean Corpuscular HGB Conc 30.9 GM/DL (32-36); Mean Corpuscular Volume 95.9 FL (87-102); Mean Platelet Volume 10.7 FL (9.6-12.0); Monocytes % 7.3 % (1.7-12.7); Neutrophils % 63.7 % (38.7-73.9); Platelet Count 215 T/CUMM (130-400); Red Blood Count 3.38 MC/CUMM (3.8-5.5); Red Cell Distribution Width 14.5 % (9.3-17.3); White Blood Count 5.4 T/CUMM (4-12)
[2019-01-28 07:54] LABS: Albumin 2.3 G/DL (3.4-5.0); Bilirubin,Total 0.8 MG/DL (0.2-1.0); Calcium 9.2 MG/DL (8.5-10.1); Osmolality,Calculated 299.4 MOS/KG (273-304); Total Protein 6.3 G/DL (6.4-8.3)
[2019-01-28] MEDS ORDERED: LIDOCAINE 5% PATCH TRANSDERM SCH (08:00)
[2019-01-28 08:19] VITALS: BP 164/81
[2019-01-28] MEDS: INSULIN REGULAR 100 UNIT/ML SUBCUT SCH ×2 (08:41→13:49)
[2019-01-28] MEDS: CHOLESTYRAMINE/ASPARTAME 4 GM PACK PO SCH ×2 (08:41→13:49)
[2019-01-28] MEDS: CARBIDOPA/LEVODOPA 25-100 MG TABLET PO SCH ×2 (08:42→13:49)
[2019-01-28] MEDS: ZINC OXIDE 16% PASTE 57 GM TUBE TOP SCH (08:51)
[2019-01-28] MEDS ORDERED: CARVEDILOL 12.5 MG TABLET PO SCH (09:00)
[2019-01-28] MEDS ORDERED: LACTOBACILLUS ACIDOPHILUS/BULGARICUS CAPLET PO SCH (09:00)
[2019-01-28] MEDS ORDERED: PANTOPRAZOLE 40 MG TABLET PO SCH (09:00)
[2019-01-28] MEDS ORDERED: FERROUS SULFATE 325 MG TABLET PO SCH (09:00)
[2019-01-28] MEDS ORDERED: amLODIPine 5 MG TABLET PO SCH (09:00)
[2019-01-28] MEDS ORDERED: LACOSAMIDE 50 MG TABLET PO SCH (09:00)
[2019-01-28] MEDS ORDERED: CALCIUM CARBONATE CHEW 500 MG TABLET PO SCH (09:00)
[2019-01-28] MEDS ORDERED: CHOLECALCIFEROL 1,000 UNIT TABLET PO SCH (09:00)
[2019-01-28] MEDS ORDERED: levETIRAcetam 500 MG TABLET PO SCH (09:00)
[2019-01-28] MEDS ORDERED: VANCOMYCIN INJ 750 MG in SODIUM CHLORIDE 0.9% 250 ML IV ONE (17:00)
[2019-01-28] MEDS ORDERED: SIMVASTATIN 20 MG TABLET PO SCH (21:00)
== END 2019-01-28 14:17 | disposition hospice, home (50) | DRG 602 ==
LOC: EDUNIT# → EDBD → N.ED 11:14 → N.EDINP 17:50 → N.2E 18:35
PROVIDERS: ADMIT Internal Medicine; ATTEND Internal Medicine

== ENCOUNTER 2020-02-13 06:06 | Inpatient (IN) ==
[2020-02-13] MEDS ORDERED: ONDANSETRON 4 MG/2 ML VIAL IV STA ×2 (06:29→11:15)
[2020-02-13] MEDS ORDERED: ONDANSETRON 4 MG/2 ML VIAL ONE (06:29)
[2020-02-13] MEDS ORDERED: hydrALAZINE 20 MG/1 ML VIAL IV STA (06:30)
[2020-02-13 06:52] LABS: Basophils % 0.2 % (0.0-0.8); Hematocrit 43.8 VOL% (35.7-47.0); Hemoglobin 13.6 GM/DL (12.0-16.0); Immature Granulocytes % 0.3 %; Immature Granulocytes Absolute 0.02 #; Lymphocytes # 0.7 10*3/uL (1.4-4.0); Lymphocytes % 11.7 % (21.3-54.2); Mean Corpuscular HGB Conc 31.1 GM/DL (32-36); Mean Corpuscular Volume 99.5 FL (87-102); Mean Platelet Volume 10.1 FL (9.6-12.0); Monocytes % 4.2 % (1.7-12.7); Neutrophils % 83.6 % (38.7-73.9); Platelet Count 226 T/CUMM (130-400); Red Cell Distribution Width 16.9 % (9.3-17.3); White Blood Count 6.2 T/CUMM (4-12)
[2020-02-13 06:59] LABS: Calcium 10.3 MG/DL (8.5-10.1)
[2020-02-13] MEDS ORDERED: METOPROLOL TARTRATE 5 MG/5 ML VIAL IV PRN (12:52)
[2020-02-13] MEDS ORDERED: ONDANSETRON 4 MG/2 ML VIAL IV PRN (12:54)
[2020-02-13] MEDS: ENALAPRIL 2.5 MG/2 ML VIAL IV SCH ×2 (14:13→20:33)
[2020-02-13] MEDS: FUROSEMIDE 40 MG/4 ML VIAL IV SCH ×2 (14:16→20:32)
[2020-02-13] MEDS: LACOSAMIDE 50 MG TABLET PEG SCH ×2 (14:20→20:34)
[2020-02-13] MEDS: carvediloL 12.5 MG TABLET PEG SCH ×2 (14:20→20:34)
[2020-02-13] MEDS: INSULIN LISPRO 100 UNIT/ML SUBCUT SCH ×2 (16:30→20:34)
[2020-02-13] MEDS: CLOZAPINE 150 MG PEG SCH (20:53)
[2020-02-14] MEDS: ENALAPRIL 2.5 MG/2 ML VIAL IV SCH ×2 (01:40→08:24)
[2020-02-14 04:33] LABS: Basophils % 0.4 % (0.0-0.8); Eosinophils % 0.2 % (0.00-10.9); Hematocrit 39.1 VOL% (35.7-47.0); Hemoglobin 12.1 GM/DL (12.0-16.0); Immature Granulocytes % 0.2 %; Immature Granulocytes Absolute 0.02 #; Lymphocytes # 1.2 10*3/uL (1.4-4.0); Lymphocytes % 11.2 % (21.3-54.2); Mean Corpuscular HGB Conc 30.9 GM/DL (32-36); Mean Corpuscular Volume 100.3 FL (87-102); Mean Platelet Volume 10.1 FL (9.6-12.0); Monocytes % 6.7 % (1.7-12.7); Neutrophils % 81.3 % (38.7-73.9); Platelet Count 240 T/CUMM (130-400); Red Cell Distribution Width 17.2 % (9.3-17.3); White Blood Count 10.4 T/CUMM (4-12)
[2020-02-14 04:51] LABS: Albumin 3.4 G/DL (3.4-5.0); Bilirubin,Total 1.2 MG/DL (0.2-1.0); Calcium 9.6 MG/DL (8.5-10.1); Total Protein 8.3 G/DL (6.4-8.3)
[2020-02-14] MEDS: INSULIN LISPRO 100 UNIT/ML SUBCUT SCH ×4 (07:37→21:28)
[2020-02-14] MEDS ORDERED: SIMETHICONE CHEW 80 MG TABLET PO PRN (08:13)
[2020-02-14] MEDS ORDERED: ENALAPRIL 2.5 MG/2 ML VIAL IV PRN (08:15)
[2020-02-14] MEDS: APIXABAN 2.5 MG TABLET PEG SCH (08:22)
[2020-02-14] MEDS: carvediloL 12.5 MG TABLET PEG SCH ×2 (08:22→21:28)
[2020-02-14] MEDS: levETIRAcetam 500 MG TABLET PEG SCH (08:22)
[2020-02-14] MEDS: amLODIPine 5 MG TABLET PO SCH (08:22)
[2020-02-14] MEDS: FUROSEMIDE 40 MG/4 ML VIAL IV SCH ×2 (08:24→16:52)
[2020-02-14] MEDS: LACOSAMIDE 50 MG TABLET PEG SCH ×2 (09:18→21:28)
[2020-02-14] MEDS ORDERED: SIMVASTATIN 20 MG TABLET PO SCH (21:00)
[2020-02-14] MEDS: CLOZAPINE 150 MG PEG SCH (21:27)
[2020-02-15 06:04] LABS: Basophils % 0.3 % (0.0-0.8); Eosinophils # 0.1 10*3/uL (0.0-0.87); Eosinophils % 0.8 % (0.00-10.9); Hemoglobin 11.4 GM/DL (12.0-16.0); Immature Granulocytes % 0.3 %; Immature Granulocytes Absolute 0.03 #; Lymphocytes # 1.8 10*3/uL (1.4-4.0); Lymphocytes % 20.1 % (21.3-54.2); Mean Corpuscular HGB Conc 30.8 GM/DL (32-36); Mean Corpuscular Volume 99.7 FL (87-102); Monocytes % 8.1 % (1.7-12.7); Neutrophils % 70.4 % (38.7-73.9); Platelet Count 220 T/CUMM (130-400); Red Blood Count 3.71 MC/CUMM (3.8-5.5); White Blood Count 8.9 T/CUMM (4-12)
[2020-02-15 06:27] LABS: Calcium 9.3 MG/DL (8.5-10.1); Osmolality,Calculated 285.2 MOS/KG (273-304)
[2020-02-15] MEDS: FUROSEMIDE 40 MG/4 ML VIAL IV SCH (10:00)
[2020-02-15] MEDS: carvediloL 12.5 MG TABLET PEG SCH (10:00)
[2020-02-15] MEDS: APIXABAN 2.5 MG TABLET PEG SCH (10:00)
[2020-02-15] MEDS: amLODIPine 5 MG TABLET PO SCH (10:00)
[2020-02-15] MEDS: levETIRAcetam 500 MG TABLET PEG SCH (10:00)
[2020-02-15] MEDS: LACOSAMIDE 50 MG TABLET PEG SCH (10:01)
[2020-02-15] MEDS: INSULIN LISPRO 100 UNIT/ML SUBCUT SCH ×2 (10:02→14:27)
[2020-02-15 12:51] VITALS: BP 118/59
== END 2020-02-15 14:47 | disposition home or self-care (01) | DRG 304 ==
LOC: EDBD → EDUNIT# → N.ED 06:06 → SUPCPDRO 10:57 → N.EDINP 10:57 → SUATTDRO 10:57 → N.ICU 13:20 → N.TELES 02-14 12:17
PROVIDERS: ADMIT Internal Medicine; ATTEND Internal Medicine

== ENCOUNTER 2020-03-19 13:31 | Inpatient (IN) ==
[2020-03-19 14:24] LABS: Basophils % 0.3 % (0.0-0.8); Eosinophils # 0.1 10*3/uL (0.0-0.87); Eosinophils % 1.3 % (0.00-10.9); Hematocrit 29.2 VOL% (35.7-47.0); Immature Granulocytes % 0.3 %; Immature Granulocytes Absolute 0.02 #; Lymphocytes # 1.4 10*3/uL (1.4-4.0); Lymphocytes % 20.5 % (21.3-54.2); Mean Corpuscular HGB Conc 30.8 GM/DL (32-36); Mean Corpuscular Volume 100.7 FL (87-102); Mean Platelet Volume 10.6 FL (9.6-12.0); Monocytes % 6.4 % (1.7-12.7); Neutrophils % 71.2 % (38.7-73.9); Platelet Count 122 T/CUMM (130-400); Red Cell Distribution Width 15.7 % (9.3-17.3)
[2020-03-19 14:46] LABS: Albumin 3.3 G/DL (3.4-5.0); Bilirubin,Total 0.5 MG/DL (0.2-1.0); Calcium 9.3 MG/DL (8.5-10.1); Osmolality,Calculated 288.4 MOS/KG (273-304)
[2020-03-19] MEDS ORDERED: GLUCAGON 1 MG VIAL IM PRN (16:51)
[2020-03-19] MEDS ORDERED: DEXTROSE 50% 25 GM/50 ML VIAL IV PRN (16:51)
[2020-03-19] MEDS ORDERED: ACETAMINOPHEN 325 MG TABLET PO PRN (16:51)
[2020-03-19 17:28] LABS: ABG Base Excess 0.8 MMOL/L (-2.5-2.5); ABG HCO3 25.1 MMOL/L (20-26); ABG Oxygen Saturation 96.7 % (95-100); ABG PH 7.374 (7.35-7.45); ABG PO2 90.8 MM HG (80-95); ABG TCO2 24.3 MMOL/L (23-27)
[2020-03-19] MEDS ORDERED: POLYETHYLENE GLYCOL POWDER 17 GM PACK PO SCH (20:00)
[2020-03-19] MEDS ORDERED: CHOLESTYRAMINE ASPARTAME 4 GM PO SCH (21:00)
[2020-03-19] MEDS ORDERED: LACOSAMIDE 10 MG/ML PO SCH (21:00)
[2020-03-19] MEDS: TRAVOPROST 0.004% OPH SOLN 2.5 ML BOTTLE BOTH EYES SCH (22:27)
[2020-03-19] MEDS: SIMVASTATIN 20 MG TABLET PO SCH (22:27)
[2020-03-19] MEDS: FERROUS SULFATE 325 MG TABLET PO SCH (22:27)
[2020-03-19] MEDS: LACTOBACILLUS ACIDOPHILUS/BULGARICUS CAPLET PO SCH (22:27)
[2020-03-20] MEDS: LACOSAMIDE 50 MG TABLET PO SCH ×3 (00:02→21:26)
[2020-03-20] MEDS: OMEPRAZOLE ODT 20 MG TABLET PO SCH ×2 (05:21→16:20)
[2020-03-20] MEDS: CHOLECALCIFEROL 1,000 UNIT TABLET PO SCH (08:25)
[2020-03-20] MEDS: LACTOBACILLUS ACIDOPHILUS/BULGARICUS CAPLET PO SCH ×2 (08:25→21:26)
[2020-03-20] MEDS: APIXABAN 2.5 MG TABLET PO SCH (08:25)
[2020-03-20] MEDS: levETIRAcetam 500 MG TABLET PO SCH (08:25)
[2020-03-20] MEDS: LIDOCAINE 5% PATCH TRANSDERM SCH (08:25)
[2020-03-20] MEDS: FERROUS SULFATE 325 MG TABLET PO SCH ×2 (08:25→21:26)
[2020-03-20] MEDS: amLODIPine 5 MG TABLET PO SCH (08:25)
[2020-03-20 09:44] LABS: Basophils % 0.3 % (0.0-0.8); Eosinophils # 0.1 10*3/uL (0.0-0.87); Eosinophils % 1.8 % (0.00-10.9); Hematocrit 26.6 VOL% (35.7-47.0); Hemoglobin 8.6 GM/DL (12.0-16.0); Immature Granulocytes % 0.3 %; Immature Granulocytes Absolute 0.02 #; Lymphocytes # 1.8 10*3/uL (1.4-4.0); Lymphocytes % 28.5 % (21.3-54.2); Mean Corpuscular HGB Conc 32.3 GM/DL (32-36); Mean Platelet Volume 10.2 FL (9.6-12.0); Monocytes % 7.5 % (1.7-12.7); Neutrophils % 61.6 % (38.7-73.9); Platelet Count 131 T/CUMM (130-400); Red Blood Count 2.77 MC/CUMM (3.8-5.5); Red Cell Distribution Width 15.6 % (9.3-17.3); White Blood Count 6.2 T/CUMM (4-12)
[2020-03-20 10:12] LABS: Osmolality,Calculated 289.4 MOS/KG (273-304); Risk Ratio 1.57; VLDL CHOLESTEROL 15.4 MG/DL
[2020-03-20] MEDS: DOCUSATE SODIUM 100 MG CAPSULE PO SCH (21:26)
[2020-03-20] MEDS: SIMVASTATIN 20 MG TABLET PO SCH (21:27)
[2020-03-20] MEDS: TRAVOPROST 0.004% OPH SOLN 2.5 ML BOTTLE BOTH EYES SCH (21:27)
[2020-03-20] MEDS: carvediloL 12.5 MG TABLET PO SCH (21:27)
[2020-03-20] MEDS: POLYETHYLENE GLYCOL POWDER 17 GM PACK PO SCH (21:27)
[2020-03-21 06:17] LABS: Basophils % 0.3 % (0.0-0.8); Eosinophils # 0.1 10*3/uL (0.0-0.87); Eosinophils % 1.7 % (0.00-10.9); Hematocrit 25.1 VOL% (35.7-47.0); Hemoglobin 7.9 GM/DL (12.0-16.0); Immature Granulocytes % 0.3 %; Immature Granulocytes Absolute 0.02 #; Lymphocytes # 1.8 10*3/uL (1.4-4.0); Lymphocytes % 31.2 % (21.3-54.2); Mean Corpuscular HGB Conc 31.5 GM/DL (32-36); Mean Corpuscular Volume 97.3 FL (87-102); Mean Platelet Volume 11.2 FL (9.6-12.0); Monocytes % 7.3 % (1.7-12.7); Neutrophils % 59.2 % (38.7-73.9); Platelet Count 131 T/CUMM (130-400); Red Blood Count 2.58 MC/CUMM (3.8-5.5); Red Cell Distribution Width 15.6 % (9.3-17.3); White Blood Count 5.8 T/CUMM (4-12)
[2020-03-21] MEDS: OMEPRAZOLE ODT 20 MG TABLET PO SCH ×2 (06:17→16:02)
[2020-03-21 06:39] LABS: Calcium 8.7 MG/DL (8.5-10.1); Osmolality,Calculated 297.1 MOS/KG (273-304)
[2020-03-21] MEDS: amLODIPine 5 MG TABLET PO SCH (09:00)
[2020-03-21] MEDS: levETIRAcetam 500 MG TABLET PO SCH (09:00)
[2020-03-21] MEDS: LIDOCAINE 5% PATCH TRANSDERM SCH (09:32)
[2020-03-21] MEDS: APIXABAN 2.5 MG TABLET PO SCH (10:48)
[2020-03-21] MEDS: CHOLECALCIFEROL 1,000 UNIT TABLET PO SCH (10:48)
[2020-03-21] MEDS: POLYETHYLENE GLYCOL POWDER 17 GM PACK PO SCH ×2 (10:49→21:51)
[2020-03-21] MEDS: DOCUSATE SODIUM 100 MG CAPSULE PO SCH ×2 (10:49→21:51)
[2020-03-21] MEDS: LACOSAMIDE 50 MG TABLET PO SCH ×2 (10:49→21:53)
[2020-03-21] MEDS: LACTOBACILLUS ACIDOPHILUS/BULGARICUS CAPLET PO SCH ×2 (10:49→21:53)
[2020-03-21] MEDS: FERROUS SULFATE 325 MG TABLET PO SCH ×2 (10:49→21:52)
[2020-03-21] MEDS: traMADol 50 MG TABLET PO SCH ×2 (16:02→21:52)
[2020-03-21] MEDS: SIMVASTATIN 20 MG TABLET PO SCH (21:53)
[2020-03-21] MEDS: carvediloL 12.5 MG TABLET PO SCH (21:56)
[2020-03-21] MEDS: TRAVOPROST 0.004% OPH SOLN 2.5 ML BOTTLE BOTH EYES SCH (22:12)
[2020-03-22] MEDS: ONDANSETRON 4 MG/2 ML VIAL IV PRN ×2 (00:42→10:55)
[2020-03-22 04:57] LABS: Basophils % 0.4 % (0.0-0.8); Eosinophils # 0.1 10*3/uL (0.0-0.87); Eosinophils % 1.3 % (0.00-10.9); Hematocrit 26.5 VOL% (35.7-47.0); Hemoglobin 8.6 GM/DL (12.0-16.0); Immature Granulocytes % 0.5 %; Immature Granulocytes Absolute 0.03 #; Lymphocytes # 1.3 10*3/uL (1.4-4.0); Lymphocytes % 22.3 % (21.3-54.2); Mean Corpuscular HGB Conc 32.5 GM/DL (32-36); Mean Platelet Volume 10.6 FL (9.6-12.0); Monocytes % 8.8 % (1.7-12.7); Neutrophils % 66.7 % (38.7-73.9); Platelet Count 143 T/CUMM (130-400); Red Blood Count 2.79 MC/CUMM (3.8-5.5); Red Cell Distribution Width 15.3 % (9.3-17.3); White Blood Count 5.6 T/CUMM (4-12)
[2020-03-22 05:22] LABS: Calcium 8.9 MG/DL (8.5-10.1)
[2020-03-22] MEDS: OMEPRAZOLE ODT 20 MG TABLET PO SCH ×3 (06:04→18:16)
[2020-03-22] MEDS: APIXABAN 2.5 MG TABLET PO SCH (09:59)
[2020-03-22] MEDS: CHOLECALCIFEROL 1,000 UNIT TABLET PO SCH (09:59)
[2020-03-22] MEDS: LACTOBACILLUS ACIDOPHILUS/BULGARICUS CAPLET PO SCH ×2 (09:59→22:55)
[2020-03-22] MEDS: FERROUS SULFATE 325 MG TABLET PO SCH ×2 (10:00→22:54)
[2020-03-22] MEDS: LACOSAMIDE 50 MG TABLET PO SCH ×2 (10:00→22:53)
[2020-03-22] MEDS: traMADol 50 MG TABLET PO SCH ×4 (10:00→22:54)
[2020-03-22] MEDS: DOCUSATE SODIUM 100 MG CAPSULE PO SCH ×2 (10:00→22:54)
[2020-03-22] MEDS: POLYETHYLENE GLYCOL POWDER 17 GM PACK PO SCH ×4 (10:00→22:55)
[2020-03-22] MEDS: LIDOCAINE 5% PATCH TRANSDERM SCH (10:11)
[2020-03-22] MEDS: levETIRAcetam 500 MG TABLET PO SCH (10:55)
[2020-03-22] MEDS ORDERED: HEPARIN/NACL 0.9% 2 UNITS/ML 2,000 ML IV ONE (13:33)
[2020-03-22] MEDS ORDERED: DEXTROSE 50% 25 GM/50 ML VIAL IV PRN (16:17)
[2020-03-22] MEDS ORDERED: GLUCAGON 1 MG VIAL IM PRN (16:17)
[2020-03-22] MEDS ORDERED: SEVOFLURANE 1 UNIT/15 MINUTE INH ONE (16:46)
[2020-03-22] MEDS ORDERED: propofoL 200 MG/20 ML VIAL IV ONE (16:47)
[2020-03-22] MEDS ORDERED: SUCCINYLCHOLINE 200 MG/10 ML VIAL ONE (16:48)
[2020-03-22] MEDS ORDERED: ONDANSETRON 4 MG/2 ML VIAL ONE (16:48)
[2020-03-22] MEDS ORDERED: ROCURONIUM 100 MG/10 ML VIAL IV ONE (16:48)
[2020-03-22] MEDS ORDERED: NEOSTIGMINE 10 MG/10 ML VIAL ONE (16:48)
[2020-03-22] MEDS ORDERED: GLYCOPYRROLATE 0.4 MG/2 ML VIAL ONE (16:48)
[2020-03-22] MEDS ORDERED: LIDOCAINE 2% 5 ML VIAL ONE (16:48)
[2020-03-22] MEDS ORDERED: METOCLOPRAMIDE 10 MG/2 ML VIAL ONE (16:48)
[2020-03-22] MEDS ORDERED: PHENYLEPHRINE DRIP 20 MG/250 ML PREMIX IV ONE (16:48)
[2020-03-22] MEDS ORDERED: SODIUM CHLORIDE 0.9% 1,000 ML IV ONE (16:48)
[2020-03-22] MEDS: ASPIRIN EC 81 MG TABLET PO SCH (18:16)
[2020-03-22] MEDS: SIMVASTATIN 20 MG TABLET PO SCH (22:54)
[2020-03-22] MEDS: TRAVOPROST 0.004% OPH SOLN 2.5 ML BOTTLE BOTH EYES SCH (22:55)
[2020-03-23] MEDS: OMEPRAZOLE ODT 20 MG TABLET PO SCH (05:57)
[2020-03-23] MEDS ORDERED: HEPARIN LOCK FLUSH 500 UNIT/5 ML SYRINGE IV PRN (07:35)
[2020-03-23] MEDS ORDERED: HEPARIN LOCK FLUSH 500 UNIT/5 ML SYRINGE IV SCH (09:00)
[2020-03-23] MEDS: APIXABAN 2.5 MG TABLET PO SCH (09:01)
[2020-03-23] MEDS: traMADol 50 MG TABLET PO SCH (09:02)
[2020-03-23] MEDS: DOCUSATE SODIUM 100 MG CAPSULE PO SCH (09:02)
[2020-03-23] MEDS: FERROUS SULFATE 325 MG TABLET PO SCH (09:02)
[2020-03-23] MEDS: levETIRAcetam 500 MG TABLET PO SCH (09:02)
[2020-03-23] MEDS: CHOLECALCIFEROL 1,000 UNIT TABLET PO SCH (09:02)
[2020-03-23] MEDS: amLODIPine 5 MG TABLET PO SCH (09:02)
[2020-03-23] MEDS: LACTOBACILLUS ACIDOPHILUS/BULGARICUS CAPLET PO SCH (09:02)
[2020-03-23] MEDS: LIDOCAINE 5% PATCH TRANSDERM SCH (09:03)
[2020-03-23] MEDS: ASPIRIN EC 81 MG TABLET PO SCH (09:03)
[2020-03-23] MEDS ORDERED: LIDOCAINE/PRILOCAINE CREAM 5 GM TUBE TOP SCH (09:30)
[2020-03-23] MEDS: LACOSAMIDE 50 MG TABLET PO SCH (10:02)
[2020-03-23] MEDS: POLYETHYLENE GLYCOL POWDER 17 GM PACK PO SCH (10:03)
[2020-03-23 11:25] VITALS: BP 143/94
[2020-03-24] MEDS ORDERED: LINACLOTIDE 145 MCG CAPSULE PO SCH (07:30)
== END 2020-03-23 14:51 | DRG 981 ==
LOC: EDBD → EDUNIT# → N.ED 13:31 → N.EDINP 16:49 → N.5E 18:05
PROVIDERS: ADMIT Hospitalist; ATTEND Hospitalist

== ENCOUNTER 2022-05-08 14:08 | Observation (INO) ==
[~2022-05-08 14:08] MED LIST: LORazepam 2 MG/1 ML VIAL IV STA; levETIRAcetam 500 MG/5 ML VIAL IV STA
[2022-05-08 14:20] LABS: Basophils % 0.4 % (0.0-0.8); Eosinophils # 0.2 10*3/uL (0.0-0.87); Eosinophils % 1.8 % (0.00-10.9); Hematocrit 37.9 VOL% (35.7-47.0); Hemoglobin 12.2 GM/DL (12.0-16.0); Immature Granulocytes % 0.4 %; Immature Granulocytes Absolute 0.03 #; Lymphocytes # 1.4 10*3/uL (1.4-4.0); Lymphocytes % 16.4 % (21.3-54.2); Mean Corpuscular HGB Conc 32.2 GM/DL (32-36); Mean Corpuscular Volume 98.2 FL (87-102); Mean Platelet Volume 10.2 FL (9.6-12.0); Monocytes # 0.4 10*3/uL (0.11-0.8); Monocytes % 4.3 % (1.7-12.7); Neutrophils % 76.7 % (38.7-73.9); Platelet Count 173 T/CUMM (130-400); Red Blood Count 3.86 MC/CUMM (3.8-5.5); Red Cell Distribution Width 14.5 % (9.3-17.3); White Blood Count 8.3 T/CUMM (4-12)
[2022-05-08 14:46] LABS: Alanine Aminotransferase 33 U/L (13-56); Albumin 3.3 G/DL (3.4-5.0); Alkaline Phosphatase 112 U/L (45-117); Aspartate Amino Transferase 22 U/L (0-37); Blood Urea Nitrogen 81 MG/DL (7-18); Calcium 9.1 MG/DL (8.5-10.1); Carbon Dioxide 29 MMOL/L (21-32); Chloride 94 MMOL/L (98-107); Glucose 175 MG/DL (74-106); Osmolality,Calculated 287.8 MOS/KG (273-304); Potassium 4.2 MMOL/L (3.5-5.1); Sodium 130 MMOL/L (136-145); Total Protein 7.8 G/DL (6.4-8.2)
[2022-05-08] MEDS ORDERED: LORazepam 2 MG/1 ML VIAL IV STA (15:28)
[2022-05-08] MEDS ORDERED: ONDANSETRON 4 MG/2 ML VIAL IV PRN (16:00)
[2022-05-08] MEDS ORDERED: ACETAMINOPHEN 325 MG TABLET PO PRN (16:00)
[2022-05-08] MEDS ORDERED: hydrALAZINE 20 MG/1 ML VIAL IV PRN (16:00)
[2022-05-08] MEDS ORDERED: hydrALAZINE 20 MG/1 ML VIAL IV STA (16:01)
[2022-05-08] MEDS ORDERED: DEXTROSE 10% 250 ML BAG IV PRN (16:02)
[2022-05-08] MEDS ORDERED: GLUCAGON 1 MG VIAL IM PRN (16:02)
[2022-05-08] MEDS ORDERED: LORazepam 2 MG/1 ML VIAL IV PRN (16:15)
[2022-05-08] MEDS: INSULIN LISPRO 100 UNIT/ML SUBCUT SCH ×2 (16:56→22:15)
[2022-05-08] MEDS ORDERED: SIMETHICONE CHEW 80 MG TABLET PO PRN (18:13)
[2022-05-08] MEDS ORDERED: SIMVASTATIN 20 MG TABLET PO SCH (21:00)
[2022-05-08] MEDS ORDERED: HEPARIN 5,000 UNIT/1 ML VIAL SUBCUT SCH (21:00)
[2022-05-08] MEDS ORDERED: amLODIPine 5 MG TABLET PO ONE (21:00)
[2022-05-08] MEDS: levETIRAcetam 500 MG TABLET PO SCH (22:15)
[2022-05-09] MEDS: LACOSAMIDE 10 MG/ML PEG SCH ×2 (00:24→08:47)
[2022-05-09 05:54] LABS: Basophils % 0.4 % (0.0-0.8); Eosinophils # 0.3 10*3/uL (0.0-0.87); Eosinophils % 3.5 % (0.00-10.9); Hemoglobin 11.7 GM/DL (12.0-16.0); Immature Granulocytes % 0.1 %; Immature Granulocytes Absolute 0.01 #; Lymphocytes # 1.5 10*3/uL (1.4-4.0); Lymphocytes % 19.3 % (21.3-54.2); Mean Corpuscular HGB Conc 33.4 GM/DL (32-36); Mean Corpuscular Volume 96.4 FL (87-102); Mean Platelet Volume 10.6 FL (9.6-12.0); Monocytes # 0.4 10*3/uL (0.11-0.8); Monocytes % 5.1 % (1.7-12.7); Neutrophils % 71.6 % (38.7-73.9); Platelet Count 168 T/CUMM (130-400); Red Blood Count 3.63 MC/CUMM (3.8-5.5); Red Cell Distribution Width 14.7 % (9.3-17.3); White Blood Count 7.6 T/CUMM (4-12)
[2022-05-09 06:10] LABS: Albumin 3.1 G/DL (3.4-5.0); Bilirubin,Total 0.5 MG/DL (0.20-1.00); Osmolality,Calculated 288.5 MOS/KG (273-304); Potassium 3.9 MMOL/L (3.5-5.1); Risk Ratio 1.71; Total Protein 7.3 G/DL (6.4-8.2); VLDL Cholesterol 14.6 MG/DL
[2022-05-09] MEDS ORDERED: APIXABAN 2.5 MG TABLET PO SCH ×2 (08:00→09:00)
[2022-05-09] MEDS: INSULIN LISPRO 100 UNIT/ML SUBCUT SCH ×3 (08:03→17:02)
[2022-05-09] MEDS: levETIRAcetam 500 MG TABLET PO SCH (08:43)
[2022-05-09] MEDS ORDERED: amLODIPine 5 MG TABLET PO SCH (09:00)
[2022-05-09] MEDS ORDERED: TIMOLOL 0.25% OPH SOLN 5 ML BOTTLE BOTH EYES SCH (09:00)
[2022-05-09] MEDS ORDERED: FERROUS SULFATE 300 MG/5 ML UDCUP PO SCH (09:00)
[2022-05-09] MEDS ORDERED: amLODIPine 5 MG TABLET PO ONE (10:37)
[2022-05-09] MEDS ORDERED: carvediloL 12.5 MG TABLET PO SCH ×2 (10:37→21:00)
[2022-05-09 17:31] VITALS: BP 169/93
== END 2022-05-09 17:55 ==
LOC: N.EDINP 14:08 → N.ED 14:08 → N.TELES 22:50
PROVIDERS: ADMIT Internal Medicine; ATTEND Internal Medicine

== ENCOUNTER 2022-05-10 15:33 | Observation (INO) ==
[2022-05-10 16:25] LABS: Basophils % 0.2 % (0.0-0.8); Eosinophils # 0.1 10*3/uL (0.0-0.87); Eosinophils % 0.6 % (0.00-10.9); Hemoglobin 12.1 GM/DL (12.0-16.0); Immature Granulocytes % 0.4 %; Immature Granulocytes Absolute 0.04 #; Lymphocytes # 0.8 10*3/uL (1.4-4.0); Lymphocytes % 8.1 % (21.3-54.2); Mean Corpuscular HGB Conc 31.8 GM/DL (32-36); Mean Corpuscular Volume 99.5 FL (87-102); Mean Platelet Volume 9.5 FL (9.6-12.0); Monocytes # 0.6 10*3/uL (0.11-0.8); Monocytes % 5.7 % (1.7-12.7); Platelet Count 171 T/CUMM (130-400); Red Blood Count 3.82 MC/CUMM (3.8-5.5); Red Cell Distribution Width 14.8 % (9.3-17.3); White Blood Count 10.3 T/CUMM (4-12)
[2022-05-10] MEDS ORDERED: SODIUM CHLORIDE 0.9% 250 ML IV STA (16:27)
[2022-05-10 16:43] LABS: Albumin 3.4 G/DL (3.4-5.0); Bilirubin,Total 0.6 MG/DL (0.20-1.00); Osmolality,Calculated 283.1 MOS/KG (273-304); Potassium 3.5 MMOL/L (3.5-5.1); Total Protein 8.3 G/DL (6.4-8.2)
[2022-05-10] MEDS ORDERED: levETIRAcetam 500 MG/5 ML VIAL IV STA (17:38)
[2022-05-10] MEDS ORDERED: hydrALAZINE 20 MG/1 ML VIAL IV PRN (19:00)
[2022-05-10] MEDS ORDERED: ACETAMINOPHEN 325 MG TABLET PO PRN (19:00)
[2022-05-10] MEDS ORDERED: ONDANSETRON 4 MG/2 ML VIAL IV PRN (19:00)
[2022-05-10] MEDS ORDERED: ACETAMINOPHEN 500 MG TABLET PO PRN (19:03)
[2022-05-10] MEDS ORDERED: SIMETHICONE CHEW 80 MG TABLET PO PRN (19:03)
[2022-05-10] MEDS: LACOSAMIDE 50 MG TABLET PEG SCH (22:37)
[2022-05-10] MEDS: FERROUS SULFATE 300 MG/5 ML UDCUP PO SCH (22:37)
[2022-05-10] MEDS: SIMVASTATIN 20 MG TABLET PO SCH (22:37)
[2022-05-10] MEDS: SODIUM CHLORIDE 0.65% NASAL SPRAY 45 ML BOTTLE BOTH NARES SCH (22:38)
[2022-05-10] MEDS: TIMOLOL 0.25% OPH SOLN 5 ML BOTTLE BOTH EYES SCH (22:38)
[2022-05-10] MEDS: CLOZAPINE 100 MG PO SCH (22:38)
[2022-05-10] MEDS: [UNRECOGNIZED DRUG - OTHER] TOP SCH (22:38)
[2022-05-10] MEDS: OLOPATADINE 0.1% OPH SOLN 5 ML BOTTLE BOTH EYES SCH (22:38)
[2022-05-11 07:36] LABS: Basophils % 0.5 % (0.0-0.8); Eosinophils # 0.1 10*3/uL (0.0-0.87); Eosinophils % 0.9 % (0.00-10.9); Hemoglobin 12.5 GM/DL (12.0-16.0); Immature Granulocytes % 0.2 %; Immature Granulocytes Absolute 0.02 #; Lymphocytes # 1.6 10*3/uL (1.4-4.0); Lymphocytes % 18.1 % (21.3-54.2); Mean Corpuscular HGB Conc 32.1 GM/DL (32-36); Mean Corpuscular Volume 99.2 FL (87-102); Mean Platelet Volume 10.5 FL (9.6-12.0); Monocytes # 0.4 10*3/uL (0.11-0.8); Monocytes % 4.9 % (1.7-12.7); Neutrophils % 75.4 % (38.7-73.9); Platelet Count 184 T/CUMM (130-400); Red Blood Count 3.93 MC/CUMM (3.8-5.5); White Blood Count 8.8 T/CUMM (4-12)
[2022-05-11 08:15] LABS: Albumin 3.9 G/DL (3.4-5.0); Bilirubin,Total 0.6 MG/DL (0.20-1.00); Calcium 9.3 MG/DL (8.5-10.1); Osmolality,Calculated 278.4 MOS/KG (273-304); Potassium 5.1 MMOL/L (3.5-5.1); Risk Ratio 1.87; Thyroid Stimulating Hormone 1.6 uIU/ml (0.358-3.74); Total Protein 8.6 G/DL (6.4-8.2)
[2022-05-11] MEDS ORDERED: amLODIPine 10 MG TABLET PO SCH (09:00)
[2022-05-11] MEDS: FERROUS SULFATE 300 MG/5 ML UDCUP PO SCH ×2 (09:50→21:39)
[2022-05-11] MEDS: APIXABAN 2.5 MG TABLET PO SCH (09:50)
[2022-05-11] MEDS: LIDOCAINE 5% PATCH TRANSDERM SCH (09:50)
[2022-05-11] MEDS: LACOSAMIDE 50 MG TABLET PEG SCH ×2 (09:51→21:39)
[2022-05-11] MEDS: levETIRAcetam 500 MG TABLET PO SCH ×2 (09:51→21:42)
[2022-05-11] MEDS: PANTOPRAZOLE 40 MG TABLET PO SCH (09:51)
[2022-05-11] MEDS: OLOPATADINE 0.1% OPH SOLN 5 ML BOTTLE BOTH EYES SCH ×2 (09:54→21:38)
[2022-05-11] MEDS: SODIUM CHLORIDE 0.65% NASAL SPRAY 45 ML BOTTLE BOTH NARES SCH ×2 (09:54→21:38)
[2022-05-11] MEDS: TIMOLOL 0.25% OPH SOLN 5 ML BOTTLE BOTH EYES SCH ×2 (09:54→21:38)
[2022-05-11] MEDS: [UNRECOGNIZED DRUG - OTHER] TOP SCH ×2 (09:55→21:44)
[2022-05-11] MEDS: CHOLESTYRAMINE 4 GM PACK PEG SCH (12:18)
[2022-05-11] MEDS ORDERED: carvediloL 12.5 MG TABLET PO SCH (21:00)
[2022-05-11] MEDS: SIMVASTATIN 20 MG TABLET PO SCH (21:39)
[2022-05-11] MEDS: CLOZAPINE 100 MG PO SCH (21:44)
[2022-05-12 04:57] LABS: Basophils % 0.6 % (0.0-0.8); Eosinophils # 0.1 10*3/uL (0.0-0.87); Eosinophils % 1.1 % (0.00-10.9); Hemoglobin 10.9 GM/DL (12.0-16.0); Immature Granulocytes % 0.3 %; Immature Granulocytes Absolute 0.02 #; Mean Corpuscular HGB Conc 32.1 GM/DL (32-36); Mean Corpuscular Volume 100.3 FL (87-102); Mean Platelet Volume 9.9 FL (9.6-12.0); Monocytes # 0.5 10*3/uL (0.11-0.8); Monocytes % 7.4 % (1.7-12.7); Neutrophils % 63.6 % (38.7-73.9); Platelet Count 159 T/CUMM (130-400); Red Blood Count 3.39 MC/CUMM (3.8-5.5); Red Cell Distribution Width 15.1 % (9.3-17.3); White Blood Count 7.2 T/CUMM (4-12)
[2022-05-12 05:30] LABS: Albumin 3.2 G/DL (3.4-5.0); Bilirubin,Total 0.4 MG/DL (0.20-1.00); Calcium 9.1 MG/DL (8.5-10.1); Osmolality,Calculated 287.1 MOS/KG (273-304); Potassium 3.8 MMOL/L (3.5-5.1); Total Protein 7.2 G/DL (6.4-8.2)
[2022-05-12] MEDS: SODIUM CHLORIDE 0.65% NASAL SPRAY 45 ML BOTTLE BOTH NARES SCH (13:44)
[2022-05-12] MEDS: TIMOLOL 0.25% OPH SOLN 5 ML BOTTLE BOTH EYES SCH (13:44)
[2022-05-12] MEDS: FERROUS SULFATE 300 MG/5 ML UDCUP PO SCH (13:44)
[2022-05-12] MEDS: OLOPATADINE 0.1% OPH SOLN 5 ML BOTTLE BOTH EYES SCH (13:44)
[2022-05-12] MEDS: LIDOCAINE 5% PATCH TRANSDERM SCH (13:45)
[2022-05-12] MEDS: LACOSAMIDE 50 MG TABLET PEG SCH (13:47)
[2022-05-12] MEDS: PANTOPRAZOLE 40 MG TABLET PO SCH (13:47)
[2022-05-12] MEDS: APIXABAN 2.5 MG TABLET PO SCH (13:47)
[2022-05-12] MEDS: levETIRAcetam 500 MG TABLET PO SCH (13:47)
[2022-05-12] MEDS: CHOLESTYRAMINE 4 GM PACK PEG SCH (13:47)
[2022-05-12] MEDS: [UNRECOGNIZED DRUG - OTHER] TOP SCH (13:48)
[2022-05-12 14:05] VITALS: BP 106/54
== END 2022-05-12 16:10 ==
LOC: N.ED 15:33 → N.EDINP 15:33 → N.TELEN 19:40
PROVIDERS: ADMIT Internal Medicine; ATTEND Internal Medicine

== ENCOUNTER 2022-07-27 09:45 | Inpatient (IN) ==
[2022-07-27] MEDS ORDERED: levETIRAcetam 500 MG/5 ML VIAL IV ONE (09:57)
[2022-07-27] MEDS ORDERED: LORazepam 2 MG/1 ML VIAL ONE (09:57)
[2022-07-27] MEDS ORDERED: levETIRAcetam 500 MG/5 ML VIAL IV STA (09:58)
[2022-07-27] MEDS ORDERED: LORazepam 2 MG/1 ML VIAL IV STA ×2 (09:58→10:23)
[2022-07-27 10:17] LABS: Basophils % 0.3 % (0.0-0.8); Eosinophils # 0.1 10*3/uL (0.0-0.87); Eosinophils % 1.1 % (0.00-10.9); Hematocrit 31.5 VOL% (35.7-47.0); Hemoglobin 10.4 GM/DL (12.0-16.0); Immature Granulocytes % 0.3 %; Immature Granulocytes Absolute 0.02 #; Lymphocytes % 15.3 % (21.3-54.2); Mean Corpuscular Volume 98.4 FL (87-102); Mean Platelet Volume 9.4 FL (9.6-12.0); Monocytes # 0.4 10*3/uL (0.11-0.8); Monocytes % 6.3 % (1.7-12.7); Neutrophils % 76.7 % (38.7-73.9); Platelet Count 159 T/CUMM (130-400); White Blood Count 6.2 T/CUMM (4-12)
[2022-07-27] MEDS ORDERED: LABETALOL 20 MG/4 ML SYRINGE IV ONE (10:23)
[2022-07-27] MEDS ORDERED: LABETALOL 20 MG/4 ML SYRINGE IV STA ×2 (10:23→12:32)
[2022-07-27 10:36] LABS: Calcium 9.1 MG/DL (8.5-10.1); Osmolality,Calculated 272.7 MOS/KG (273-304); Potassium 3.3 MMOL/L (3.5-5.1)
[2022-07-27 10:55] LABS: Platelet Estimate Normal
[2022-07-27 10:56] LABS: Anisocytosis 1+; Macrocytosis 1+
[2022-07-27] MEDS ORDERED: ONDANSETRON 4 MG/2 ML VIAL IV PRN (12:54)
[2022-07-27] MEDS ORDERED: ACETAMINOPHEN 325 MG TABLET PO PRN (12:54)
[2022-07-27] MEDS ORDERED: hydrALAZINE 20 MG/1 ML VIAL IV PRN (12:54)
[2022-07-27] MEDS ORDERED: LORazepam 2 MG/1 ML VIAL IV PRN (12:59)
[2022-07-27] MEDS ORDERED: POTASSIUM CHLORIDE 20 MEQ TABLET PO ONE (13:00)
[2022-07-27] MEDS ORDERED: ALBUTEROL/IPRATROPIUM 3 ML NEB RESP TX PRN (13:22)
[2022-07-27] MEDS: INSULIN LISPRO 100 UNIT/ML SUBCUT SCH ×2 (18:25→20:29)
[2022-07-27] MEDS: TIMOLOL 0.25% OPH SOLN 5 ML BOTTLE BOTH EYES SCH (20:28)
[2022-07-27] MEDS: SODIUM CHLORIDE 0.65% NASAL SPRAY 45 ML BOTTLE BOTH NARES SCH (20:28)
[2022-07-27] MEDS: SIMVASTATIN 20 MG TABLET PEG SCH (20:28)
[2022-07-27] MEDS: BACILLUS COAGULANS CAPLET PEG SCH (20:28)
[2022-07-27] MEDS: LACOSAMIDE 50 MG TABLET PEG SCH (20:29)
[2022-07-27] MEDS: CARBIDOPA/LEVODOPA 25-100 MG TABLET PEG SCH (20:29)
[2022-07-27] MEDS: OMEPRAZOLE ODT 20 MG TABLET PEG SCH (20:29)
[2022-07-27] MEDS ORDERED: HEPARIN 5,000 UNIT/1 ML VIAL SUBCUT SCH (21:00)
[2022-07-27] MEDS ORDERED: CLOZAPINE 100 MG PEG SCH (21:00)
[2022-07-27] MEDS ORDERED: carvediloL 12.5 MG TABLET PEG SCH (21:00)
[2022-07-28 04:43] LABS: Basophils % 0.5 % (0.0-0.8); Eosinophils # 0.2 10*3/uL (0.0-0.87); Eosinophils % 2.4 % (0.00-10.9); Hematocrit 27.1 VOL% (35.7-47.0); Immature Granulocytes % 0.3 %; Immature Granulocytes Absolute 0.02 #; Lymphocytes # 1.7 10*3/uL (1.4-4.0); Lymphocytes % 27.2 % (21.3-54.2); Mean Corpuscular HGB Conc 31.7 GM/DL (32-36); Mean Corpuscular Volume 102.7 FL (87-102); Mean Platelet Volume 9.9 FL (9.6-12.0); Monocytes # 0.5 10*3/uL (0.11-0.8); Monocytes % 7.3 % (1.7-12.7); Neutrophils % 62.3 % (38.7-73.9); Platelet Count 135 T/CUMM (130-400); Red Blood Count 2.64 MC/CUMM (3.8-5.5); Red Cell Distribution Width 14.8 % (9.3-17.3); White Blood Count 6.2 T/CUMM (4-12)
[2022-07-28 04:52] LABS: Hemoglobin 8.6 GM/DL (12.0-16.0)
[2022-07-28 05:03] LABS: Hypochromia Slight; Platelet Estimate Normal
[2022-07-28 05:05] LABS: Risk Ratio 1.49; VLDL Cholesterol 12.8 MG/DL
[2022-07-28 05:18] LABS: Calcium 8.2 MG/DL (8.5-10.1); Osmolality,Calculated 279.4 MOS/KG (273-304); Thyroid Stimulating Hormone 1.15 uIU/ml (0.358-3.74)
[2022-07-28] MEDS ORDERED: POTASSIUM CHLORIDE 20 MEQ TABLET PO ONE (07:50)
[2022-07-28] MEDS ORDERED: PANTOPRAZOLE 40 MG TABLET PO SCH (09:00)
[2022-07-28] MEDS ORDERED: HydrOXYzine PAMOATE 25 MG CAPSULE PEG SCH (11:00)
[2022-07-28] MEDS ORDERED: CHOLESTYRAMINE 4 GM PACK PEG SCH (12:00)
[2022-07-28] MEDS: INSULIN LISPRO 100 UNIT/ML SUBCUT SCH ×4 (13:05→22:12)
[2022-07-28] MEDS: BACILLUS COAGULANS CAPLET PEG SCH ×2 (14:17→22:09)
[2022-07-28] MEDS: FERROUS SULFATE 300 MG/5 ML UDCUP PEG SCH (14:17)
[2022-07-28] MEDS: APIXABAN 2.5 MG TABLET PEG SCH (14:17)
[2022-07-28] MEDS: amLODIPine 10 MG TABLET PEG SCH (14:17)
[2022-07-28] MEDS: CARBIDOPA/LEVODOPA 25-100 MG TABLET PEG SCH ×3 (14:18→22:09)
[2022-07-28] MEDS: OMEPRAZOLE ODT 20 MG TABLET PEG SCH ×2 (14:18→22:10)
[2022-07-28] MEDS: SODIUM CHLORIDE 0.65% NASAL SPRAY 45 ML BOTTLE BOTH NARES SCH ×2 (14:30→22:17)
[2022-07-28] MEDS: NON-FORMULARY MEDICATION (Olopatadine [Pataday Once Daily Relief] 0.2 % Drops) BOTH EYES SCH (14:30)
[2022-07-28] MEDS: LIDOCAINE 5% PATCH TRANSDERM SCH (14:30)
[2022-07-28] MEDS: TIMOLOL 0.25% OPH SOLN 5 ML BOTTLE BOTH EYES SCH ×2 (14:30→22:17)
[2022-07-28] MEDS: LACOSAMIDE 50 MG TABLET PEG SCH ×2 (15:07→22:08)
[2022-07-28] MEDS: CHOLESTYRAMINE 4 GM PACK PEG SCH ×2 (15:30→22:14)
[2022-07-28] MEDS ORDERED: CLOZAPINE 100 MG PEG SCH (21:00)
[2022-07-28] MEDS: SIMVASTATIN 20 MG TABLET PEG SCH (22:09)
[2022-07-29 05:10] LABS: Basophils % 0.5 % (0.0-0.8); Eosinophils # 0.1 10*3/uL (0.0-0.87); Eosinophils % 2.4 % (0.00-10.9); Hematocrit 27.8 VOL% (35.7-47.0); Hemoglobin 8.8 GM/DL (12.0-16.0); Immature Granulocytes % 0.2 %; Immature Granulocytes Absolute 0.01 #; Lymphocytes # 1.5 10*3/uL (1.4-4.0); Lymphocytes % 25.6 % (21.3-54.2); Mean Corpuscular HGB Conc 31.7 GM/DL (32-36); Mean Corpuscular Volume 102.6 FL (87-102); Mean Platelet Volume 9.2 FL (9.6-12.0); Monocytes # 0.4 10*3/uL (0.11-0.8); Monocytes % 6.7 % (1.7-12.7); Neutrophils % 64.6 % (38.7-73.9); Platelet Count 142 T/CUMM (130-400); Red Blood Count 2.71 MC/CUMM (3.8-5.5); Red Cell Distribution Width 14.7 % (9.3-17.3); White Blood Count 5.82 T/CUMM (4-12)
[2022-07-29 05:33] LABS: Calcium 8.6 MG/DL (8.5-10.1); Osmolality,Calculated 276.8 MOS/KG (273-304); Potassium 3.4 MMOL/L (3.5-5.1)
[2022-07-29 05:40] LABS: Hypochromia Slight; Platelet Estimate Normal
[2022-07-29] MEDS ORDERED: POTASSIUM BICARB EFFERVESCENT 20 MEQ TAB.EFF PEG ONE (08:00)
[2022-07-29] MEDS: LACOSAMIDE 50 MG TABLET PEG SCH (10:14)
[2022-07-29] MEDS: amLODIPine 10 MG TABLET PEG SCH (10:15)
[2022-07-29] MEDS: BACILLUS COAGULANS CAPLET PEG SCH (10:15)
[2022-07-29] MEDS: CARBIDOPA/LEVODOPA 25-100 MG TABLET PEG SCH (10:16)
[2022-07-29] MEDS: APIXABAN 2.5 MG TABLET PEG SCH (10:16)
[2022-07-29] MEDS: OMEPRAZOLE ODT 20 MG TABLET PEG SCH (10:16)
[2022-07-29] MEDS: LIDOCAINE 5% PATCH TRANSDERM SCH (10:17)
[2022-07-29] MEDS: FERROUS SULFATE 300 MG/5 ML UDCUP PEG SCH (10:17)
[2022-07-29] MEDS: INSULIN LISPRO 100 UNIT/ML SUBCUT SCH ×2 (10:18→12:32)
[2022-07-29] MEDS: TIMOLOL 0.25% OPH SOLN 5 ML BOTTLE BOTH EYES SCH (10:18)
[2022-07-29] MEDS: SODIUM CHLORIDE 0.65% NASAL SPRAY 45 ML BOTTLE BOTH NARES SCH (10:18)
[2022-07-29] MEDS: NON-FORMULARY MEDICATION (Olopatadine [Pataday Once Daily Relief] 0.2 % Drops) BOTH EYES SCH (10:18)
[2022-07-29] MEDS: CHOLESTYRAMINE 4 GM PACK PEG SCH (11:00)
[2022-07-29 12:28] VITALS: BP 134/87
== END 2022-07-29 13:14 | DRG 100 ==
LOC: EDUNIT# 09:45 → EDBD 09:45 → N.ED 09:45 → N.EDINP 12:54 → N.3E 16:47
PROVIDERS: ADMIT Hospitalist; ATTEND Hospitalist